=== PATIENT | female | born 2000 | race Caucasian/White ===

== ENCOUNTER 2022-07-30 08:26 | Emergency (ER) | payer SELFPAY ==
[2022-07-30 08:28] VITALS: BP 119/57; PULSE 63; RESP 16; TEMP 36.2; O2SAT 100
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
[2022-07-30 09:31] VITALS: BP 112/65; PULSE 72; RESP 20; O2SAT 100
== END 2022-07-30 09:33 | disposition home or self-care (01) ==
PROVIDERS: Emergency Provider Emergency Medicine
DX: T19.2XXA Foreign body in vulva and vagina, initial encounter (principal)
CPT/HCPCS: 99284

== ENCOUNTER 2024-04-09 11:42 | Emergency (ER) | payer MEDICAID, SELFPAY ==
[2024-04-09 11:44] VITALS: BP 107/81; PULSE 72; RESP 17; TEMP 36.5; O2SAT 100
--- NOTE | 2024-04-09 12:42 | ED.GENADULT ---
HPI - General Adult General Chief complaint: Nausea/Vomiting/Diarrhea Stated complaint: n/v, 9 weeks Time Seen by Provider: 04/09/24 12:01 History of Present Illness HPI narrative: This is a 23-year-old female at approximately weeks gestation presenting with nausea and vomiting in . Patient states that she frequently has nausea and vomiting has had go to the emergency room 4 times for fluid resuscitation. She intermittently takes all of her antiemetics with varying degrees of success. These include vitamin B6, doxylamine Zofran and Reglan. Patient denies fevers chills or diarrhea. Patient states she drinks 240 oz [place] per day. She denies any abdominal pain vaginal bleeding or discharge. She had an ultrasound earlier today confirming intrauterine and heart rate. Related Data Home Medications Medication Instructions Recorded Confirmed metoclopramide HCl 10 mg tablet mg 04/09/24 04/09/24 vitamin with calcium tablet 04/09/24 no.72-iron 27 mg-folic acid 1 mg tablet (WesTab Plus) pyridoxine (vitamin B6) 25 mg mg 04/09/24 tablet (Vitamin B-6) Allergies Allergy/AdvReac Type Severity Reaction Status Date / Time No Known Allergies Allergy Verified 04/09/24 12:26 [facility] Past Medical History Medical History (Updated 04/09/24 @ 14:06 by Ronaldo Adkins MD) No active medical problems Social History Social History (Updated 07/30/22 @ 09:23 by Tali Lauren PA-C) Smoking status: Never smoker Exam Narrative: APPEARANCE: No apparent distress. Very well-appearing, in good spirits Head: atraumatic. Moist mucous membranes EYES: EOMI, NOSE: Atraumatic NECK: Trachea midline RESPIRATORY: No increased rate of breathing clear to auscultation CARDIOVASCULAR: Not tachycardic ABDOMINAL: Non-distended soft nontender MUSCULOSKELETAl: No obvious deformities NEURO: Alert. Moving 4/4 extremities SKIN:: Warm, dry. Normal color PSYCHIATRIC: Normal affect Course Vital Signs Vital signs: Vital Signs Temperature 97.7 F 04/09/24 11:44 Pulse Rate 72 04/09/24 11:44 Respiratory Rate 17 04/09/24 11:44 Blood Pressure 107/81 04/09/24 11:44 Pulse Oximetry 100 04/09/24 11:44 Oxygen Delivery Room Air 04/09/24 11:44 Temperature 97.7 F 04/09/24 11:44 Pulse Rate 72 04/09/24 11:44 Respiratory Rate 17 04/09/24 11:44 Blood Pressure 107/81 04/09/24 11:44 Pulse Oximetry 100 04/09/24 11:44 Oxygen Delivery Room Air 04/09/24 11:44 Medical Decision Making MDM Narrative Medical decision making narrative: -Course: 23-year-old female presenting with nausea/vomiting . She is requesting IV fluids and Reglan and Benadryl. These were provided. Patient was given more prescriptions for antiemetics and encouraged to use them. Your indicative of infection. Treated with Keflex. Patient discharged with OBGYN follow-up. -DDX includes but is not limited to: Nausea and vomiting of , hyperemesis gravidarum, -Co-morbidities complicating care: -Independent interpretation of studies: Labs reviewed. Urine with +3 ketones, +3 glucose, 11-20 white blood cells and +1 leuk esterase. Patient be treated for UTI. -Interventions: 2 L D5 LR, Reglan, Benadryl -Shared decision making / Disposition: Discharged -RX: Rectal Phenergan, Keflex Vital Signs Vital Signs: Vital Signs Temperature 97.7 F 04/09/24 11:44 Pulse Rate 72 04/09/24 11:44 Respiratory Rate 04/09/24 11:44 Blood Pressure 107/81 04/09/24 11:44 Pulse Oximetry 100 04/09/24 11:44 Oxygen Delivery Room Air 04/09/24 11:44 Temperature 97.7 F 04/09/24 11:44 Pulse Rate 72 04/09/24 11:44 Respiratory Rate 04/09/24 11:44 Blood Pressure 107/81 04/09/24 11:44 Pulse Oximetry 100 04/09/24 11:44 Oxygen Delivery Room Air 04/09/24 11:44 Lab Data 04/09/24 12:51 04/09/24 12:51 Labs:
[2024-04-09 13:00] LABS: Basophils Percent Auto 0.3 % (0.2-1.2); Eosinophils Percent Auto 0.2 % (0-4.4); Hemoglobin 13.6 g/dL (12.0-15.0); Immature Granulocyte Absolute 0.05 K/mm3 (0.00-0.031); Immature Granulocyte Percent A 0.5 % (0-0.5); Lymphocytes Absolute Auto 1.62 K/mm3 (0.9-3.2); Lymphocytes Percent Auto 16.8 % (18.3-44.2); Mean Corpuscular Hemoglobin 29.6 pg (26-34); Mean Platelet Volume 10.2 fl (7.4-10.4); Monocytes Absolute Auto 0.6 K/mm3 (0.1-0.6); Monocytes Percent Auto 5.7 % (2.6-8.5); Neutrophils Absolute Auto 7.4 K/mm3 (1.3-6.7); Neutrophils Percent Auto 76.5 % (45.5-73.1); Platelet Count Result 246 k/mm3 (150-375); Red Cell Distribution Width 12.6 % (11.5-14.5); White Blood Count 9.6 K/mm3 (4.5-10.0)
[2024-04-09] MEDS: DEXTROSE 5%/LACTATED RINGERS 2,000 ML 999 ML IV CONT (13:00)
[2024-04-09] MEDS: diphenhydrAMINE HCl INJ 50 MG/ML VIAL 25 MG IV PUSH (13:01)
[2024-04-09] MEDS: PROCHLORPERAZINE EDISYLATE 10 MG/2 ML VIAL IV PUSH (13:01)
[2024-04-09 13:10] LABS: Alanine Aminotransferase 23 U/L (6-35); Albumin Level 4.6 g/dL (3.5-5.1); Alkaline Phosphatase 42 U/L (38-126); Anion Gap 12 mmol/L (4-12); Aspartate Amino Transferase 25 U/L (14-36); Bilirubin,Total 0.5 mg/dL (0.2-1.3); Blood Urea Nitrogen 8 mg/dL (7-17); Calcium 9.4 mg/dL (8.4-10.2); Carbon Dioxide 23 mmol/L (22-30); Chloride 98 mmol/L (98-107); Estimated CRCL calculation 140 ml/min; Estimated Glomerular Filt Rate > 60; Glucose 86 mg/dL (65-110); Potassium 4.2 mmol/L (3.4-5.0); Sodium 133 mmol/L (137-145)
[2024-04-09 13:52] LABS: Add Urine Microscopic? YES; Appearance Urine Cloudy (Clear); Bacteria Urine 1+ /hpf; Bilirubin Urine Negative (Negative); Blood Urine Negative (Negative); Color Urine Yellow (Yellow); Glucose Urine UA 3+ mg/dL (Negative); Ketones Urine 3+ mg/dL (Negative); Leukocyte Esterase Ur 1+ LEU/UL (Negative); Need Manual Microscopic Reviewed; Nitrate Urine Negative (Negative); Non Pathogenic Casts 0-2; Protein Urine Trace mg/dL (Negative); RBC Urine 0-2 /hpf (0-2); Specific Grav Ur 1.028 (1.001-1.035); Squamous Epithelial Cell Urine Many /hpf (Few); Urobilinogen Urine 0.2 mg/dL (<2.0)
[2024-04-09 14:20] VITALS: BP 114/63; PULSE 76; RESP 16; O2SAT 100
== END 2024-04-09 14:20 | disposition home or self-care (01) ==
PROVIDERS: Emergency Provider Emergency Medicine
DX: O21.9 Vomiting of pregnancy, unspecified (principal); O23.41 Unspecified infection of urinary tract in pregnancy, first trimester; N39.0 Urinary tract infection, site not specified; Z3A.09 9 weeks gestation of pregnancy
CPT/HCPCS: 36415; 80053; 81001; 85025; 87086; 87088; 96361; 96374; 96375; 99284; J0780; J1200; J7121

== ENCOUNTER 2024-08-24 17:11 | Observation (INO) | payer OTHER, SELFPAY ==
[2024-08-24 17:37] VITALS: BP 112/54; PULSE 72
[2024-08-24 17:49] LABS: Add Urine Microscopic? YES; Appearance Urine Turbid (Clear); Bacteria Urine 1+ /hpf; Bilirubin Urine Negative (Negative); Blood Urine 3+ (Negative); Color Urine Dark Yellow (Yellow); Glucose Urine UA Negative (Negative); Ketones Urine 1+ mg/dL (Negative); Leukocyte Esterase Ur 1+ LEU/UL (Negative); Nitrate Urine Negative (Negative); Protein Urine 1+ mg/dL (Negative); RBC Urine >100 /hpf (0-2); Specific Grav Ur 1.023 (1.001-1.035); Squamous Epithelial Cell Urine Many /hpf (Few); Urobilinogen Urine 0.2 mg/dL (<2.0); WBC Urine 21-50 /hpf (0-3); pH Urine 6.5 (5.0-9.0)
--- NOTE | 2024-08-24 17:53 | OBADM ---
This patient, Tawny Nicholas, admitted to the OB room OB Post 117 for observation. Patient/family oriented to hospital policies and general routines including ID bracelet, bed and alarms, visiting hours, pain management, procedures, bathroom and other care routines, personal items, smoking policy, room service/diet, and visiting hours. Patient/Family are encouraged to report perceived risks to care and to ask questions if they do not understand what they are told or what they should do.
[2024-08-24 18:01] VITALS: BP 110/66; PULSE 67
[2024-08-24 18:10] VITALS: TEMP 36.4
[2024-08-24] MEDS: SULFAMETHOXAZOLE/TRIMETHOPRIM 800/160 MG DS TABLET 1 TAB PO (18:59)
--- NOTE | 2024-08-25 12:49 | P.PNOB_ITS ---
OB - Triage/Final Diagnosis Visit Information Comments/Additional reasons for admission: I have assessed the risk for this patient, Tawny Nicholas, and determined that she would benefit from observation care. Evaluation Laboratory results: Laboratory Tests 08/24/24 17:37 Urine Color Dark yellow Urine Appearance Turbid H Urine pH 6.5 Ur Specific [place] 1.023 Urine Protein 1+ H Urine Glucose (UA) Negative Urine Ketones 1+ H Ur Blood (Man) 3+ H Urine Nitrate Negative Urine Bilirubin Negative Urine Urobilinogen 0.2 Leukocyte Esterase Rfl 1+ H Urine RBC >100 H Urine WBC 21-50 H Ur Squamous Epith Cells Many H Urine Bacteria 1+ H Urine Casts 3-5 Vital signs: Vital Signs - 24 hr 08/24/24 17:37 08/24/24 18:01 08/24/24 18:10 Temperature 97.5 F L Pulse Rate 72 67 Blood Pressure 112/54 L 110/66 Final Diagnosis (1) UTI (urinary tract infection): Code(s): N39.0 - Urinary tract infection, site not specified Status: Inactive
--- OUTSIDE RECORDS SUMMARY | 2024-08-29 16:50 | XMS_ITS | Clinical Summary ---
Author Organization [facility] Address [facility] [facility] [place] [address] Care Team Providers Care Stem Shaper Name Role Phone Unavailable Primary Care Provider Unavailabl e Source Comments [facility],non-owned Affiliates and Associated Physician Practices is amultiple site organization consisting of ambulatory clinics and hospital sitesin [place], [place], [place] and [place]. This disclosure is being madepursuant to the Care Everywhere program and may not contain all information available regarding this patient. Last updated 18.[facility] [employer] Allergies No known active allergies Social History Tobacco Use Types Packs/Day Years Used Date Smoking Tobacco: Never Assessed Sex and Gender Information Value Date Recorded Sex Assigned at Not on file Gender Identity Not on file Sexual Orientation Not on file Last Filed Vital Signs Vital Sign Reading Time Taken Comments Blood Pressure 135/71 10/06/2021 8:57 AM DRY CLEANER PRESSER Pulse 75 10/06/2021 8:57 AM DRY CLEANER PRESSER Temperature 36.7 ??C (98 ??F) 10/06/2021 8:57 AM DRY CLEANER PRESSER Respiratory Rate 14 10/06/2021 8:57 AM DRY CLEANER PRESSER Oxygen Saturation 98% 10/06/2021 8:57 AM DRY CLEANER PRESSER Inhaled Oxygen Concentration - - Weight 131.5 kg (290 lb) 10/06/2021 8:57 AM DRY CLEANER PRESSER Height 170.2 cm (5' 7 ) 10/06/2021 8:57 AM DRY CLEANER PRESSER Body Mass Index 45.42 10/06/2021 8:57 AM DRY CLEANER PRESSER Plan of Treatment Health Maintenance Due Date Last Done Comments PAP SMEAR 2000 HIV SCREENING 2015 HPV VACCINE (1 - 3-dose series) 2015 CHLAMYDIA/GONORRHEA SCREENING 2016 HEPATITIS C SCREENING 08/27/2018 DTAP/TDAP/TD VACCINES (1 - Tdap) 2019 HEPATITIS B VACCINE (1 of 3 - 19+ 3-dose series) 2019 DEPRESSION SCREENING 09/10/2023 COVID-19 VACCINE (1 - 2023-2 5 season) 2024 INFLUENZA VACCINE (#1) 2024 06/22/2014 ZOSTER VACCINE (1 of 2) 2050 HIB VACCINE Aged Out No longer eligi ble based on patient's age to complete this topic MENINGOCOCCAL VACCINE Aged Out No kait jeronimo eligible based on patient's age to complete this topic PNEUMOCOCCAL VACCINE Aged Out No long er eligible based on patient's age to complete this topic
--- OUTSIDE RECORDS SUMMARY | 2024-08-29 16:50 | XMS_ITS | Referral Summary ---
Author Organization [facility] Address [address] [place] [address] Care Team Providers Care Prosthetic Dentist Name Role Phone Unavailable Primary Care Provider Unavailabl e Source Comments [facility],non-owned Affiliates and Associated Physician Practices is amultiple site organization consisting of ambulatory clinics and hospital sitesin [place], [place], [place] and [place]. This disclosure is being madepursuant to the Care Everywhere program and may not contain all information available regarding this patient. Last updated 18.[facility] [employer] Allergies No known active allergies Social History Tobacco Use Types Packs/Day Years Used Date Smoking Tobacco: Never Assessed Sex and Gender Information Value Date Recorded Sex Assigned at Not on file Gender Identity Not on file Sexual Orientation Not on file Last Filed Vital Signs Vital Sign Reading Time Taken Comments Blood Pressure 135/71 10/06/2021 8:57 AM WORK MANAGER Pulse 75 10/06/2021 8:57 AM WORK MANAGER Temperature 36.7 ??C (98 ??F) 10/06/2021 8:57 AM WORK MANAGER Respiratory Rate 14 10/06/2021 8:57 AM WORK MANAGER Oxygen Saturation 98% 10/06/2021 8:57 AM WORK MANAGER Inhaled Oxygen Concentration - - Weight 131.5 kg (290 lb) 10/06/2021 8:57 AM WORK MANAGER Height 170.2 cm (5' 7 ) 10/06/2021 8:57 AM WORK MANAGER Body Mass Index 45.42 10/06/2021 8:57 AM WORK MANAGER Plan of Treatment Not on file
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
--- OUTSIDE RECORDS SUMMARY | 2024-08-29 16:50 | XMS_ITS | Patient Health Summary ---
Author Organization [facility] Address [address] [place] [address] Care Team Providers Care Business Account Leader Name Role Phone Unavailable Primary Care Provider Unavailabl e Note from [facility],non-owned Affiliates and Associated Physician Practices is amultiple site organization consisting of ambulatory clinics and hospital sitesin [place], [place], [place] and [place]. This disclosure is being madepursuant to the Care Everywhere program and may not contain all information available regarding this patient. Last updated 18.[facility] Allergies No known active allergies Social History Tobacco Use Types Packs/Day Years Used Date Smoking Tobacco: Never Assessed Sex and Gender Information Value Date Recorded Sex Assigned at Not on file Gender Identity Not on file Sexual Orientation Not on file Last Filed Vital Signs Vital Sign Reading Time Taken Comments Blood Pressure 135/71 10/06/2021 8:57 AM MANAGER TECHNICAL TRAINING Pulse 75 10/06/2021 8:57 AM MANAGER TECHNICAL TRAINING Temperature 36.7 ??C (98 ??F) 10/06/2021 8:57 AM MANAGER TECHNICAL TRAINING Respiratory Rate 14 10/06/2021 8:57 AM MANAGER TECHNICAL TRAINING Oxygen Saturation 98% 10/06/2021 8:57 AM MANAGER TECHNICAL TRAINING Inhaled Oxygen Concentration - - Weight 131.5 kg (290 lb) 10/06/2021 8:57 AM MANAGER TECHNICAL TRAINING Height 170.2 cm (5' 7 ) 10/06/2021 8:57 AM MANAGER TECHNICAL TRAINING Body Mass Index 45.42 10/06/2021 8:57 AM MANAGER TECHNICAL TRAINING Procedures * HCG URINE QUAL POCT NOTIFICATION(Performed 10/06/2021) * SARS-COV-2 (COVID-19) IN HOUSE(Performed 07/28/2020) * SARS-COV-2 (COVID-19) IN HOUSE(Performed 04/14/2020) * SARS-COV-2 (COVID-19) IN HOUSE(Performed 03/29/2020) Results * HCG URINE QUAL POCT NOTIFICATION (10/06/2021 10:32 AM MANAGER TECHNICAL TRAINING) Comment Notification Label Only - See Separate Report 10/06/2021 10:32 AM MANAGER TECHNICAL TRAINING [facility] Urine URINE / Unknown 2 9:17 AM MANAGER TECHNICAL TRAINING Alia Gill MD LAB - URINALYSIS ORD ERABLES [facility] [address] [place], [place] [id number] * SARS-COV-2 (COVID-19) IN HOUSE (07/28/2020 4:45 PM MANAGER TECHNICAL TRAINING) Only the most recent of3 resultswithin the time period is included. COVID-19 PCR Not detected Not detected 07/31/2020 6:11 AM MANAGER TECHNICAL TRAINING [facility] MICROBIOLOGY Microbiology SPECIMEN FROM NASOPHARYNGEAL STRUCTURE / Unknown Collection / Unknown 07/28/2020 4:45 PM MANAGER TECHNICAL TRAINING 07/29/2020 1:59 PM MANAGER TECHNICAL TRAINING Narrative [facility] - 07/31/2020 6:11 AM MANAGER TECHNICAL TRAINING This Real Time RT-PCR assay was developed and its performance characteristics determined by [facility]. This test has been authorized by the Food and Drug administration (FDA)under an Emergency Use Authorization (EUA). This test has been validated in accordance with the FDA's guidance document Policy for Diagnostic Testing in Laboratories Certified to perform High Complexity Testing under CLIA prior to Emergency Use Authorization for Coronavirus Disease-2019 during the Public Health Emergency issued on November 08, 2019. FDA independent review of this validation is pending. This test is only authorized for the duration of time the declaration that circumstances exist justifying the authorization of emergency use of in vitro diagnostic tests for detection of SARS-CoV-2 virus and/or diagnosis of COVID-19 infection under section 564(b)(1) of the Act, 21 U.S.C 360bbb-3 (b)(1), unless the authorization is terminated or revoked sooner. Fact Sheets for this EUA assay are available upon request. LAB - MICROBIOLOGY O RDERABLES [facility] [address] [place] [address], [facility] [phone]
--- OUTSIDE RECORDS SUMMARY | 2024-08-29 16:50 | XMS_ITS | Encounter Summary ---
Author Organization [facility] Address [address] [place], [place] [address] [address] Care Team Providers Care Manager Shift Name Role Phone Unavailable Primary Care Provider Unavailabl e Encounter Details Date Type Department Care Team (Late st Contact Info) Description 04/14/2020 Lab Requisition [facility] [address] [place] [address] Social History Tobacco Use Types Packs/Day Years Used Date Smoking Tobacco: Never Assessed Sex and Gender Information Value Date Recorded Sex Assigned at Not on file Gender Identity Not on file Sexual Orientation Not on file documented as of this encounter Plan of Treatment Not on file documented as of this encounter Procedures Procedure Name Priority Date/Time Associated Diagnosis Comments SARS-COV-2 (COVID-19) IN HOUSE Routine 04/14/2020 8:55 AM CDT documented in this encounter Results * SARS-COV-2 (COVID-19) IN HOUSE (04/14/2020 8:55 AM CDT) COVID-19 PCR Not detected Not detected, Invalid 04/17/2020 3:[address] [facility] MICROBIOLOGY Microbiology SPECIMEN FROM NASOPHARYNGEAL STRUCTURE / Unknown Collection / Unknown 04/14/2020 8:55 AM CDT 04/14/2020 6:[address] [facility]CRO[facility] - 04/17/2020 3:59 AM CDT This Real Time RT-PCR assay was developed and its performance characteristics determined by [facility]. This test has [...] the authorization is terminated or revoked sooner. LAB - MICROBIOLOGY O RDERABLES [facility]CRO[facility] [address] [place] [address], [facility] [phone] documented in this encounter Visit Diagnoses Not on filedocumented in this encounter Additional Health Concerns Infection Onset Date Last Indicated Resolved Time COVID-19 Under Investigation 04/14/2020 04/14/2020 04/17/2020 3:59 AM CDT COVID-19 Under Investigation 07/28/2020 07/28/2020 07/31/2020 6:11 AM ORTHODONTIC LAB TECHNICIAN documented as of this encounter
--- OUTSIDE RECORDS SUMMARY | 2024-08-29 16:50 | XMS_ITS | Encounter Summary ---
Author Organization [facility] Address [address] [place], [place] [address] [address] Care Team Providers Care Assistant Health Educator Name Role Phone Unavailable Primary Care Provider Unavailabl e Encounter Details Date Type Department Care Team (Late st Contact Info) Description 07/29/2020 Lab Requisition [facility] [address] [place] [address] Social History Tobacco Use Types Packs/Day Years [...] Diagnosis Comments SARS-COV-2 (COVID-19) IN HOUSE Routine 07/28/2020 4:45 PM PIE FILLING MIXER documented in this encounter Results * SARS-COV-2 (COVID-19) IN HOUSE (07/28/2020 4:45 PM PIE FILLING MIXER) COVID-19 PCR Not detected Not detected 07/31/2020 6:11 AM PIE FILLING MIXER [facility] MICROBIOLOGY Microbiology SPECIMEN FROM NASOPHARYNGEAL STRUCTURE / Unknown Collection / Unknown 07/28/2020 4:45 PM PIE FILLING MIXER 07/29/2020 1:59 PM PIE FILLING MIXER Narrative [facility]CROBI[facility] - 07/31/2020 6:11 AM PIE FILLING MIXER This Real Time RT-PCR assay was developed and its performance characteristics determined by [facility]. This test has been [...] upon request. LAB - MICROBIOLOGY O RDERABLES [facility]CRO[facility] [address] [place] [address], [facility] [phone] documented in this encounter Visit Diagnoses Not on filedocumented in this encounter Additional Health Concerns Infection Onset Date Last Indicated Resolved Time COVID-19 Under Investigation 07/28/2020 07/28/2020 07/31/2020 6:11 AM PIE FILLING MIXER documented as of this encounter
--- OUTSIDE RECORDS SUMMARY | 2024-08-29 16:50 | XMS_ITS | Encounter Summary ---
Author Organization [facility] Address [address] [place], [place] [address] [address] Care Team Providers Care Psychological Anthropologist Name Role Phone Unavailable Primary Care Provider Unavailabl e Encounter Details Date Type Department Care Team (Late st Contact Info) Description 03/29/2020 Lab Requisition [facility] [address] [place] [address] Social History Tobacco Use Types Packs/Day Years [...] Diagnosis Comments SARS-COV-2 (COVID-19) IN HOUSE Routine 03/29/2020 8:10 AM CDT documented in this encounter Results * SARS-COV-2 (COVID-19) IN HOUSE (03/29/2020 8:10 AM CDT) COVID-19 PCR Not detected Not detected, Invalid 03/30/2020 6:18 AM CDT [facility] Microbiology SPECIMEN FROM NASOPHARYNGEAL STRUCTURE / Unknown Collection / Unknown 03/29/2020 8:10 AM CDT 03/30/2020 2:17 AM CDT Narrative [facility] - 03/30/2020 6:18 AM CDT This Real Time RT-PCR assay was developed and its performance characteristics determined by [facility]. This test has been authorized [...] revoked sooner. LAB - MICROBIOLOGY O RDERABLES [facility] MICRO[facility] [address] [address], [facility] [phone] documented in this encounter Visit Diagnoses Not on filedocumented in this encounter Additional Health Concerns Infection Onset Date Last Indicated Resolved Time COVID-19 Under Investigation 03/29/2020 03/29/2020 03/30/2020 6:18 AM CDT COVID-19 Under Investigation 04/14/2020 04/14/2020 04/17/2020 3:59 AM CDT COVID-19 Under Investigation 07/28/2020 07/28/2020 07/31/2020 6:11 AM FORMING MACHINE UPKEEP MECHANIC HELPER documented as of this encounter
--- OUTSIDE RECORDS SUMMARY | 2024-08-29 16:51 | XMS_ITS | Encounter Summary ---
Author Organization [facility] Address [address] [place] [address] Care Team Providers Care Territory Sales Executive Name Role Phone No, Physician Primary Care Provider [phone] Reason for Visit * Reason Comments Cough Encounter Details Date Type Department Care Team ([facility] Contact Info) Description 02/06/2022 11:43 PM CDT - 02/07/2022 12:15 AM CDT Emergency [facility] Emergency Department [address] [place] [id number] Cough (Primary Dx); Bronchitis Discharge Disposition: Discharge to home or self care Social History Tobacco Use Types Packs/Day Years Used Date Smoking Tobacco: Never Smokeless Tobacco: Never Comments Unknown Sex and Gender Information Value Date Recorded Sex Assigned at Not on file Legal Sex Female 11:54 AM SYSTEMS INTEGRATOR Gender Identity Not on file Sexual Orientation Not on file documented as of this encounter Last Filed Vital Signs Vital Sign Reading Time Taken Comments Blood Pressure 104/71 02/06/2022 10:16 PM CDT Pulse 89 02/06/2022 10:16 PM CDT Temperature 36.8 ??C (98.3 ??F) 02/06/2022 10:16 PM C DT Respiratory Rate 18 02/06/2022 10:16 PM CDT Oxygen Saturation 97% 02/06/2022 10:16 PM CDT Inhaled Oxygen Concentration - - Weight 89.9 kg (198 lb 3.1 oz) 02/06/2022 10:12 PM CDT Height 170.2 cm (5' 7 ) 02/06/2022 10:16 PM CDT Body Mass Index 31.04 02/06/2022 10:12 PM CDT documented in this encounter Discharge Instructions * Discharge Instructions* Amber Richter PA - 02/07/2022 12:17 AM CDT Please continue steroid and zpack prescribed during previous ED visit. You can continue tessalon perles as needed for cough as well as over the counter cough medications/lozenges. Please follow-up with your primary care provider for persistent issues. If you do not have a primary care provider, information for a PCP is provided in your discharge paperwork. * Attachments The following attachments cannot be sent through Care Everywhere. * Acute Cough (AfterCare(R) Instructions(ER/ED)) (Tongan) documented in this encounter Medications at Time of Discharge albuterol HFA (PROVENTIL HFA,VENTOLIN HFA,PROAIR HFA) 90 mcg/actuation inhaler Inhale 2 puffs every 4 (four) hours as needed for wheezing 18 g 02/03/2022 06/07/2022 azithromycin (Zithromax Z-Magdaleno) 250 mg tablet Take 1 tablet (250 mg total) by mouth daily Take first 2 tablets together, then 1 every day until finished. 6 tablet 02/03/2022 08/06/2022 benzonatate (TESSALON) 100 mg capsuleIndicatio ns:Cough Take 1 capsule (100 mg total) by mouth every 8 (eight) hours 21 capsule 02/03/2022 06/07/2022 predniSONE (DELTASONE) 10 mg tablet Take 0.5 tablets (5 mg) by mouth daily 5 tablet 02/03/2022 06/07/2022 documented as of this encounter Discharge Disposition Disposition Code Departure Means Destination Discharge to home or self care documented in this encounter ED Notes * Amber Richter PA - 02/07/2022 12:15 AM CDT HPI Chief Complaint Patient presents with ??? Cough HPI 12:59 AM Tawny Nicholas is a 21 y.o. female presenting to the ED c/o cough. Patient states that she began experiencing cough 4-5 days ago and has history of frequent episodes of bronchitis. Patient was seen in the ED for this 4 days ago on 02/03. Discharge home with steroid, Medrol Dosepak, TessalonPerles which she has been taking. States that she is now having increased coughing fits and wanted to make sure that she does not have pneumonia. She has been taking oirf-etq-nebtgse cough lozenges as well for cough. Denies fever. No known sick contacts. Smokes cannabis daily but not cigarettes. Denies history of asthma or underlying lung disease. Patient History: Past Medical History: Diagnosis Date ??? Asthma ??? GERD (gastroesophageal reflux disease) No past surgical history on file. Family History Problem Relation Age of Onset ??? Lupus Paternal Grandmother ??? Melanoma Paternal Grandmother ??? Diabetes Paternal Grandfather Social History Tobacco Use ??? Smoking status: Never Smoker ??? Smokeless tobacco: Never Used Substance Use Topics ??? Drug use: Yes Frequency: 21.0 times per week Types: Marijuana No current facility-administered medications for this encounter. Current Outpatient Medications: ??? albuterol HFA (PROVENTIL HFA,VENTOLIN HFA,PROAIR HFA) 90 mcg/actuation inhaler ??? azithromycin (Zithromax Z-Magdaleno) 250 mg tablet ??? benzonatate (TESSALON) 100 mg capsule ??? predniSONE (DELTASONE) 10 mg tablet Review of Systems Review of Systems Constitutional: Negative for fever. Respiratory: Positive for cough. Negative for shortness of breath. Cardiovascular: Negative for chest pain. Gastrointestinal: Negative for abdominal pain, nausea and vomiting. Neurological: Negative for headaches. All systems reviewed and are neg or non contributory for this patients presentation today other than as stated in the HPI . Physical Exam ED Triage Vitals Temp Pulse Resp BP SpO2 02/06/22221502/06/22221502/06/22221502/06/22221502/06/222215 36.8 ??C (98.3 ??F) 89 18 104/71 97 % Temp src Heart Rate Source Patient Position BP Location FiO2 (%) 02/06/222215 -- -- -- -- Oral Height Height Method Weight Weight Method 02/06/22221502/06/22221502/06/22221102/06/222211 1.702 m (5' 7 ) Stated 89.9 kg (198 lb 3.1 oz) Standing scale Physical Exam Vitals and nursing note reviewed. Constitutional: General: She is not in acute distress. Appearance: Normal appearance. She is well-developed. She is not toxic-appearing. HENT: Head: Normocephalic and atraumatic. Eyes: General: No scleral icterus. Conjunctiva/sclera: Conjunctivae normal. Cardiovascular: Rate and Rhythm: Normal rate and regular rhythm. Pulmonary: Effort: Pulmonary effort is normal. No respiratory distress. Breath sounds: Normal breath sounds. No stridor. No wheezing. Abdominal: Palpations: Abdomen is soft. Tenderness: There is no abdominal tenderness. Musculoskeletal: Cervical back: Neck supple. Right lower leg: No edema. Left lower leg: No edema. Skin: General: Skin is warm and dry. Neurological: Mental Status: She is alert and oriented to person, place, and time. Psychiatric: Mood and Affect: Mood normal. Behavior: Behavior normal. Procedures MDM Labs Reviewed INFLUENZA A/B, RSV, AND COVID-19 PCR Result Value COVID-19 RNA Negative Influenza A RNA Negative Influenza B RNA Negative RSV RNA Negative Narrative: Is the Patient experiencing symptoms consistent with COVID?->Yes Date of Symptom Onset->02/04/22 Reason for testing?->Symptomatic XR Chest Pa Lateral 2 Views Final Result BP 104/71 Pulse 89 Temp 36.8 ??C (98.3 ??F) (Oral) Resp 18 Ht 170.2 cm (5' 7 ) Wt 89.9 kg(198 lb 3.1 oz) LMP 01/12/2022 (Approximate) SpO2 97% BMI 31.04 kg/m?? MDM ?? COVID/flu/RSV all negative ?? Chest x-ray negative for acute cardiopulmonary process ?? Patient states that during previous episodes of bronchitis she has used family member's home nebulizer machine. Has not used nebulizer during most recent episode. Offered breathing treatment in the ED which patient politely declined. States that she just wanted to make sure that she did not have pneumonia. Will continue Z-Magdaleno and prednisone that was prescribed a few days ago as well as kvxe-vkg-jpjxfgk cough medications. This examination was transcribed using the [employer] voice recognition system without human sales and service consultant. In an effort to expedite patient care, this report has not been adjusted for typographical, grammatical, and syntax by a trained senior medical technologist. Close outpatient follow-up with a low threshold to return has been mandated , concerning symptoms have been emphasized in detail, and this patient expresses understanding Clinical Impression: Cough Bronchitis Amber Richter PA 02/07/22 0059 Cosigned by Cholo Lees DO at 02/07/2022 4:09 AM CDT * Goldie Singh RN - 02/06/2022 10:14 PM CDT States was seen couple days ago for the same, and diagnosed with Bronchitis. States told to return if got worse. States coughing so much that she is having shortness of breath. documented in this encounter Plan of Treatment Not on file documented as of this encounter Procedures Procedure Name Priority Date/Time Associated Diagnosis Comments XR CHEST PA LATERAL 2 VIEWS ED 02/06/2022 10:48 PM CDT INFLUENZA A/B, RSV, AND COVID-19 PCR Routine 02/06/2022 10:21 PM CDT documented in this encounter Results * XR Chest Pa Lateral 2 Views (02/06/2022 10:48 PM CDT) Anatomical Region Laterality Modality Body, Chest N/A Computed Radiogr aphy 02/06/2022 10:5 0 PM CDT Narrative 02/06/2022 10:51 PM CDT EXAM DESCRIPTION: ?? XR CHEST PA LATERAL 2 VIEWS REASON FOR STUDY: ?? cough ?? States was seen couple days ago for the same, and diagnosed with Bronchitis. States told to return if got worse. States coughing so much that she is having shortness of breath. ?? TECHNIQUE: ?? Frontal ??and lateral radiographic views of the chest acquired. COMPARISON: ?? 01/07/2021 FINDINGS: LUNGS/PLEURA: ?? No focal consolidation or pneumothorax. No pleural effusion. HEART/MEDIASTINUM: ?? Heart size is normal. Normal mediastinal and hilar contours. HARDWARE/LINES/TUBES: ?? None. BONES: ?? No acute findings. OTHER: ?? No other significant finding. IMPRESSION: ?? No acute cardiopulmonary abnormality. THIS IS AN ELECTRONICALLY VERIFIED FINAL REPORT 02/06/2022 10:51 PM - Electronically signed by ??Leandro Dacosta M.D. KT: MELANIE D: ??02/06/2022 10:51 PM T: ??02/06/2022 10:51 PM Report ID: [id number] Reading Location: ??[id number] Procedure Note Leandro Dacosta MD - 02/06/2022 EXAM DESCRIPTION: XR CHEST PA LATERAL 2 VIEWS REASON FOR STUDY: cough States was seen couple days ago for the same, and diagnosed withBronchitis. States told to return if got worse. States coughing so much that she ishaving shortness of breath. TECHNIQUE: Frontal and lateral radiographic views of the chestacquired. COMPARISON: 01/07/2021 FINDINGS: LUNGS/PLEURA: No focal consolidation or pneumothorax. Nopleural effusion. HEART/MEDIASTINUM: Heart size is normal. Normal mediastinal and hilar contours. HARDWARE/LINES/TUBES: None. BONES: No acute findings. OTHER: No other significant finding. IMPRESSION: No acute cardiopulmonary abnormality. THIS IS AN ELECTRONICALLY VERIFIED FINAL REPORT 02/06/2022 10:51 PM - Electronically signed by Leandro Dacosta M.D. KT: MELANIE Report ID: [id number] Reading Location: [id number] Amber [facility] IMG XR PROCEDURES Final Result * Influenza A/B, RSV, and COVID-19 PCR Nasopharyngeal (02/06/2022 10:21 PM CDT) COVID-19 RNA Negative Negative [facility] Comment:Testing performed by : [address] [address] Influenza A RNA Negative Negative [facility] Comment:Testing performed by : [address] [address] Influenza B RNA Negative Negative [facility] Comment:Testing performed by : [address] [address] RSV RNA Negative Negative [facility] Comment: Interpretive data: This test is performed using the [employer] Xpert Xpress CoV-2/Flu/RSV plus assay. This is a multiplex, real-time reverse transcriptase PCR assay intended for the qualitative detection of nucleic acid from SARS-CoV-2, influenza A, influenza B, and respiratory syncytial virus. This assay has been reviewed by the FDA for Emergency Use Authorization (EUA). The performance characteristics have been verified by the performing laboratory. Results must be considered in the clinical context, and a negative result does not rule out infection. Interpretive Data last revised 2021. Testing performed by: [address] [address] Nasopharyngeal 02/06/2022 10 :21 PM CDT 02/06/2022 10:23 PM CDT Narrative [facility] - 02/06/2022 11:03 PM CDT Is the Patient experiencing symptoms consistent with COVID?->Yes Date of Symptom Onset->02/04/22 Reason for testing?->Symptomatic us Amber [facility] MICROBIOLOGY - GENERAL ROSEMARIE BROCK Final Result [facility] [address] [facility] Department [place] [address] documented in this encounter Visit Diagnoses Diagnosis Cough- Primary Bronchitis Bronchitis, not specified as acute or chronic documented in this encounter Care Teams Territory Sales Executive Relationship Specialty Start Date End Date No, Physician PCP - General 12/30/20 documented as of this encounter
--- OUTSIDE RECORDS SUMMARY | 2024-08-29 16:51 | XMS_ITS | Encounter Summary ---
Author Organization [facility] Healthcare Address [address] [place] [address] Care Team Providers Care Wood Machinist Name Role Phone No, Physician Primary Care Provider [phone] Reason for Visit * Reason Comments Abdominal Cramping Vaginal Bleeding Encounter Details Date Type Department Care Team (Late st Contact Info) Description 06/03/2021 5:17 PM CDT - 06/03/2021 9:08 PM CDT Emergency [facility] Emergency Department [id number] [place] [id number] Dysmenorrhea (Primary Dx); Menorrhagia with irregular cycle Discharge Disposition: Discharge to home or self care Social History Tobacco Use Types Packs/Day Years Used Date Smoking Tobacco: Never Smokeless Tobacco: Never Comments Unknown Sex and Gender Information Value Date Recorded Sex Assigned at Not on file 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 Gender Identity Not on file Sexual Orientation Not on file documented as of this encounter Last Filed Vital Signs Vital Sign Reading Time Taken Comments Blood Pressure 112/76 06/03/2021 9:01 PM CDT Pulse 71 06/03/2021 9:02 PM CDT Temperature 36.5 ??C (97.7 ??F) 06/03/2021 4:54 PM CD T Respiratory Rate 14 06/03/2021 9:01 PM CDT Oxygen Saturation 95% 06/03/2021 9:02 PM CDT Inhaled Oxygen Concentration - - Weight 131.5 kg (290 lb) 06/03/2021 4:54 PM CDT Height - - Body Mass Index 45.42 01/07/2021 4:10 AM CDT documented in this encounter Discharge Diagnoses Diagnosis Dysmenorrhea, unspecified - DYSMENORRHEA, UNSPECIFIED Excessive and frequent menstruation with regular cycle - EXCESSIVE AND FREQUENT MENSTRUATION WITH REGULAR CYCLE Unspecified asthma, uncomplicated - UNSPECIFIED ASTHMA, UNCOMPLICATED Gastro-esophageal reflux disease without esophagitis - GASTRO-ESOPHAGEAL REFLUX DISEASE WITHOUT ESOPHAGITIS documented in this encounter Discharge Instructions * Discharge Instructions* Tayler Harvey PA - 06/03/2021 9:03 PM CDT THERE WERE NO CONCERNING ABNORMALITIES ON YOUR LABS OR IMAGING TODAY. THIS DOES NOT MEAN THAT THEREIS NOTHING WRONG. EARLY IN A DISEASE PROCESS RESULTS MAY BE NORMAL OR ADDITIONAL TESTING MAY NEED TO BE PERFORMED AN OUTPATIENT FOR ADDITIONAL EVALUATION. BE SURE TO DRINK PLENTY OF FLUIDS TO STAY HYDRATED. PLEASE FOLLOW UP WITH YOUR PRIMARY CARE PROVIDER IF YOUR SYMPTOMS CONTINUE. RETURN TO THE EMERGENCY DEPARTMENT IF YOU HAVE CONTINUED HEAVY BLEEDING REQUIRING YOU TO CHANGE A PAD EVERY HOUR FOR MORE THAN 3 HOURS IN A ROW, IF YOU HAVE DIFFICULTY BREATHING, FEEL LIGHTHEADED OR FAINT, IF YOU HAVE CONTINUED VOMITING, SEVERE PAIN, OR OTHER NEW OR CONCERNING SYMPTOMS. * Attachments The following attachments cannot be sent through Care Everywhere. * Dysmenorrhea (AfterCare(R) Instructions(ER/ED)) (Swedish) * Menorrhagia (AfterCare(R) Instructions(ER/ED)) (Swedish) documented in this encounter Medications at Time of Discharge amoxicillin-clavulan ate (AUGMENTIN) 875-125 mg per tabletIndications:Pe riapical abscess Take 1 tablet by mouth every 12 (twelve) hours 14 tablet 12/30/2020 1 ondansetron ODT (ZOFRAN-ODT) 4 mg disintegrating tablet Dissolve 1-2 tablets oral every 8 hours as needed for nausea or vomiting. 15 tablet 06/03/2021 1 documented as of this encounter Ordered Prescriptions Prescription Sig Dispense Quantity Refills Last Filled Start Date End Date ondansetron ODT (ZOFRAN-ODT) 4 mg disintegrating tablet Dissolve 1-2 tablets oral every 8 hours as needed for nausea or vomiting. 15 tablet 06/03/2021 documented in this encounter Discharge Disposition Disposition Code Departure Means Destination Discharge to home or self care documented in this encounter ED Notes * Keiko Carroll RN - 06/03/2021 6:27 PM CDT 1824 pt arrived the ED with c/o abdominal cramping started today 05/20. Started pt on IV fluids, IV medications given,pt's HCG negative. Pt waiting to see . 1926 stopped pt's iv fluids. Pt was given a turkey sandwich ok per 1943 pt states her pain is 5/10. Pt states she is feeling better. 2049 Pts IV removed and discharge instructions read to pt, pt had the opportunity to ask questions and all questions answered appropriately. Pt discharged with script for medication, pt left in stable condition. Keiko Carroll RN 06/03/212128 * Tayler Harvey PA - 06/03/2021 5:39 PM CDT HPI Chief Complaint Patient presents with ??? Abdominal Cramping ??? Vaginal Bleeding The patient is a 20-year-old female with history of asthma and GERD who presents with heavy vaginalbleeding beginning today. Rated 10/10. She has had nausea with 2 episodes of vomiting and feels lightheaded. Vaginal bleeding is heavy requiring her to change a pad every 30-60 minutes. She states that she often has heavy periods and bad cramping with her menstrual cycles, but today seems worse. She denies any syncope, shortness of breath, fever, or changes in bowel movements. Menstrual cycles are irregular, last was the beginning of April. She is not vaccinated against COVID. Patient History: There are no problems to display for this patient. Past Medical History: Diagnosis Date ??? Asthma ??? GERD (gastroesophageal reflux disease) History reviewed. No pertinent surgical history. Family History Problem Relation Age of Onset ??? Lupus Paternal Grandmother ??? Melanoma Paternal Grandmother ??? Diabetes Paternal Grandfather Social History Tobacco Use ??? Smoking status: Never Smoker ??? Smokeless tobacco: Never Used Substance Use Topics ??? Alcohol use: Not on file ??? Drug use: Yes Frequency: 21.0 times per week Types: Marijuana Social History Social History Narrative ??? Not on file Review of Systems Review of Systems Constitutional: Negative for chills and fever. HENT: Negative for congestion and sore throat. Eyes: Negative for pain and visual disturbance. Respiratory: Negative for cough and shortness of breath. Cardiovascular: Negative for chest pain and leg swelling. Gastrointestinal: Positive for nausea and vomiting. Negative for abdominal pain, constipation and diarrhea. Genitourinary: Positive for pelvic pain and vaginal bleeding. Negative for dysuria and frequency. Musculoskeletal: Negative for arthralgias and back pain. Skin: Negative for color change and rash. Neurological: Positive for light-headedness. Negative for seizures and syncope. All other systems reviewed and are negative. Physical Exam ED Triage Vitals Temp Pulse Resp BP SpO2 06/03/21 1654 06/03/21 1654 06/03/21 1654 06/03/21 1654 06/03/21 1654 36.5 ??C (97.7 ??F) 85 14 146/70 99 % Temp src Heart Rate Source Patient Position BP Location FiO2 (%) 06/03/21 1654 06/03/21 1829 06/03/21 1829 06/03/21 1829 -- Oral Monitor Sitting Left arm Physical Exam Vitals and nursing note reviewed. Constitutional: General: She is not in acute distress. Appearance: She is well-developed. HENT: Head: Normocephalic and atraumatic. Eyes: Extraocular Movements: Extraocular movements intact. Conjunctiva/sclera: Conjunctivae normal. Cardiovascular: Rate and Rhythm: Normal rate and regular rhythm. Heart sounds: Normal heart sounds. No murmur heard. No friction rub. No gallop. Pulmonary: Effort: Pulmonary effort is normal. No respiratory distress. Breath sounds: Normal breath sounds. No wheezing or rales. Abdominal: General: Bowel sounds are normal. Palpations: Abdomen is soft. Tenderness: There is abdominal tenderness in the right lower quadrant, suprapubic area and left lower quadrant. There is no guarding. Musculoskeletal: General: Normal range of motion. Cervical back: Normal range of motion and neck supple. Right lower leg: No edema. Left lower leg: No edema. Skin: General: Skin is warm and dry. Findings: No rash. Neurological: Mental Status: She is alert and oriented to person, place, and time. Psychiatric: Mood and Affect: Mood normal. Behavior: Behavior normal. MDM Medical Decision Making Differential Diagnosis or Management Options: Patient with history of menorrhagia and dysmenorrhea presents with heavier than normal vaginal bleeding and pelvic cramping more intense than typical with nausea and vomiting. He she is afebrile. Vital signs are stable. Abdomen is soft with diffuse lower abdominal tenderness. This is likely menorrhagia and dysmenorrhea macro typical cycles, but will assess for to rule out ectopic, check blood counts for anemia, and medicate for symptom control. Reviewed social history and family history w/patient. Reviewed previous records: Care everywhere Summarize previous history: EPIC chart review of previous visits. No previous ED encounters relatedto menstruation. ED Course as of Jun 06 1309 Time: 06/03 1833 Value: HCG, ur, POC: Negative Comment: (Reviewed) By: Tayler Harvey PA Time: 06/03 1833 Value: Hgb: 14.8 Comment: (Reviewed) By: Tayler Harvey PA Time: 06/03 2059 Comment: Patient feeling better, ate a sandwich without difficulty. Discussed return precautions. She verbalizes understanding and agrees with plan for discharge home. By: Tayler Harvey PA Final diagnoses: Dysmenorrhea Menorrhagia with irregular cycle Tayler Harvey PA 06/06/21 1309 * Tima Ornelas RN - 06/03/2021 4:51 PM CDT Patient presents to ED with complaints of heavy vaginal bleeding and abdominal cramping that started today. Patient states that this feels like her normal period, just worse . Patient has historically irregular periods. Endorses n/v/d that also started today. Intermittent lightheadedness. Denies syncope/near syncope. Ambulatory with steady gait. States she is changing my pad every 30-60 minutes . documented in this encounter Plan of Treatment Not on file documented as of this encounter Procedures Procedure Name Priority Date/Time Associated Diagnosis Comments POCT HCG, URINE STAT 06/03/2021 6:27 PM CDT EGFR STAT 06/03/2021 5:08 PM CDT DIFFERENTIAL AUTO STAT 06/03/2021 5:0 8 PM CDT CBC WITH AUTO DIFFERENTIAL STAT 06/03/2021 5:08 PM CDT MANUAL DIFFERENTIAL STAT 06/03/2021 5 :08 PM CDT BASIC METABOLIC PANEL STAT 06/03/2021 5:08 PM CDT documented in this encounter Results * POCT hCG, urine (06/03/2021 6:27 PM CDT) HCG, ur, POC Negative Lot Number [id number] QC Backgroud Clear Acceptable QC Control Line Acceptable Urine, catheterized 06/03/20 6:27 PM CDT Israel Maravilla MD POINT OF CARE TEST ORDERABLES Final Result * (ABNORMAL) Manual Differential (06/03/2021 5:08 PM CDT) Differential Auto [facility] Neutrophil abs 11.6(H) 1.7 - 6.5 K/cumm [facility] Imm gran abs 0.1 0.0 - 0.1 K/cumm [facility] Lymphocyte abs 1.9 0.8 - 3.3 K/cumm [facility] Monocyte abs 0.6 0.2 - 0.8 K/cumm [facility] Eosinophil abs 0.0 0.0 - 0.5 K/cumm [facility] Basophil abs 0.1 0.0 - 0.1 K/cumm [facility] Neutrophil pct 81.4 % [facility] Comment: Interpretive Data Percent cell count reference ranges are not reported, since discordance with absolute values may lead to misinterpretation of CBC data. Current Interpretive Data was last revised on 2017. Imm gran pct 0.4 % [facility] Comment: Interpretive Data Percent cell count reference ranges are not reported, since discordance with absolute values may lead to misinterpretation of CBC data. Current Interpretive Data was last revised on 2017. Lymphocyte pct 13.4 % [facility] Comment: Interpretive Data Percent cell count reference ranges are not reported, since discordance with absolute values may lead to misinterpretation of CBC data. Current Interpretive Data was last revised on 2017. Monocyte pct 4.3 % [facility] Comment: Interpretive Data Percent cell count reference ranges are not reported, since discordance with absolute values may lead to misinterpretation of CBC data. Current Interpretive Data was last revised on 2017. Eosinophil pct 0.1 % [facility] Comment: Interpretive Data Percent cell count reference ranges are not reported, since discordance with absolute values may lead to misinterpretation of CBC data. Current Interpretive Data was last revised on 2017. Basophil pct 0.4 % [facility] Comment: Interpretive Data Percent cell count reference ranges are not reported, since discordance with absolute values may lead to misinterpretation of CBC data. Current Interpretive Data was last revised on 2017. RBC morphology Consistent with RBC Indicies [facility] Platelet estimate Automated Count Confirmed [facility] Blood 06/03/2021 5:08 PM CDT 06/03/2021 5:11 PM CDT us Israel Maravilla MD LAB BLOOD ORDERABLES Final Res ult JOSE [facility] [id number] [facility]. [place] [address] * eGFR (06/03/2021 5:08 PM CDT) eGFR 113 mL/min/1.7 3 m2 [facility] Comment: Interpretive Data Reference Interval Normal ?>/= 90 mL/min/1.73m2 Mildly decreased* ? 60 - 89 mL/min/1.73m2 Mildly to moderately decreased ?45 - 59 mL/min/1.73m2 Moderately to severely decreased ??30 - 44 mL/min/1.73m2 Severely decreased ?15 - 29 mL/min/1.73m2 Kidney Failure ?< 15 ??mL/min/1.73m2 *Relative to young adult level Estimated glomerular filtration rate is determined by the CKD-EPI equation recommended by the National Kidney Foundation (KDIGO 2012 Clinical Practice Guideline for the Evaluation and Management of Chronic Kidney Disease. Kidney Intnl Suppl Sep 2012;3:1). The CKD-EPI equation should not be used for patients with unstable renal function and has not been validated in children and those over 70. Current interpretive data was last reviewed 2020 Blood 06/03/2021 5:08 PM CDT 06/03/2021 5:11 PM CDT us Israel Maravilla MD LAB BLOOD ORDERABLES Final Res ult [facility] [address] [place] [facility]. [place] [address] * (ABNORMAL) Differential, auto (06/03/2021 5:08 PM CDT) Neutrophil abs 11.6(H) 1.7 - 6.5 K/cumm [facility] Imm gran abs 0.1 0.0 - 0.1 K/cumm [facility] Lymphocyte abs 1.9 0.8 - 3.3 K/cumm [facility] Monocyte abs 0.6 0.2 - 0.8 K/cumm [facility] Eosinophil abs 0.0 0.0 - 0.5 K/cumm [facility] Basophil abs 0.1 0.0 - 0.1 K/cumm [facility] Neutrophil pct 81.4 % [facility] Comment: Interpretive Data Percent cell count reference ranges are not reported, since discordance with absolute values may lead to misinterpretation of CBC data. Current Interpretive Data was last revised on 2017. Imm gran pct 0.4 % [facility] Comment: Interpretive Data Percent cell count reference ranges are not reported, since discordance with absolute values may lead to misinterpretation of CBC data. Current Interpretive Data was last revised on 2017. Lymphocyte pct 13.4 % [facility] Comment: Interpretive Data Percent cell count reference ranges are not reported, since discordance with absolute values may lead to misinterpretation of CBC data. Current Interpretive Data was last revised on 2017. Monocyte pct 4.3 % [facility] Comment: Interpretive Data Percent cell count reference ranges are not reported, since discordance with absolute values may lead to misinterpretation of CBC data. Current Interpretive Data was last revised on 2017. Eosinophil pct 0.1 % [facility] Comment: Interpretive Data Percent cell count reference ranges are not reported, since discordance with absolute values may lead to misinterpretation of CBC data. Current Interpretive Data was last revised on 2017. Basophil pct 0.4 % [facility] Comment: Interpretive Data Percent cell count reference ranges are not reported, since discordance with absolute values may lead to misinterpretation of CBC data. Current Interpretive Data was last revised on 2017. Blood 06/03/2021 5:08 PM CDT 06/03/2021 5:11 PM CDT Israel Maravilla MD LAB BLOOD ORDERABLES Final Res ult [facility] [address] [facility] Department [place] [address] * (ABNORMAL) Basic metabolic panel (06/03/2021 5:08 PM CDT) Sodium 139 135 - 145 mmol/L [facility] Potassium, pl 4.3 3.3 - 4.9 mmol/L [facility] Chloride 103 97 - 110 mmol/L [facility] CO2 20(L) 22 - 32 mmol/L [facility] Anion gap 16(H) 2 - 15 mmol/L [facility] BUN 9 8 - 25 mg/dL [facility] Creatinine 0.76 0.60 - 1.10 mg/dL [facility] Glucose 88 70 - 199 mg/dL [facility] Comment: Interpretive Data Fasting glucose >/= 126 mg/dl is diagnostic for diabetes. ?? Fasting is defined as no caloric intake for at least 8 hours. Fasting glucose between 100 mg/dl to 125 mg/dl is diagnostic of prediabetes. In a patient with classic symptoms of hyperglycemia or hyperglycemic crisis, a random glucose >/= 200 mg/dl is diagnostic for diabetes. In the absence of unequivocal hyperglycemia, results should be confirmed by repeat testing. The classification and Diagnosis of Diabetes Diabetes Care 2017;40 (Suppl. 1):S11. Current interpretive data was last revised 2017. Calcium 9.9 8.5 - 10.3 mg/dL [facility] Blood 06/03/2021 5:08 PM CDT 06/03/2021 5:11 PM CDT Israel Maravilla MD LAB BLOOD ORDERABLES Final Res ult [facility] [address] [facility] [place] [address] * (ABNORMAL) CBC with auto differential (06/03/2021 5:08 PM CDT) WBC 14.3(H) 3.8 - 9.9 K/cumm [facility] Hgb 14.8 11.9 - 15.5 g/dL [facility] Hct 44.8 35.6 - 45.5 % [facility] Plt 308 150 - 400 K/cumm [facility] Comment:No clot detected in sample. MPV 11.2 9.1 - 12.[address] [address] RBC 5.41(H) 3.90 - 5.20 M/cumm [facility] MCV 82.8 81.3 - 96.[address] [address] MCH 27.4 27.1 - 33.[address] [address] MCHC 33.0 32.3 - 35.7 g/dL [facility] RDW CV 13.6 11.1 - 14.9 % [facility] RDW SD 40.4 35.7 - 48.[address] [facility] NRBC abs 0.00 0.00 - 0.01 K/cumm [facility] Blood (Blood, Venous) 06/03/2021 5:08 PM CDT 06/03/2021 5:11 PM CDT Israel Maravilla MD LAB BLOOD ORDERABLES Final Res ult [facility] [address] [facility] [employer] [place], [place] [id number] documented in this encounter Visit Diagnoses Diagnosis Dysmenorrhea- Primary Menorrhagia with irregular cycle documented in this encounter Administered Medications Inactive Administered Medications - up to 3 most recent administrations Medication Order MAR Action Action Date Dose Rate Site ketorolac (TORADOL) 15 mg/mL injection 15 mg 15 mg, intravenous, Once, On Sun06/03/21 at 1814, For 1 dose Given 06/03/2021 6:24 PM CDT 15 mg ondansetron (ZOFRAN) injection 4 mg 4 mg, intravenous, Administer over 2 Minutes, Once, On Sun06/03/21 at 1814, For 1 dose, Indications: Nausea and VomitingIndications:Nausea and Vomiting Given 06/03/2021 6:24 PM CDT 4 mg sodium chloride 0.9% bolus 1,000 mL 1,000 mL, intravenous, Once, On Sun06/03/21 at 1814, For 1 dose New Bag 06/03/2021 6:24 PM CDT 1,000 mL documented in this encounter Active and Recently Administered Medications Times are shown in CDT. Scheduled Medication Order 06/01/2021 06/02/2021 06/03/2021 ketorolac (TORADOL) 15 mg/mL injection 15 mg (COMPLETED) 15 mg, intravenous, Once, On Sun06/03/21 at 1814, For 1 dose 182 (Given - Provid er: Keiko Carroll RN) ondansetron (ZOFRAN) injection 4 mg (COMPLETED) 4 mg, intravenous, Administer over 2 Minutes, Once, On Sun06/03/21 at 1814, For 1 dose, Indications: Nausea and Vomiting 182 (Given - Provid er: Keiko Carroll RN) sodium chloride 0.9% bolus 1,000 mL (COMPLETED) 1,000 mL, intravenous, Once, On Sun06/03/21 at 1814, For 1 dose 1824 (New Bag - Prov ider: Keiko Carroll RN)1926 (Stopped - Provider: Keiko Carroll RN) documented in this encounter Orders Nursing Count Last Ordered Date First Orde red Date NURSING COMMUNICATION 1 06/03/2021 IV Count Last Ordered Date First Orde red Date SALINE LOCK IV 1 06/03/2021 documented in this encounter Care Teams Wood Machinist Relationship Specialty Start Date End Date No, Physician PCP - General 12/30/20 documented as of this encounter
--- OUTSIDE RECORDS SUMMARY | 2024-08-29 16:51 | XMS_ITS | Encounter Summary ---
Author Organization [facility] Healthcare Address [address] [place] [address] Care Team Providers Care Acute Care Physical Therapist Name Role Phone No, Physician Primary Care Provider [phone] Reason for Visit * Reason Comments Cough Encounter Details Date Type Department Care Team ([facility] st Contact Info) Description 02/03/2022 1:28 AM CDT - 02/03/2022 1:[address] 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 Gender Identity Not on file Sexual Orientation Not on file documented as of this encounter Last Filed Vital Signs Vital Sign Reading Time Taken Comments Blood Pressure 122/95 02/03/2022 1:35 AM CDT Pulse 85 02/03/2022 1:35 AM CDT Temperature 36.7 ??C (98 ??F) 02/03/2022 1:35 AM CDT Respiratory Rate 18 02/03/2022 1:35 AM CDT Oxygen Saturation 99% 02/03/2022 1:35 AM CDT Inhaled Oxygen Concentration - - Weight 92.7 kg (204 lb 5.9 oz) 02/03/2022 1:35 A M CDT Height 170.2 cm (5' 7 ) 02/03/2022 1:35 AM CDT Body Mass Index 32.01 02/03/2022 1:35 AM CDT documented in this encounter Discharge Instructions * Attachments The following attachments cannot be sent through Care Everywhere. * Acute Cough (AfterCare(R) Instructions(ER/ED)) (Thai) documented in this encounter Medications at Time [...] 02/03/2022 06/07/2022 documented as of this encounter Ordered Prescriptions Prescription Sig Dispense Quantity Refills Last Filled Start Date End Date benzonatate (TESSALON) 100 mg capsuleIndications :Cough Take 1 capsule (100 mg total) by mouth every 8 (eight) hours 21 capsule 02/03/2022 2 predniSONE (DELTASONE) 10 mg tablet Take 0.5 tablets (5 mg) by mouth daily 5 tablet 02/03/2022 2 albuterol HFA (PROVENTIL HFA,VENTOLIN HFA,PROAIR HFA) 90 mcg/actuation inhaler Inhale 2 puffs every 4 (four) hours as needed for wheezing 18 g 02/03/2022 2 azithromycin (Zithromax Z-Magdaleno) 250 mg tablet Take 1 tablet (250 mg total) by mouth daily Take first 2 tablets together, then 1 every day until finished. 6 tablet 02/03/2022 2 documented in this encounter Discharge Disposition Disposition Code Departure Means Destination Comment s Discharge to home or self care Patient seen treated and released by provider in triage documented in this encounter ED Notes * Te Ferro, - 02/03/2022 1:46 AM CDT HPI Chief Complaint Patient presents with ??? Cough 21-year-old female who comes in with a cough starting yesterday. She does get bronchitis once a year and she says that she takes prednisone Tessalon Perles Zithromax and an albuterol inhaler and usually she waits too long and this time she caught it early so she came in for evaluation so that she get the medications. She denies any fevers or chills no shortness of breath no chest pain Patient History: There are no problems to [...] file Review of Systems Review of Systems All other systems reviewed and are negative. Physical Exam ED Triage Vitals [02/03/22 0135] Temp Pulse Resp BP SpO2 36.7 ??C (98 ??F) 85 18 122/95 99 % Temp src Heart Rate Source Patient Position BP Location FiO2 (%) Oral -- -- -- -- Height Height Method Weight Weight Method 1.702 m (5' 7 ) Stated 92.7 kg (204 lb 5.9 oz) -- Physical Exam Vitals and nursing note reviewed. Constitutional: General: She is not in acute distress. Appearance: She is well-developed. HENT: Head: Normocephalic and atraumatic. Eyes: Conjunctiva/sclera: Conjunctivae normal. Cardiovascular: Rate and Rhythm: Normal rate and regular rhythm. Heart sounds: Normal heart sounds. No murmur heard. Pulmonary: Effort: Pulmonary effort is normal. No respiratory distress. Breath sounds: Normal breath sounds. Comments: Cough Abdominal: General: Bowel sounds are normal. There is no distension. Palpations: Abdomen is soft. Tenderness: There is no abdominal tenderness. There is no guarding. Musculoskeletal: Cervical back: Neck supple. Skin: General: Skin is warm and dry. Neurological: Mental Status: She is alert and oriented to person, place, and time. [facility] MDM Final diagnoses: Cough Te Ferro DO 02/03/22 0151 * Sena Ibarra RN - 02/03/2022 1:34 AM CDT Pt states cough since yesterday. Pt states hx of bronchitis and states that she knows what if feelslike when she has it like this time. Denies any concern for covid. documented in this encounter Plan of Treatment Not on file documented as of this encounter Visit Diagnoses Diagnosis Cough- Primary documented in this encounter Care Teams Acute Care Physical Therapist Relationship Specialty Start Date End Date No, Physician PCP - General 12/30/20 documented as of this encounter
--- OUTSIDE RECORDS SUMMARY | 2024-08-29 16:51 | XMS_ITS | Encounter Summary ---
Author Organization [facility] Healthcare Address [address] [place] [address] Care Team Providers Care Truck Crane Operator Name Role Phone No, Physician Primary Care Provider [phone] Encounter Details Date Type Department Care Team (Latest Contact Info) Description 01/07/2021 4:14 AM CDT - 01/07/2021 11:59 PM CDT Hospital Encounter [facility] Imaging [address] [place] [address] Jhon Berg MD [address] [place], [place] [id number] Discharge Disposition: Discharge to home or self care Social History Tobacco Use Types Packs/Day Years Used Date Smoking Tobacco: Never Smokeless Tobacco: Never Comments Unknown Sex and Gender Information Value Date Recorded Sex Assigned at Not on file 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 Gender Identity Not on file Sexual Orientation Not on file documented as of this encounter Medications at Time of Discharge amoxicillin-clavu lanate (AUGMENTIN) 875-125 mg per tabletIndications :Periapical abscess Take 1 tablet by mouth every 12 (twelve) hours 14 tablet 12/30/2020 07/25/2021 documented as of this encounter Discharge Disposition Disposition Code Departure Means Destination Discharge to home or self care documented in this encounter Plan of Treatment Not on file documented as of this encounter Procedures Procedure Name Priority Date/Time Associated Diagnosis Comments XR CHEST PA LATERAL 2 VIEWS ED 01/07/2021 4:20 AM CDT documented in this encounter Results * XR Chest Pa Lateral 2 Views (01/07/2021 4:20 AM CDT) Anatomical Region Laterality Modality Body, Chest N/A Computed Radiogr aphy 01/07/2021 9:29 AM CDT Impressions 01/07/2021 9:42 AM CDT No prior chest radiograph available for comparison. Lungs are clear without focal consolidation. No pulmonary edema. No pleural effusion or pneumothorax. Cardiomediastinal silhouette is normal. Dictated by: Tima Sotelo M.D. The radiology attending physician has personally reviewed this study, and had reviewed and/or edited this written report and agrees with it. Electronically signed by: Kei Aaron M.D. Narrative 01/07/2021 9:42 AM CDT EXAMINATION: 2 view chest radiograph Procedure Note Kei Aaron MD - 01/07/2021 EXAMINATION: 2 view chest radiograph IMPRESSION: No prior chest radiograph available for comparison. Lungs are clear without focal consolidation. No pulmonary edema. No pleural effusion or pneumothorax. Cardiomediastinal silhouette is normal. Dictated by: Tima Sotelo M.D. The radiology attending physician has personally reviewed this study, and had reviewed and/or edited this written report and agrees with it. Electronically signed by: Kei Aaron M.D. Jhon Berg MD IMG XR PROCEDURES Final Resul t documented in this encounter Visit Diagnoses Not on filedocumented in this encounter Care Teams Truck Crane Operator Relationship Specialty Start Date End Date No, Physician PCP - General 12/30/20 documented as of this encounter
--- OUTSIDE RECORDS SUMMARY | 2024-08-29 16:51 | XMS_ITS | Encounter Summary ---
Author Organization [facility] Healthcare Address [address] [place] [address] Care Team Providers Care Drill Doctor Name Role Phone No, Physician Primary Care Provider [phone] Reason for Visit * Reason Comments Cough Encounter Details Date Type Department Care Team ([facility] st Contact Info) Description 01/07/2021 3:59 AM CDT - 01/07/2021 4:55 AM CDT Emergency [facility] Emergency Department [address] [place] [address] Jhon Berg MD [address] [facility] [address] [place], [place] [id number] Post-viral cough syndrome (Primary Dx) Discharge Disposition: Discharge to home or self care Social History Tobacco Use Types Packs/Day Years Used Date Smoking Tobacco: Never Smokeless Tobacco: Never Comments Unknown Sex and Gender Information Value Date Recorded Sex Assigned at Not on file 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 Gender Identity Not on file Sexual Orientation Not on file documented as of this encounter Last Filed Vital Signs Vital Sign Reading Time Taken Comments Blood Pressure 121/77 01/07/2021 4:10 AM CDT Pulse 87 01/07/2021 4:15 AM CDT Temperature 36.5 ??C (97.7 ??F) 01/07/2021 4:10 AM CD T Respiratory Rate 18 01/07/2021 4:10 AM CDT Oxygen Saturation 96% 01/07/2021 4:15 AM CDT Inhaled Oxygen Concentration - - Weight 131.5 kg (290 lb) 01/07/2021 4:10 AM CDT Height 170.2 cm (5' 7 ) 01/07/2021 4:10 AM CDT Body Mass Index 45.42 01/07/2021 4:10 AM CDT documented in this encounter Discharge Diagnoses Diagnosis Cough - COUGH Personal history of other diseases of the respiratory system - PERSONAL HISTORY OF OTHER DISEASES OF THE RESPIRATORY SYSTEM documented in this encounter Discharge Instructions * Discharge Instructions* Jhon Berg MD - 01/07/2021 4:44 AM CDT He was seen in the emergency department for cough has been persistent for about a month. This is still within the realm of what is considered normal for coughing after a viral infection. Your x-ray today did not show any signs of focal pneumonia thus antibiotics would not be helpful in this case. Please continue to take cough medicine as necessary and please consider strongly smoking cessation assmoking is highly correlated with worsening of these types of cough symptoms. Additionally guaifenesin(ROBITUSSIN) may be helpful in addition to your Tessalon Perles. * Attachments The following attachments cannot be sent through Care Everywhere. * Cold Symptoms (Case Supervisor) (Burundian) * Acute Cough (Case Supervisor) (Burundian) documented in this encounter Medications at Time of Discharge amoxicillin-clavu lanate (AUGMENTIN) 875-125 mg per tabletIndications :Periapical abscess Take 1 tablet by mouth every 12 (twelve) hours 14 tablet 12/30/2020 07/25/2021 documented as of this encounter Discharge Disposition Disposition Code Departure Means Destination Discharge to home or self care documented in this encounter ED Notes * Jhon Berg MD - 01/07/2021 4:13 AM CDT HPI Chief Complaint Patient presents with ??? Cough 20-year-old female history of asthma presents today complaining of cough at the going on for months. She started with upper respiratory infection most symptoms have gone away over the cough has been persistent. Of note she smokes marijuana up to 3 times a day. She has been using Tessalon Perles without significant relief. She denies fevers and chills she does have some productive sputum she denies runny nose malaise or other viral symptoms at this time. She states that she used her inhaler as well as a friend's nebulizer. HPI Patient History: There are no problems to display for this patient. Past Medical History: Diagnosis Date ??? Asthma History reviewed. No pertinent surgical history. History reviewed. No pertinent family history. Social History Tobacco Use ??? Smoking status: Never Smoker ??? Smokeless tobacco: Never Used Substance Use Topics ??? Alcohol use: Not on file ??? Drug use: Yes Frequency: 21.0 times per week Types: Marijuana Social History Social History Narrative ??? Not on file Review of Systems Review of Systems Constitutional: Negative for chills and fever. HENT: Negative for ear pain and sore throat. Eyes: Negative for pain and visual disturbance. Respiratory: Positive for cough. Negative for shortness of breath. Cardiovascular: Negative for chest pain and palpitations. Gastrointestinal: Negative for abdominal pain and vomiting. Genitourinary: Negative for dysuria and hematuria. Musculoskeletal: Negative for arthralgias and back pain. Skin: Negative for color change and rash. Neurological: Negative for seizures and syncope. All other systems reviewed and are negative. Physical Exam ED Triage Vitals [01/07/21 0410] Temp Pulse Resp BP SpO2 36.5 ??C (97.7 ??F) 91 18 121/77 97 % Temp src Heart Rate Source Patient Position BP Location FiO2 (%) Oral -- -- -- -- Physical Exam Vitals and nursing note reviewed. Constitutional: General: She is not in acute distress. Appearance: She is well-developed. HENT: Head: Normocephalic and atraumatic. Eyes: Conjunctiva/sclera: Conjunctivae normal. Cardiovascular: Rate and Rhythm: Normal rate and regular rhythm. Heart sounds: Normal heart sounds. No murmur. Pulmonary: Effort: Pulmonary effort is normal. No respiratory distress. Breath sounds: Normal breath sounds. Abdominal: General: Bowel sounds are normal. There is no distension. Palpations: Abdomen is soft. Tenderness: There is no abdominal tenderness. There is no guarding. Musculoskeletal: Cervical back: Neck supple. Skin: General: Skin is warm and dry. Neurological: Mental Status: She is alert and oriented to person, place, and time. MDM Medical Decision Making Differential Diagnosis or Management Options: 20-year-old female with persistent cough after viral infection history of asthma. Given patient's persistent symptoms and smoking history will get chest x-ray to rule out pneumonia. ED Course as of Jan 07 513 Time: 01/07 441 Comment: ED read of x-ray reveals no focal consolidation no pleural effusion no pneumothorax. By: Jhon Berg MD Final diagnoses: Post-viral cough syndrome Jhon Berg MD 01/07/21512 * Cydney Martin RN - 01/07/2021 4:07 AM CDT Patient reports recent diagnosis of bronchitis. Treated with antibiotics, steroids and an inhaler and has been borrowing a family member's nebulizer. Patient reports she smokes weed multiple times a day and has a history of asthma. Patient reports multiple negative COVID tests. documented in this encounter Plan of Treatment [...] t documented in this encounter Visit Diagnoses Diagnosis Post-viral cough syndrome- Primary documented in this encounter Care Teams Drill Doctor Relationship Specialty Start Date End Date No, Physician PCP - General 12/30/20 documented as of this encounter
--- OUTSIDE RECORDS SUMMARY | 2024-08-29 16:51 | XMS_ITS | Clinical Summary ---
Author Organization [facility] Address [address] [id number] Care Team Providers Care Pricing Lead Name Role Phone No, Physician Primary Care Provider [phone] Allergies No known active allergies Medications guaiFENesin ER (MUCINEX) 600 mg 12 hr tablet Take 2 tablets (1,200 mg total) by mouth 2 (two) times a day 120 tablet 3 Active benzonatate (TESSALON) 100 mg capsuleIndications: Cough Take 1 capsule (100 mg total) by mouth every 8 (eight) hours 21 capsule 3 Active albuterol HFA (PROVENTIL HFA,VENTOLIN HFA,PROAIR HFA) 90 mcg/actuation inhaler Inhale 2 puffs every 4 (four) hours as needed for wheezing 1 each 3 Active ondansetron ODT (ZOFRAN-ODT) 4 mg disintegrating tablet Take 1 tablet (4 mg total) by mouth every 8 (eight) hours as needed for nausea or vomiting 30 tablet 4 Active PNV with yrlppwq-auyg-YP 27 mg iron- 1 mg tablet Take 1 tablet by mouth daily 30 tablet 4 Active pyridoxine (VITAMIN B6) 25 mg tablet Take 1 tablet (25 mg total) by mouth daily 30 tablet 4 Active doxylamine (UNISOM) 25 mg tablet Take 0.5 tablets (12.5 mg total) by mouth nightly as needed for sleep 15 tablet 4 Active calcium carbonate (TUMS) 500 mg (200 mg elemental calcium) chewable tablet Take 1 tablet/chew tab (500 mg total) by mouth daily Active famotidine (PEPCID) 10 mg tablet Take 1 tablet (10 mg total) by mouth 2 (two) times a day Active ondansetron (ZOFRAN) 4 mg tablet Take 1 tablet (4 mg total) by mouth every 6 (six) hours 30 tablet 3 4 Active metoclopramide (REGLAN) 10 mg tablet Take 1 tablet (10 mg total) by mouth every 6 (six) hours 30 tablet 3 4 Active Active Problems Estimated Date of Delivery Comme nts Yes 11/10/2024 No known active problems Encounters Date Type Department Care Team Description 07/22/2024 7:36 AM [facility] - 07/22/2024 10:18 AM [facility] Emergency [facility] Emergency Department [address] [place] [id number] Sesar Goldberg MD 24 weeks gestation of (Primary Dx); Hyperemesis gravidarum with dehydration Discharge Disposition: Discharge to home or self care 07/09/2024 9:34 PM CDT - 07/10/2024 1:37 AM [facility] Emergency [facility] Emergency Department [address] [place] [id number] Te Ferro DO Acute cystitis without hematuria (Primary Dx); Nausea and vomiting, unspecified vomiting type; 23 weeks gestation of ; Hyperemesis gravidarum Discharge Disposition: Discharge to home or self care from Last 3 Months Surgical History Surgery Date Site/Laterality Comments NO PAST SURGERIES Medical History Medical History Date Comments Asthma GERD (gastroesophageal reflux disease) Chlamydia this a nd treated Family History Medical History Relation Name Comments Diabetes Paternal Grandfather Lupus Paternal Grandmother Melanoma Paternal Grandmother Relation Name Status Comments Paternal Grandfather Paternal Grandmother Social History Tobacco Use Types Packs/Day Years Used Date Smoking Tobacco: Never Smokeless Tobacco: Never Tobacco Cessation:Counseling Given: Not Answered Alcohol Use Standard Drinks/Week Comments Yes 0 (1 standard drink = 0.6 oz pur e alcohol) Personal Safety Answer Date Recorded Have you ever been in or are you currently in a harmful physical or emotional relationship or is someone making you feel afraid or unsafe? Denies 07/22/2024 Estimated Date of Delivery Comme nts Yes 11/10/2024 Sex and Gender Information Value Date Recorded Sex Assigned at Not on file Legal Sex Female 11:54 AM MEDICAL SCIENTIFIC OFFICER Gender Identity Not on file Sexual Orientation Not on file Obstetrics History Para Term AB IAB SAB Ectopic Multiple Livin g Live Births 1 Date Outcome GA Total Labor Labor/2nd/3rd Weight Sex Type Anes PTL Nellie A1 A5 Name Clin Current Last Filed Vital Signs Vital Sign Reading Time Taken Comments Blood Pressure 122/56 07/22/2024 9:24 AM MEDICAL SCIENTIFIC OFFICER Pulse 67 07/22/2024 9:24 AM MEDICAL SCIENTIFIC OFFICER Temperature 36.8 ??C (98.2 ??F) 07/22/2024 9:24 AM CS T Respiratory Rate 18 07/22/2024 9:24 AM MEDICAL SCIENTIFIC OFFICER Oxygen Saturation 99% 07/22/2024 9:24 AM MEDICAL SCIENTIFIC OFFICER Inhaled Oxygen Concentration - - Weight 79.8 kg (175 lb 14.8 oz) 07/22/2024 7:24 AM MEDICAL SCIENTIFIC OFFICER Height 170.2 cm (5' 7 ) 03/24/2024 11:0 4 AM CDT Body Mass Index 27.55 03/24/2024 11:04 AM CDT Plan of Treatment Health Maintenance Due Date Last Done Comments Cervical Cancer Screening 2000 Depression Screening 2000 Hepatitis C Screening 2000 Meningococcal B Vaccine (1 o f 2 - Patient Seeks Protection) 2016 Regular Well Visit/Exam 18-64 2018 Chlamydia and Gonorrhea (GC/ CT) Screening 06/07/2023 06/07/2022 Influenza Vaccine (#1) 2024 06/22/2014 DTaP/Tdap/Td Vaccine (8 - Td or Tdap) 02/05/2027 02/05/2017, 05/27/2013, 02/14/2005, Additional history exists Pneumococcal vaccine <65 Completed 013, 04/04/2002, 03/14/2001, Additional history exists Varicella Vaccines Completed 04/20/2014, 11/04/2001 HPV Vaccines Completed 05/10/2015, 06/10, 04/20/2014 Procedures Procedure Name Priority Date/Time Associated Diagnosis Comments URINALYSIS, MICROSCOPIC ONLY STAT 07/22/2024 9:23 AM MEDICAL SCIENTIFIC OFFICER URINALYSIS AND REFLEX TO MICROSCOPIC AND CULTURE STAT 07/22/2024 9:23 AM MEDICAL SCIENTIFIC OFFICER EGFR STAT 07/22/2024 8:04 AM MEDICAL SCIENTIFIC OFFICER DIFFERENTIAL AUTO STAT 07/22/2024 8:0 4 AM MEDICAL SCIENTIFIC OFFICER LIPASE STAT 07/22/2024 8:04 AM MEDICAL SCIENTIFIC OFFICER COMPREHENSIVE METABOLIC PANEL STAT 07/22/2024 8:04 AM MEDICAL SCIENTIFIC OFFICER CBC WITH AUTO DIFFERENTIAL STAT 07/22/2024 8:04 AM MEDICAL SCIENTIFIC OFFICER US OB 14 WEEKS OR OVER ED 8:37 PM CDT URINALYSIS, MICROSCOPIC ONLY STAT 07/09/2024 7:36 PM CDT URINALYSIS AND REFLEX TO MICROSCOPIC AND CULTURE STAT 07/09/2024 7:36 PM CDT EGFR STAT 07/09/2024 7:19 PM CDT DIFFERENTIAL AUTO STAT 07/09/2024 7:1 9 PM CDT COMPREHENSIVE METABOLIC PANEL STAT 07/09/2024 7:19 PM CDT CBC WITH AUTO DIFFERENTIAL STAT 07/09/2024 7:19 PM CDT N. GONORRHOEAE/C. TRACHOMATIS AMPLIFICATION STAT 06/07/2022 12:51 AM CDT from Last 3 Months or Most Recently Relevant to Health Maintenance Results * (ABNORMAL) Urinalysis reflex to microscopic and culture Urine, clean voided (07/22/2024 9:23 AM MEDICAL SCIENTIFIC OFFICER) Color, ur Yellow Yellow Comment:Testing performed by : [facility], [address] [place] [address]., [address] Clarity, ur Clear Clear JOSE Comment:Testing performed by : [address] [address] Specific gravity, ur 1.030 1.003 - 1.030 JOSE Comment:Testing performed by : [address] [address] pH, urine 6.0 JOSE Comment: Interpretive Data ? Urine pH is affected by diet, medications, systemic acid-base disturbances, and renal tubular function. ??pH may affect urinary stone formation. ??For example, urine pH below 6.0 may help reduce the tendency for calcium phosphate stones and pH greater than 6.0 may reduce the tendency for uric acid stone formation. Source: [facility] [address] Current Interpretive Data was last revised on 2017 Testing performed by: [address] [address] Protein, ur ql 1+(A) Negative JOSE Comment:Testing performed by : [address] [address] Glucose, ur ql Negative Negative JOSE Comment:Testing performed by : [address] [address] Ketones, ur 4+(A) Negative JOSE Comment:Testing performed by : [address] [address] Bilirubin, ur Negative Negative JOSE Comment:Testing performed by : [address] [address] Blood, ur Negative Negative JOSE Comment:Testing performed by : [address] [address] Urobilinogen, ur <2.0 <2.0 mg/dL JOSE Comment:Testing performed by : [address] [address] Nitrite, ur Negative Negative JOSE Comment:Testing performed by : [address] [address] Leukocyte esterase, ur 3+(A) Negative JOSE Comment:Testing performed by : [address] [address] UA reflex comment Reflex to microscopic UA will be performed. JOSE Comment:Testing performed by : [address] [address] Urine, clean voided 07/22/2024 9:23 AM MEDICAL SCIENTIFIC OFFICER 07/22/2024 9:28 AM MEDICAL SCIENTIFIC OFFICER Zac Regan MD LAB MICROBIOLOGY - GENERAL ORDERABLES Final Result Performing Organization Address [facility] Co de Phone Number JOSE [address] [place] [address] * (ABNORMAL) Urinalysis, microscopic only (07/22/2024 9:23 AM MEDICAL SCIENTIFIC OFFICER) WBC, ur 6-10(A) 0 - 5 /HPF Comment:Testing performed by : [address] [address] RBC, ur 6-10(A) 0 - 2 /HPF JOSE Comment:Testing performed by : [address] [address] Epithelial cells, squamous, ur >50(A) 0 - 5 /HPF JOSE Comment:Testing performed by : [address] [address] Mucous, ur Present(A) JOSE Comment:Testing performed by : [address] [address] Culture Reflex Comment Reflex conditions for urine culture (WBC >10) not met. JOSE Comment:Testing performed by : [address] [address] Urine, clean voided 07/22/2024 9:23 AM MEDICAL SCIENTIFIC OFFICER 07/22/2024 9:28 AM MEDICAL SCIENTIFIC OFFICER us Zac Regan MD LAB URINE ORDERABLES Final Result Performing Organization Address [facility] Co de Phone Number JOSE [address] [place] [address] * eGFR (07/22/2024 8:04 AM MEDICAL SCIENTIFIC OFFICER) eGFR >90 >=60 mL/min/1. 73 m2 Comment: Interpretive Data Reference Interval Normal ?>/= 90 mL/min/1.73m2 Mildly decreased* ? 60 - 89 mL/min/1.73m2 Mildly to moderately decreased ?45 - 59 mL/min/1.73m2 Moderately to severely decreased ??30 - 44 mL/min/1.73m2 Severely decreased ?15 - 29 mL/min/1.73m2 Kidney Failure ?< 15 ??mL/min/1.73m2 *Relative to young adult level Estimated glomerular filtration rate is determined by the 2020 CKD-EPI equation recommended by the National Kidney Foundation (A Unifying Approach to GFR Estimation: Recommendations of the NKF-ASK Task Force on Reassessing the Inclusion of Race in Diagnosing Kidney Disease, JASN 2020). The CKD-EPI equation should not be used for patients with unstable renal function and has not been validated in children and those over 70. Current interpretive data was last reviewed 2021. Testing performed by: [facility], [address] [place] [address]., [address] Blood 07/22/2024 8:04 AM MEDICAL SCIENTIFIC OFFICER 07/22/2024 8:08 AM MEDICAL SCIENTIFIC OFFICER us Zac Regan MD LAB BLOOD ORDERABLES Final Result [facility] [address] [facility] Department [place] [address] * (ABNORMAL) Differential, auto (07/22/2024 8:04 AM MEDICAL SCIENTIFIC OFFICER) Pathologist [facility] [place] Neutrophil abs 7.2(H) 1.5 - 6.5 K/cumm Comment:Testing performed by : [address] [address] Imm gran abs 0.1 0.0 - 0.1 K/cumm [facility] Comment:Testing performed by : [address] [address] Lymphocyte abs 1.7 0.8 - 3.3 K/cumm [facility] Comment:Testing performed by : [address] [address] Monocyte abs 0.6 0.2 - 0.8 K/cumm [facility] Comment:Testing performed by : [address] [address] Eosinophil abs 0.0 0.0 - 0.5 K/cumm [facility] Comment:Testing performed by : [address] [address] Basophil abs 0.0 0.0 - 0.1 K/cumm [facility] Comment:Testing performed by : [address] [address] Neutrophil pct 75.3 % [facility] Comment: Interpretive Data Percent cell count reference ranges are not reported, since discordance with absolute values may lead to misinterpretation of CBC data. Current Interpretive Data was last revised on 2017. Testing performed by: [address] [address] Imm gran pct 0.6 % [facility] Comment: Interpretive Data Percent cell count reference ranges are not reported, since discordance with absolute values may lead to misinterpretation of CBC data. Current Interpretive Data was last revised on 2017. Testing performed by: [address] [address] Lymphocyte pct 17.6 % [facility] Comment: Interpretive Data Percent cell count reference ranges are not reported, since discordance with absolute values may lead to misinterpretation of CBC data. Current Interpretive Data was last revised on 2017. Testing performed by: [address] [address] Monocyte pct 5.9 % [facility] Comment: Interpretive Data Percent cell count reference ranges are not reported, since discordance with absolute values may lead to misinterpretation of CBC data. Current Interpretive Data was last revised on 2017. Testing performed by: [address] [address] Eosinophil pct 0.2 % [facility] [place] Comment: Interpretive Data Percent cell count reference ranges are not reported, since discordance with absolute values may lead to misinterpretation of CBC data. Current Interpretive Data was last revised on 2017. Testing performed by: [address] [address] Basophil pct 0.4 % JOSE [place] Comment: Interpretive Data Percent cell count reference ranges are not reported, since discordance with absolute values may lead to misinterpretation of CBC data. Current Interpretive Data was last revised on 2017. Testing performed by: [address] [address] Blood 07/22/2024 8:04 AM MEDICAL SCIENTIFIC OFFICER 07/22/2024 8:08 AM MEDICAL SCIENTIFIC OFFICER us Zac Regan MD LAB BLOOD ORDERABLES Final Result JOSE [facility] Department [place] [address] * (ABNORMAL) CBC with auto differential (07/22/2024 8:04 AM MEDICAL SCIENTIFIC OFFICER) Pathologist [facility] [place] WBC 9.6 3.8 - 9.9 K/cumm Comment:Testing performed by : [address] [address] Hgb 11.8(L) 11.9 - 15.5 g/dL [facility] [place] Comment:Testing performed by : [address] [address] Hct 34.5(L) 35.6 - 45.5 % [facility] [place] Comment:Testing performed by : [address] [address] Plt 230 150 - 400 K/cumm [facility] [place] Comment:Testing performed by : [address] [address] MPV 10.8 9.1 - 12.3 fL [facility] [place] Comment:Testing performed by : [address] [address] RBC 3.91 3.90 - 5.20 M/cumm [facility] [place] Comment:Testing performed by : [address] [address] MCV 88.2 81.3 - 96.4 fL [facility] [place] Comment:Testing performed by : [address] [address] MCH 30.2 27.1 - 33.3 pg JOSE Comment:Testing performed by : [address] [address] MCHC 34.2 32.3 - 35.7 g/dL JOSE Comment:Testing performed by : [address], [address] RDW CV 12.2 11.1 - 14.9 % JOSE Comment:Testing performed by : [address], [address] RDW SD 39.1 35.7 - 48.1 fL JOSE Comment:Testing performed by : [address], [address] NRBC abs 0.00 0.00 - 0.01 K/cumm JOSE Comment:Testing performed by : [address] [address] Blood 07/22/2024 8:04 AM MEDICAL SCIENTIFIC OFFICER 07/22/2024 8:08 AM MEDICAL SCIENTIFIC OFFICER Zac Regan MD LAB BLOOD ORDERABLES Final Result [facility] [address] [facility] Department [place] [address] * Lipase (07/22/2024 8:04 AM MEDICAL SCIENTIFIC OFFICER) Lipase 22 10 - 99 Units/L Comment:Testing performed by : [address] [address] Blood 07/22/2024 8:04 AM MEDICAL SCIENTIFIC OFFICER 07/22/2024 8:08 AM MEDICAL SCIENTIFIC OFFICER us Zac Regan MD LAB BLOOD ORDERABLES Final Result JOSE [address] [facility] Department [place] [address] * (ABNORMAL) Comprehensive metabolic panel (07/22/2024 8:04 AM MEDICAL SCIENTIFIC OFFICER) Sodium 138 135 - 145 mmol/L Comment:Testing performed by : [address] [address] Potassium, pl 4.0 3.3 - 4.9 mmol/L JOSE Comment:Testing performed by : [address] [address] Chloride 101 97 - 110 mmol/L JOSE Comment:Testing performed by : [address] [address] CO2 21(L) 22 - 32 mmol/L JOSE Comment:Testing performed by : [address] [address] Anion gap 16(H) 2 - 15 mmol/L JOSE Comment:Testing performed by : [address] [address] BUN 8 6 - 25 mg/dL JOSE Comment:Testing performed by : [address] [address] Creatinine 0.60 0.60 - 1.10 mg/dL JOSE Comment:Testing performed by : [address] [address] Glucose 79 70 - 199 mg/dL JOSE Comment: Interpretive Data Fasting glucose >/= 126 [...] classification and Diagnosis of Diabetes Diabetes Care 202; 46: S19-S40. Current interpretive data was last revised 2022. Testing performed by: [address] [address] Calcium 9.5 8.5 - 10.3 mg/dL JOSE Comment:Testing performed by : [address] [address] Bilirubin, total 0.4 0.1 - 1.2 mg/dL JOSE Comment:Testing performed by : [address] [address] Protein, pl 7.2 6.5 - 8.5 g/dL JOSE Comment:Testing performed by : [address] [address] Albumin 4.0 3.5 - 5.0 g/dL JOSE Comment:Testing performed by : [address] [address] Alk phos 37(L) 40 - 130 Units/L JOSE Comment:Testing performed by : [address] [address] ALT 15 7 - 45 Units/L JOSE Comment:Testing performed by : [address] [address] AST 15 10 - 45 Units/L JOSE Comment:Testing performed by : [address] [address] Blood 07/22/2024 8:04 AM MEDICAL SCIENTIFIC OFFICER 07/22/2024 8:08 AM MEDICAL SCIENTIFIC OFFICER us Zac Regan MD LAB BLOOD ORDERABLES Final Result JOSE [address] [facility] Department [place] [address] * US Ob 14 Weeks Or Over (07/09/2024 8:37 PM CDT) Anatomical Region Laterality Modality Abdomen N/A Ultrasound 07/09/2024 9:17 PM CDT Narrative 07/09/2024 9:21 PM CDT EXAM DESCRIPTION: ?? US OB 14 WEEKS OR OVER REASON FOR STUDY: ?? vomiting in preg ?? TECHNIQUE: Limited ??transabdominal ??grayscale ultrasound for obstetrical evaluation. COMPARISON: ?? None FINDINGS: Clinical gestational age: ?? 22 weeks and 2 days Clinical estimated Due Date: ?? 11/10/2024 ?? number: ?1 Presentation: ?Cephalic Placenta location: ?Anterior Amniotic fluid: ?MVP: 5.6 cm heart rate: ?? 152 ??bpm IMPRESSION: ?? 1. ?? Limited examination. ??Single live intrauterine in vertex position with heart rate of 152 beats per minute. THIS IS AN ELECTRONICALLY VERIFIED FINAL REPORT 07/09/2024 9:21 PM - Electronically signed by ??Lamont Fernandez M.D. AG: AG D: ??07/09/2024 9:21 PM T: ??07/09/2024 9:21 PM Report ID: [id number] Reading Location: ??[id number] Procedure Note Lamont Fernandez MD - 07/09/2024 EXAM DESCRIPTION: US OB 14 WEEKS OR OVER REASON FOR STUDY: vomiting in preg TECHNIQUE: Limited transabdominal grayscale ultrasound for obstetrical evaluation. COMPARISON: None FINDINGS: Clinical gestational age: 22 weeks and 2 days Clinical estimated Due Date: 11/10/2024 number: 1 Presentation: Cephalic Placenta location: Anterior Amniotic fluid: MVP: 5.6 cm heart rate: 152 bpm IMPRESSION: 1. Limited examination. Single live intrauterine in vertex position with heart rate of 152 beats per minute. THIS IS AN ELECTRONICALLY VERIFIED FINAL REPORT 07/09/2024 9:21 PM - Electronically signed by Lamont Fernandez M.D. AG: AG Report ID: [id number] Reading Location: [id number] us Leela LUNA IMG OB US PROCEDURES Final Resul t * (ABNORMAL) Urinalysis reflex to microscopic and culture Urine (07/09/2024 7:36 PM CDT) Color, ur Yellow Yellow Comment:Testing performed by : [facility], [address] [place] [address]., [address] Clarity, ur Cloudy(A) Clear JOSE Comment:Testing performed by : [facility], [address] [place] [address], [place]., [address] Specific gravity, ur 1.027 1.003 - 1.030 JOSE Comment:Testing performed by : [address], [place]., [address] pH, urine 6.5 JOSE Comment: Interpretive Data ? Urine pH is affected by diet, medications, systemic acid-base disturbances, and renal tubular function. ??pH may affect urinary stone formation. ??For example, urine pH below 6.0 may help reduce the tendency for calcium phosphate stones and pH greater than 6.0 may reduce the tendency for uric acid stone formation. Source: [facility] [address] Current Interpretive Data was last revised on 2017 Testing performed by: [address] [address] Protein, ur ql 1+(A) Negative JOSE Comment:Testing performed by : [address] [address] Glucose, ur ql Negative Negative JOSE Comment:Testing performed by : [address] [address] Ketones, ur 4+(A) Negative JOSE Comment:Testing performed by : [address] [address] Bilirubin, ur Negative Negative JOSE Comment:Testing performed by : [address] [address] Blood, ur Negative Negative JOSE Comment:Testing performed by : [address] [address] Urobilinogen, ur <2.0 <2.0 mg/dL JOSE Comment:Testing performed by : [address] [address] Nitrite, ur Negative Negative JOSE Comment:Testing performed by : [address] [address] Leukocyte esterase, ur 2+(A) Negative JOSE Comment:Testing performed by : [address] [address] UA reflex comment Reflex to microscopic UA will be performed. JOSE Comment:Testing performed by : [address] [address] Urine 07/09/2024 7:36 PM CDT 07/09/2024 7:38 PM CDT Te Ferro DO LAB MICROBIOLOGY - GEN ERAL ORDERABLES Final Result JOSE [address] [facility] Department [place] [address] * (ABNORMAL) Urinalysis, microscopic only (07/09/2024 7:36 PM CDT) WBC, ur 0-5 0 - 5 /HPF Comment:Testing performed by : [address] [address] RBC, ur 3-5(A) 0 - 2 /HPF JOSE Comment:Testing performed by : [address] [address] Epithelial cells, squamous, ur >50(A) 0 - 5 /HPF JOSE Comment:Testing performed by : [address] [address] Bacteria, ur Trace(A) JOSE Comment:Testing performed by : [address] [address] Mucous, ur Present(A) JOSE Comment:Testing performed by : [address] [address] Hyaline casts, ur 1-5 0 - 10 /LPF JOSE Comment:Testing performed by : [address] [address] Culture Reflex Comment Reflex conditions for urine culture (WBC >10) not met. JOSE Comment:Testing performed by : [address] [address] Urine 07/09/2024 7:36 PM CDT 07/09/2024 7:38 PM CDT us Te Ferro DO LAB URINE ORDERABLES F inal Result JOSE [facility] [address] [facility] Department [place] [address] * eGFR (07/09/2024 7:19 PM CDT) eGFR >90 >=60 mL/min/1. 73 m2 Comment: Interpretive Data Reference Interval Normal ?>/= 90 mL/min/1.73m2 Mildly decreased* ? 60 - 89 mL/min/1.73m2 Mildly to moderately decreased ?45 - 59 mL/min/1.73m2 Moderately to severely decreased ??30 - 44 mL/min/1.73m2 Severely decreased ?15 - 29 mL/min/1.73m2 Kidney Failure ?< 15 ??mL/min/1.73m2 *Relative to young adult level Estimated glomerular filtration rate is determined by the 2020 CKD-EPI equation recommended by the National Kidney Foundation (A Unifying Approach to GFR Estimation: Recommendations of the NKF-ASK Task Force on Reassessing the Inclusion of Race in Diagnosing Kidney Disease, JASN 2020). The CKD-EPI equation should not be used for patients with unstable renal function and has not been validated in children and those over 70. Current interpretive data was last reviewed 2021. Testing performed by: [facility], [address] [place] [address], [place]., [address] Blood 07/09/2024 7:19 PM CDT 07/09/2024 7:31 PM CDT us Te Ferro DO LAB BLOOD ORDERABLES F inal Result JOSE [address] [facility] Department [place] [address] * (ABNORMAL) Differential, auto (07/09/2024 7:19 PM CDT) Neutrophil abs 8.3(H) 1.5 - 6.5 K/cumm Comment:Testing performed by : [address] [address] Imm gran abs 0.0 0.0 - 0.1 K/cumm JOSE Comment:Testing performed by : [address] [address] Lymphocyte abs 1.8 0.8 - 3.3 K/cumm JOSE Comment:Testing performed by : [address] [address] Monocyte abs 0.6 0.2 - 0.8 K/cumm [facility] Comment:Testing performed by : [address] [address] Eosinophil abs 0.0 0.0 - 0.5 K/cumm [facility] Comment:Testing performed by : [address] [address] Basophil abs 0.0 0.0 - 0.1 K/cumm [facility] Comment:Testing performed by : [address] [address] Neutrophil pct 76.8 % [facility] Comment: Interpretive Data Percent cell count reference ranges are not reported, since discordance with absolute values may lead to misinterpretation of CBC data. Current Interpretive Data was last revised on 2017. Testing performed by: [address] [address] Imm gran pct 0.4 % JOSE Comment: Interpretive Data Percent cell count reference ranges are not reported, since discordance with absolute values may lead to misinterpretation of CBC data. Current Interpretive Data was last revised on 2017. Testing performed by: [address] [address] Lymphocyte pct 16.8 % JOSE Comment: Interpretive Data Percent cell count reference ranges are not reported, since discordance with absolute values may lead to misinterpretation of CBC data. Current Interpretive Data was last revised on 2017. Testing performed by: [address] [address] Monocyte pct 5.3 % JOSE Comment: Interpretive Data Percent cell count reference ranges are not reported, since discordance with absolute values may lead to misinterpretation of CBC data. Current Interpretive Data was last revised on 2017. Testing performed by: [address] [address] Eosinophil pct 0.4 % JOSE Comment: Interpretive Data Percent cell count reference ranges are not reported, since discordance with absolute values may lead to misinterpretation of CBC data. Current Interpretive Data was last revised on 2017. Testing performed by: [address] [address] Basophil pct 0.3 % JOSE Comment: Interpretive Data Percent cell count reference ranges are not reported, since discordance with absolute values may lead to misinterpretation of CBC data. Current Interpretive Data was last revised on 2017. Testing performed by: [address] [address] Blood 07/09/2024 7:19 PM CDT 07/09/2024 7:31 PM CDT Te Ferro DO LAB BLOOD ORDERABLES F inal Result [facility] [address] [facility] Department [place] [address] * (ABNORMAL) CBC with auto differential (07/09/2024 7:19 PM CDT) WBC 10.8(H) 3.8 - 9.9 K/cumm Comment:Testing performed by : [address] [address] Hgb 11.8(L) 11.9 - 15.5 g/dL JOSE Comment:Testing performed by : [address], [address] Hct 35.0(L) 35.6 - 45.5 % JOSE Comment:Testing performed by : [address], [address] Plt 215 150 - 400 K/cumm JOSE Comment:Testing performed by : [address], [address] MPV 11.1 9.1 - 12.3 fL JOSE Comment:Testing performed by : [address], [address] RBC 3.94 3.90 - 5.20 M/cumm JOSE Comment:Testing performed by : [address], [address] MCV 88.8 81.3 - 96.4 fL JOSE Comment:Testing performed by : [address], [address] MCH 29.9 27.1 - 33.3 pg JOSE Comment:Testing performed by : [address], [address] MCHC 33.7 32.3 - 35.7 g/dL JOSE Comment:Testing performed by : [address], [address] RDW CV 12.2 11.1 - 14.9 % JOSE Comment:Testing performed by : [address], [address] RDW SD 39.7 35.7 - 48.1 fL JOSE Comment:Testing performed by : [address], [address] NRBC abs 0.00 0.00 - 0.01 K/cumm JOSE Comment:Testing performed by : [address], [address] Blood (Blood, Venous) 07/09/2024 7:19 PM CDT 07/09/2024 7:31 PM CDT Te Ferro DO LAB BLOOD ORDERABLES F inal Result JOSE [address] [facility] Department [place] [address] * (ABNORMAL) Comprehensive metabolic panel (07/09/2024 7:19 PM CDT) Sodium 136 135 - 145 mmol/L Comment:Testing performed by : [address] [address] Potassium, pl 4.0 3.3 - 4.9 mmol/L JOSE Comment:Testing performed by : [address] [address] Chloride 102 97 - 110 mmol/L JOSE Comment:Testing performed by : [address] [address] CO2 21(L) 22 - 32 mmol/L JOSE Comment:Testing performed by : [address] [address] Anion gap 13 2 - 15 mmol/L JOSE Comment:Testing performed by : [address] [address] BUN 8 6 - 25 mg/dL JOSE Comment:Testing performed by : [address] [address] Creatinine 0.50(L) 0.60 - 1.10 mg/dL JOSE Comment:Testing performed by : [address] [address] Glucose 86 70 - 199 mg/dL JOSE Comment: Interpretive Data Fasting glucose >/= 126 [...] classification and Diagnosis of Diabetes Diabetes Care 202; 46: S19-S40. Current interpretive data was last revised 2022. Testing performed by: [address] [address] Calcium 9.5 8.5 - 10.3 mg/dL JOSE Comment:Testing performed by : [facility], [address] [place] [address]., [address] Bilirubin, total 0.3 0.1 - 1.2 mg/dL JOSE Comment:Testing performed by : [address], [place]., [address] Protein, pl 7.1 6.5 - 8.5 g/dL JOSE Comment:Testing performed by : [facility], [address] [place] [address], [place]., [address] Albumin 3.9 3.5 - 5.0 g/dL JOSE Comment:Testing performed by : [address], [place]., [address] Alk phos 35(L) 40 - 130 Units/L JOSE Comment:Testing performed by : [address], [place]., [address] ALT 15 7 - 45 Units/L JOSE Comment:Testing performed by : [address], [place]., [address] AST 15 10 - 45 Units/L JOSE Comment:Testing performed by : [address] [address] Blood (Blood, Venous) 07/09/2024 7:19 PM CDT 07/09/2024 7:31 PM CDT Te Ferro DO LAB BLOOD ORDERABLES F inal Result JOSE [address] [facility] Department [place] [address] * N. gonorrhoeae/C. trachomatis Amplification Urine (06/07/2022 12:51 AM CDT) C. trachomatis Not Detected Not Detected JOSE Comment:Testing performed by : [address] [address] N. gonorrhoeae Not Detected Not Detected JOSE Comment: Interpretive Data Testing performed by the [facility]. This assay detects Chlamydia trachomatis and Neisseria gonorrhoeae by nucleic acid amplification testing (NAAT). This test is approved by the [place] Food and Drug Administration and the performance characteristics have been verified by the laboratory. The performance characteristics of this test have not been evaluated in individuals less than 14 years of age. Current Interpretive Data was last revised on 2019. Testing performed by: [facility], [address] [place] [address]., [address] Urine (None) 06/07/2022 12:5 1 AM CDT 06/07/2022 12:56 AM CDT us Laura Santa DO LAB MICROBIOLOGY - GENERAL ORDE VINOD Final Result JOSE [address] [facility] Department [place] [address] from Last 3 Months or Most Recently Relevant to Health Maintenance Insurance [employer] Member Subscriber Plan / Payer (Ef fective 2021-Present) Name:Tawny Nicholas Relation to Subscriber:Spouse Name:TE MEYERS Date of :1899 (Home) Address: [address] [place] [address] [address] [place] [address] Payer ID:[id number] (NAIC) Type:ehealthtracker Address: [facility] [id number] [facility] [address] [address] [place] [address] Care Teams Pricing Lead Relationship Specialty Start Date End Date No, Physician PCP - General 12/30/20
--- OUTSIDE RECORDS SUMMARY | 2024-08-29 16:51 | XMS_ITS | Encounter Summary ---
Author Organization [facility] Healthcare Address [address] [place] [address] Care Team Providers Care Fan Blade Aligner Name Role Phone No, Physician Primary Care Provider [phone] Reason for Visit * Reason Comments Nasal Congestion Sore Throat Encounter Details Date Type Department Care Team ([facility] st Contact Info) Description 10/30/2022 12:37 AM HEALTH RECORDS TECHNOLOGY TEACHER - 10/30/2022 1:58 AM [facility] Emergency [facility] Department [address] [place] [id number] Malik Vasquez MD [address] [place] [id number] Acute bronchitis, unspecified organism (Primary Dx) Discharge Disposition: Discharge to home or self care Social History Tobacco Use Types Packs/Day Years Used Date Smoking Tobacco: Never Smokeless Tobacco: Never Alcohol Use Standard Drinks/Week Comments Yes 0 (1 standard drink = 0.6 oz pur e alcohol) Comments No Sex and Gender Information Value Date Recorded Sex Assigned at Not on file Legal Sex Female 11:54 AM HEALTH RECORDS TECHNOLOGY TEACHER Gender Identity Not on file Sexual Orientation Not on file documented as of this encounter Last Filed Vital Signs Vital Sign Reading Time Taken Comments Blood Pressure 131/72 10/30/2022 1:50 AM HEALTH RECORDS TECHNOLOGY TEACHER Pulse 115 10/30/2022 1:50 AM HEALTH RECORDS TECHNOLOGY TEACHER Temperature 36.6 ??C (97.8 ??F) 10/30/2022 12:[address] Respiratory Rate 18 10/30/2022 1:55 AM HEALTH RECORDS TECHNOLOGY TEACHER Oxygen Saturation 99% 10/30/2022 1:50 AM HEALTH RECORDS TECHNOLOGY TEACHER Inhaled Oxygen Concentration - - Weight 81.3 kg (179 lb 3.7 oz) 10/30/2022 12:30 AM HEALTH RECORDS TECHNOLOGY TEACHER Height - - Body Mass Index 28.07 06/07/2022 12:30 AM CDT documented in this encounter Discharge Instructions * Discharge Instructions* Malik Vasquez MD - 10/30/2022 1:41 AM HEALTH RECORDS TECHNOLOGY TEACHER There are no signs of pneumonia or infection found on the chest x-ray. Please follow with your primary care physician within the next week regarding today's visit. Please take Mucinex and Tessalon Perles as prescribed for your coughing congestion. Please return to the ER if he have any persistent fever, chills, persistent shortness of breath or any other concerns. Follow-up as recommended is mandatory. You have received emergency care only at your visit today. This is not a substitute for ongoing care, further evaluation and treatment and therefore follow-up as directed is not optional but mandatory You MUST follow up for further evaluation of all incidental abnormal radiographic and laboratory findings, Have your physician obtain records from this visit and address all the incidental abnormal findings. This may include final results of lab testing, cultures, final x-ray reports which may not have been available during the time of the visit. Return immediately for any new symptoms, worsening of symptoms, or persistent symptoms TH RECORDS TECHNOLOGY TEACHER * Attachments The following attachments cannot be sent through Care Everywhere. * Acute Bronchitis (AfterCare(R) Instructions(ER/ED)) (Lithuanian) documented in this encounter Medications at Time of Discharge albuterol HFA (PROVENTIL HFA,VENTOLIN HFA,PROAIR HFA) 90 mcg/actuation inhaler Inhale 2 puffs every 4 (four) hours as needed for wheezing 1 each 10/30/2022 benzonatate (TESSALON) 100 mg capsuleIndication s:Cough Take 1 capsule (100 mg total) by mouth every 8 (eight) hours 21 capsule 10/30/2022 guaiFENesin ER (MUCINEX) 600 mg 12 hr tablet Take 2 tablets (1,200 mg total) by mouth 2 (two) times a day 120 tablet 10/30/2022 documented as of this encounter Ordered Prescriptions Prescription Sig Dispense Quantity Refills Last Filled Start Date End Date albuterol HFA (PROVENTIL HFA,VENTOLIN HFA,PROAIR HFA) 90 mcg/actuation inhaler Inhale 2 puffs every 4 (four) hours as needed for wheezing 1 each 10/30/2022 benzonatate (TESSALON) 100 mg capsuleIndications :Cough Take 1 capsule (100 mg total) by mouth every 8 (eight) hours 21 capsule 10/30/2022 guaiFENesin ER (MUCINEX) 600 mg 12 hr tablet Take 2 tablets (1,200 mg total) by mouth 2 (two) times a day 120 tablet 10/30/2022 documented in this encounter Discharge Disposition Disposition Code Departure Means Destination Comment s Discharge to home or self care documented in this encounter ED Notes * Malik Vasquez MD - 10/30/2022 1:06 AM CST History of Present Illness Patient information was obtained primarily from the patient, medical records, Tawny Nicholas is a 22 y.o. female with hx as below, who presents with c/o cough and congestion. Patient states that she is been having symptoms for the past week. Patient denies any prior history of COPD or asthma. Patient states that she smokes marijuana daily and does so by vaping. Patient deniesany fevers or chills per patient states that she has a nonproductive cough. Patient denies any sickcontacts around her. Relevant Medical History Past Medical History: Diagnosis Date Asthma GERD (gastroesophageal reflux disease) Past Surgical History: Procedure Laterality Date NO PAST SURGERIES Family History Problem Relation Age of Onset Lupus Paternal Grandmother Melanoma Paternal Grandmother Diabetes Paternal Grandfather Social History Tobacco Use Smoking status: Never Smokeless tobacco: Never Substance and Sexual Activity Drug use: Yes Frequency: 21.0 times per week Types: Marijuana Sexual activity: None Alcohol Use: Not on file No Known Allergies Review of Systems All systems reviewed and are neg or non contributory for this patients presentation today other than as stated in the HPI . Physical Exam ED Triage Vitals [10/30/22 0030] Temp Pulse Resp BP SpO2 36.6 ??C (97.8 ??F) 82 16 120/82 97 % Temp src Heart Rate Source Patient Position BP Location FiO2 (%) Oral -- -- -- -- Height Height Method Weight Weight Method -- -- 81.3 kg (179 lb 3.7 oz) -- Physical Exam Vitals and nursing note reviewed. Constitutional: General: She is not in acute distress. Appearance: She is well-developed. HENT: Head: Normocephalic and atraumatic. Eyes: Conjunctiva/sclera: Conjunctivae normal. Cardiovascular: Rate and Rhythm: Normal rate and regular rhythm. Heart sounds: No murmur heard. Pulmonary: Effort: Pulmonary effort is normal. No respiratory distress. Breath sounds: Normal breath sounds. Abdominal: Palpations: Abdomen is soft. Tenderness: There is no abdominal tenderness. Musculoskeletal: General: No swelling. Cervical back: Neck supple. Skin: General: Skin is warm and dry. Capillary Refill: Capillary refill takes less than 2 seconds. Neurological: Mental Status: She is alert. Psychiatric: Mood and Affect: Mood normal. Studies and Interpretation Labs Reviewed POCT HCG, URINE - Normal Result Value HCG, ur, POC Negative Lot Number [id number] QC Backgroud Clear Acceptable QC Control Line Acceptable INFLUENZA A/B, RSV, AND COVID-19 PCR STREPTOCOCCUS GROUP A PCR Medications - No data to display XR Chest 1 Vw Portable Final Result Medical Decision Making ED Course Medical Decision Making Clinical problems/dx: Tawny Nicholas is a 22 y.o. female who presents with cough and congestion. Data analysis -Independent historian -Patient seen and evaluated, available studies reviewed -Prior available records reviewed, triage notes reviewed DDx: Pneumonia versus acute bronchitis versus pneumothorax versus other -Plan/Test: Labs, imaging, breathing treatment, reassessment -Interpretation of test: Please see ED course Patient's presentation most likely secondary for residual viral syndrome. There is no signs of pneumonia or focal consolidation on the patient's chest x-ray. Patient was administered a breathing treatment in the ED, states that it made her feel ???better?? . Patient states that she is going to follow with the primary care physician within 1 week. Strict return precautions plan the patient, patient understands agrees with plan. Procedures ED Final Diagnosis and Discharge information 1. Acute bronchitis, unspecified organism Disposition Discharge Note: This H+P was created with the aid of dictation software, thus there may be some word substitutions or errors Malik Vasquez MD 10/30/22 [address] TH RECORDS TECHNOLOGY TEACHER * Tayler Vega RN - 10/30/2022 12:29 AM CST Cold symptoms with sore throat x1 week. TH RECORDS TECHNOLOGY TEACHER documented in this encounter Plan of Treatment Not on file documented as of this encounter Procedures Procedure Name Priority Date/Time Associated Diagnosis Comments XR CHEST 1 VIEW ED 10/30/2022 12:45 AM HEALTH RECORDS TECHNOLOGY TEACHER POCT HCG, URINE Routine 10/30/2022 12:36 AM HEALTH RECORDS TECHNOLOGY TEACHER INFLUENZA A/B, RSV, AND COVID-19 PCR Routine 10/30/2022 12:33 AM HEALTH RECORDS TECHNOLOGY TEACHER STREPTOCOCCUS GROUP A PCR STAT 10/30/2022 12:33 AM HEALTH RECORDS TECHNOLOGY TEACHER documented in this encounter Results * XR Chest 1 Vw Portable (10/30/2022 12:45 AM HEALTH RECORDS TECHNOLOGY TEACHER) Anatomical Region Laterality Modality Body, Chest N/A Computed Radiogr aphy 10/30/2022 12:4 8 AM HEALTH RECORDS TECHNOLOGY TEACHER Narrative 10/30/2022 12:49 AM HEALTH RECORDS TECHNOLOGY TEACHER EXAM DESCRIPTION: ?? XR CHEST 1 VIEW REASON FOR STUDY: ?? cough ?? Cold symptoms with sore throat x1 week. ?? TECHNIQUE: ?? Single portable ??radiographic view of the chest acquired. COMPARISON: ?? 08/05/2022 FINDINGS: LUNGS/PLEURA: ?? No focal consolidation or pneumothorax. No pleural effusion. HEART/MEDIASTINUM: ?? Heart size is normal. Normal mediastinal and hilar contours. HARDWARE/LINES/TUBES: ?? None. BONES: ?? No acute findings. OTHER: ?? No other significant finding. IMPRESSION: ?? No acute cardiopulmonary abnormality. THIS IS AN ELECTRONICALLY VERIFIED FINAL REPORT 10/30/2022 12:49 AM - Electronically signed by ??Ha Arrington M.D. BB: [email or web address] D: ??10/30/2022 12:49 AM T: ??10/30/2022 12:49 AM Report ID: [id number] Reading Location: [id number] Procedure Note Ha Arrington MD PhD - 10/30/2022 EXAM DESCRIPTION: XR CHEST 1 VIEW REASON FOR STUDY: cough Cold symptoms with sore throat x1 week. TECHNIQUE: Single portable radiographic view of the chest acquired. COMPARISON: 08/05/2022 FINDINGS: LUNGS/PLEURA: No focal consolidation or pneumothorax. Nopleural effusion. HEART/MEDIASTINUM: Heart size is normal. Normal mediastinal and hilar contours. HARDWARE/LINES/TUBES: None. BONES: No acute findings. OTHER: No other significant finding. IMPRESSION: No acute cardiopulmonary abnormality. THIS IS AN ELECTRONICALLY VERIFIED FINAL REPORT 10/30/2022 12:49 AM - Electronically signed by Ha Arrington M.D. BB: [email or web address] Report ID: [id number] Reading Location: [id number] Malik Vasquez MD IMG XR PROCEDURES F inal Result * POCT hCG, urine (10/30/2022 12:36 AM HEALTH RECORDS TECHNOLOGY TEACHER) HCG, ur, POC Negative Lot Number [id number] QC Backgroud Clear Acceptable QC Control Line Acceptable Urine 10/30/2022 12:3 6 AM HEALTH RECORDS TECHNOLOGY TEACHER us Malik Rodriguez Vasquez MD POINT OF CARE TEST ORDERABLES Final Result * Streptococcus Group A PCR (10/30/2022 12:33 AM HEALTH RECORDS TECHNOLOGY TEACHER) Pathologist [facility] Strep A DNA Not Detected Not Detected [facility] Comment: This test is performed using the [employer] Xpert Group A Streptococcal Assay. This is a qualitative, real-time PCR assay that detects Group A Strep using throat specimens from patients suspected of having streptococcal pharyngitis. This assay does not detect other beta-hemolytic streptococci including Group C or Group G. ??Group C and G have been associated with pharyngitis and, occasionally, acute nephritis but do not cause rheumatic fever. If suspected, order Throat Culture, Routine. This assay has been cleared by the [place] Food and Drug Administration, and its performance characteristics have been verified by the performing laboratory. Testing performed by: [address] [address] Throat 10/30/2022 12:3 3 AM HEALTH RECORDS TECHNOLOGY TEACHER 10/30/2022 12:39 AM HEALTH RECORDS TECHNOLOGY TEACHER Malik Vasquez MD LAB MICROBIOLOGY - GENERAL ORDERABLES Final Result JOSE [address] [facility] Department [place] [address] * Influenza A/B, RSV, and COVID-19 PCR Nasopharyngeal (10/30/2022 12:33 AM HEALTH RECORDS TECHNOLOGY TEACHER) Pathologist [facility] COVID-19 RNA Negative Negative JOSE [facility] Comment:Testing performed by : [address] [address] Influenza A RNA Negative Negative JOSE Comment:Testing performed by : [address] [address] Influenza B RNA Negative Negative JOSE [place] Comment:Testing performed by : [address] [address] RSV RNA Negative Negative JOSE Comment: Interpretive data: This test is performed using the [employer] Xpert Xpress CoV-2/Flu/RSV plus assay. This is [...] Data last revised 2021. Testing performed by: [facility], [address] [place] [address]., [id number] Nasopharyngeal 10/30/2022 12 :33 AM HEALTH RECORDS TECHNOLOGY TEACHER 10/30/2022 12:39 AM HEALTH RECORDS TECHNOLOGY TEACHER Narrative JOSE - 10/30/2022 1:19 AM HEALTH RECORDS TECHNOLOGY TEACHER Is the Patient experiencing symptoms consistent with COVID?->Yes Date of Symptom Onset->10/24/22 Reason for testing?->Symptomatic us Malik Vasqeuz MD LAB MICROBIOLOGY - GENERAL ORDERABLES Final Result JOSE [address] [facility] Department [place] [address] documented in this encounter Visit Diagnoses Diagnosis Acute bronchitis, unspecified organism- Primary documented in this encounter Administered Medications Inactive Administered Medications - up to 3 most recent administrations Medication Order MAR Action Action Date Dose Rate Site ipratropium-albuteroL (DUO-NEB) 0.5-2.5 mg/3 mL nebulizer solution 3 mL 3 mL, nebulization, Once, On Sun10/30/22 at 0121, For 1 dose, Indications: Chronic Obstructive Pulmonary Disease with BronchospasmsIndications:Chronic Obstructive Pulmonary Disease with Bronchospasms Given 10/30/2022 1:37 AM HEALTH RECORDS TECHNOLOGY TEACHER 3 mL documented in this encounter Discontinued Medications Medication Sig Discontinue Reason Start Date End Da te albuterol HFA (PROVENTIL HFA,VENTOLIN HFA,PROAIR HFA) 90 mcg/actuation inhaler Inhale 2 puffs every 4 (four) hours as needed for wheezing 08/06/2022 10/30/2022 documented as of this encounter Active and Recently Administered Medications Times are shown in HEALTH RECORDS TECHNOLOGY TEACHER. Scheduled Medication Order 10/28/2022 10/29/2022 10/30/2022 ipratropium-albuteroL (DUO-NEB) 0.5-2.5 mg/3 mL nebulizer solution 3 mL (COMPLETED) 3 mL, nebulization, Once, On Sun10/30/22 at 0121, For 1 dose, Indications: Chronic Obstructive Pulmonary Disease with Bronchospasms 0137 (Given - Provid er: Connie Brewer, BI TECHNICAL LEAD) documented in this encounter Orders Medications Ordered That Hardik ht Not Have Been Administered Count Last Ordered Date First Ordered Date ipratropium-albuteroL (DUO-N EB) 0.5-2.5 mg/3 mL nebulizer solution 3 mL 1 10/30/2022 documented in this encounter Additional Health Concerns Infection Onset Date Last Indicated Resolved Time COVID: Suspected 10/30/2022 10/30/2022 10/30/2022 1:20 AM HEALTH RECORDS TECHNOLOGY TEACHER documented as of this encounter Care Teams Fan Blade Aligner Relationship Specialty Start Date End Date No, Physician PCP - General 12/30/20 documented as of this encounter
--- OUTSIDE RECORDS SUMMARY | 2024-08-29 16:51 | XMS_ITS | Encounter Summary ---
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 Gender Identity Not on file Sexual Orientation Not on file documented as of this encounter Last Filed Vital Signs Vital Sign Reading Time Taken Comments Blood Pressure 120/61 03/24/2024 1:58 PM CDT Pulse 75 03/24/2024 1:58 PM CDT Temperature 36.7 ??C (98.1 ??F) 03/24/2024 11:04 AM C DT Respiratory Rate 16 03/24/2024 1:58 PM CDT Oxygen Saturation 99% 03/24/2024 1:58 PM CDT Inhaled Oxygen Concentration - - Weight 78.6 kg (173 lb 4.5 oz) 03/24/2024 11:04 AM CDT Height 170.2 cm (5' 7 ) 03/24/2024 11:04 AM CDT Body Mass Index 27.14 03/24/2024 11:04 AM CDT documented in this encounter Discharge Instructions * Discharge Instructions* Julieth Escobar PA - 03/24/2024 1:52 PM CDT 1) take Reglan as directed. Take vitamin B6 as directed. 2) small sips of water or ice chips throughout the day. Safe Medications During Morning sickness/Nausea Eat small, frequent meals, even as often as every 2 hours. Nausea is more common on an empty stomach or overly full stomach. Eat what sounds good to you and try cold foods if smells bother you. Eat a protein snack at bedtime and keep protein snacky by the bed Eat dry crackers, lemon drops, nakul cookies or toast before getting up in the morning (Cheez-it and Goldfish crackers work great as they have a little protein in them) Make sure each meal or snack containers a source of protein to keep blood sugar levels stable Try to avoid burshing teeth immediately afer waking in the morning or at night time right after eating to avoid stimulating gag reflex Drink carbonated beverages, especially nakul urvashi that contains real nakul (like Zina Dry) Suck on lemon drops or sip lemonade throughout day or when nauseated Limit fatty food in diet as they are harder to digest Try accupuncture wrist bands, like Sea-Bands, at P6 accupressure point per package instructions, available at [employer] and [employer] Nakul capsules 250mg by mouth 4 times/day or 8 ounces of nakul tea 4 times/day For Mild nausea without vomiting take Vitamin B6 (pyridoxine) 25mg by mouth 3 times a day For moderate nausea and mild vomiting (less than 2 times/day) or if no relief from Vitamin B6, ADD Unison (doxylamine) 12.5mg (1/2 tab) by mouth at bedtime and continue Vitamin B6 25mg 3 times/day If no relief after 4-5 days try Unisom 25mg (whole tablet) by mouth at bedtime and 12.5mg (1/2 tab)in the morning and midafternood PLUS Vitamin B6 25mg 3 times/day. May also increase Vitamin B6 to 50mg at beditime with 25mg in morning and midafternoon if needed. Unisom can cause drowsiness. Start with bedtime dose for 4-5 days first to decrease drowsiness, then add as needed and as tolerated in morning and afternoon. NOTE: Bedtime dose helps with morning nausea, morning dose helps with afternoon nausea, and afternoon dose helps with evening nausea so adjust times for your particular needs. Headaches: Tylenol, caffeinated beverage at start of headache. Cold compresses on head, lie down in dark room.Magnesium 200mg every 12 hours Nasal congestion/Colds/Allergies/Sinus [place] mist nasal spray, Sudafed (PE is fine if no history of hypertension), Tylenol cold/sinus preparation, Guaifenesin, Hytuss, Mucinex, Benadryl, Dayquil, Claritin, Vicks Sore Throat: Throat lozengers (ie: chloroseptic, cepacol, sucrets), Warm salt water gargles Cough: Mucinex, Robitussin (plain or DM), Vicks 44, Cough drops, Humidifier, Elevate head of bed at night to help sleeping, Increase water intake Constipation: Metamucil, Citrucel, Miralax, Milk of Magnesia (to get things moving), Colace (must be taken daily to soften stools, results seen after one week), Dulcolax (oral or suppositories), Fleets enema (lastresort) Heartburn/Gas Maalox, Mylanta, Tums, Pepcid, if unresolved Prilosec OTC, Gas-X, Mylicon Hemorrhoids Chilled witch óscar packs (Tucks), Sitz baths, Anusol HC, Preparation H Trouble Sleeping/Insomnia: Benadryl, Tylenol PM, Unisom, Melatonin Leg Cramps/Restless Legs: Calcium supplement 1000mg/day, Maginex (magnesium supplement otc), ED if one leg is hot, swollen orsignificant calf pain unrelated to a leg cramp * Attachments The following attachments cannot be sent through Care Everywhere. * Morning Sickness (Discharge Care) (Salvadorean) documented in this encounter Medications at Time of Discharge doxylamine (UNISOM) 25 mg tablet Take 0.5 tablets (12.5 mg total) by mouth nightly as needed for sleep 15 tablet 03/24/2024 ondansetron ODT (ZOFRAN-ODT) 4 mg disintegrating tablet Take 1 tablet (4 mg total) by mouth every 8 (eight) hours as needed for nausea or vomiting 30 tablet 03/20/2024 pyridoxine (VITAMIN B6) 25 mg tablet Take 1 tablet (25 mg total) by mouth daily 30 tablet 03/24/2024 benzonatate (TESSALON) 100 mg capsuleIndications:C ough Take 1 capsule (100 mg total) by mouth every 8 (eight) hours 21 capsule 10/30/2022 PNV with [id number] 27 mg iron- 1 mg tablet Take 1 tablet by mouth daily 30 tablet 03/20/2024 metoclopramide (REGLAN) 10 mg tablet Take 1 tablet (10 mg total) by mouth every 6 (six) hours 30 tablet 03/24/2024 4 cephalexin (KEFLEX) 500 mg capsule Take 1 capsule (500 mg total) by mouth 3 (three) times a day for 5 days 15 capsule 03/20/2024 4 documented as of this encounter Ordered Prescriptions Prescription Sig Dispense Quantity Refills Last Filled Start Date End Date doxylamine (UNISOM) 25 mg tablet Take 0.5 tablets (12.5 mg total) by mouth nightly as needed for sleep 15 tablet 03/24/2024 pyridoxine (VITAMIN B6) 25 mg tablet Take 1 tablet (25 mg total) by mouth daily 30 tablet 03/24/2024 metoclopramide (REGLAN) 10 mg tablet Take 1 tablet (10 mg total) by mouth every 6 (six) hours 30 tablet 03/24/2024 4 documented in this encounter Discharge Disposition Disposition Code Departure Means Destination Comment s Discharge to home or self care documented in this encounter ED Notes * Julieth Escobar PA - 03/24/2024 11:27 AM CDT ED NOTE Chief Complaint Chief Complaint Patient presents with Vomiting During History of Present Illness The patient is a 23 y.o. female at approximately 5 weeks gestation who presents for evaluationof nausea and vomiting for ???days?? . States she has not been able to keep much down. States she feels very dehydrated. She was seen in the ED on 03/20/2024, was sent home with Anil. States she thought it was working initially. She has not seen OB yet. First appointment is on 03/26/2024. She hashad an ultrasound confirming intrauterine . Denies fever, lower abdominal pain, vaginal bleeding, urinary symptoms. Medical History ALLERGIES: No Known Allergies MEDICATIONS: Prior to Admission medications Medication Sig Start Date End Date Taking? Authorizing Provider albuterol HFA (PROVENTIL HFA,VENTOLIN HFA,PROAIR HFA) 90 mcg/actuation inhaler Inhale 2 puffs every4 (four) hours as needed for wheezing 10/30/22 10/30/23 Malik Vasquez MD benzonatate (TESSALON) 100 mg capsule Take 1 capsule (100 mg total) by mouth every 8 (eight) hours 10/30/22 Malik Vasquez MD cephalexin (KEFLEX) 500 mg capsule Take 1 capsule (500 mg total) by mouth 3 (three) times a day for5 days 03/20/24 03/25/24 Vikki Gonzalez PA guaiFENesin ER (MUCINEX) 600 mg 12 hr tablet Take 2 tablets (1,200 mg total) by mouth 2 (two) timesa day 10/30/22 11/29/22 Malik Vasquez MD ondansetron ODT (ZOFRAN-ODT) 4 mg disintegrating tablet Take 1 tablet (4 mg total) by mouth every 8(eight) hours as needed for nausea or vomiting 03/20/24 Vikki Gonzalez PA PNV with [id number] 27 mg iron- 1 mg tablet Take 1 tablet by mouth daily 03/20/24 04/19/24 Vikki Gonzalez PA PAST MEDICAL HISTORY: Past Medical History: Diagnosis Date Asthma GERD (gastroesophageal reflux disease) PAST SURGICAL HISTORY: Past Surgical History: Procedure Laterality Date NO PAST SURGERIES FAMILY HISTORY: Family History Problem Relation Age of Onset Lupus Paternal Grandmother Melanoma Paternal Grandmother Diabetes Paternal Grandfather SOCIAL HISTORY: Social History Tobacco Use Smoking status: Never Smokeless tobacco: Never Substance and Sexual Activity Drug use: Yes Frequency: 21.0 times per week Types: Marijuana Sexual activity: Not on file Alcohol Use: Not on file Review of Systems All systems reviewed and are neg or non contributory for this patients presentation today other than as stated in the HPI . Physical Exam BP 120/61 (Patient Position: Lying) Pulse 75 Temp 36.7 ??C (98.1 ??F) Resp 16 Ht 170.2 cm (5' 7 ) Wt 78.6 kg (173 lb 4.5 oz) LMP (LMP Unknown) SpO2 99% BMI 27.14 kg/m?? Physical Exam Vitals and nursing note reviewed. Eyes: Conjunctiva/sclera: Conjunctivae normal. Cardiovascular: Rate and Rhythm: Normal rate and regular rhythm. Pulses: Normal pulses. Heart sounds: Normal heart sounds. Pulmonary: Effort: Pulmonary effort is normal. Breath sounds: Normal breath sounds. Abdominal: Palpations: Abdomen is soft. Tenderness: There is no abdominal tenderness. Musculoskeletal: General: Normal range of motion. Cervical back: Normal range of motion and neck supple. Skin: General: Skin is warm. Capillary Refill: Capillary refill takes less than 2 seconds. Neurological: General: No focal deficit present. Mental Status: She is alert. Psychiatric: Mood and Affect: Mood normal. Diagnostic Studies / Procedures LABORATORY STUDIES: Labs Reviewed URINALYSIS AND REFLEX TO MICROSCOPIC AND CULTURE - Abnormal Result Value Color, ur Yellow Clarity, ur Cloudy (*) Specific gravity, ur 1.031 (*) pH, urine 6.5 Protein, ur ql 1+ (*) Glucose, ur ql Negative Ketones, ur 4+ (*) Bilirubin, ur Negative Blood, ur Negative Urobilinogen, ur 2.0 (*) Nitrite, ur Negative Leukocyte esterase, ur 4+ (*) UA reflex comment Reflex to microscopic UA will be performed. COMPREHENSIVE METABOLIC PANEL - Abnormal Sodium 138 Potassium, pl 3.7 Chloride 102 CO2 21 (*) Anion gap 15 BUN 8 Creatinine 0.70 Glucose 99 Calcium 9.4 Bilirubin, total 0.4 Protein, pl 7.9 Albumin 4.5 Alk phos 48 ALT 16 AST 16 CBC WITH AUTO DIFFERENTIAL - Abnormal WBC 11.2 (*) Hgb 13.6 Hct 38.5 Plt 282 MPV 10.3 RBC 4.60 MCV 83.7 MCH 29.6 MCHC 35.3 RDW CV 12.2 RDW SD 36.6 NRBC abs 0.00 DIFFERENTIAL AUTO - Abnormal Neutrophil abs 8.5 (*) Imm gran abs 0.1 Lymphocyte abs 1.9 Monocyte abs 0.8 Eosinophil abs 0.0 Basophil abs 0.0 Neutrophil pct 75.6 Imm gran pct 0.4 Lymphocyte pct 16.7 Monocyte pct 6.8 Eosinophil pct 0.1 Basophil pct 0.4 HCG, BLOOD, QUANTITATIVE - Abnormal hCG, quant 78,390.0 (*) EGFR eGFR >90 HCG, BLOOD, QUANTITATIVE URINALYSIS, MICROSCOPIC ONLY IMAGING STUDIES: No orders to display No results found. Procedures ED Course / Medical Decision Making MDM Number of Diagnoses or Management Options Nausea and vomiting in Diagnosis management comments: DDX includes: Nausea and vomiting in , hyperemesis, gastroenteritis patient at approximately 5 weeks gestation presents for nausea and vomiting despite Zofran at home. No acute distress. Vital signs are stable. No abdominal tenderness on exam. Patient was given IV fluids, Reglan, Benadryl with relief. States she also has heartburn at baseline. She was then given Pepcid. She is tolerating p.o. Plan for discharge with vitamin B6 and Unisom. Follow up with OB in 2 days as scheduled. Strict verbal return precautions reviewed. Patient expresses verbal understanding and agreement with plan. All questions answered to the best of my ability. Nontoxic exit exam. Patient discharged home in stable condition. Amount and/or Complexity of Data Reviewed Clinical lab tests: reviewed and ordered Medications sodium chloride 0.9% bolus 1,000 mL (0 mL intravenous Stopped 03/24/24 1222) metoclopramide (REGLAN) 5 mg/mL injection 10 mg (10 mg intravenous Given 03/24/24 1122) diphenhydrAMINE (BENADRYL) 50 mg/mL injection 25 mg (25 mg intravenous Given 03/24/24 1142) sodium chloride 0.9% bolus 1,000 mL (0 mL intravenous Stopped 03/24/24 1404) famotidine (PEPCID) injection 20 mg (20 mg intravenous Given 03/24/24 1356) Diagnoses that have been ruled out: None Diagnoses that are still under consideration: None Final diagnoses: Nausea and vomiting in Disposition: DISPOSITION: Home Follow-Up: No follow-up provider specified. CHERYL Solano 03/24/2024 Julieth Escobar PA 03/24/24 1415 Cosigned by Jan Llamas MD at 03/24/2024 8:57 PM CDT * Yvonne Cast RN - 03/24/2024 11:02 AM CDT Pt is 5 wks . States she has been vomiting for days . Can't keep anything down. States this is her 2nd time here for same. Pt states not urinating much and feeling constipated. Having some abd pain. documented in this encounter Plan of Treatment Pending Results Name Type Priority Associated Diagnoses Date /Time hCG, blood, quantitative Lab STAT 03/24/2024 11:16 AM CDT Scheduled Orders Name Type Priority Associated Diagnoses Orde r Schedule hCG, blood, quantitative Lab STAT Once for 1 Occurrences starting 03/24/2024 until 03/24/2024 documented as of this encounter Procedures Procedure Name Priority Date/Time Associated Diagnosis Comments URINALYSIS AND REFLEX TO MICROSCOPIC AND CULTURE STAT 03/24/2024 1:00 PM CDT URINALYSIS, MICROSCOPIC ONLY STAT 03/24/2024 1:00 PM CDT EGFR STAT 03/24/2024 11:16 AM CDT DIFFERENTIAL AUTO STAT 03/24/2024 11: 16 AM CDT CBC WITH AUTO DIFFERENTIAL STAT 03/24/2024 11:16 AM CDT HCG, BLOOD, QUANTITATIVE STAT 03/24/2024 11:16 AM CDT COMPREHENSIVE METABOLIC PANEL STAT 03/24/2024 11:16 AM CDT documented in this encounter Results * (ABNORMAL) Urinalysis, microscopic only (03/24/2024 1:00 PM CDT) WBC, ur 6-10(A) 0 - 5 /HPF Comment:Testing performed by : [address] [address] RBC, ur 6-10(A) 0 - 2 /HPF JOSE Comment:Testing performed by : [address] [address] Epithelial cells, squamous, ur >50(A) 0 - 5 /HPF JOSE Comment:Testing performed by : [address] [address] Mucous, ur Present(A) JOSE Comment:Testing performed by : [address] [address] Culture Reflex Comment Reflex conditions for urine culture (WBC >10) not met. JOSE Comment:Testing performed by : [address] [address] Urine 03/24/2024 1:00 PM CDT 03/24/2024 2:01 PM CDT us Julieth LUNA LAB URINE ORDERABLES Final Re sult JOSE [place] [address] [facility] Department [place] [address] * (ABNORMAL) Urinalysis reflex to microscopic and culture Urine (03/24/2024 1:00 PM CDT) Color, ur Yellow Yellow Comment:Testing performed by : [address] [address] Clarity, ur Cloudy(A) Clear JOSE Comment:Testing performed by : [address] [address] Specific gravity, ur 1.031(H) 1.003 - 1.030 JOSE Comment:Testing performed by : [address] [address] pH, urine 6.5 JOSE Comment: Interpretive Data ? Urine pH is affected by diet, medications, systemic acid-base disturbances, and renal tubular function. ??pH may affect urinary stone formation. ??For example, urine pH below 6.0 may help reduce the tendency for calcium phosphate stones and pH greater than 6.0 may reduce the tendency for uric acid stone formation. Source: [facility] [employer] Current Interpretive Data was last revised on 2017 Testing performed by: [address] [address] Protein, ur ql 1+(A) Negative JOSE Comment:Testing performed by : [address] [address] Glucose, ur ql Negative Negative JOSE Comment:Testing performed by : [address] [address] Ketones, ur 4+(A) Negative JOSE Comment:Testing performed by : [address] [address] Bilirubin, ur Negative Negative JOSE Comment:Testing performed by : [address] [address] Blood, ur Negative Negative JOSE Comment:Testing performed by : [address] [address] Urobilinogen, ur 2.0(A) <2.0 mg/dL JOSE Comment:Testing performed by : [address] [address] Nitrite, ur Negative Negative JOSE Comment:Testing performed by : [address] [address] Leukocyte esterase, ur 4+(A) Negative JOSE Comment:Testing performed by : [address] [address] UA reflex comment Reflex to microscopic UA will be performed. JOSE Comment:Testing performed by : [address] [address] Urine 03/24/2024 1:00 PM CDT 03/24/2024 2:01 PM CDT Julieth LUNA LAB MICROBIOLOGY - GENERAL OR DERABLES Final Result Performing Organization Address [facility] Co de Phone Number JOSE [address] [place] [address] * (ABNORMAL) hCG, blood, quantitative (03/24/2024 11:16 AM CDT) [facility] hCG, quant 78,390.0( H) 0.0 - 5.0 IUnits/L Comment: Interpretive Data Male: < 5 IU/L Non- premenopausal Female: <5 IU/L The Marcus hCG Beta Quant assay procedure was used. Results from different manufacturers or methods may not be comparable. ??Serial testing should be performed using the same method. Interpretive Data was last revised on 2023 Testing performed by: [address] [address] Blood 03/24/2024 11:1 6 AM CDT 03/24/2024 11:21 AM CDT Julieth LUNA LAB BLOOD ORDERABLES Final Re sult Performing Organization Address City/[facility] Co de Phone Number JOSE [address] [place] [address] * eGFR (03/24/2024 11:16 AM CDT) [facility] eGFR >90 >=60 mL/min/1. 73 m2 Comment: [...] was last reviewed 2021. Testing performed by: [facility], [address] [place] [address]., [address] Blood 03/24/2024 11:1 6 AM CDT 03/24/2024 11:21 AM CDT us Julieth LUNA LAB BLOOD ORDERABLES Final Re sult JOSE [place] [address] [facility] Department [place] [address] * (ABNORMAL) Differential, auto (03/24/2024 11:16 AM CDT) Neutrophil abs 8.5(H) 1.5 - 6.5 K/cumm Comment:Testing performed by : [facility], [address] [place] [address]., [address] Imm gran abs 0.1 0.0 - 0.1 K/cumm JOSE [place] Comment:Testing performed by : [address], [place]., [address] Lymphocyte abs 1.9 0.8 - 3.3 K/cumm JOSE Comment:Testing performed by : [address], [place]., [address] Monocyte abs 0.8 0.2 - 0.8 K/cumm JOSE Comment:Testing performed by : [address], [place]., [address] Eosinophil abs 0.0 0.0 - 0.5 K/cumm JOSE Comment:Testing performed by : [address], [place]., [address] Basophil abs 0.0 0.0 - 0.1 K/cumm JOSE Comment:Testing performed by : [address] [address] Neutrophil pct 75.6 % JOSE Comment: Interpretive Data Percent cell count reference ranges are not reported, since discordance with absolute values may lead to misinterpretation of CBC data. Current Interpretive Data was last revised on 2017. Testing performed by: [address] [address] Imm gran pct 0.4 % JOSE Comment: Interpretive Data Percent cell count reference ranges are not reported, since discordance with absolute values may lead to misinterpretation of CBC data. Current Interpretive Data was last revised on 2017. Testing performed by: [address] [address] Lymphocyte pct 16.7 % JOSE Comment: Interpretive Data Percent cell count reference ranges are not reported, since discordance with absolute values may lead to misinterpretation of CBC data. Current Interpretive Data was last revised on 2017. Testing performed by: [address] [address] Monocyte pct 6.8 % CERCARLOS Comment: Interpretive Data Percent cell count reference ranges are not reported, since discordance with absolute values may lead to misinterpretation of CBC data. Current Interpretive Data was last revised on 2017. Testing performed by: [address] [address] Eosinophil pct 0.1 % JOSE [place] Comment: Interpretive Data Percent cell count reference ranges are not reported, since discordance with absolute values may lead to misinterpretation of CBC data. Current Interpretive Data was last revised on 2017. Testing performed by: [address] [address] Basophil pct 0.4 % JOSE L[place] Comment: Interpretive Data Percent cell count reference ranges are not reported, since discordance with absolute values may lead to misinterpretation of CBC data. Current Interpretive Data was last revised on 2017. Testing performed by: [address] [address] Blood 03/24/2024 11:1 6 AM CDT 03/24/2024 11:21 AM CDT us Julieth LUNA LAB BLOOD ORDERABLES Final Re sult JOSE [address] [facility] Department [place] [address] * (ABNORMAL) CBC with auto differential (03/24/2024 11:16 AM CDT) WBC 11.2(H) 3.8 - 9.9 K/cumm Comment:Testing performed by : [address] [address] Hgb 13.6 11.9 - 15.5 g/dL JOSE LIVING[place] Comment:Testing performed by : [address] [address] Hct 38.5 35.6 - 45.5 % JOSE [place] Comment:Testing performed by : [address] [address] Plt 282 150 - 400 K/cumm JOSE L[place] Comment:Testing performed by : [address] [address] MPV 10.3 9.1 - 12.3 fL JOSE L[place] Comment:Testing performed by : [address] [address] RBC 4.60 3.90 - 5.20 M/cumm JOSE LIV[place] Comment:Testing performed by : [facility], [address] [place] [address]., [address] MCV 83.7 81.3 - 96.4 fL JOSE L[place] Comment:Testing performed by : [address] [address] MCH 29.6 27.1 - 33.3 pg JOSE [place] Comment:Testing performed by : [address] [address] MCHC 35.3 32.3 - 35.7 g/dL JOSE LIV[place] Comment:Testing performed by : [address] [address] RDW CV 12.2 11.1 - 14.9 % JOSE LIV[place] Comment:Testing performed by : [address] [address] RDW SD 36.6 35.7 - 48.1 fL JOSE LIV[place] Comment:Testing performed by : [address] [address] NRBC abs 0.00 0.00 - 0.01 K/cumm JOSE [place] Comment:Testing performed by : [address] [address] Blood 03/24/2024 11:1 6 AM CDT 03/24/2024 11:21 AM CDT us Julieth LUNA LAB BLOOD ORDERABLES Final Re sult JOSE [address] [facility] Department of Laboratories [place], [place] [id number] * (ABNORMAL) Comprehensive metabolic panel (03/24/2024 11:16 AM CDT) Sodium 138 135 - 145 mmol/L Comment:Testing performed by : [address] [address] Potassium, pl 3.7 3.3 - 4.9 mmol/L JOSE Comment:Testing performed by : [address] [address] Chloride 102 97 - 110 mmol/L JOSE Comment:Testing performed by : [address] [address] CO2 21(L) 22 - 32 mmol/L JOSE Comment:Testing performed by : [address] [address] Anion gap 15 2 - 15 mmol/L JOSE Comment:Testing performed by : [address], [place]., [address] BUN 8 6 - 25 mg/dL JOSE Comment:Testing performed by : [address], [place]., [address] Creatinine 0.70 0.60 - 1.10 mg/dL JOSE Comment:Testing performed by : [address] [address] Glucose 99 70 - 199 mg/dL JOSE Comment: Interpretive [...] was last revised 2022. Testing performed by: [address] [address] Calcium 9.4 8.5 - 10.3 mg/dL JOSE Comment:Testing performed by : [address] [address] Bilirubin, total 0.4 0.1 - 1.2 mg/dL JOSE Comment:Testing performed by : [address] [address] Protein, pl 7.9 6.5 - 8.5 g/dL JOSE Comment:Testing performed by : [address] [address] Albumin 4.5 3.5 - 5.0 g/dL JOSE Comment:Testing performed by : [facility], [address] [place] [address]., [address] Alk phos 48 40 - 130 Units/L JOSE LIV[place] Comment:Testing performed by : [address] [address] ALT 16 7 - 45 Units/L JOSE L[place] Comment:Testing performed by : [address] [address] AST 16 10 - 45 Units/L JOSE Comment:Testing performed by : [address] [address] Blood 03/24/2024 11:1 6 AM CDT 03/24/2024 11:21 AM CDT us Julieth LUNA LAB BLOOD ORDERABLES Final Re sult Performing Organization Address City/State/[facility] Co de Phone Number JOSE [address] [facility] Department [place] [address] documented in this encounter Visit Diagnoses Diagnosis Nausea and vomiting in - Primary Unspecified vomiting of , unspecified as to episode of care documented in this encounter Administered Medications Inactive Administered Medications - up to 3 most recent administrations Medication Order MAR Action Action Date Dose Rate Site diphenhydrAMINE (BENADRYL) 50 mg/mL injection 25 mg 25 mg, intravenous, Administer over 2 Minutes, Once, On Sun03/24/24 at 1131, For 1 dose Given 03/24/2024 11:42 AM CDT 25 mg famotidine (PEPCID) injection 20 mg 20 mg, intravenous, Administer over 2 Minutes, Once, On Sun03/24/24 at 1354, For 1 dose Given 03/24/2024 1:56 PM CDT 20 mg metoclopramide (REGLAN) 5 mg/mL injection 10 mg 10 mg, intravenous, Once, On Sun03/24/24 at 1114, For 1 dose Given 03/24/2024 11:22 AM CDT 10 mg sodium chloride 0.9% bolus 1,000 mL 1,000 mL, intravenous, at 1,000 mL/hr, Administer over 1 Hours, Once, On Sun03/24/24 at 1114, For 1 dose New Bag 03/24/2024 11:22 AM CDT 1,000 mL 1000 mL/hr sodium chloride 0.9% bolus 1,000 mL 1,000 mL, intravenous, at 1,000 mL/hr, Administer over 1 Hours, Once, On Sun03/24/24 at 1248, For 1 dose New Bag 03/24/2024 12:59 PM CDT 1,000 mL 1000 mL/hr documented in this encounter Active and Recently Administered Medications Times are shown in CDT. Scheduled Medication Order 03/22/2024 03/23/2024 03/24/2024 diphenhydrAMINE (BENADRYL) 50 mg/mL injection 25 mg (COMPLETED) 25 mg, intravenous, Administer over 2 Minutes, Once, On Sun03/24/24 at 1131, For 1 dose 1142 (Given - Provid er: Anum Barbour, CHARISSE) famotidine (PEPCID) injection 20 mg (COMPLETED) 20 mg, intravenous, Administer over 2 Minutes, Once, On Sun03/24/24 at 1354, For 1 dose 1356 (Given - Provid er: Samantha Palacios RN) metoclopramide (REGLAN) 5 mg/mL injection 10 mg (COMPLETED) 10 mg, intravenous, Once, On Sun03/24/24 at 1114, For 1 dose 1122 (Given - Provid er: Ailyn Camacho RN) sodium chloride 0.9% bolus 1,000 mL (COMPLETED) 1,000 mL, intravenous, at 1,000 mL/hr, Administer over 1 Hours, Once, On Sun03/24/24 at 1114, For 1 dose 1122 (New Bag - Prov ider: Ailyn Camacho RN)1222 (Stopped - Provider: Anum Barbour, CHARISSE) sodium chloride 0.9% bolus 1,000 mL (COMPLETED) 1,000 mL, intravenous, at 1,000 mL/hr, Administer over 1 Hours, Once, On Sun03/24/24 at 1248, For 1 dose 1259 (New Bag - Prov ider: Anum Barbour, CHARISSE)1404 (Stopped - Provider: Samantha Palacios RN) documented in this encounter Care Teams Employment Training Specialist Relationship Specialty Start Date End Date No, Physician PCP - General 12/30/20 documented as of this encounter
--- OUTSIDE RECORDS SUMMARY | 2024-08-29 16:51 | XMS_ITS | Encounter Summary ---
Author Organization [facility] Healthcare Address [address] [place] [id number] Care Team Providers Care Bi Application Developer Name Role Phone No, Physician Primary Care Provider [phone] Reason for Visit * Reason Comments Fever Flu Symptoms Encounter Details Date Type Department Care Team ([facility] st Contact Info) Description 08/05/2022 10:21 PM TILE FINISHER - 08/05/2022 11:19 PM [facility] Emergency [facility] Emergency Department [address] [place] [id number] Gregorio Merlos MD [address] [place] [id number] Influenza (Primary Dx) Discharge Disposition: Discharge to home [...] on file Legal Sex Female 11:54 AM TILE FINISHER Gender Identity Not on file Sexual Orientation Not on file documented as of this encounter Last Filed Vital Signs Vital Sign Reading Time Taken Comments Blood Pressure 126/78 08/05/2022 11:18 PM TILE FINISHER Pulse 97 08/05/2022 11:18 PM TILE FINISHER Temperature 36.7 ??C (98.1 ??F) 08/05/2022 11:[address] Respiratory Rate 18 08/05/2022 11:18 PM TILE FINISHER Oxygen Saturation 97% 08/05/2022 11:18 PM TILE FINISHER Inhaled Oxygen Concentration - - Weight 81.3 kg (179 lb 3.7 oz) 08/05/2022 9:46 P M TILE FINISHER Height - - Body Mass Index 28.07 06/07/2022 12:30 AM CDT documented in this encounter Discharge Instructions * Discharge Instructions* Sesar Martell RN - 08/05/2022 11:07 PM TILE FINISHER Please follow up with your primary care physician, as soon as possible, and ideally within 7 days. Please take any new medications as prescribed. Please return to the emergency department for worsening of your symptoms or any new problems which may arise. It is mandatory that you follow up, as recommended, with a primary care physician or specialist, per your discharge paperwork.You have received emergency care only at your visit today, an this is nota substitute for ongoing care, further evaluation, or treatment. Therefore, follow-up as directed is not optional, but mandatory. This ensures that any incidental abnormal radiographic and laboratoryfindings are evaluated appropriately. Return immediately for any new symptoms, worsening of symptoms, or persistent symptoms. We are open02/04 and will take care of you. FINISHER FINISHER * Attachments The following attachments cannot be sent through Care Everywhere. * Influenza (Spiral Weaver) ([place]) documented in this encounter Medications at Time of Discharge azithromycin (Zithromax Z-Magdaleno) 250 mg tablet Take 1 tablet (250 mg total) by mouth daily for 5 days Take first 2 tablets together, then 1 every day until finished. 6 tablet 08/06/2022 08/11/2022 benzonatate (TESSALON) 100 mg capsuleIndicatio ns:Cough Take 1 capsule (100 mg total) by mouth every 8 (eight) hours for 7 days 21 capsule 08/06/2022 08/13/2022 albuterol HFA (PROVENTIL HFA,VENTOLIN HFA,PROAIR HFA) 90 mcg/actuation inhaler Inhale 2 puffs every 4 (four) hours as needed for wheezing 1 each 06/07/2022 08/06/2022 albuterol HFA (PROVENTIL HFA,VENTOLIN HFA,PROAIR HFA) 90 mcg/actuation inhaler Inhale 2 puffs every 4 (four) hours as needed for wheezing 1 each 08/06/2022 10/30/2022 azithromycin (Zithromax Z-Magdaleno) 250 mg tablet Take 1 tablet (250 mg total) by mouth daily Take first 2 tablets together, then 1 every day until finished. 6 tablet 02/03/2022 08/06/2022 benzonatate (TESSALON) 100 mg capsuleIndicatio ns:Cough Take 1 capsule (100 mg total) by mouth every 8 (eight) hours 30 capsule 06/07/2022 08/06/2022 documented as of this encounter Ordered Prescriptions Prescription Sig Dispense Quantity Refills Last Filled Start Date End Date benzonatate (TESSALON) 100 mg capsuleIndications :Cough Take 1 capsule (100 mg total) by mouth every 8 (eight) hours for 7 days 21 capsule 08/06/2022 2 azithromycin (Zithromax Z-Magdaleno) 250 mg tablet Take 1 tablet (250 mg total) by mouth daily for 5 days Take first 2 tablets together, then 1 every day until finished. 6 tablet 08/06/2022 2 albuterol HFA (PROVENTIL HFA,VENTOLIN HFA,PROAIR HFA) 90 mcg/actuation inhaler Inhale 2 puffs every 4 (four) hours as needed for wheezing 1 each 08/06/2022 3 documented in this encounter Discharge Disposition Disposition Code Departure Means Destination Discharge to home or self care documented in this encounter ED Notes * Do Sumner NP - 08/05/2022 10:01 PM CST HPI Chief Complaint Patient presents with Fever Flu Symptoms HPI 10:03 PM Tawny Nicholas is a 21 y.o. female presenting to the ED c/o trouble breathing, coughing, feels like has fever. Symptoms started yesterday, reports chills/fever. Reports migraine with these symptoms. Reports no exposure to COVID, RSV, Influenza. Pt reports hx bronchitis. Reports that she gets bronchitis 3-5 times a year. States tried Excedrin and Tylenol with no relief. Patient History: Past Medical History: Diagnosis Date Asthma GERD [...] None Alcohol Use: Not on file No current facility-administered medications for this encounter. Current Outpatient Medications: albuterol HFA (PROVENTIL HFA,VENTOLIN HFA,PROAIR HFA) 90 mcg/actuation inhaler azithromycin (Zithromax Z-Magdaleno) 250 mg tablet benzonatate (TESSALON) 100 mg capsule Review of Systems Review of Systems Constitutional: Positive for fever. Negative for fatigue. HENT: Negative. Negative for congestion, rhinorrhea, sinus pressure, sinus pain and sore throat. Eyes: Negative. Respiratory: Positive for cough and shortness of breath. Cardiovascular: Negative. Negative for chest pain. Gastrointestinal: Negative. Negative for abdominal pain. Genitourinary: Negative. Musculoskeletal: Negative. Skin: Negative. Neurological: Positive for headaches. Psychiatric/Behavioral: Negative. Physical Exam ED Triage Vitals [08/05/226] Temp Pulse Resp BP SpO2 36.9 ??C (98.5 ??F) 97 20 122/66 98 % Temp src Heart Rate Source Patient Position BP Location FiO2 (%) Oral -- -- -- -- Height Height Method Weight Weight Method -- -- 81.3 kg (179 lb 3.7 oz) -- Physical Exam Vitals and nursing note reviewed. Constitutional: General: She is not in acute distress. Appearance: Normal appearance. She is normal weight. She is not ill-appearing or toxic-appearing. HENT: Head: Normocephalic. Nose: Nose normal. Mouth/Throat: Mouth: Mucous membranes are moist. Pharynx: Oropharynx is clear. Eyes: Conjunctiva/sclera: Conjunctivae normal. Pupils: Pupils are equal, round, and reactive to light. Cardiovascular: Rate and Rhythm: Normal rate. Pulmonary: Effort: Pulmonary effort is normal. No respiratory distress. Breath sounds: Normal breath sounds. No stridor. No wheezing, rhonchi or rales. Abdominal: General: There is no distension. Palpations: Abdomen is soft. Musculoskeletal: General: Normal range of motion. Cervical back: Normal range of motion and neck supple. Skin: General: Skin is warm and dry. Neurological: General: No focal deficit present. Mental Status: She is alert and oriented to person, place, and time. Psychiatric: Mood and Affect: Mood normal. Behavior: Behavior normal. Thought Content: Thought content normal. Judgment: Judgment normal. Procedures MDM Influenza A/B, RSV, and COVID-19 PCR Nasopharyngeal Final result 08/05 2151 COVID-19 RNA Negative Influenza A RNA Positive Influenza B RNA Negative RSV RNA Negative XR Chest: IMPRESSION: 1. No acute cardiopulmonary abnormality. BP 122/66 Pulse 97 Temp 36.9 ??C (98.5 ??F) (Oral) Resp 20 Wt 81.3 kg (179 lb 3.7 oz) LMP109/27/2021 SpO2 98% BMI 28.07 kg/m?? ED Course: Assess pt, reviewed nurse notes Labs, Chest XR orderd Reassess pt Disposition: Patient presents with cough. Patient is nontoxic-appearing and in no acute distress. Vitals signs are stable. Discussed all test results with the patient including pt's imaging results/lab results indetail including all abnormal findings and need for follow up for all abnormal findings. Given the history and physical exam findings, presentation is most consistent with Influenza. The Ddx also includes COVID, RSV, Pneumonia, however, these are less likely given the data, history and physical exam. Supportive care was discussed including rest, hydration, OTC medications, and Albuterol, Zithromax, and Tessalon Perles was prescribed. Advised close follow up and return criteria/red flags were dis cussed. Understanding of discharge instructions verbalized, and agrees with plan of care. The likelihood of other entities in the differential is insufficient to justify any further testingfor them. This was explained to the patient. The patient was advised that persistent or worsening symptoms would require further work up. . This examination was transcribed using the [employer] voice recognition system without human segment assembler. In an effort to expedite patient care, this report has not been adjusted for typographical, grammatical, and syntax by a trained lead medical technologist. Clinical Impression: Influenza Do Sumner NP 08/10/22 1559 Cosigned by Gregorio Merlos MD at 08/11/2022 12:30 AM TILE FINISHER FINISHER FINISHER Associated attestation - Gregorio Merlos MD - 08/11/2022 12:30 AM TILE FINISHER ED Attestation I did not see this patient. However, I was personally available for consultation in the ED for thispatient if the Advanced Practice Provider (ANNA) needed any assistance. The ANNA evaluated the patient independently and completed their own examination, documentation, and disposition. * Tayler Vega RN - 08/05/2022 9:45 PM CST Patient arrives with reports of fever, cough, headache and SOB since last night. Patient states shefrequently gets dx with bronchitis. FINISHER documented in this encounter Plan of Treatment Not on file documented as of this encounter Procedures Procedure Name Priority Date/Time Associated Diagnosis Comments XR CHEST 1 VIEW ED 08/05/2022 10:24 PM TILE FINISHER INFLUENZA A/B, RSV, AND COVID-19 PCR Routine 08/05/2022 9:51 PM TILE FINISHER documented in this encounter Results * XR Chest 1 Vw Portable (08/05/2022 10:24 PM TILE FINISHER) Anatomical Region Laterality Modality Body, Chest N/A Computed Radiogr aphy 08/05/2022 10:2 9 PM TILE FINISHER Narrative 08/05/2022 10:30 PM TILE FINISHER EXAM DESCRIPTION: ?? XR CHEST 1 VIEW REASON FOR STUDY: ?? cough ?? Patient arrives with reports of fever, cough, headache and SOB since last night. Patient states she frequently gets dx with bronchitis. ?? TECHNIQUE: ?? One ??radiographic view of the chest acquired. COMPARISON: ?? 06/07/2022 FINDINGS: LUNGS/PLEURA: The lungs are clear. ??Apparently increased density at both lower hemithoraces is due to superimposition of breast tissues. ?? No focal consolidation or pneumothorax. No pleural effusion. HEART/MEDIASTINUM: ?? Heart size is normal. Normal mediastinal and hilar contours. HARDWARE/LINES/TUBES: ?? None. BONES: ?? No acute findings. OTHER: ?? No other significant finding. IMPRESSION: 1. ?? No acute cardiopulmonary abnormality. THIS IS AN ELECTRONICALLY VERIFIED FINAL REPORT 08/05/2022 10:30 PM - Electronically signed by ??Francois Celaya M.D. AT: AT D: ??08/05/2022 10:30 PM T: ??08/05/2022 10:30 PM Report ID: [id number] Reading Location: ??[id number] Procedure Note Francois Celaya MD - 08/05/2022 EXAM DESCRIPTION: XR CHEST 1 VIEW REASON FOR STUDY: cough Patient arrives with reports of fever, cough, headache and SOB since last night. Patient states she frequently gets dx with bronchitis. TECHNIQUE: One radiographic view of the chest acquired. COMPARISON: 06/07/2022 FINDINGS: LUNGS/PLEURA: The lungs are clear. Apparently increased densityat both lower hemithoraces is due to superimposition of breast tissues. No focal consolidation or pneumothorax. No pleural effusion. HEART/MEDIASTINUM: Heart size is normal. Normal mediastinal and hilar contours. HARDWARE/LINES/TUBES: None. BONES: No acute findings. OTHER: No other significant finding. IMPRESSION: 1. No acute cardiopulmonary abnormality. THIS IS AN ELECTRONICALLY VERIFIED FINAL REPORT 08/05/2022 10:30 PM - Electronically signed by Francois Celaya M.D. AT: AT Report ID: [id number] Reading Location: [id number] us Gregorio Merlos MD IMG XR PROCEDURES Final R esult * (ABNORMAL) Influenza A/B, RSV, and COVID-19 PCR Nasopharyngeal (08/05/2022 9:51 PM TILE FINISHER) COVID-19 RNA Negative Negative JOSE Comment:Testing performed by : [address] [id number] Influenza A RNA Positive(A) Negative JOSE Comment:Testing performed by : [address] [id number] Influenza B RNA Negative Negative JOSE Comment:Testing performed by : [address] [id number] RSV RNA Negative Negative JOSE Comment: Interpretive data: This test is performed using the [employer] Xpert Xpress CoV-2/Flu/RSV plus assay. This is [...] Data last revised 2021. Testing performed by: [address] [id number] Nasopharyngeal 08/05/2022 9: 51 PM TILE FINISHER 08/05/2022 9:56 PM TILE FINISHER Narrative [facility] - 08/05/2022 10:36 PM TILE FINISHER Is the Patient experiencing symptoms consistent with COVID?->Yes Date of Symptom Onset->08/04/22 Reason for testing?->Symptomatic us Gregorio Merlos MD LAB MICROBIOLOGY - GENERA L ORDERABLES Final Result [facility] [address] [facility] Department [place] [address] documented in this encounter Visit Diagnoses Diagnosis Influenza- Primary Influenza with other respiratory manifestations documented in this encounter Discontinued Medications Medication Sig Discontinue Reason Start Date End Da te azithromycin (Zithromax Z-Magdaleno) 250 mg tablet Take 1 tablet (250 mg total) by mouth daily Take first 2 tablets together, then 1 every day until finished. Reorder 02/03/2022 08/06/2022 albuterol HFA (PROVENTIL HFA,VENTOLIN HFA,PROAIR HFA) 90 mcg/actuation inhaler Inhale 2 puffs every 4 (four) hours as needed for wheezing Reorder 06/07/2022 08/06/2022 benzonatate (TESSALON) 100 mg capsuleIndications:Coug h Take 1 capsule (100 mg total) by mouth every 8 (eight) hours Reorder 06/07/2022 08/06/2022 documented as of this encounter Additional Health Concerns Infection Onset Date Last Indicated Resolved Time COVID: Suspected 08/05/2022 08/05/2022 08/05/2022 10:37 PM TILE FINISHER Influenza, adult 08/05/2022 08/05/2022 08/12/2022 3:06 AM TILE FINISHER documented as of this encounter Care Teams Bi Application Developer Relationship Specialty Start Date End Date No, Physician PCP - General 12/30/20 documented as of this encounter
--- OUTSIDE RECORDS SUMMARY | 2024-08-29 16:51 | XMS_ITS | Encounter Summary ---
Author Organization [facility] Healthcare Address [facility] [place] [address] Care Team Providers Care Executive Producer Promos Name Role Phone No, Physician Primary Care Provider [phone] Reason for Visit * Reason Comments Wrist Pain Encounter Details Date Type Department Care Team (Late st Contact Info) Description 02/12/2023 10:56 PM CDT - 02/12/2023 11:14 PM CDT Emergency [facility] Emergency Department [address] [place] [id number] Discharge Disposition: Left without being seen Social History Tobacco Use Types Packs/Day Years Used Date Smoking Tobacco: Never Smokeless Tobacco: Never Alcohol Use Standard Drinks/Week Comments Yes 0 (1 standard drink = 0.6 oz pur e alcohol) Comments No Sex and Gender Information Value Date Recorded Sex Assigned at Not on file Legal Sex Female 11:54 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 Gender Identity Not on file Sexual Orientation Not on file documented as of this encounter Last Filed Vital Signs Vital Sign Reading Time Taken Comments Blood Pressure 107/63 02/12/2023 10:58 PM CDT Pulse 72 02/12/2023 10:58 PM CDT Temperature 36.4 ??C (97.6 ??F) 02/12/2023 1 0:58 PM CDT Respiratory Rate 16 02/12/2023 10:5 8 PM CDT Oxygen Saturation 99% 02/12/2023 10: 58 PM CDT Inhaled Oxygen Concentration - - Weight 84.3 kg (185 lb 13.6 oz) 023 10:58 PM CDT Height - - Body Mass Index 29.11 06/07/2022 12:30 AM CDT documented in this encounter Medications at Time of Discharge albuterol HFA (PROVENTIL HFA,VENTOLIN HFA,PROAIR HFA) 90 mcg/actuation inhaler Inhale 2 puffs every 4 (four) hours as needed for wheezing 1 each 10/30/2022 benzonatate (TESSALON) 100 mg capsuleIndication s:Cough Take 1 capsule (100 mg total) by mouth every 8 (eight) hours 21 capsule 10/30/2022 documented as of this encounter Discharge Disposition Disposition Code Departure Means Destination Left without being seen documented in this encounter ED Notes * Marta Morrison RN - 02/12/2023 10:58 PM CDT Pt arrives with left wrist pain and swelling. No known injury documented in this encounter Plan of Treatment Not on file documented as of this encounter Visit Diagnoses Not on filedocumented in this encounter Active and Recently Administered Medications Orders Medications Ordered That Hardik ht Not Have Been Administered Count Last Ordered Date First Ordered Date ibuprofen (ADVIL,MOTRIN) tab let/capsule 600 mg 1 02/12/2023 documented in this encounter Care Teams Executive Producer Promos Relationship Specialty Start Date End Date No, Physician PCP - General 12/30/20 documented as of this encounter
--- OUTSIDE RECORDS SUMMARY | 2024-08-29 16:51 | XMS_ITS | Encounter Summary ---
Author Organization [facility] Healthcare Address [facility] [place] [address] Care Team Providers Care Dairy Lab Technician Name Role Phone No, Physician Primary Care Provider [phone] Reason for Visit * Reason Comments Vomiting During Fatigue Encounter Details Date Type Department Care Team (Late st Contact Info) Description 03/20/2024 2:24 PM CDT - 03/20/2024 4:57 PM CDT Emergency [facility] Emergency Department [address] [place] [id number] Vomiting during (Primary Dx); Asymptomatic bacteriuria during Discharge Disposition: Discharge to home or self care Social History Tobacco Use Types Packs/Day Years Used Date Smoking Tobacco: Never Smokeless Tobacco: Never Alcohol Use Standard Drinks/Week Comments Yes 0 (1 standard drink = 0.6 oz pur e alcohol) Personal Safety Answer Date Recorded Getting School Help Needed Not on file 11/03 Comments No Sex and Gender Information Value Date Recorded Sex Assigned at Not on file Legal Sex Female 11:54 AM [employer] Gender Identity Not on file Sexual Orientation Not on file documented as of this encounter Last Filed Vital Signs Vital Sign Reading Time Taken Comments Blood Pressure 115/66 03/20/2024 3:30 PM CDT Pulse 78 03/20/2024 3:30 PM CDT Temperature 36.4 ??C (97.5 ??F) 03/20/2024 1:53 PM CD T Respiratory Rate 16 03/20/2024 3:30 PM CDT Oxygen Saturation 100% 03/20/2024 3:30 PM CDT Inhaled Oxygen Concentration - - Weight 79.4 kg (175 lb 0.7 oz) 03/20/2024 1:53 P M CDT Height 170.2 cm (5' 7 ) 03/20/2024 1:53 PM CDT Body Mass Index 27.42 03/20/2024 1:53 PM CDT documented in this encounter Discharge Instructions * Attachments The following attachments cannot be sent through Care Everywhere. * Nausea and Vomiting in (AfterCare(R) Instructions(ER/ED)) (Citizen Of [place]) documented in this encounter Medications at Time of Discharge ondansetron ODT (ZOFRAN-ODT) 4 mg disintegrating tablet Take 1 tablet (4 mg total) by mouth every 8 (eight) hours as needed for nausea or vomiting 30 tablet 03/20/2024 benzonatate (TESSALON) 100 mg capsuleIndications:C ough Take 1 capsule (100 mg total) by mouth every 8 (eight) hours 21 capsule 10/30/2022 PNV with [id number]-[id number] 27 mg iron- 1 mg tablet Take 1 tablet by mouth daily 30 tablet 03/20/2024 cephalexin (KEFLEX) 500 mg capsule Take 1 capsule (500 mg total) by mouth 3 (three) times a day for 5 days 15 capsule 03/20/2024 4 documented as of this encounter Ordered Prescriptions Prescription Sig Dispense Quantity Refills Last Filled Start Date End Date PNV with akpuzmv-slqi-XK 27 mg iron- 1 mg tablet Take 1 tablet by mouth daily 30 tablet 03/20/2024 ondansetron ODT (ZOFRAN-ODT) 4 mg disintegrating tablet Take 1 tablet (4 mg total) by mouth every 8 (eight) hours as needed for nausea or vomiting 30 tablet 03/20/2024 cephalexin (KEFLEX) 500 mg capsule Take 1 capsule (500 mg total) by mouth 3 (three) times a day for 5 days 15 capsule 03/20/2024 4 documented in this encounter Discharge Disposition Disposition Code Departure Means Destination Comment s Discharge to home or self care documented in this encounter ED Notes * Vikki Gonzalez PA - 03/20/2024 3:02 PM CDT CHIEF COMPLAINT: Chief Complaint Patient presents with Vomiting During Fatigue HPI 9:05 AM Tawny Nicholas is a 23 y.o. female presenting to the ED c/o nausea, vomiting, diarrhea that started yesterday. Patient reports she is currently about 5 weeks . Patient states she has Reglan at home and did take this however she vomited immediately. She states she has been unable to keep down water. No fever or any other complaints reported. PCP: No, Physician PAST MEDICAL HISTORY Past Medical History: Diagnosis Date Asthma GERD (gastroesophageal reflux disease) PAST SURGICAL HISTORY Past Surgical History: Procedure Laterality Date NO PAST SURGERIES FAMILY HISTORY Family History Problem Relation Age of Onset Lupus Paternal Grandmother Melanoma Paternal Grandmother Diabetes Paternal Grandfather MEDICATIONS GIVEN IN THE ED Medications sodium chloride 0.9% bolus 1,000 mL (0 mL intravenous Stopped 03/20/24 1516) ondansetron (ZOFRAN) injection 4 mg (4 mg intravenous Given 03/20/24 1400) ondansetron (ZOFRAN) injection 4 mg (4 mg intravenous Given 03/20/24 1515) sodium chloride 0.9% bolus 1,000 mL (0 mL intravenous Stopped 03/20/24 1648) metoclopramide (REGLAN) 5 mg/mL injection 5 mg (5 mg intravenous Given 03/20/24 1650) CURRENT HOME MEDICATIONS No current facility-administered medications for this encounter. Current Outpatient Medications: albuterol HFA (PROVENTIL HFA,VENTOLIN HFA,PROAIR HFA) 90 mcg/actuation inhaler, Inhale 2 puffs every 4 (four) hours as needed for wheezing, Disp: 1 each, Rfl: 0 benzonatate (TESSALON) 100 mg capsule, Take 1 capsule (100 mg total) by mouth every 8 (eight) hours, Disp: 21 capsule, Rfl: 0 cephalexin (KEFLEX) 500 mg capsule, Take 1 capsule (500 mg total) by mouth 3 (three) times a day for 5 days, Disp: 15 capsule, Rfl: 0 guaiFENesin ER (MUCINEX) 600 mg 12 hr tablet, Take 2 tablets (1,200 mg total) by mouth 2 (two) times a day, Disp: 120 tablet, Rfl: 0 ondansetron ODT (ZOFRAN-ODT) 4 mg disintegrating tablet, Take 1 tablet (4 mg total) by mouth every 8 (eight) hours as needed for nausea or vomiting, Disp: 30 tablet, Rfl: 0 PNV with [id number]-ptro-OJ 27 mg iron- 1 mg tablet, Take 1 tablet by mouth daily, Disp: 30 tablet, Rfl: 0 ALLERGIES No Known Allergies SOCIAL HISTORY Social History Tobacco Use Smoking status: Never Smokeless tobacco: Never Substance and Sexual Activity Drug use: Yes Frequency: 21.0 times per week Types: Marijuana Sexual activity: Not on file Alcohol Use: Not on file PHYSICAL EXAM TRIAGE VITAL SIGNS: ED Triage Vitals [03/20/24 1353] Temp Pulse Resp BP SpO2 36.4 ??C (97.5 ??F) 81 16 114/66 100 % Temp src Heart Rate Source Patient Position BP Location FiO2 (%) Oral -- -- -- -- Height Height Method Weight Weight Method 1.702 m (5' 7 ) Stated 79.4 kg (175 lb 0.7 oz) Standing scale Physical Exam Vitals and [...] alert. Psychiatric: Mood and Affect: Mood normal. LABS Labs Reviewed URINALYSIS AND REFLEX TO MICROSCOPIC AND CULTURE - Abnormal Result Value Color, ur Yellow Clarity, ur Cloudy (*) Specific gravity, ur 1.028 pH, urine 7.0 Protein, ur ql 1+ (*) Glucose, ur ql Negative Ketones, ur 4+ (*) Bilirubin, ur Negative Blood, ur Negative Urobilinogen, ur <2.0 Nitrite, ur Negative Leukocyte esterase, ur 1+ (*) UA reflex comment Reflex to microscopic UA will be performed. CBC WITH AUTO DIFFERENTIAL - Abnormal WBC 13.2 (*) Hgb 14.1 Hct 41.1 Plt 285 MPV 10.3 RBC 4.89 MCV 84.0 MCH 28.8 MCHC 34.3 RDW CV 12.5 RDW SD 37.8 NRBC abs 0.00 COMPREHENSIVE METABOLIC PANEL - Abnormal Sodium 137 Potassium, pl 4.1 Chloride 100 CO2 19 (*) Anion gap 18 (*) BUN 8 Creatinine 0.70 Glucose 105 Calcium 9.5 Bilirubin, total 0.5 Protein, pl 8.2 Albumin 4.7 Alk phos 51 ALT 24 AST 21 HCG, BLOOD, QUANTITATIVE - Abnormal hCG, quant 33,591.0 (*) DIFFERENTIAL AUTO - Abnormal Neutrophil abs 11.0 (*) Imm gran abs 0.1 Lymphocyte abs 1.4 Monocyte abs 0.8 Eosinophil abs 0.0 Basophil abs 0.0 Neutrophil pct 82.6 Imm gran pct 0.5 Lymphocyte pct 10.8 Monocyte pct 5.7 Eosinophil pct 0.1 Basophil pct 0.3 URINALYSIS, MICROSCOPIC ONLY - Abnormal WBC, ur 0-5 RBC, ur 3-5 (*) Epithelial cells, squamous, ur >50 (*) Bacteria, ur Trace (*) Mucous, ur Present (*) Culture Reflex Comment Value: Reflex conditions for urine culture (WBC >10) not met. POCT HCG, URINE - Abnormal HCG, ur, POC Positive (*) Lot Number [id number] QC Backgroud Clear Acceptable QC Control Line Acceptable EGFR eGFR >90 ED COURSE/MEDICAL DECISION MAKING Differential diagnosis included but not limited to hyperemesis gravidarum, dehydration, vomiting during Patient's medical records were reviewed. Patient is a 23-year-old female presenting to the ED c/o nausea, vomiting, diarrhea that started yesterday. Patient reports she is currently about 5 weeks . Patient states she has Reglan at home and did take this however she vomited immediately. She states she has been unable to keep down water. No fever or any other complaints reported. Lab work shows mild leukocytosis. Also shows slightly elevated anion gap and decreased bicarb. I gave her 2 L of IV fluids, Zofran, and Reglan the patient was able to keep down crackers and p.o. fluids without difficulty. Patient states she feels significantly better. I sent her home with Zofran to take as needed and instructed to follow up with herOBGYN. Strict return precautions given. Patient expressed understanding. Procedures FINAL IMPRESSION Vomiting during Asymptomatic bacteriuria during DISPOSITION: Home All findings were discussed with patient. Pt agreeable with plan. Non toxic appearing, vitals stable. Patient stable for discharge home. Given return to ER precautions Close outpatient follow-up with a low threshold to return has been mandated, concerning symptoms have been emphasized in detail, and this patient expresses understanding PATIENT INSTRUCTED TO FOLLOW UP Primary Care [phone] Call this number to be set up with a primary care provider. Call Sesar Goldberg MD [address] [facility] [address] DISCHARGE MEDICATIONS Your medication list START taking these medications Instructions Last Dose Given Next Dose Due cephalexin 500 mg capsule Commonly known as: KEFLEX Take 1 capsule (500 mg total) by mouth 3 (three) times a day for 5 days ondansetron ODT 4 mg disintegrating tablet Commonly known as: ZOFRAN-ODT Take 1 tablet (4 mg total) by mouth every 8 (eight) hours as needed for nausea or vomiting PNV with bdtszav-zkzv-NU 27 mg iron- 1 mg tablet Take 1 tablet by mouth daily ASK your doctor about these medications Instructions Last Dose Given Next Dose Due albuterol HFA 90 mcg/actuation inhaler Commonly known as: PROVENTIL HFA,VENTOLIN HFA,PROAIR HFA Inhale 2 puffs every 4 (four) hours as needed for wheezing benzonatate 100 mg capsule Commonly known as: TESSALON Take 1 capsule (100 mg total) by mouth every 8 (eight) hours guaiFENesin ER 600 mg 12 hr tablet Commonly known as: MUCINEX Take 2 tablets (1,200 mg total) by mouth 2 (two) times a day Where to Get Your Medications These medications were sent to [id number] [place], [place] - [address] [place] [address], [place] [address] Hours: 24-hours cephalexin 500 mg capsule ondansetron ODT 4 mg disintegrating tablet PNV with tjtjkwe-vhpb-RN 27 mg iron- 1 mg tablet This examination was transcribed using the [employer] voice recognition system without human rn case mgr. In an effort to expedite patient care, this report has not been adjusted for typographical, grammatical, and syntax by a trained medical service representative. Vikki Gonzalez PA 03/21/24 09 Cosigned by Gurwinder Galvez MD at 03/23/2024 5:49 PM CDT Associated attestation - Gurwinder Galvez MD - 03/23/2024 5:49 PM CDT ED Attestation This patient was independently evaluated by the APC. I was available for immediate consultation andin-person evaluation if required but was not asked to do so. * Gala Carrillo RN - 03/20/2024 1:51 PM CDT Patient presented to the ED with N/V/D that began since yesterday. Patient is approximately 5 weeks this time. Reporting that she is unable to keep water down documented in this encounter Plan of Treatment Not on file documented as of this encounter Procedures Procedure Name Priority Date/Time Associated Diagnosis Comments POCT HCG, URINE Routine 03/20/2024 3:30 PM CDT URINALYSIS AND REFLEX TO MICROSCOPIC AND CULTURE STAT 03/20/2024 3:28 PM CDT URINALYSIS, MICROSCOPIC ONLY STAT 03/20/2024 3:28 PM CDT EGFR STAT 03/20/2024 1:57 PM CDT DIFFERENTIAL AUTO STAT 03/20/2024 1:5 7 PM CDT CBC WITH AUTO DIFFERENTIAL STAT 03/20/2024 1:57 PM CDT HCG, BLOOD, QUANTITATIVE STAT 03/20/2024 1:57 PM CDT COMPREHENSIVE METABOLIC PANEL STAT 03/20/2024 1:57 PM CDT documented in this encounter Results * (ABNORMAL) POCT hCG, urine (03/20/2024 3:30 PM CDT) Pathologist [facility] HCG, ur, POC Positive(A) Negative Lot Number [id number] QC Backgroud Clear Acceptable QC Control Line Acceptable Urine 03/20/2024 3:30 PM CDT Vikki LUNA POINT OF CARE TEST ORDERAB LES Final Result * (ABNORMAL) Urinalysis, microscopic only (03/20/2024 3:28 PM CDT) [facility] WBC, ur 0-5 0 - 5 /HPF Comment:Testing performed by : [address] [address] RBC, ur 3-5(A) 0 - 2 /HPF JOSE Comment:Testing performed by : [address] [address] Epithelial cells, squamous, ur >50(A) 0 - 5 /HPF JOSE Comment:Testing performed by : [address] [address] Bacteria, ur Trace(A) JOSE Comment:Testing performed by : [address] [address] Mucous, ur Present(A) JOSE Comment:Testing performed by : [address] [place]., [address] Culture Reflex Comment Reflex conditions for urine culture (WBC >10) not met. JOSE Comment:Testing performed by : [address] [address] Urine 03/20/2024 3:28 PM CDT 03/20/2024 3:36 PM CDT Vikki LUNA LAB URINE ORDERABLES Final Result JOSE [place] [address] [facility] [place] [address] * (ABNORMAL) Urinalysis reflex to microscopic and culture Urine (03/20/2024 3:28 PM CDT) Color, ur Yellow Yellow Comment:Testing performed by : [address] [address] Clarity, ur Cloudy(A) Clear JOSE Comment:Testing performed by : [address] [address] Specific gravity, ur 1.028 1.003 - 1.030 JOSE Comment:Testing performed by : [address] [address] pH, urine 7.0 JOSE Comment: Interpretive Data ? Urine pH is affected by diet, medications, systemic acid-base disturbances, and renal tubular function. ??pH may affect urinary stone formation. ??For example, urine pH below 6.0 may help reduce the tendency for calcium phosphate stones and pH greater than 6.0 may reduce the tendency for uric acid stone formation. Source: [facility] [place] Current Interpretive Data was last revised on 2017 Testing performed by: [address] [address] Protein, ur ql 1+(A) Negative JOSE Comment:Testing performed by : [address] [address] Glucose, ur ql Negative Negative JOSE Comment:Testing performed by : [address] [address] Ketones, ur 4+(A) Negative JOSE [place] Comment:Testing performed by : [facility], [address] [place] [address], [place]., [address] Bilirubin, ur Negative Negative JOSE Comment:Testing performed by : [address], [place]., [address] Blood, ur Negative Negative JOSE [place] Comment:Testing performed by : [address], [place]., [address] Urobilinogen, ur <2.0 <2.0 mg/dL JOSE Comment:Testing performed by : [address], [place]., [address] Nitrite, ur Negative Negative JOSE Comment:Testing performed by : [address], [place]., [address] Leukocyte esterase, ur 1+(A) Negative JOSE [place] Comment:Testing performed by : [address], [place]., [address] UA reflex comment Reflex to microscopic UA will be performed. JOSE Comment:Testing performed by : [facility], [address] [place] [address], [place]., [address] Urine 03/20/2024 3:28 PM CDT 03/20/2024 3:36 PM CDT Vikki LUNA LAB MICROBIOLOGY - GENERAL ORDERABLES Final Result Performing Organization Address City/State/[facility] Co de Phone Number JOSE [phone] [facility] Department of Laboratories [place], [place] [id number] * eGFR (03/20/2024 1:57 PM CDT) eGFR >90 >=60 mL/min/1. 73 [...] was last reviewed 2021. Testing performed by: [address] [address] Blood 03/20/2024 1:57 PM CDT 03/20/2024 2:02 PM CDT us Vikki LUNA LAB BLOOD ORDERABLES Final Result JOSE [address] [facility] [place] [address] * (ABNORMAL) Differential, auto (03/20/2024 1:57 PM CDT) Neutrophil abs 11.0(H) 1.5 - 6.5 K/cumm Comment:Testing performed by : [address] [address] Imm gran abs 0.1 0.0 - 0.1 K/cumm JOSE Comment:Testing performed by : [address] [address] Lymphocyte abs 1.4 0.8 - 3.3 K/cumm JOSE Comment:Testing performed by : [address] [address] Monocyte abs 0.8 0.2 - 0.8 K/cumm JOSE Comment:Testing performed by : [address] [place] [address] Eosinophil abs 0.0 0.0 - 0.5 K/cumm [facility] Comment:Testing performed by : [address] [address] Basophil abs 0.0 0.0 - 0.1 K/cumm JOSE Comment:Testing performed by : [address] [address] Neutrophil pct 82.6 % [facility] Comment: Interpretive Data Percent cell count reference ranges are not reported, since discordance with absolute values may lead to misinterpretation of CBC data. Current Interpretive Data was last revised on 2017. Testing performed by: [address] [address] Imm gran pct 0.5 % [facility] Comment: Interpretive Data Percent cell count reference ranges are not reported, since discordance with absolute values may lead to misinterpretation of CBC data. Current Interpretive Data was last revised on 2017. Testing performed by: [address] [address] Lymphocyte pct 10.8 % [facility] Comment: Interpretive Data Percent cell count reference ranges are not reported, since discordance with absolute values may lead to misinterpretation of CBC data. Current Interpretive Data was last revised on 2017. Testing performed by: [address] [address] Monocyte pct 5.7 % [facility] Comment: Interpretive Data Percent cell count reference ranges are not reported, since discordance with absolute values may lead to misinterpretation of CBC data. Current Interpretive Data was last revised on 2017. Testing performed by: [address] [address] Eosinophil pct 0.1 % [facility] Comment: Interpretive Data Percent cell count reference ranges are not reported, since discordance with absolute values may lead to misinterpretation of CBC data. Current Interpretive Data was last revised on 2017. Testing performed by: [address] [address] Basophil pct 0.3 % [facility] Comment: Interpretive Data Percent cell count reference ranges are not reported, since discordance with absolute values may lead to misinterpretation of CBC data. Current Interpretive Data was last revised on 2017. Testing performed by: [address] [address] Blood 03/20/2024 1:57 PM CDT 03/20/2024 2:02 PM CDT Vikki LUNA LAB BLOOD ORDERABLES Final Result Performing Organization Address [facility] de Phone Number [place] [phone] [facility] [place] [address] * (ABNORMAL) hCG, blood, quantitative (03/20/2024 1:57 PM CDT) Pathologist [facility] hCG, quant 33,591.0( H) 0.0 - 5.0 IUnits/L Comment: Interpretive Data Male: < 5 IU/L Non- premenopausal Female: <5 IU/L The Marcus hCG Beta Quant assay procedure was used. Results from different manufacturers or methods may not be comparable. ??Serial testing should be performed using the same method. Interpretive Data was last revised on 2023 Testing performed by: [address] [address] Blood 03/20/2024 1:57 PM CDT 03/20/2024 2:02 PM CDT Vikki LUNA LAB BLOOD ORDERABLES Final Result Performing Organization Address [facility] de Phone Number [facility] [address] [facility] [place] [address] * (ABNORMAL) Comprehensive metabolic panel (03/20/2024 1:57 PM CDT) [facility] Sodium 137 135 - 145 mmol/L Comment:Testing performed by : [address] [address] Potassium, pl 4.1 3.3 - 4.9 mmol/L JOSE Comment:Testing performed by : [address] [place] [address] Chloride 100 97 - 110 mmol/L JOSE Comment:Testing performed by : [address], [place]., [address] CO2 19(L) 22 - 32 mmol/L JOSE Comment:Testing performed by : [address], [place]., [address] Anion gap 18(H) 2 - 15 mmol/L JOSE Comment:Testing performed by : [address] [address] BUN 8 6 - 25 mg/dL [facility] Comment:Testing performed by : [address], [place]., [address] Creatinine 0.70 0.60 - 1.10 mg/dL JOSE Comment:Testing performed by : [address], [place]., [address] Glucose 105 70 - 199 mg/dL JOSE Comment: Interpretive [...] was last revised 2022. Testing performed by: [address] [address] Calcium 9.5 8.5 - 10.3 mg/dL [facility] Comment:Testing performed by : [address] [address] Bilirubin, total 0.5 0.1 - 1.2 mg/dL JOSE Comment:Testing performed by : [address] [address] Protein, pl 8.2 6.5 - 8.5 g/dL JOSE Comment:Testing performed by : [address] [address] Albumin 4.7 3.5 - 5.0 g/dL JOSE [place] Comment:Testing performed by : [address] [address] Alk phos 51 40 - 130 Units/L JOSE [place] Comment:Testing performed by : [address] [address] ALT 24 7 - 45 Units/L JOSE [place] Comment:Testing performed by : [address] [address] AST 21 10 - 45 Units/L JOSE [place] Comment:Testing performed by : [address] [address] Blood (Blood, Venous) 03/20/2024 1:57 PM CDT 03/20/2024 2:02 PM CDT Vikki LUNA LAB BLOOD ORDERABLES Final Result Performing Organization Address City/State/[facility] Co de Phone Number JOSE [facility] [place] [address] * (ABNORMAL) CBC with auto differential (03/20/2024 1:57 PM CDT) WBC 13.2(H) 3.8 - 9.9 K/cumm Comment:Testing performed by : [address] [address] Hgb 14.1 11.9 - 15.5 g/dL JOSE [place] Comment:Testing performed by : [address] [address] Hct 41.1 35.6 - 45.5 % JOSE [place] Comment:Testing performed by : [address] [address] Plt 285 150 - 400 K/cumm JOSE [place] Comment:Testing performed by : [address] [address] MPV 10.3 9.1 - 12.3 fL JOSE [place] Comment:Testing performed by : [address] [address] RBC 4.89 3.90 - 5.20 M/cumm JOSE [place] Comment:Testing performed by : [facility], [address] [place] [address]., [address] MCV 84.0 81.3 - 96.4 fL JOSE [place] Comment:Testing performed by : [address] [address] MCH 28.8 27.1 - 33.3 pg JOSE [place] Comment:Testing performed by : [address] [address] MCHC 34.3 32.3 - 35.7 g/dL JOSE [place] Comment:Testing performed by : [address] [address] RDW CV 12.5 11.1 - 14.9 % JOSE [place] Comment:Testing performed by : [address] [address] RDW SD 37.8 35.7 - 48.1 fL JOSE [place] Comment:Testing performed by : [address] [address] NRBC abs 0.00 0.00 - 0.01 K/cumm JOSE Comment:Testing performed by : [address] [address] Blood (Blood, Venous) 03/20/2024 1:57 PM CDT 03/20/2024 2:02 PM CDT Vikki LUNA LAB BLOOD ORDERABLES Final Result JOSE [address] [facility] [place] [address] documented in this encounter Visit Diagnoses Diagnosis Vomiting during - Primary Asymptomatic bacteriuria during documented in this encounter Administered Medications Inactive Administered Medications - up to 3 most recent administrations Medication Order MAR Action Action Date Dose Rate Site metoclopramide (REGLAN) 5 mg/mL injection 5 mg 5 mg, intravenous, Administer over 1 Minutes, Once, On Josefina 03/20/24 at 1647, For 1 dose Given 03/20/2024 4:50 PM CDT 5 mg ondansetron (ZOFRAN) injection 4 mg 4 mg, intravenous, Administer over 2 Minutes, Once, On Josefina 03/20/24 at 1355, For 1 dose, Indications: Nausea, VomitingIndications:Nausea,Vo miting Given 03/20/2024 2:00 PM CDT 4 mg ondansetron (ZOFRAN) injection 4 mg 4 mg, intravenous, Administer over 2 Minutes, Once, On Josefina 03/20/24 at 1503, For 1 dose Given 03/20/2024 3:15 PM CDT 4 mg ondansetron ODT (ZOFRAN-ODT) disintegrating tablet 4 mg 4 mg, oral, Once as needed, nausea, vomiting, If able to tolerate PO, Starting on Josefina 03/20/24 at 1355, For 1 dose, Do not administer if patient had 8mg administered within 6 hours of patient presenting to ED Do not administer if patient was formally diagnosed with prolonged QT syndrome sodium chloride 0.9% bolus 1,000 mL 1,000 mL, intravenous, at 1,000 mL/hr, Administer over 1 Hours, Once, On Josefina 03/20/24 at 1355, For 1 dose New Bag 03/20/2024 2:32 PM CDT 1,000 mL 1000 mL/hr sodium chloride 0.9% bolus 1,000 mL 1,000 mL, intravenous, at 1,000 mL/hr, Administer over 1 Hours, Once, On Josefina 03/20/24 at 1507, For 1 dose New Bag 03/20/2024 3:09 PM CDT 1,000 mL 1000 mL/hr documented in this encounter Active and Recently Administered Medications Times are shown in CDT. Scheduled Medication Order 03/18/2024 03/19/2024 03/20/2024 metoclopramide (REGLAN) 5 mg/mL injection 5 mg (COMPLETED) 5 mg, intravenous, Administer over 1 Minutes, Once, On Josefina 03/20/24 at 1647, For 1 dose 1650 (Given - Provid er: Anabel Carrillo RN) ondansetron (ZOFRAN) injection 4 mg (COMPLETED) 4 mg, intravenous, Administer over 2 Minutes, Once, On Josefina 03/20/24 at 1355, For 1 dose, Indications: Nausea, Vomiting 1400 (Given - Provid er: Mitra Kraft RN) ondansetron (ZOFRAN) injection 4 mg (COMPLETED) 4 mg, intravenous, Administer over 2 Minutes, Once, On Josefina 03/20/24 at 1503, For 1 dose 1515 (Given - Provid er: Anabel Carrillo RN) sodium chloride 0.9% bolus 1,000 mL (COMPLETED) 1,000 mL, intravenous, at 1,000 mL/hr, Administer over 1 Hours, Once, On Josefina 03/20/24 at 1355, For 1 dose 1432 (New Bag - Prov ider: Anabel Carrillo RN)1516 (Stopped - Provider: Anabel Carrillo RN) sodium chloride 0.9% bolus 1,000 mL (COMPLETED) 1,000 mL, intravenous, at 1,000 mL/hr, Administer over 1 Hours, Once, On Josefina 03/20/24 at 1507, For 1 dose 1509 (New Bag - Prov ider: Anabel Carrillo RN)1648 (Stopped - Provider: Anabel Carrillo RN) PRN Medication Order 03/18/2024 03/19/2024 03/20/2024 ondansetron ODT (ZOFRAN-ODT) disintegrating tablet 4 mg 4 mg, oral, Once as needed, nausea, vomiting, If able to tolerate PO, Starting on Josefina 03/20/24 at 1355, For 1 dose, Do not administer if patient had 8mg administered within 6 hours of patient presenting to ED Do not administer if patient was formally diagnosed with prolonged QT syndrome documented in this encounter Orders Medications Ordered That Hardik ht Not Have Been Administered Count Last Ordered Date First Ordered Date ondansetron ODT (ZOFRAN-ODT) disintegrating tablet 4 mg 1 03/20/2024 IV Count Last Ordered Date First Orde red Date SALINE LOCK IV 1 03/20/2024 documented in this encounter Care Teams Dairy Lab Technician Relationship Specialty Start Date End Date No, Physician PCP - General 12/30/20 documented as of this encounter
--- OUTSIDE RECORDS SUMMARY | 2024-08-29 16:51 | XMS_ITS | Encounter Summary ---
Author Organization [facility] Address [facility] [place] [address] Care Team Providers Care Risk Professional Name Role Phone No, Physician Primary Care Provider [phone] Reason for Visit * Reason Comments Vomiting Nausea Encounter Details Date Type Department Care Team ([facility] st Contact Info) Description 05/06/2024 7:53 AM CDT - 05/06/2024 11:27 AM CDT Emergency [facility] [address] [place] [id number] Hyperemesis gravidarum (Primary Dx) Discharge Disposition: Discharge to home [...] making you feel afraid or unsafe? 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 Gender Identity Not on file Sexual Orientation Not on file documented as of this encounter Last Filed Vital Signs Vital Sign Reading Time Taken Comments Blood Pressure 110/62 05/06/2024 11:25 AM CDT Pulse 64 05/06/2024 11:25 AM CDT Temperature 36.4 ??C (97.5 ??F) 05/06/2024 6:13 AM CD T Respiratory Rate 18 05/06/2024 11:2 5 AM CDT Oxygen Saturation 100% 05/06/2024 11: 25 AM CDT Inhaled Oxygen Concentration - - Weight 80.7 kg (177 lb 14.6 oz) 05/06/2024 6:12 AM CDT Height - - Body Mass Index 27.86 03/24/2024 11:04 AM CDT documented in this encounter Discharge Instructions * Discharge Instructions* Jeaneth Armando PA - 05/06/2024 11:13 AM CDT Thank you for allowing us to take care of you at [facility]. Please follow up with your primary care physician or specialist, as soon as possible, and ideally within [...] open02/04 and will take care of you. Please follow up with her OBGYN within the next week. If you have worsening pain, fever, intractable vomiting please return to the emergency room immediately. * Attachments The following attachments cannot be sent through Care Everywhere. * Hyperemesis Gravidarum (AfterCare(R) Instructions(ER/ED)) (Norwegian) documented in this encounter Medications at Time [...] (eight) hours 21 capsule 10/30/2022 PNV with [id number] 27 mg iron- 1 mg tablet Take 1 tablet by mouth daily 30 tablet 03/20/2024 metoclopramide (REGLAN) 10 mg tablet Take 1 tablet (10 mg total) by mouth every 6 (six) hours 30 tablet 03/24/2024 4 metoclopramide (REGLAN) 10 mg tablet Take 1 tablet (10 mg total) by mouth every 6 (six) hours 30 tablet 05/06/2024 4 documented as of this encounter Ordered Prescriptions Prescription Sig Dispense Quantity Refills Last Filled Start Date End Date metoclopramide (REGLAN) 10 mg tablet Take 1 tablet (10 mg total) by mouth every 6 (six) hours 30 tablet 05/06/2024 07/22/2024 documented in this encounter Discharge Disposition Disposition Code Departure Means Destination Comment s Discharge to home or self care documented in this encounter ED Notes * Jeaneth Armando PA - 05/06/2024 9:28 AM CDT CHIEF COMPLAINT: Chief Complaint Patient presents with Vomiting Nausea HPI 11:13 AM Tawny Nicholas is a 23 y.o. female presenting to the ED c/o nausea and vomiting for the past several days. Patient is 12 weeks . Patient has had an ultrasound to confirm her . Patient states she has not been able to keep anything down. Patient states that the vomiting will cause her to have some stomach pain but in general does not have pain outside of vomiting. Patient denies any abnormal bowel movements, blood in her vomit, fever, blood in her stool, vaginal bleeding,abnormal vaginal discharge. PCP: No, Physician PAST MEDICAL HISTORY Past Medical History: Diagnosis Date Asthma GERD (gastroesophageal reflux disease) PAST SURGICAL HISTORY Past Surgical History: Procedure Laterality Date NO PAST SURGERIES FAMILY HISTORY Family History Problem Relation Age of Onset Lupus Paternal Grandmother Melanoma Paternal Grandmother Diabetes Paternal Grandfather MEDICATIONS GIVEN IN THE ED Medications ondansetron (ZOFRAN) injection 4 mg (has no administration in time range) sodium chloride 0.9% bolus 1,000 mL (0 mL intravenous Stopped 05/06/24823) ondansetron (ZOFRAN) injection 4 mg (4 mg intravenous Given 05/06/24 07) diphenhydrAMINE (BENADRYL) 50 mg/mL injection 25 mg (25 mg intravenous Given 05/06/24823) prochlorperazine (COMPAZINE) injection 10 mg (10 mg intravenous Given 05/06/24826) CURRENT HOME MEDICATIONS Current Facility-Administered Medications: ondansetron (ZOFRAN) injection 4 mg, 4 mg, intravenous, Once PRN, Travis Nichols Jr., MD Current Outpatient Medications: doxylamine (UNISOM) 25 mg tablet, Take 0.5 tablets (12.5 mg total) by mouth nightly as needed for sleep, Disp: 15 tablet, Rfl: 0 metoclopramide (REGLAN) 10 mg tablet, Take 1 tablet (10 mg total) by mouth every 6 (six) hours, Disp: 30 tablet, Rfl: 0 ondansetron ODT (ZOFRAN-ODT) 4 mg disintegrating tablet, Take 1 tablet (4 mg total) by mouth every 8 (eight) hours as needed for nausea or vomiting, Disp: 30 tablet, Rfl: 0 PNV with xtfumxn-vpau-IQ 27 mg iron- 1 mg tablet, Take 1 tablet by mouth daily, Disp: 30 tablet, Rfl: 0 pyridoxine (VITAMIN B6) 25 mg tablet, Take 1 tablet (25 mg total) by mouth daily, Disp: 30 tablet, Rfl: 0 albuterol HFA (PROVENTIL HFA,VENTOLIN HFA,PROAIR HFA) 90 mcg/actuation inhaler, Inhale 2 puffs every 4 (four) hours as needed for wheezing, Disp: 1 each, Rfl: 0 benzonatate (TESSALON) 100 mg capsule, Take 1 capsule (100 mg total) by mouth every 8 (eight) hours, Disp: 21 capsule, Rfl: 0 guaiFENesin ER (MUCINEX) 600 mg 12 hr tablet, Take 2 tablets (1,200 mg total) by mouth 2 (two) times a day, Disp: 120 tablet, Rfl: 0 ALLERGIES No Known Allergies SOCIAL HISTORY Social History Tobacco Use Smoking status: Never Smokeless tobacco: Never Substance and Sexual Activity Drug use: Yes Frequency: 21.0 times per week Types: Marijuana Sexual activity: None Alcohol Use: Not on file PHYSICAL EXAM TRIAGE VITAL SIGNS: ED Triage Vitals Temp Pulse Resp BP SpO2 05/06/24 0613 05/06/24 0612 05/06/24 0612 05/06/24 0612 05/06/24611 36.4 ??C (97.5 ??F) 87 18 122/72 100 % Temp src Heart Rate Source Patient Position BP Location FiO2 (%) 05/06/24612 -- -- 05/06/24809 -- Axillary Right arm Height Height Method Weight Weight Method -- -- 05/06/2461105/06/24611 80.7 kg (177 lb 14.6 oz) Standing scale Physical Exam Vitals and [...] is abdominal tenderness in the right lower quadrant. Musculoskeletal: General: No swelling. Cervical back: Neck supple. Skin: General: Skin is warm and dry. Capillary Refill: Capillary refill takes less than 2 seconds. Neurological: Mental Status: She is alert. Psychiatric: Mood and Affect: Mood normal. LABS Labs Reviewed URINALYSIS AND REFLEX TO MICROSCOPIC AND CULTURE - Abnormal Result Value Color, ur Caro Clarity, ur Turbid (*) Specific gravity, ur 1.019 pH, urine 8.0 Protein, ur ql 1+ (*) Glucose, ur ql Negative Ketones, ur 3+ (*) Bilirubin, ur Negative Blood, ur Negative Urobilinogen, ur <2.0 Nitrite, ur Negative Leukocyte esterase, ur 4+ (*) UA reflex comment Reflex to microscopic UA will be performed. CBC WITH AUTO DIFFERENTIAL - Abnormal WBC 11.5 (*) Hgb 11.8 (*) Hct 34.4 (*) Plt 239 MPV 10.5 RBC 4.02 MCV 85.6 MCH 29.4 MCHC 34.3 RDW CV 12.7 RDW SD 39.3 NRBC abs 0.00 COMPREHENSIVE METABOLIC PANEL - Abnormal Sodium 141 Potassium, pl 4.4 Chloride 104 CO2 22 Anion gap 15 BUN 7 Creatinine 0.60 Glucose 105 Calcium 9.3 Bilirubin, total 0.3 Protein, pl 7.4 Albumin 4.1 Alk phos 36 (*) ALT 17 AST 19 DRUGS OF ABUSE SCREEN, URINE WITHOUT CONFIRMATION - Abnormal Amphetamine, ur Not Detected Barbiturates, ur Not Detected Benzodiazepines, ur Not Detected Cannabinoids, ur Screen Positive, presumptive (*) Cocaine, ur Not Detected Fentanyl, Ur Not Detected Methadone, ur Not Detected Opiates, ur Not Detected Oxycodone, ur Not Detected Phencyclidine, ur Not Detected Urine Creatinine 212 Narrative: Drug of Abuse screening is performed by immunoassay for medical purposes only. This is not to be used for Pain Management purposes. DIFFERENTIAL AUTO - Abnormal Neutrophil abs 9.3 (*) Imm gran abs 0.1 Lymphocyte abs 1.6 Monocyte abs 0.6 Eosinophil abs 0.0 Basophil abs 0.0 Neutrophil pct 80.6 Imm gran pct 0.4 Lymphocyte pct 13.7 Monocyte pct 4.9 Eosinophil pct 0.2 Basophil pct 0.2 URINALYSIS, MICROSCOPIC ONLY - Abnormal WBC, ur 0-5 RBC, ur 11-20 (*) Epithelial cells, squamous, ur >50 (*) Mucous, ur Present (*) Culture Reflex Comment Value: Reflex conditions for urine culture (WBC >10) not met. EGFR eGFR >90 LIPASE Lipase 22 LIPASE RADIOLOGY Impression: Ultrasound OB under 14 weeks:Single live intrauterine gestation at 13 weeks and 0 days with an NATHANIEL of November 11, 2024. Ultrasound abdomen:No specific findings to account for the patient's symptoms. Ultrasound appendix:No sonographic imaging evidence of acute appendicitis EKG NA ED COURSE/MEDICAL DECISION MAKING Differential diagnosis included but not limited to Appendicitis, surgical biliary disease, pancreatitis, SBO, serious intra-abdominal bacterial illness, UTI, kidney stone, gynecological emergencies. Patient's medical records were reviewed. Patient seen in the ED for nausea, vomiting for the past several weeks. On exam patient has mild tenderness of the right lower quadrant. No other abdominal pain noted on exam. Patient states that thepain is only present when she is vomiting. Patient has normal bowel sounds. Patient's white blood cell count elevated at 11.5. No other acute abnormality seen on labs. heart tones found at 152 b eats per minute. Patient denies any vaginal bleeding or abnormal vaginal discharge. Patient was given Zofran, Benadryl and Compazine and IV fluids and states that her nausea feels much better. Ob ultrasound shows single live intrauterine gestation at 13 weeks. Ultrasound of the abdomen shows no acute abnormalities. Ultrasound of the appendix shows no evidence of acute appendicitis. Patient was able to tolerate food and water by mouth with no vomiting. Findings discussed with the patient who feels comfortable going home and following up with PCP and OBGYN. Patient is stable for discharge home. Procedures FINAL IMPRESSION Hyperemesis gravidarum DISPOSITION: Home All findings were discussed with patient. Pt agreeable with plan. Non toxic appearing, vitals stable. Patient stable for discharge home. Given return to ER precautions Close outpatient follow-up with a low threshold to return has been mandated, concerning symptoms have been emphasized in detail, and this patient expresses understanding PATIENT INSTRUCTED TO FOLLOW UP PCP Referral Line Call [phone] to be provided a PCP and arrange a follow up appointment Call in 1 week DISCHARGE MEDICATIONS Your medication list ASK your doctor about these medications Instructions Last Dose Given Next Dose Due albuterol HFA 90 mcg/actuation inhaler Commonly known as: PROVENTIL HFA,VENTOLIN HFA,PROAIR HFA 2 puffs, inhalation, Every 4 hours PRN benzonatate 100 mg capsule Commonly known as: TESSALON 100 mg, oral, Every 8 hours doxylamine 25 mg tablet Commonly known as: UNISOM 12.5 mg, oral, Nightly PRN guaiFENesin ER 600 mg 12 hr tablet Commonly known as: MUCINEX 1,200 mg, oral, 2 times daily metoclopramide 10 mg tablet Commonly known as: REGLAN 10 mg, oral, Every 6 hours ondansetron ODT 4 mg disintegrating tablet Commonly known as: ZOFRAN-ODT 4 mg, oral, Every 8 hours PRN PNV with [id number]-[id number]-WT 27 mg iron- 1 mg tablet 1 tablet, oral, Daily pyridoxine 25 mg tablet Commonly known as: VITAMIN B6 25 mg, oral, Daily This examination was transcribed using the [employer] voice recognition system without human boiler house operator. In an effort to expedite patient care, this report has not been adjusted for typographical, grammatical, and syntax by a trained medical research associate. Jeaneth Armando PA 05/06/24 1113 Cosigned by Jeramie Pace MD at 05/06/2024 5:57 PM CDT Associated attestation - Jeramie Pace MD - 05/06/2024 5:57 PM CDT I was available in the emergency department for consult. The midlevel chose to manage this patient on their own. I was unable to personally evaluate the patient at the time of their ED visit. * Amy Stubbs RN - 05/06/2024 6:10 AM CDT Pt states is 12 weeks , started with N/V yesterday, pt states is unable to keep anything down , pt states has vomited several times an hour throughout the night documented in this encounter Plan of Treatment Pending Results Name Type Priority Associated Diagnoses Date /Time Lipase Lab STAT 05/06/2024 6:1 7 AM CDT Scheduled Orders Name Type Priority Associated Diagnoses Orde r Schedule Lipase Lab STAT Once for 1 Occ urrences starting 05/06/2024 until 05/06/2024 documented as of this encounter Procedures Procedure Name Priority Date/Time Associated Diagnosis Comments US OB UNDER 14 WEEKS ED 05/06/2024 10:19 AM CDT US APPENDIX ED 05/06/2024 10:19 AM CDT US ABDOMEN LIMITED ED 05/06/2024 10 :19 AM CDT URINALYSIS AND REFLEX TO MICROSCOPIC AND CULTURE STAT 05/06/2024 8:09 AM CDT DRUGS OF ABUSE SCREEN, URINE WITHOUT CONFIRMATION STAT 05/06/2024 8:09 AM CDT URINALYSIS, MICROSCOPIC ONLY STAT 05/06/2024 8:09 AM CDT EGFR STAT 05/06/2024 6:17 AM CDT DIFFERENTIAL AUTO STAT 05/06/2024 6:1 7 AM CDT CBC WITH AUTO DIFFERENTIAL STAT 05/06/2024 6:17 AM CDT LIPASE STAT 05/06/2024 6:17 AM CDT COMPREHENSIVE METABOLIC PANEL STAT 05/06/2024 6:17 AM CDT documented in this encounter Results * US Ob Under 14 Weeks (05/06/2024 10:19 AM CDT) Anatomical Region Laterality Modality Abdomen N/A Ultrasound 05/06/2024 10:4 7 AM CDT Narrative 05/06/2024 10:52 AM CDT EXAM DESCRIPTION: ?? US OB UNDER 14 WEEKS REASON FOR STUDY: ?? pelvic pain TECHNIQUE: ?? Transabdominal and transvaginal ??images acquired of the pelvis. COMPARISON: None. FINDINGS: Clinical gestational age: ?? 12 weeks 4 days Clinical estimated Due Date: ?? November 14, 2024 ?? There is an intrauterine gestational sac. ??There is a single pole. ??The mean crown-rump length is 6.7 cm which corresponds to a mean gestational age by ultrasound of 13 weeks and 0 days with an NATHANIEL of November 11, 2024. ??The heart rate is 153 beats per minute. The maternal ovaries are normal in size and echogenicity with normal flow. ?? There is an approximately 4 cm left ovarian cyst. There is no abnormal free pelvic fluid. IMPRESSION: Single live intrauterine gestation at 13 weeks and 0 days with an NATHANIEL of November 11, 2024. THIS IS AN ELECTRONICALLY VERIFIED FINAL REPORT 05/06/2024 10:52 AM - Electronically signed by ??Rico Honeycutt M.D. SN: SN D: ??05/06/2024 10:52 AM T: ??05/06/2024 10:52 AM Report ID: [id number] Reading Location: ??[id number] Procedure Note Rico Honeycutt MD - 05/06/2024 EXAM DESCRIPTION: US OB UNDER 14 WEEKS REASON FOR STUDY: pelvic pain TECHNIQUE: Transabdominal and transvaginal images acquired of thepelvis. COMPARISON: None. FINDINGS: Clinical gestational age: 12 weeks 4 days Clinical estimated Due Date: November 14, 2024 There is an intrauterine gestational sac. There is a single pole.The mean crown-rump length is 6.7 cm which corresponds to a mean gestationalage by ultrasound of 13 weeks and 0 days with an NATHANIEL of November 11, 2024. Thefetal heart rate is 153 beats per minute. The maternal ovaries are normal in size and echogenicity with normal flow. There is an approximately 4 cm left ovarian cyst. There is no abnormal free pelvic fluid. IMPRESSION: Single live intrauterine gestation at 13 weeks and 0 days withan NATHANIEL of November 11, 2024. THIS IS AN ELECTRONICALLY VERIFIED FINAL REPORT 05/06/2024 10:52 AM - Electronically signed by Rico Honeycutt M.D. SN: Report ID: [id number] Reading Location: [id number] us [facility] OB US PROCEDURES F inal Result * US Appendix (05/06/2024 10:19 AM CDT) Anatomical Region Laterality Modality Abdomen N/A Ultrasound 05/06/2024 10:4 1 AM CDT Narrative 05/06/2024 10:43 AM CDT EXAM DESCRIPTION: ?US APPENDIX REASON FOR STUDY: ?? RLQ, pt and vomiting TECHNIQUE: Grayscale and color Doppler sonographic imaging of the right lower quadrant. COMPARISON: None. FINDINGS: No abnormally dilated tubular structure in the right lower quadrant to suggest an enlarged appendix. ??No free fluid in the right lower quadrant to suggest inflammatory change. ??No fluid collection in the right lower quadrant to suggest an abscess. ??Normal peristalsing segments of intestine are seen. IMPRESSION: No sonographic imaging evidence of acute appendicitis. THIS IS AN ELECTRONICALLY VERIFIED FINAL REPORT 05/06/2024 10:43 AM - Electronically signed by ??Rico Honeycutt M.D. SN: D: ??05/06/2024 10:43 AM T: ??05/06/2024 10:43 AM Report ID: [id number] Reading Location: ??[id number] Procedure Note Rico Honeycutt MD - 05/06/2024 EXAM DESCRIPTION: US APPENDIX REASON FOR STUDY: RLQ, pt and vomiting TECHNIQUE: Grayscale and color Doppler sonographic imaging of the rightlower quadrant. COMPARISON: None. FINDINGS: No abnormally dilated tubular structure in the right lowerquadrant to suggest an enlarged appendix. No free fluid in the right lowerquadrant to suggest inflammatory change. No fluid collection in the right lowerquadrant to suggest an abscess. Normal peristalsing segments of intestine areseen. IMPRESSION: No sonographic imaging evidence of acute appendicitis. THIS IS AN ELECTRONICALLY VERIFIED FINAL REPORT 05/06/2024 10:43 AM - Electronically signed by Rico Honeycutt M.D. SN: SN Report ID: [id number] Reading Location: [id number] us [facility] US PROCEDURES Josephine l Result * US Abdomen Limited (05/06/2024 10:19 AM CDT) Anatomical Region Laterality Modality Abdomen N/A Ultrasound 05/06/2024 10:4 3 AM CDT Narrative 05/06/2024 10:47 AM CDT EXAM DESCRIPTION: US ABDOMEN LIMITED REASON FOR STUDY: RLQ, RUQ TECHNIQUE: Grayscale and color Doppler sonographic imaging of the right upper quadrant. COMPARISON: None. FINDINGS: The liver is normal in size but increased in echogenicity as can be seen with steatosis. The portal vein is patent with hepatopetal flow. There are no echogenic shadowing gallstones, there is no gallbladder wall thickening and there is no pericholecystic fluid. ??The sonographic Kitchen's sign is negative. There is no intrahepatic or extrahepatic biliary ductal dilatation. The pancreas is normal in echogenicity where imaged. The right kidney is normal in size and echogenicity without hydronephrosis. IMPRESSION: No specific findings to account for the patient's symptoms. THIS IS AN ELECTRONICALLY VERIFIED FINAL REPORT 05/06/2024 10:47 AM - Electronically signed by ??Rico Honeycutt M.D. SN: D: ??05/06/2024 10:47 AM T: ??05/06/2024 10:47 AM Report ID: [id number] Reading Location: ??[id number] Procedure Note Rico Honeycutt MD - 05/06/2024 EXAM DESCRIPTION: US ABDOMEN LIMITED REASON FOR STUDY: RLQ, RUQ TECHNIQUE: Grayscale and color Doppler sonographic imaging of the rightupper quadrant. COMPARISON: None. FINDINGS: The liver is normal in size but increased in echogenicity as canbe seen with steatosis. The portal vein is patent with hepatopetal flow. There are no echogenic shadowing gallstones, there is no gallbladder wall thickening and there is no pericholecystic fluid. The sonographicMurphy's sign is negative. There is no intrahepatic or extrahepatic biliary ductal dilatation. The pancreas is normal in echogenicity where imaged. The right kidney is normal in size and echogenicity withouthydronephrosis. IMPRESSION: No specific findings to account for the patient's symptoms. THIS IS AN ELECTRONICALLY VERIFIED FINAL REPORT 05/06/2024 10:47 AM - Electronically signed by Rico Honeycutt M.D. SN: Report ID: [id number] Reading Location: [place] [address] [facility] US PROCEDURES Josephine l Result * (ABNORMAL) Urinalysis, microscopic only (05/06/2024 8:09 AM CDT) WBC, ur 0-5 0 - 5 /HPF Comment:Testing performed by : [address] [address] RBC, ur 11-20(A) 0 - 2 /HPF JOSE Comment:Testing performed by : [address] [address] Epithelial cells, squamous, ur >50(A) 0 - 5 /HPF JOSE Comment:Testing performed by : [address] [address] Mucous, ur Present(A) JOSE Comment:Testing performed by : [address] [address] Culture Reflex Comment Reflex conditions for urine culture (WBC >10) not met. JOSE Comment:Testing performed by : [address] [address] Urine 05/06/2024 8:09 AM CDT 05/06/2024 8:14 AM CDT Travis Nichols Jr., MD LAB URINE ORDERABLES Fi nal Result [facility] [address] [facility] Department [place] [address] * (ABNORMAL) Drugs of Abuse Screen, Urine without Confirmation (05/06/2024 8:09 AM CDT) Amphetamine, ur Not Detected CutOff 500ng/mL Comment: Interpretive Data - Amphetamines: ??Samples containing greater than 500 ng/mL d-methamphetamine ??or other cross-reacting amphetamine compounds are reported as positive. ??Amphetamine immunoassays are subject to significant false positive rates due to cross-reactivity of non-amphetamine drugs. Confirmatory testing required for definitive results. Current Interpretive Data was last reviewed 2023. Testing performed by: [facility], [address] [place] [address]., [address] Barbiturates, ur Not Detected CutOff 200ng/mL [facility] Comment: Interpretive Data - Barbiturates: ??Samples containing greater than 200 ng/mL secobarbital or other cross-reacting barbiturate compounds are reported as positive. ??False positive and false negative results are possible. Confirmatory testing required for definitive results. Current Interpretive Data was last reviewed 2023. Testing performed by: [address] [address] Benzodiazepines, ur Not Detected CutOff 100ng/mL [facility] Comment: Interpretive Data - Benzodiazepines: ??Samples containing greater than 100 ng/mL nordiazepam or other cross-reacting compounds are reported as positive. False positive and false negative results are possible. Confirmatory testing required for definitive results. Current Interpretive Data was last reviewed 2023. Testing performed by: [address] [address] Cannabinoids, ur Screen Positive, presumptive (A) CutOff 50 ng/mL [facility] Comment: Interpretive Data - Cannabinoids: ??Samples containing greater than 50 ng/mL delta-9 THC -COOH or other cross-reacting compounds are reported as positive. ??False positive and false negative results are possible. ??Confirmatory testing required for definitive results. Current Interpretive Data was last reviewed 2023. Testing performed by: [address] [address] Cocaine, ur Not Detected CutOff 150ng/mL [facility] Comment: Interpretive Data - Cocaine: ??Samples containing greater than 150 ng/mL benzoylecgonine or other cross-reacting compounds are reported as positive. False positive and false negative results are possible. Confirmatory testing required for definitive results. Current Interpretive Data was last reviewed 2023. Testing performed by: [facility], [address] [place] [address]., [id number] Fentanyl, Ur Not Detected Cutoff 1 ng/mL [facility] Comment: Interpretive Data - Fentanyl: ??Samples containing greater than 1 ng/mL fentanyl or other cross-reacting fentanyl compounds are reported as positive. ??False positive and false negative results are possible. Confirmatory testing required for definitive results. Current Interpretive Data was last reviewed 2023. Testing performed by: [address] [address] Methadone, ur Not Detected CutOff 300ng/mL [facility] Comment: Interpretive Data - Methadone: ??Samples containing greater than 300 ng/mL d,l-methadone or other cross-reacting compounds are reported as positive. ??False positive and false negative results are possible. Confirmatory testing required for definitive results. Current Interpretive Data was last reviewed 2023. Testing performed by: [address] [address] Opiates, ur Not Detected CutOff 300ng/mL [facility] Comment: Interpretive Data - Opiates: ??Samples containing greater than 300 ng/mL morphine or other cross-reacting compounds are reported as positive. ??False positive and false negative results are possible. Confirmatory testing required for definitive results. Current Interpretive Data was last reviewed 2023. Testing performed by: [address] [address] Oxycodone, ur Not Detected CutOff 100ng/mL [facility] Comment: Interpretive Data - Oxycodone: ??Samples containing greater than 100 ng/mL oxycodone or other cross-reacting compounds are reported as ??positive. ??False positive and false negative results are possible. Confirmatory testing required for definitive results. Current Interpretive Data was last reviewed 2023. Testing performed by: [address] [address] Phencyclidine, ur Not Detected CutOff 25 ng/mL [facility] Comment: Interpretive Data - Phencyclidine: ??Samples containing greater than 25 ng/mL phencyclidine or other cross-reacting compounds are reported as positive. ??False positive and false negative results are possible. Confirmatory testing required for definitive results. Current Interpretive Data was last reviewed 2023. Testing performed by: [address] [address] Urine Creatinine 212 mg/dL JOSE Comment: Interpretive Data Urine Creatinine: < 10 mg/dL is extremely dilute = or > 10 but < 20 mg/dL is dilute = or > 20 mg/dL is normal Current Interpretive Data was last revised on 2017. Testing performed by: [address] [address] Urine 05/06/2024 8:09 AM CDT 05/06/2024 8:14 AM CDT Narrative JOSE - 05/06/2024 8:47 AM CDT Drug of Abuse screening is performed by immunoassay for medical purposes only. ??This is not to be used for Pain Management purposes. us Jeramie Pace MD LAB URINE ORDERABLES Final Res ult JOSE [address] [facility] Department of Laboratories [place], [place] [id number] * (ABNORMAL) Urinalysis reflex to microscopic and culture Urine (05/06/2024 8:09 AM CDT) Color, ur Caro Yellow Comment:Testing performed by : [address] [address] Clarity, ur Turbid(A) Clear JOSE Comment:Testing performed by : [address] [address] Specific gravity, ur 1.019 1.003 - 1.030 JOSE Comment:Testing performed by : [address] [address] pH, urine 8.0 JOSE Comment: Interpretive Data ? Urine pH is affected by diet, medications, systemic acid-base disturbances, and renal tubular function. ??pH may affect urinary stone formation. ??For example, urine pH below 6.0 may help reduce the tendency for calcium phosphate stones and pH greater than 6.0 may reduce the tendency for uric acid stone formation. Source: [facility] Current Interpretive Data was last revised on 2017 Testing performed by: [facility], [address] [place] [address], [place]., [address] Protein, ur ql 1+(A) Negative JOSE Comment:Testing performed by : [facility], [address] [place] [address], [place]., [address] Glucose, ur ql Negative Negative JOSE Comment:Testing performed by : [address], [place]., [address] Ketones, ur 3+(A) Negative JOSE Comment:Testing performed by : [address], [place]., [address] Bilirubin, ur Negative Negative JOSE Comment:Testing performed by : [address], [place]., [address] Blood, ur Negative Negative JOSE Comment:Testing performed by : [address], [place]., [address] Urobilinogen, ur <2.0 <2.0 mg/dL JOSE Comment:Testing performed by : [address], [place]., [address] Nitrite, ur Negative Negative JOSE Comment:Testing performed by : [address] [address] Leukocyte esterase, ur 4+(A) Negative JOSE Comment:Testing performed by : [address], [place]., [address] UA reflex comment Reflex to microscopic UA will be performed. JOSE Comment:Testing performed by : [address] [address] Urine 05/06/2024 8:09 AM CDT 05/06/2024 8:14 AM CDT us Travis Nichols Jr., MD LAB MICROBIOLOGY - GENE RAL ORDERABLES Final Result JOSE [place] [address] [facility] Department [place] [address] * Lipase (05/06/2024 6:17 AM CDT) Lipase 22 10 - 99 Units/L Comment:Testing performed by : [facility], [address] [place] [address]., [address] Blood 05/06/2024 6:17 AM CDT 05/06/2024 6:53 AM CDT us Travis Nichols Jr., MD LAB BLOOD ORDERABLES Fi nal Result Performing Organization Address City/State/[facility] Co ms Phone Number MARIA DEL ROSARIOT[place] [address] [facility] Department of Laboratories [place], [place] [id number] * eGFR (05/06/2024 6:17 AM CDT) Pathologist [facility] eGFR >90 >=60 mL/min/1. 73 m2 Comment: [...] was last reviewed 2021. Testing performed by: [facility], [address] [place] [address]., [address] Blood 05/06/2024 6:17 AM CDT 05/06/2024 6:53 AM CDT us Travis Nichols Jr., MD LAB BLOOD ORDERABLES Fi nal Result JOSE [address] [facility] Department [place] [address] * (ABNORMAL) Differential, auto (05/06/2024 6:17 AM CDT) Neutrophil abs 9.3(H) 1.5 - 6.5 K/cumm Comment:Testing performed by : [address] [address] Imm gran abs 0.1 0.0 - 0.1 K/cumm JOSE Comment:Testing performed by : [address] [address] Lymphocyte abs 1.6 0.8 - 3.3 K/cumm JOSE Comment:Testing performed by : [address] [address] Monocyte abs 0.6 0.2 - 0.8 K/cumm JOSE Comment:Testing performed by : [address] [address] Eosinophil abs 0.0 0.0 - 0.5 K/cumm JOSE Comment:Testing performed by : [address] [address] Basophil abs 0.0 0.0 - 0.1 K/cumm JOSE Comment:Testing performed by : [address] [address] Neutrophil pct 80.6 % JOSE Comment: Interpretive Data Percent cell count reference ranges are not reported, since discordance with absolute values may lead to misinterpretation of CBC data. Current Interpretive Data was last revised on 2017. Testing performed by: [address] [address] Imm gran pct 0.4 % JOSE Comment: Interpretive Data Percent cell count reference ranges are not reported, since discordance with absolute values may lead to misinterpretation of CBC data. Current Interpretive Data was last revised on 2017. Testing performed by: [address] [address] Lymphocyte pct 13.7 % [facility] Comment: Interpretive Data Percent cell count reference ranges are not reported, since discordance with absolute values may lead to misinterpretation of CBC data. Current Interpretive Data was last revised on 2017. Testing performed by: [address] [address] Monocyte pct 4.9 % [facility] Comment: Interpretive Data Percent cell count reference ranges are not reported, since discordance with absolute values may lead to misinterpretation of CBC data. Current Interpretive Data was last revised on 2017. Testing performed by: [address] [address] Eosinophil pct 0.2 % [facility] Comment: Interpretive Data Percent cell count reference ranges are not reported, since discordance with absolute values may lead to misinterpretation of CBC data. Current Interpretive Data was last revised on 2017. Testing performed by: [address] [address] Basophil pct 0.2 % [facility] Comment: Interpretive Data Percent cell count reference ranges are not reported, since discordance with absolute values may lead to misinterpretation of CBC data. Current Interpretive Data was last revised on 2017. Testing performed by: [address] [address] Blood 05/06/2024 6:17 AM CDT 05/06/2024 6:53 AM CDT us Travis Nichols Jr., MD LAB BLOOD ORDERABLES Fi nal Result JOSE [address] [facility] Department [place] [address] * (ABNORMAL) Comprehensive metabolic panel (05/06/2024 6:17 AM CDT) Pathologist [facility] Sodium 141 135 - 145 mmol/L Comment:Testing performed by : [address] [address] Potassium, pl 4.4 3.3 - 4.9 mmol/L [facility] Comment:Testing performed by : [address] [address] Chloride 104 97 - 110 mmol/L JOSE Comment:Testing performed by : [address], [place]., [address] CO2 22 22 - 32 mmol/L JOSE Comment:Testing performed by : [address], [place]., [address] Anion gap 15 2 - 15 mmol/L [facility] Comment:Testing performed by : [address], [place]., [address] BUN 7 6 - 25 mg/dL [facility] Comment:Testing performed by : [address] [address] Creatinine 0.60 0.60 - 1.10 mg/dL [facility] Comment:Testing performed by : [address] [address] Glucose 105 70 - 199 mg/dL [facility] Comment: Interpretive Data Fasting glucose >/= 126 [...] was last revised 2022. Testing performed by: [address] [address] Calcium 9.3 8.5 - 10.3 mg/dL [facility] Comment:Testing performed by : [address] [address] Bilirubin, total 0.3 0.1 - 1.2 mg/dL [facility] Comment:Testing performed by : [address] [address] Protein, pl 7.4 6.5 - 8.5 g/dL MARIA DEL ROSARIOCARLOS [place] Comment:Testing performed by : [address] [address] Albumin 4.1 3.5 - 5.0 g/dL JOSE [place] Comment:Testing performed by : [address] [address] Alk phos 36(L) 40 - 130 Units/L JOSE [place] Comment:Testing performed by : [address] [address] ALT 17 7 - 45 Units/L JOSE [place] Comment:Testing performed by : [address] [address] AST 19 10 - 45 Units/L JOSE Comment:Testing performed by : [address] [address] Blood (Blood, Venous) 05/06/2024 6:17 AM CDT 05/06/2024 6:53 AM CDT Travis Nichols Jr., MD LAB BLOOD ORDERABLES Fi nal Result [place] [id number] [facility] Department [place] [address] * (ABNORMAL) CBC with auto differential (05/06/2024 6:17 AM CDT) [facility] WBC 11.5(H) 3.8 - 9.9 K/cumm Comment:Testing performed by : [address] [address] Hgb 11.8(L) 11.9 - 15.5 g/dL JOSE [place] Comment:Testing performed by : [address] [address] Hct 34.4(L) 35.6 - 45.5 % JOSE [place] Comment:Testing performed by : [address] [address] Plt 239 150 - 400 K/cumm JOSE [place] Comment:Testing performed by : [address] [address] MPV 10.5 9.1 - 12.3 fL JOSE [place] Comment:Testing performed by : [facility], [address] [place] [address]., [address] RBC 4.02 3.90 - 5.20 M/cumm JOSE [place] Comment:Testing performed by : [address] [address] MCV 85.6 81.3 - 96.4 fL JOSE [place] Comment:Testing performed by : [address] [address] MCH 29.4 27.1 - 33.3 pg JOSE [place] Comment:Testing performed by : [address] [address] MCHC 34.3 32.3 - 35.7 g/dL JOSE [place] Comment:Testing performed by : [address] [address] RDW CV 12.7 11.1 - 14.9 % JOSE [place] Comment:Testing performed by : [address] [address] RDW SD 39.3 35.7 - 48.1 fL JOSE [place] Comment:Testing performed by : [address] [address] NRBC abs 0.00 0.00 - 0.01 K/cumm JOSE [place] Comment:Testing performed by : [address] [address] Blood (Blood, Venous) 05/06/2024 6:17 AM CDT 05/06/2024 6:53 AM CDT us Travis Nichols Jr., MD LAB BLOOD ORDERABLES Fi nal Result [facility] Department [place] [address] documented in this encounter Visit Diagnoses Diagnosis Hyperemesis gravidarum- Primary Mild hyperemesis gravidarum, unspecified as to episode of care documented in this encounter Administered Medications Inactive Administered Medications - up to 3 most recent administrations Medication Order MAR Action Action Date Dose Rate Site diphenhydrAMINE (BENADRYL) 50 mg/mL injection 25 mg 25 mg, intravenous, Administer over 2 Minutes, Once, On e 05/06/24 at 0819, For 1 dose Given 05/06/2024 8:24 AM CDT 25 mg ondansetron (ZOFRAN) injection 4 mg 4 mg, intravenous, Administer over 2 Minutes, Once as needed, nausea, vomiting, If patient unable to tolerate PO, Starting on Sun05/06/24 at 0613, For 1 dose, Do not administer if patient had 8mg administered within 6 hours of patient presenting to ED Do not administer if patient was formally diagnosed with prolonged QT syndrome ondansetron (ZOFRAN) injection 4 mg 4 mg, intravenous, Administer over 2 Minutes, Once, On Sun05/06/24 at 0623, For 1 dose Given 05/06/2024 7:31 AM CDT 4 mg prochlorperazine (COMPAZINE) injection 10 mg 10 mg, intravenous, Administer over 2 Minutes, Once, On Sun05/06/24 at 0819, For 1 dose Given 05/06/2024 8:27 AM CDT 10 mg sodium chloride 0.9% bolus 1,000 mL 1,000 mL, intravenous, at 1,000 mL/hr, Administer over 1 Hours, Once, On Sun05/06/24 at 0623, For 1 dose New Bag 05/06/2024 7:31 AM CDT 1,000 mL 100 0 mL/hr documented in this encounter Active and Recently Administered Medications Times are shown in CDT. Scheduled Medication Order 05/04/2024 05/05/2024 05/06/2024 diphenhydrAMINE (BENADRYL) 50 mg/mL injection 25 mg (COMPLETED) 25 mg, intravenous, Administer over 2 Minutes, Once, On Sun05/06/24 at 0819, For 1 dose 0824 (Given - Provid er: Yvonne Cast, CHARISSE) ondansetron (ZOFRAN) injection 4 mg (COMPLETED) 4 mg, intravenous, Administer over 2 Minutes, Once, On Sun05/06/24 at 0623, For 1 dose 0731 (Given - Provid er: Ibis Langley RN) prochlorperazine (COMPAZINE) injection 10 mg (COMPLETED) 10 mg, intravenous, Administer over 2 Minutes, Once, On Sun05/06/24 at 0819, For 1 dose 0827 (Given - Provid er: Yvonne Cast, CHARISSE) sodium chloride 0.9% bolus 1,000 mL (COMPLETED) 1,000 mL, intravenous, at 1,000 mL/hr, Administer over 1 Hours, Once, On Sun05/06/24 at 0623, For 1 dose 0731 (New Bag - Prov ider: Ibis Langley, CHARISSE)0824 (Stopped - Provider: Ibis Langley RN) PRN Medication Order 05/04/2024 05/05/2024 05/06/2024 ondansetron (ZOFRAN) injection 4 mg 4 mg, intravenous, Administer over 2 Minutes, Once as needed, nausea, vomiting, If patient unable to tolerate PO, Starting on Sun05/06/24 at 0613, For 1 dose, Do not administer if patient had 8mg administered within 6 hours of patient presenting to ED Do not administer if patient was formally diagnosed with prolonged QT syndrome documented in this encounter Orders Medications Ordered That Hardik ht Not Have Been Administered Count Last Ordered Date First Ordered Date ondansetron (ZOFRAN) injection 4 mg 1 05/06 Nursing Count Last Ordered Date First Orde red Date ASSESS/MONITOR HEART TONES 1 05/06/20 IV Count Last Ordered Date First Orde red Date SALINE LOCK IV 1 05/06/2024 documented in this encounter Care Teams Risk Professional Relationship Specialty Start Date End Date No, Physician PCP - General 12/30/20 documented as of this encounter
--- OUTSIDE RECORDS SUMMARY | 2024-08-29 16:51 | XMS_ITS | Encounter Summary ---
Author Organization [facility] Healthcare Address [address] [place] [id number] Care Team Providers Care Photography Colorist Name Role Phone No, Physician Primary Care Provider Reason for Visit * Reason Comments Vomiting During Encounter Details Date Type Department Care Team (Late st Contact Info) Description 07/09/2024 9:34 PM CDT - 07/10/2024 1:37 AM CDT Emergency [facility] Emergency Department [address] [place] [id number] Ferro Teashleigh Palomares, [address] [place] [id number] Acute cystitis without hematuria (Primary Dx); Nausea [...] making you feel afraid or unsafe? Denies 07/09/2024 Estimated Date of Delivery Comme nts Yes 11/10/2024 Sex and Gender Information Value Date Recorded Sex Assigned at Not on file Legal Sex Female 11:54 AM [employer] Gender Identity Not on file Sexual Orientation Not on file documented as of this encounter Last Filed Vital Signs Vital Sign Reading Time Taken Comments Blood Pressure 109/65 07/10/2024 1:15 AM CDT Pulse 69 07/10/2024 1:15 AM CDT Temperature 36.3 ??C (97.3 ??F) 07/09/2024 7:13 PM CD T Respiratory Rate 18 07/10/2024 1:15 AM CDT Oxygen Saturation 97% 07/10/2024 1:15 AM CDT Inhaled Oxygen Concentration - - Weight 81.3 kg (179 lb 3.7 oz) 07/09/2024 7:13 P M CDT Height - - Body Mass Index 28.07 03/24/2024 11:04 AM CDT documented in this encounter Discharge Instructions * Attachments The following attachments cannot be sent through Care Everywhere. * Urinary Tract Infection in (AfterCare(R) Instructions(ER/ED)) (Nigerien) documented in this encounter Medications at Time [...] every 8 (eight) hours 21 capsule 10/30/2022 metoclopramide (REGLAN) 10 mg tablet Take 1 tablet (10 mg total) by mouth every 6 (six) hours 30 tablet 03/24/2024 4 cephalexin (KEFLEX) 500 mg capsule Take 1 capsule (500 mg total) by mouth 3 (three) times a day 21 capsule 07/09/2024 4 metoclopramide (REGLAN) 10 mg tablet Take 1 tablet (10 mg total) by mouth every 6 (six) hours 30 tablet 05/06/2024 4 documented as of this encounter Ordered Prescriptions Prescription Sig Dispense Quantity Refills Last Filled Start Date End Date cephalexin (KEFLEX) 500 mg capsule Take 1 capsule (500 mg total) by mouth 3 (three) times a day 21 capsule 07/09/2024 4 documented in this encounter Discharge Disposition Disposition Code Departure Means Destination Comment s Discharge to home or self care documented in this encounter ED Notes * Te Ferro, - 07/09/2024 11:07 PM CDT HPI Chief Complaint Patient presents with ??? Vomiting During HPI 11:07 PM Tawny Nicholas is a 23 y.o. female w/ PMHx including asthma and GERD presenting to the ED w/ c/o vomiting. Pt endorses nausea and vomiting which onset yesterday evening. Pt notes she was unable to sleep secondary to frequent vomiting. Pt also endorses frequent urination due to . Ptdenies chest pain, SOB, or any other associated symptoms. Pt does not have any other acute complaints. Patient History: Past Medical History: Diagnosis Date ??? Asthma ??? GERD (gastroesophageal reflux disease) Past Surgical History: Procedure Laterality Date ??? NO PAST SURGERIES Family History Problem Relation Age of Onset ??? Lupus Paternal Grandmother ??? Melanoma Paternal Grandmother ??? Diabetes Paternal Grandfather Social History Tobacco Use ??? Smoking status: Never ??? Smokeless tobacco: Never Substance and Sexual Activity ??? Drug use: Yes Frequency: 21.0 times per week Types: Marijuana ??? Sexual activity: Not on file Alcohol Use: Not on file Current Facility-Administered Medications: ??? ondansetron ODT (ZOFRAN-ODT) disintegrating tablet 4 mg, 4 mg, oral, Once PRN ??? sodium chloride 0.9% bolus 1,000 mL, 1,000 mL, intravenous, Once Current Outpatient Medications: ??? albuterol HFA (PROVENTIL HFA,VENTOLIN HFA,PROAIR HFA) 90 mcg/actuation inhaler ??? benzonatate (TESSALON) 100 mg capsule ??? doxylamine (UNISOM) 25 mg tablet ??? guaiFENesin ER (MUCINEX) 600 mg 12 hr tablet ??? metoclopramide (REGLAN) 10 mg tablet ??? metoclopramide (REGLAN) 10 mg tablet ??? ondansetron ODT (ZOFRAN-ODT) 4 mg disintegrating tablet ??? PNV with zotrarx-evhe-VA 27 mg iron- 1 mg tablet ??? pyridoxine (VITAMIN B6) 25 mg tablet Review of Systems Review of Systems Constitutional: Negative for chills and fever. HENT: Negative for ear pain and sore throat. Eyes: Negative for pain and visual disturbance. Respiratory: Negative for cough and shortness of breath. Cardiovascular: Negative for chest pain and palpitations. Gastrointestinal: Positive for abdominal pain, nausea and vomiting. Genitourinary: Positive for frequency. Negative for dysuria and hematuria. Musculoskeletal: Negative for arthralgias and back pain. Skin: Negative for color change and rash. Neurological: Negative for seizures and syncope. All other systems reviewed and are negative. All systems reviewed and are negative or non contributory for this patients presentation today other than as stated in the HPI . Physical Exam ED Triage Vitals [07/09/24 1913] Temp Pulse Resp BP SpO2 36.3 ??C (97.3 ??F) 73 16 113/65 100 % Temp src Heart Rate Source Patient Position BP Location FiO2 (%) Oral -- -- -- -- Height Height Method Weight Weight Method -- -- 81.3 kg (179 lb 3.7 oz) Standing scale Physical Exam Vitals and [...] soft. Tenderness: There is no abdominal tenderness. Comments: Gravid uterus appreciated. Musculoskeletal: General: No swelling. Cervical back: Neck supple. Skin: General: Skin is warm and dry. Capillary Refill: Capillary refill takes less than 2 seconds. Neurological: Mental Status: She is alert. Psychiatric: Mood and Affect: Mood normal. Procedures MDM Labs Reviewed URINALYSIS AND REFLEX TO MICROSCOPIC AND CULTURE - Abnormal Result Value Color, ur Yellow Clarity, ur Cloudy (*) Specific gravity, ur 1.027 pH, urine 6.5 Protein, ur ql 1+ (*) Glucose, ur ql Negative Ketones, ur 4+ (*) Bilirubin, ur Negative Blood, ur Negative Urobilinogen, ur <2.0 Nitrite, ur Negative Leukocyte esterase, ur 2+ (*) UA reflex comment Reflex to microscopic UA will be performed. CBC WITH AUTO DIFFERENTIAL - Abnormal WBC 10.8 (*) Hgb 11.8 (*) Hct 35.0 (*) Plt 215 MPV 11.1 RBC 3.94 MCV 88.8 MCH 29.9 MCHC 33.7 RDW CV 12.2 RDW SD 39.7 NRBC abs 0.00 COMPREHENSIVE METABOLIC PANEL - Abnormal Sodium 136 Potassium, pl 4.0 Chloride 102 CO2 21 (*) Anion gap 13 BUN 8 Creatinine 0.50 (*) Glucose 86 Calcium 9.5 Bilirubin, total 0.3 Protein, pl 7.1 Albumin 3.9 Alk phos 35 (*) ALT 15 AST 15 DIFFERENTIAL AUTO - Abnormal Neutrophil abs 8.3 (*) Imm gran abs 0.0 Lymphocyte abs 1.8 Monocyte abs 0.6 Eosinophil abs 0.0 Basophil abs 0.0 Neutrophil pct 76.8 Imm gran pct 0.4 Lymphocyte pct 16.8 Monocyte pct 5.3 Eosinophil pct 0.4 Basophil pct 0.3 URINALYSIS, MICROSCOPIC ONLY - Abnormal WBC, ur 0-5 RBC, ur 3-5 (*) Epithelial cells, squamous, ur >50 (*) Bacteria, ur Trace (*) Mucous, ur Present (*) Hyaline casts, ur 1-5 Culture Reflex Comment Value: Reflex conditions for urine culture (WBC >10) not met. EGFR eGFR >90 US Ob 14 Weeks Or Over EXAM DESCRIPTION: US OB 14 WEEKS OR [...] Electronically signed by Lamont Fernandez M.D. AG: ADAN Report ID: [id number] Reading Location: [id number] BP 108/65 Pulse 68 Temp 36.3 ??C (97.3 ??F) (Oral) Resp 16 Wt 81.3 kg (179 lb 3.7 oz) LMP(LMP Unknown) SpO2 98% BMI 28.07 kg/m?? MDM Amount and/or Complexity of Data Reviewed Clinical lab tests: reviewed Tests in the radiology section of CPT??: reviewed Risk of Complications, Morbidity, and/or Mortality Presenting problems: moderate Diagnostic procedures: moderate Management options: moderate General comments: Patient has the diagnosis hyperemesis gravidarum and has had this before she doesfeel much better after the fluids and the Zofran she can be discharged home safely she is agreeablewith the plan will place her on Keflex and she does have Zofran at home stable discharge Patient was instructed to follow-up with primary care doctor within the next 7-10 days. They were also instructed to return to the emergency department for any new or worsening symptoms including but not limited to headache fever chest pain shortness of breath abdominal pain nausea and vomiting. Patient voiced understanding all questions were answered at this was a shared decision-making process Patient Progress Patient progress: stable ED Course as of 07/10/2431 Time: 07/10 31 Comment: SDM: Pt agreeable with and understanding of DC instructions. By: Shazia De La Rosa Clinical Impression: No diagnosis found. This note was prepared by Shazia De La Rosa, acting as a Scribe for Te Ferro DO. I electronically signed this note at 11:07 PM on 07/09/2024. I, Te Ferro DO, personally performed the services described in this documentation, reviewed and edited the documentation which was dictated to the scribe in my presence, and it accurately records my words and actions. Shazia De La Rosa 07/09/24 [id number] Te Frero DO 07/10/24 0032 * Amber Baires RN - 07/09/2024 7:12 PM CDT Patient 22 weeks . Reports vomiting that began last PM and continued through today. States patient has been seen for this in the past r/t her . Sees OB at [facility]. . Has been taking zofran at home with no relief. Last zofran 0000 last PM. documented in this encounter Plan of Treatment Not on file documented as of this encounter Procedures Procedure Name Priority Date/Time Associated Diagnosis Comments US OB 14 WEEKS OR OVER ED 8:37 PM CDT URINALYSIS AND REFLEX TO MICROSCOPIC AND CULTURE STAT 07/09/2024 7:36 PM CDT URINALYSIS, MICROSCOPIC ONLY STAT 07/09/2024 7:36 PM CDT EGFR STAT 07/09/2024 7:19 PM CDT DIFFERENTIAL AUTO STAT 07/09/2024 7:1 9 PM CDT CBC WITH AUTO DIFFERENTIAL STAT 07/09/2024 7:19 PM CDT COMPREHENSIVE METABOLIC PANEL STAT 07/09/2024 7:19 PM CDT documented in this encounter Results * US Ob 14 Weeks Or Over [...] PM T: ??07/09/2024 9:21 PM Report ID: [id number] Reading Location: ??[id number] Procedure Note Lamont Fernandez MD - 07/09/2024 [...] Lamont Fernandez M.D. AG: AG Report ID: [id number] Reading Location: [id number] us Leela LUNA IMG OB US PROCEDURES Final Resul t * (ABNORMAL) Urinalysis, microscopic only (07/09/2024 7:36 PM CDT) WBC, ur 0-5 0 - 5 /HPF Comment:Testing performed by : [facility], [address] [place] [address]., [address] RBC, ur 3-5(A) 0 - 2 /HPF JOSE Comment:Testing performed by : [address], [place]., [address] Epithelial cells, squamous, ur >50(A) 0 - 5 /HPF JOSE Comment:Testing performed by : [address] [address] Bacteria, ur Trace(A) JOSE Comment:Testing performed by : [address], [place]., [address] Mucous, ur Present(A) JOSE Comment:Testing performed by : [address] [address] Hyaline casts, ur 1-5 0 - 10 /LPF JOSE Comment:Testing performed by : [address] [address] Culture Reflex Comment Reflex conditions for urine culture (WBC >10) not met. JOSE Comment:Testing performed by : [address], [place]., [address] Urine 07/09/2024 7:36 PM CDT 07/09/2024 7:38 PM CDT Te Ferro DO LAB URINE ORDERABLES F inal Result JOSE [address] [facility] Department of Laboratories [place], [place] [id number] * (ABNORMAL) Urinalysis reflex to microscopic and culture Urine (07/09/2024 7:36 PM CDT) Color, ur Yellow Yellow Comment:Testing performed by : [address] [address] Clarity, ur Cloudy(A) Clear JOSE Comment:Testing performed by : [address] [address] Specific gravity, ur 1.027 1.003 - 1.030 JOSE Comment:Testing performed by : [facility], [address] [place] [address], [place]., [address] pH, urine 6.5 JOSE Comment: Interpretive Data ? Urine pH is affected by diet, medications, systemic acid-base disturbances, and renal tubular function. ??pH may affect urinary stone formation. ??For example, urine pH below 6.0 may help reduce the tendency for calcium phosphate stones and pH greater than 6.0 may reduce the tendency for uric acid stone formation. Source: [facility] [place] Current Interpretive Data was last revised on 2017 Testing performed by: [facility], [address] [place] [address], [place]., [address] Protein, ur ql 1+(A) Negative JOSE Comment:Testing performed by : [address], [place]., [address] Glucose, ur ql Negative Negative JOSE Comment:Testing performed by : [address], [place]., [address] Ketones, ur 4+(A) Negative JOSE Comment:Testing performed by : [address], [place]., [address] Bilirubin, ur Negative Negative JOSE Comment:Testing performed by : [address], [place]., [address] Blood, ur Negative Negative JOSE Comment:Testing performed by : [address], [place]., [address] Urobilinogen, ur <2.0 <2.0 mg/dL JOSE Comment:Testing performed by : [address] [address] Nitrite, ur Negative Negative JOSE Comment:Testing performed by : [address], [place]., [address] Leukocyte esterase, ur 2+(A) Negative JOSE Comment:Testing performed by : [address] [address] UA reflex comment Reflex to microscopic UA will be performed. JOSE Comment:Testing performed by : [address], [place]., [address] Urine 07/09/2024 7:36 PM CDT 07/09/2024 7:38 PM CDT us Te Ferro DO LAB MICROBIOLOGY - GEN ERAL ORDERABLES Final Result Performing Organization Address City/State/[facility] Co id Phone Number JOSE MH [phone] [facility] Department [place] [address] * eGFR (07/09/2024 7:19 PM CDT) eGFR [...] was last reviewed 2021. Testing performed by: [facility], [address] [place] [address], [place]., [address] Blood 07/09/2024 7:19 PM CDT 07/09/2024 7:31 PM CDT us Te Ferro DO LAB BLOOD ORDERABLES F inal Result JOSE [address] [facility] Department [place] [address] * (ABNORMAL) Differential, auto (07/09/2024 7:19 PM CDT) Neutrophil abs 8.3(H) 1.5 - 6.5 K/cumm Comment:Testing performed by : [address] [address] Imm gran abs 0.0 0.0 - 0.1 K/cumm [facility] Comment:Testing performed by : [address] [address] Lymphocyte abs 1.8 0.8 - 3.3 K/cumm JOSE Comment:Testing performed by : [address] [address] Monocyte abs 0.6 0.2 - 0.8 K/cumm JOSE Comment:Testing performed by : [address] [address] Eosinophil abs 0.0 0.0 - 0.5 K/cumm [facility] Comment:Testing performed by : [address] [address] Basophil abs 0.0 0.0 - 0.1 K/cumm [facility] Comment:Testing performed by : [address] [address] Neutrophil pct 76.8 % [facility] Comment: Interpretive Data Percent cell count reference ranges are not reported, since discordance with absolute values may lead to misinterpretation of CBC data. Current Interpretive Data was last revised on 2017. Testing performed by: [address] [address] Imm gran pct 0.4 % JOSE Comment: Interpretive Data Percent cell count reference ranges are not reported, since discordance with absolute values may lead to misinterpretation of CBC data. Current Interpretive Data was last revised on 2017. Testing performed by: [address] [address] Lymphocyte pct 16.8 % JOSE Comment: Interpretive Data Percent cell count reference ranges are not reported, since discordance with absolute values may lead to misinterpretation of CBC data. Current Interpretive Data was last revised on 2017. Testing performed by: [address] [address] Monocyte pct 5.3 % JOSE Comment: Interpretive Data Percent cell count reference ranges are not reported, since discordance with absolute values may lead to misinterpretation of CBC data. Current Interpretive Data was last revised on 2017. Testing performed by: [address] [address] Eosinophil pct 0.4 % JOSE Comment: Interpretive Data Percent cell count reference ranges are not reported, since discordance with absolute values may lead to misinterpretation of CBC data. Current Interpretive Data was last revised on 2017. Testing performed by: [address] [address] Basophil pct 0.3 % JOSE Comment: Interpretive Data Percent cell count reference ranges are not reported, since discordance with absolute values may lead to misinterpretation of CBC data. Current Interpretive Data was last revised on 2017. Testing performed by: [address] [address] Blood 07/09/2024 7:19 PM CDT 07/09/2024 7:31 PM CDT us Te Ferro DO LAB BLOOD ORDERABLES F inal Result JOSE [address] [facility] Department of Laboratories [place], [place] [id number] * (ABNORMAL) Comprehensive metabolic panel (07/09/2024 7:19 PM CDT) Sodium 136 135 - 145 mmol/L Comment:Testing performed by : [address] [address] Potassium, pl 4.0 3.3 - 4.9 mmol/L [facility]SE [place] Comment:Testing performed by : [address] [address] Chloride 102 97 - 110 mmol/L [facility] Comment:Testing performed by : [facility], [address] [place] [address]., [address] CO2 21(L) 22 - 32 mmol/L JOSE Comment:Testing performed by : [address] [address] Anion gap 13 2 - 15 mmol/L JOSE Comment:Testing performed by : [address] [address] BUN 8 6 - 25 mg/dL [facility] Comment:Testing performed by : [address], [place]., [address] Creatinine 0.50(L) 0.60 - 1.10 mg/dL JOSE Comment:Testing performed by : [address] [address] Glucose 86 70 - 199 mg/dL [facility] Comment: Interpretive Data Fasting glucose >/= 126 [...] was last revised 2022. Testing performed by: [address] [address] Calcium 9.5 8.5 - 10.3 mg/dL [facility] Comment:Testing performed by : [address] [address] Bilirubin, total 0.3 0.1 - 1.2 mg/dL [facility] Comment:Testing performed by : [address] [address] Protein, pl 7.1 6.5 - 8.5 g/dL JOSE Comment:Testing performed by : [address] [address] Albumin 3.9 3.5 - 5.0 g/dL [facility] [place] Comment:Testing performed by : [address] [address] Alk phos 35(L) 40 - 130 Units/L [facility] [place] Comment:Testing performed by : [address] [address] ALT 15 7 - 45 Units/L [facility] [place] Comment:Testing performed by : [address] [address] AST 15 10 - 45 Units/L [facility] [place] Comment:Testing performed by : [address] [address] Blood (Blood, Venous) 07/09/2024 7:19 PM CDT 07/09/2024 7:31 PM CDT us Te Ferro DO LAB BLOOD ORDERABLES F inal Result JOSE [facility] Department [place] [address] * (ABNORMAL) CBC with auto differential (07/09/2024 7:19 PM CDT) WBC 10.8(H) 3.8 - 9.9 K/cumm Comment:Testing performed by : [address] [address] Hgb 11.8(L) 11.9 - 15.5 g/dL JOSE [place] Comment:Testing performed by : [address] [address] Hct 35.0(L) 35.6 - 45.5 % [facility] [place] Comment:Testing performed by : [address] [address] Plt 215 150 - 400 K/cumm [facility] [place] Comment:Testing performed by : [address] [address] MPV 11.1 9.1 - 12.3 fL JO[facility] [place] Comment:Testing performed by : [address] [address] RBC 3.94 3.90 - 5.20 M/cumm [facility] [place] Comment:Testing performed by : [facility], [address] [place] [address]., [address] MCV 88.8 81.3 - 96.4 fL JOSE [place] Comment:Testing performed by : [address] [address] MCH 29.9 27.1 - 33.3 pg JOSE [place] Comment:Testing performed by : [address] [address] MCHC 33.7 32.3 - 35.7 g/dL JOSE [place] Comment:Testing performed by : [address], [address] RDW CV 12.2 11.1 - 14.9 % JOSE [place] Comment:Testing performed by : [address] [address] RDW SD 39.7 35.7 - 48.1 fL JOSE Comment:Testing performed by : [address] [address] NRBC abs 0.00 0.00 - 0.01 K/cumm JOSE Comment:Testing performed by : [address] [address] Blood (Blood, Venous) 07/09/2024 7:19 PM CDT 07/09/2024 7:31 PM CDT Te Ferro DO LAB BLOOD ORDERABLES F inal Result JOSE [address] [facility] Department [place] [address] documented in this encounter Visit Diagnoses Diagnosis Acute cystitis without hematuria- Primary Nausea and vomiting, unspecified vomiting type 23 weeks gestation of Hyperemesis gravidarum Mild hyperemesis gravidarum, unspecified as to episode of care documented in this encounter Administered Medications Inactive Administered Medications - up to 3 most recent administrations Medication Order MAR Action Action Date Dose Rate Site cephalexin (KEFLEX) capsule 500 mg 500 mg, oral, Once, On Sun07/09/24 at 2345, For 1 dose, Indications: Urinary Tract/Genitourinary InfectionIndications:Urinary Tract/Genitourinary Infection Given 07/09/2024 11:53 PM CDT 500 mg ondansetron (ZOFRAN) injection 4 mg 4 mg, intravenous, Administer over 2 Minutes, Once as needed, nausea, vomiting, If patient unable to tolerate PO, Starting on Sun07/09/24 at 1914, For 1 dose, Do not administer if patient had 8mg administered within 6 hours of patient presenting to ED Do not administer if patient was formally diagnosed with prolonged QT syndrome Given 07/09/2024 10:02 PM CDT 4 mg ondansetron ODT (ZOFRAN-ODT) disintegrating tablet 4 mg 4 mg, oral, Once as needed, nausea, vomiting, If able to tolerate PO, Starting on Sun07/09/24 at 1914, For 1 dose, Do not administer if patient had 8mg administered within 6 hours of patient presenting to ED Do not administer if patient was formally diagnosed with prolonged QT syndrome sodium chloride 0.9% bolus 1,000 mL 1,000 mL, intravenous, at 1,000 mL/hr, Administer over 1 Hours, Once, On Sun07/09/24 at 2157, For 1 dose New Bag 07/09/2024 10:02 PM CDT 1,000 mL 1000 mL/hr sodium chloride 0.9% bolus 1,000 mL 1,000 mL, intravenous, at 1,000 mL/hr, Administer over 1 Hours, Once, On Sun07/09/24 at 2311, For 1 dose New Bag 07/09/2024 11:53 PM CDT 1,000 mL 1000 mL/hr documented in this encounter Active and Recently Administered Medications Times are shown in CDT. Scheduled Medication Order 07/08/2024 07/09/2024 07/10/2024 cephalexin (KEFLEX) capsule 500 mg (COMPLETED) 500 mg, oral, Once, On Sun07/09/24 at 2345, For 1 dose, Indications: Urinary Tract/Genitourinary Infection 2353 (Given - Provider: Shellie Zavaleta, CHARISSE) ondansetron (ZOFRAN) injection 4 mg 4 mg, intravenous, Administer over 2 Minutes, Once, On Sun07/09/24 at 2311, For 1 dose, Indications: Nausea, Vomiting 0127 (Not Given - Provider: Amy Stubbs RN - Reason: Order Discontinued) sodium chloride 0.9% bolus 1,000 mL (COMPLETED) 1,000 mL, intravenous, at 1,000 mL/hr, Administer over 1 Hours, Once, On Sun07/09/24 at 2157, For 1 dose 220 (New Bag - Provider: Shellie Zavaleta RN)235 (Stopped - Provider: Shellie Zavaleta RN) sodium chloride 0.9% bolus 1,000 mL (COMPLETED) 1,000 mL, intravenous, at 1,000 mL/hr, Administer over 1 Hours, Once, On Sun07/09/24 at 2311, For 1 dose 235 (New Bag - Provider: Shellie Zavaleta RN)2353 (Stopped - Provider: Shellie Zavaleta RN) PRN Medication Order 07/08/2024 07/09/2024 07/10/2024 ondansetron (ZOFRAN) injection 4 mg (COMPLETED) 4 mg, intravenous, Administer over 2 Minutes, Once as needed, nausea, vomiting, If patient unable to tolerate PO, Starting on Sun07/09/24 at 1914, For 1 dose, Do not administer if patient had 8mg administered within 6 hours of patient presenting to ED Do not administer if patient was formally diagnosed with prolonged QT syndrome 2201 (Given - Provider: Deon Zavaleta RN) ondansetron ODT (ZOFRAN-ODT) disintegrating tablet 4 mg 4 mg, oral, Once as needed, nausea, vomiting, If able to tolerate PO, Starting on Sun07/09/24 at 1914, For 1 dose, Do not administer if patient had 8mg administered within 6 hours of patient presenting to ED Do not administer if patient was formally diagnosed with prolonged QT syndrome documented in this encounter Orders Medications Ordered That Hardik ht Not Have Been Administered Count Last Ordered Date First Ordered Date ondansetron (ZOFRAN) injection 4 mg 1 07/09 ondansetron ODT (ZOFRAN-ODT) disintegrating tablet 4 mg 1 07/09/2024 sodium chloride 0.9% bolus 1,000 mL 1 07/09 documented in this encounter Care Teams Photography Colorist Relationship Specialty Start Date End Date No, Physician PCP - General 12/30/20 documented as of this encounter
--- OUTSIDE RECORDS SUMMARY | 2024-08-29 16:51 | XMS_ITS | Encounter Summary ---
Author Organization [facility] Healthcare Address [address] [place] [address] Care Team Providers Care Field Supervisor Name Role Phone No, Physician Primary Care Provider [phone] Reason for Visit * Reason Comments Nausea And Vomitting Reports frequent na usea and vomiting with but for last 2 days unable to keep meds or water down. Denies leaking, bleeding or contractions. Reports movement Encounter Details Date Type Department Care Team (Late st Contact Info) Description 07/22/2024 7:36 AM RPG DEVELOPER - 07/22/2024 10:18 AM [facility] Emergency [facility] OB Emergency Department [address], [place] [id number] Sesar Goldberg MD [address] [place], [place] [id number] 24 weeks gestation of (Primary Dx); Hyperemesis [...] on file Legal Sex Female 11:54 AM RPG DEVELOPER Gender Identity Not on file Sexual Orientation Not on file documented as of this encounter Last Filed Vital Signs Vital Sign Reading Time Taken Comments Blood Pressure 122/56 07/22/2024 9:24 AM RPG DEVELOPER Pulse 67 07/22/2024 9:24 AM RPG DEVELOPER Temperature 36.8 ??C (98.2 ??F) 07/22/2024 9:24 AM CS T Respiratory Rate 18 07/22/2024 9:24 AM RPG DEVELOPER Oxygen Saturation 99% 07/22/2024 9:24 AM RPG DEVELOPER Inhaled Oxygen Concentration - - Weight 79.8 kg (175 lb 14.8 oz) 07/22/2024 7:24 AM RPG DEVELOPER Height - - Body Mass Index 27.55 03/24/2024 11:04 AM CDT documented in this encounter Discharge Instructions * Attachments The following attachments cannot be sent through Care Everywhere. * Nausea and Vomiting in (AfterCare(R) Instructions(ER/ED)) (Syrian) documented in this encounter Medications at Time of Discharge calcium carbonate (TUMS) 500 mg (200 mg elemental calcium) chewable tablet Take 1 tablet/chew tab (500 mg total) by mouth daily doxylamine (UNISOM) 25 mg tablet Take 0.5 tablets (12.5 mg total) by mouth nightly as needed for sleep 15 tablet 03/24/2024 famotidine (PEPCID) 10 mg tablet Take 1 tablet (10 mg total) by mouth 2 (two) times a day ondansetron ODT (ZOFRAN-ODT) 4 mg disintegrating tablet [...] every 6 (six) hours 30 tablet 3 07/22/2024 ondansetron (ZOFRAN) 4 mg tablet Take 1 tablet (4 mg total) by mouth every 6 (six) hours 30 tablet 3 07/22/2024 documented as of this encounter Ordered Prescriptions Prescription Sig Dispense Quantity Refills Last Filled Start Date End Date metoclopramide (REGLAN) 10 mg tablet Take 1 tablet (10 mg total) by mouth every 6 (six) hours 30 tablet 3 07/22/2024 ondansetron (ZOFRAN) 4 mg tablet Take 1 tablet (4 mg total) by mouth every 6 (six) hours 30 tablet 3 07/22/2024 documented in this encounter Discharge Disposition Disposition Code Departure Means Destination Comment s Discharge to home or self care documented in this encounter ED Notes * Lis Lee MD - 07/22/2024 10:14 AM CST HPI Chief Complaint Patient presents with Nausea And Vomitting Reports frequent nausea and vomiting with but for last 2 days unable to keep meds or water down. Denies leaking, bleeding or contractions. Reports movement 23 y.o. at 24w1d c/o recurrent HG acute exacerbation today with persistent N/V. No other complaints, GFM, no change in vaginal d/c, no bleeding. Last took her Zofran yesterday and has not taken Reglan. Current Outpatient Medications: ?? calcium carbonate, 1 tablet, oral, Daily ?? doxylamine, 12.5 mg, oral, Nightly PRN ?? famotidine, 10 mg, oral, BID ?? ondansetron ODT, 4 mg, oral, Q8H PRN ?? pyridoxine, 25 mg, oral, Daily ?? albuterol HFA, 2 puff, inhalation, Q4H PRN ?? benzonatate, 100 mg, oral, Q8H ?? guaiFENesin ER, 1,200 mg, oral, BID ?? metoclopramide, 10 mg, oral, Q6H ?? ondansetron, 4 mg, oral, Q6H ?? PNV with [id number], 1 tablet, oral, Daily Patient History: There are no active problems to display for this patient. Past Medical History: Diagnosis Date Asthma Chlamydia this and treated GERD (gastroesophageal reflux disease) Past Surgical History: Procedure Laterality Date NO PAST SURGERIES Family History Problem Relation Age of Onset Lupus Paternal Grandmother Melanoma Paternal Grandmother Diabetes Paternal Grandfather Social History Tobacco Use Smoking status: Never Smokeless tobacco: Never Vaping Use Vaping status: Every Day Substances: Nicotine Substance and Sexual Activity Alcohol use: Yes Drug use: Yes Frequency: 21.0 times per week Types: Marijuana Sexual activity: Yes control/protection: None Social History Social History Narrative Not on file Review of Systems Review of Systems Physical Exam ED Triage Vitals Temp Pulse Resp BP SpO2 07/22/2472307/22/2472307/22/2472307/22/2472307/22/24723 36.6 ??C (97.9 ??F) 65 20 130/65 100 % Temp src Heart Rate Source Patient Position BP Location FiO2 (%) 07/22/24744 -- -- -- -- Tympanic Height Height Method Weight Weight Method -- -- 07/22/2472307/22/24723 79.8 kg (175 lb 14.8 oz) Standing scale Physical Exam Vitals and [...] Tenderness: There is no abdominal tenderness. Comments: NT gravid Musculoskeletal: General: No swelling. Cervical back: Neck supple. Skin: General: Skin is warm and dry. Capillary Refill: Capillary refill takes less than 2 seconds. Neurological: Mental Status: She is alert. Psychiatric: Mood and Affect: Mood normal. Recent Results (from the past 12 hours) CBC with auto differential Collection Time: 07/22/24 8:04 AM Result Value Ref Range WBC 9.6 3.8 - 9.9 K/cumm Hgb 11.8 (L) 11.9 - 15.5 g/dL Hct 34.5 (L) 35.6 - 45.5 % Plt 230 150 - 400 K/cumm MPV 10.8 9.1 - 12.3 fL RBC 3.91 3.90 - 5.20 M/cumm MCV 88.2 81.3 - 96.4 fL MCH 30.2 27.1 - 33.3 pg MCHC 34.2 32.3 - 35.7 g/dL RDW CV 12.2 11.1 - 14.9 % RDW SD 39.1 35.7 - 48.1 fL NRBC abs 0.00 0.00 - 0.01 K/cumm Comprehensive metabolic panel Collection Time: 07/22/24 8:04 AM Result Value Ref Range Sodium 138 135 - 145 mmol/L Potassium, pl 4.0 3.3 - 4.9 mmol/L Chloride 101 97 - 110 mmol/L CO2 21 (L) 22 - 32 mmol/L Anion gap 16 (H) 2 - 15 mmol/L BUN 8 6 - 25 mg/dL Creatinine 0.60 0.60 - 1.10 mg/dL Glucose 79 70 - 199 mg/dL Calcium 9.5 8.5 - 10.3 mg/dL Bilirubin, total 0.4 0.1 - 1.2 mg/dL Protein, pl 7.2 6.5 - 8.5 g/dL Albumin 4.0 3.5 - 5.0 g/dL Alk phos 37 (L) 40 - 130 Units/L ALT 15 7 - 45 Units/L AST 15 10 - 45 Units/L Lipase Collection Time: 07/22/24 8:04 AM Result Value Ref Range Lipase 22 10 - 99 Units/L Differential, auto Collection Time: 07/22/24 8:04 AM Result Value Ref Range Neutrophil abs 7.2 (H) 1.5 - 6.5 K/cumm Imm gran abs 0.1 0.0 - 0.1 K/cumm Lymphocyte abs 1.7 0.8 - 3.3 K/cumm Monocyte abs 0.6 0.2 - 0.8 K/cumm Eosinophil abs 0.0 0.0 - 0.5 K/cumm Basophil abs 0.0 0.0 - 0.1 K/cumm Neutrophil pct 75.3 % Imm gran pct 0.6 % Lymphocyte pct 17.6 % Monocyte pct 5.9 % Eosinophil pct 0.2 % Basophil pct 0.4 % eGFR Collection Time: 07/22/24 8:04 AM Result Value Ref Range eGFR >90 >=60 mL/min/1.73 m2 Urinalysis reflex to microscopic and culture Urine, clean voided Collection Time: 07/22/24 9:23 AM Specimen: Urine, clean voided Result Value Ref Range Color, ur Yellow Yellow Clarity, ur Clear Clear Specific gravity, ur 1.030 1.003 - 1.030 pH, urine 6.0 Protein, ur ql 1+ (A) Negative Glucose, ur ql Negative Negative Ketones, ur 4+ (A) Negative Bilirubin, ur Negative Negative Blood, ur Negative Negative Urobilinogen, ur <2.0 <2.0 mg/dL Nitrite, ur Negative Negative Leukocyte esterase, ur 3+ (A) Negative UA reflex comment Reflex to microscopic UA will be performed. Urinalysis, microscopic only Collection Time: 07/22/24 9:23 AM Result Value Ref Range WBC, ur 6-10 (A) 0 - 5 /HPF RBC, ur 6-10 (A) 0 - 2 /HPF Epithelial cells, squamous, ur >50 (A) 0 - 5 /HPF Mucous, ur Present (A) Culture Reflex Comment Reflex conditions for urine culture (WBC >10) not met. MDM Medical Decision Making 1. HG: resolved and now tolerating po clears with IVF 1 liter, Zofran Reglan. Has appt tomorrow with her primary OB at [place]. Unable to locate any outside records in Care Everywhere. Advised patient that care is limited by we don't have records and she said she will discuss with her primary OB re distance issues she has with [facility]. 2. FWB: EFM Cat 1 for GA 3. Maternal surveillance: see above. Amount and/or Complexity of Data Reviewed Labs: ordered. Decision-making details documented in ED Course. ECG/medicine tests: ordered and independent interpretation performed. Details: [facility] Risk Prescription drug management. Final diagnoses: 24 weeks gestation of Hyperemesis gravidarum with dehydration Lis Lee MD 07/22/24 1020 DEVELOPER documented in this encounter Plan of Treatment Not on file documented as of this encounter Procedures Procedure Name Priority Date/Time Associated Diagnosis Comments URINALYSIS AND REFLEX TO MICROSCOPIC AND CULTURE STAT 07/22/2024 9:23 AM RPG DEVELOPER URINALYSIS, MICROSCOPIC ONLY STAT 07/22/2024 9:23 AM RPG DEVELOPER EGFR STAT 07/22/2024 8:04 AM RPG DEVELOPER DIFFERENTIAL AUTO STAT 07/22/2024 8:0 4 AM RPG DEVELOPER CBC WITH AUTO DIFFERENTIAL STAT 07/22/2024 8:04 AM RPG DEVELOPER LIPASE STAT 07/22/2024 8:04 AM RPG DEVELOPER COMPREHENSIVE METABOLIC PANEL STAT 07/22/2024 8:04 AM RPG DEVELOPER documented in this encounter Results * (ABNORMAL) Urinalysis, microscopic only (07/22/2024 9:23 AM RPG DEVELOPER) WBC, ur 6-10(A) 0 - 5 /HPF Comment:Testing performed by : [address] [address] RBC, ur 6-10(A) 0 - 2 /HPF JOSE Comment:Testing performed by : [address] [address] Epithelial cells, squamous, ur >50(A) 0 - 5 /HPF JOSE Comment:Testing performed by : [address] [address] Mucous, ur Present(A) JOSE Comment:Testing performed by : [address] [address] Culture Reflex Comment Reflex conditions for urine culture (WBC >10) not met. JOSE Comment:Testing performed by : [address] [address] Urine, clean voided 07/22/2024 9:23 AM RPG DEVELOPER 07/22/2024 9:28 AM RPG DEVELOPER us Zac Regan MD LAB URINE ORDERABLES Final Result [facility] [address] [facility] Department of Laboratories [place], [place] [id number] * (ABNORMAL) Urinalysis reflex to microscopic and culture Urine, clean voided (07/22/2024 9:23 AM RPG DEVELOPER) Color, ur Yellow Yellow Comment:Testing performed by : [facility] [address] [place] [address]., [address] Clarity, ur Clear Clear JOSE Comment:Testing performed by : [facility] [address] [place] [address], [place]., [address] Specific gravity, ur 1.030 1.003 - 1.030 JOSE Comment:Testing performed by : [address] [address] pH, urine 6.0 JOSE Comment: Interpretive Data ? Urine pH is affected by diet, medications, systemic acid-base disturbances, and renal tubular function. ??pH may affect urinary stone formation. ??For example, urine pH below 6.0 may help reduce the tendency for calcium phosphate stones and pH greater than 6.0 may reduce the tendency for uric acid stone formation. Source: [facility] Current Interpretive Data was last revised on 2017 Testing performed by: [address] [address] Protein, ur ql 1+(A) Negative JOSE Comment:Testing performed by : [address] [address] Glucose, ur ql Negative Negative JOSE Comment:Testing performed by : [address] [address] Ketones, ur 4+(A) Negative JOSE Comment:Testing performed by : [address] [address] Bilirubin, ur Negative Negative JOSE Comment:Testing performed by : [address] [address] Blood, ur Negative Negative JOSE Comment:Testing performed by : [address] [address] Urobilinogen, ur <2.0 <2.0 mg/dL JOSE Comment:Testing performed by : [address] [address] Nitrite, ur Negative Negative JOSE Comment:Testing performed by : [address] [address] Leukocyte esterase, ur 3+(A) Negative [facility] Comment:Testing performed by : [facility], [address] [place] [address]., [address] UA reflex comment Reflex to microscopic UA will be performed. JOSE [facility] Comment:Testing performed by : [facility], [address] [place] [address]., [address] Urine, clean voided 07/22/2024 9:23 AM RPG DEVELOPER 07/22/2024 9:28 AM RPG DEVELOPER us Zac Regan MD LAB MICROBIOLOGY - GENERAL ORDERABLES Final Result JOSE [address] [facility] Department [place] [address] * eGFR (07/22/2024 8:04 AM RPG DEVELOPER) eGFR >90 >=60 mL/min/1. 73 m2 Comment: [...] was last reviewed 2021. Testing performed by: [address] [address] Blood 07/22/2024 8:04 AM RPG DEVELOPER 07/22/2024 8:08 AM RPG DEVELOPER us Zac Regan MD LAB BLOOD ORDERABLES Final Result [facility] [address] [facility] Department [place] [address] * (ABNORMAL) Differential, auto (07/22/2024 8:04 AM RPG DEVELOPER) Neutrophil abs 7.2(H) 1.5 - 6.5 K/cumm Comment:Testing performed by : [address] [address] Imm gran abs 0.1 0.0 - 0.1 K/cumm JOSE Comment:Testing performed by : [address] [address] Lymphocyte abs 1.7 0.8 - 3.3 K/cumm JOSE Comment:Testing performed by : [address] [address] Monocyte abs 0.6 0.2 - 0.8 K/cumm JOSE Comment:Testing performed by : [address] [address] Eosinophil abs 0.0 0.0 - 0.5 K/cumm JOSE Comment:Testing performed by : [address] [address] Basophil abs 0.0 0.0 - 0.1 K/cumm JOSE Comment:Testing performed by : [address] [address] Neutrophil pct 75.3 % JOSE Comment: Interpretive Data Percent cell count reference ranges are not reported, since discordance with absolute values may lead to misinterpretation of CBC data. Current Interpretive Data was last revised on 2017. Testing performed by: [address] [address] Imm gran pct 0.6 % [facility] Comment: Interpretive Data Percent cell count reference ranges are not reported, since discordance with absolute values may lead to misinterpretation of CBC data. Current Interpretive Data was last revised on 2017. Testing performed by: [address] [address] Lymphocyte pct 17.6 % [facility] Comment: Interpretive Data Percent cell count reference ranges are not reported, since discordance with absolute values may lead to misinterpretation of CBC data. Current Interpretive Data was last revised on 2017. Testing performed by: [address] [address] Monocyte pct 5.9 % [facility] Comment: Interpretive Data Percent cell count reference ranges are not reported, since discordance with absolute values may lead to misinterpretation of CBC data. Current Interpretive Data was last revised on 2017. Testing performed by: [address] [address] Eosinophil pct 0.2 % [facility] Comment: Interpretive Data Percent cell count reference ranges are not reported, since discordance with absolute values may lead to misinterpretation of CBC data. Current Interpretive Data was last revised on 2017. Testing performed by: [address] [address] Basophil pct 0.4 % [facility] Comment: Interpretive Data Percent cell count reference ranges are not reported, since discordance with absolute values may lead to misinterpretation of CBC data. Current Interpretive Data was last revised on 2017. Testing performed by: [address] [address] Blood 07/22/2024 8:04 AM RPG DEVELOPER 07/22/2024 8:08 AM RPG DEVELOPER us Zac Regan MD LAB BLOOD ORDERABLES Final Result [facility] [address] [facility] Department [place] [address] * Lipase (07/22/2024 8:04 AM RPG DEVELOPER) Lipase 22 10 - 99 Units/L Comment:Testing performed by : [address] [address] Blood 07/22/2024 8:04 AM RPG DEVELOPER 07/22/2024 8:08 AM RPG DEVELOPER us Zac Regan MD LAB BLOOD ORDERABLES Final Result [facility] [address] [facility] Department [place] [address] * (ABNORMAL) Comprehensive metabolic panel (07/22/2024 8:04 AM RPG DEVELOPER) Sodium 138 135 - 145 mmol/L Comment:Testing performed by : [address] [address] Potassium, pl 4.0 3.3 - 4.9 mmol/L JOSE Comment:Testing performed by : [address] [address] Chloride 101 97 - 110 mmol/L JOSE Comment:Testing performed by : [address] [address] CO2 21(L) 22 - 32 mmol/L JOSE Comment:Testing performed by : [address] [address] Anion gap 16(H) 2 - 15 mmol/L JOSE Comment:Testing performed by : [address] [address] BUN 8 6 - 25 mg/dL JOSE Comment:Testing performed by : [address] [address] Creatinine 0.60 0.60 - 1.10 mg/dL JOSE Comment:Testing performed by : [address] [address] Glucose 79 70 - 199 mg/dL JOSE [...] was last revised 2022. Testing performed by: [address] [address] Calcium 9.5 8.5 - 10.3 mg/dL JOSE Comment:Testing performed by : [address] [address] Bilirubin, total 0.4 0.1 - 1.2 mg/dL JOSE Comment:Testing performed by : [address] [address] Protein, pl 7.2 6.5 - 8.5 g/dL JOSE Comment:Testing performed by : [address] [address] Albumin 4.0 3.5 - 5.0 g/dL JOSE Comment:Testing performed by : [address] [address] Alk phos 37(L) 40 - 130 Units/L JOSE Comment:Testing performed by : [address] [address] ALT 15 7 - 45 Units/L JOSE Comment:Testing performed by : [address] [address] AST 15 10 - 45 Units/L [facility]Testing performed by : [address] [address] Blood 07/22/2024 8:04 AM RPG DEVELOPER 07/22/2024 8:08 AM RPG DEVELOPER us Zac Regan MD LAB BLOOD ORDERABLES Final Result [facility] [address] [facility] Department [place] [address] * (ABNORMAL) CBC with auto differential (07/22/2024 8:04 AM RPG DEVELOPER) WBC 9.6 3.8 - 9.9 K/cumm Comment:Testing performed by : [address] [address] Hgb 11.8(L) 11.9 - 15.5 g/dL JOSE Comment:Testing performed by : [address] [address] Hct 34.5(L) 35.6 - 45.5 % JOSE Comment:Testing performed by : [address] [address] Plt 230 150 - 400 K/cumm JOSE Comment:Testing performed by : [address] [address] MPV 10.8 9.1 - 12.3 fL JOSE Comment:Testing performed by : [address] [address] RBC 3.91 3.90 - 5.20 M/cumm JOSE Comment:Testing performed by : [address] [address] MCV 88.2 81.3 - 96.4 fL JOSE Comment:Testing performed by : [address], [address] MCH 30.2 27.1 - 33.3 pg JOSE Comment:Testing performed by : [address] [address] MCHC 34.2 32.3 - 35.7 g/dL JOSE Comment:Testing performed by : [address], [address] RDW CV 12.2 11.1 - 14.9 % JOSE Comment:Testing performed by : [address], [address] RDW SD 39.1 35.7 - 48.1 fL JOSE Comment:Testing performed by : [address] [address] NRBC abs 0.00 0.00 - 0.01 K/cumm JOSE Comment:Testing performed by : [address], [address] Blood 07/22/2024 8:04 AM RPG DEVELOPER 07/22/2024 8:08 AM RPG DEVELOPER us Zac Regan MD LAB BLOOD ORDERABLES Final Result JO[facility] Department [place] [address] documented in this encounter Visit Diagnoses Diagnosis 24 weeks gestation of - Primary Hyperemesis gravidarum with dehydration Hyperemesis gravidarum with metabolic disturbance, unspecified as to episode of care documented in this encounter Administered Medications Inactive Administered Medications - up to 3 most recent administrations Medication Order MAR Action Action Date Dose Rate Site famotidine (PEPCID) injection 20 mg 20 mg, intravenous, Administer over 2 Minutes, Once, On Sun07/22/24 at 0830, For 1 dose Given 07/22/2024 8:10 AM RPG DEVELOPER 20 mg Lactated Ringer's (LR) bolus 1,000 mL 1,000 mL, intravenous, Once, On Sun07/22/24 at 0845, For 1 dose New Bag 07/22/2024 8:09 AM RPG DEVELOPER 1,000 mL Lactated Ringer's (LR) infusion - ADS Override Pull Starting on Sun07/22/24 at 0806, For 1 dose, Created by cabinet override metoclopramide (REGLAN) 5 mg/mL injection 10 mg 10 mg, intravenous, Administer over 1 Minutes, Once, On Sun07/22/24 at 0830, For 1 dose Given 07/22/2024 8:10 AM RPG DEVELOPER 10 mg ondansetron (ZOFRAN) injection 4 mg 4 mg, intravenous, Administer over 2 Minutes, Once, On Sun07/22/24 at 0830, For 1 dose Given 07/22/2024 8:11 AM RPG DEVELOPER 4 mg documented in this encounter Discontinued Medications Medication Sig Discontinue Reason Start Date End Da te cephalexin (KEFLEX) 500 mg capsule Take 1 capsule (500 mg total) by mouth 3 (three) times a day Therapy completed 07/09/2024 07/22/2024 metoclopramide (REGLAN) 10 mg tablet Take 1 tablet (10 mg total) by mouth every 6 (six) hours Therapy completed 05/06/2024 07/22/2024 metoclopramide (REGLAN) 10 mg tablet Take 1 tablet (10 mg total) by mouth every 6 (six) hours 03/24/2024 07/22/2024 documented as of this encounter Historical Medications * This list may reflect changes made after this encounter. famotidine (PEPCID) 10 mg tablet Take 1 tablet (10 mg total) by mouth 2 (two) times a day calcium carbonate (TUMS) 500 mg (200 mg elemental calcium) chewable tablet Take 1 tablet/chew tab (500 mg total) by mouth daily added in this encounter Active and Recently Administered Medications Times are shown in RPG DEVELOPER. Scheduled Medication Order 07/20/2024 07/21/2024 07/22/2024 famotidine (PEPCID) injection 20 mg (COMPLETED) 20 mg, intravenous, Administer over 2 Minutes, Once, On Sun07/22/24 at 0830, For 1 dose 0810 (Given - Provid er: Tayler Redding RN) Lactated Ringer's (LR) bolus 1,000 mL (COMPLETED) 1,000 mL, intravenous, Once, On Sun07/22/24 at 0845, For 1 dose 0809 (New Bag - Prov ider: Tayler Redding RN)0900 (Stopped - Provider: Tayler Redding RN) metoclopramide (REGLAN) 5 mg/mL injection 10 mg (COMPLETED) 10 mg, intravenous, Administer over 1 Minutes, Once, On Sun07/22/24 at 0830, For 1 dose 0810 (Given - Provid er: Tayler Redding RN) ondansetron (ZOFRAN) injection 4 mg (COMPLETED) 4 mg, intravenous, Administer over 2 Minutes, Once, On Sun07/22/24 at 0830, For 1 dose 0811 (Given - Provid er: Tayler Redding RN) documented in this encounter Orders Nursing Count Last Ordered Date First Orde red Date CONTRACTION - MONITORING 1 07/22/2024 MONITORING 1 07/22/2024 IV Count Last Ordered Date First Orde red Date INSERT PERIPHERAL IV 1 07/22/2024 documented in this encounter Care Teams Field Supervisor Relationship Specialty Start Date End Date No, Physician PCP - General 12/30/20 documented as of this encounter
--- OUTSIDE RECORDS SUMMARY | 2024-08-29 16:51 | XMS_ITS | Referral Summary ---
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 Name Role Phone No, Physician Primary Care Provider Encounters Date Type Department Care Team Description 07/22/2024 7:36 AM [facility] - 07/22/2024 10:18 AM [facility] Emergency [facility] Emergency Department [address] [place], [place] [id number] Sesar Goldberg MD 24 weeks gestation of (Primary Dx); Hyperemesis gravidarum with dehydration Discharge Disposition: Discharge to home or self care 07/09/2024 9:34 PM T - 07/10/2024 1:37 AM [facility] Emergency [facility] Emergency Department [address] [place] [address] Te Ferro DO Acute cystitis without hematuria (Primary Dx); Nausea and vomiting, unspecified vomiting type; 23 weeks gestation of ; Hyperemesis gravidarum Discharge Disposition: Discharge to home or self care from Last 3 Months Allergies No known active allergies Medications guaiFENesin [...] vomiting 30 tablet 4 Active PNV with [id number] 27 mg iron- 1 mg tablet Take [...] nts Yes 11/10/2024 No known active problems Social History Tobacco Use Types Packs/Day Years [...] on file Legal Sex Female 11:54 AM NECK CUTTER Gender Identity Not on file Sexual Orientation Not on file Last Filed Vital Signs Vital Sign Reading Time Taken Comments Blood Pressure 122/56 07/22/2024 9:24 AM NECK CUTTER Pulse 67 07/22/2024 9:24 AM NECK CUTTER Temperature 36.8 ??C (98.2 ??F) 07/22/2024 9:24 AM CS T Respiratory Rate 18 07/22/2024 9:24 AM NECK CUTTER Oxygen Saturation 99% 07/22/2024 9:24 AM NECK CUTTER Inhaled Oxygen Concentration - - Weight 79.8 kg (175 lb 14.8 oz) 07/22/2024 7:24 AM NECK CUTTER Height 170.2 cm (5' 7 ) 03/24/2024 11:0 4 AM CDT Body Mass Index 27.55 03/24/2024 11:04 AM CDT Plan of Treatment Not on file Procedures Procedure Name Priority Date/Time Associated Diagnosis Comments URINALYSIS, MICROSCOPIC ONLY STAT 07/22/2024 9:23 AM NECK CUTTER URINALYSIS AND REFLEX TO MICROSCOPIC AND CULTURE STAT 07/22/2024 9:23 AM NECK CUTTER EGFR STAT 07/22/2024 8:04 AM NECK CUTTER DIFFERENTIAL AUTO STAT 07/22/2024 8:0 4 AM NECK CUTTER LIPASE STAT 07/22/2024 8:04 AM NECK CUTTER COMPREHENSIVE METABOLIC PANEL STAT 07/22/2024 8:04 AM NECK CUTTER CBC WITH AUTO DIFFERENTIAL STAT 07/22/2024 8:04 AM NECK CUTTER US OB 14 WEEKS OR OVER ED [...] culture Urine, clean voided (07/22/2024 9:23 AM NECK CUTTER) Color, ur Yellow Yellow Comment:Testing performed by : [address] [address] Clarity, ur Clear Clear JOSE Comment:Testing performed by : [address] [address] Specific gravity, ur 1.030 1.003 - 1.030 JOSE Comment:Testing performed by : [address] [address] pH, urine 6.0 JOSE Comment: Interpretive Data ? Urine pH is affected by diet, medications, systemic acid-base disturbances, and renal tubular function. ??pH may affect urinary stone formation. ??For example, urine pH below 6.0 may help reduce the tendency for calcium phosphate stones and pH greater than 6.0 may reduce the tendency for uric acid stone formation. Source: [facility] Current Interpretive Data was last revised on 2017 Testing performed by: [address] [address] Protein, ur ql 1+(A) Negative JOSE Comment:Testing performed by : [address] [address] Glucose, ur ql Negative Negative JOSE Comment:Testing performed by : [address] [address] Ketones, ur 4+(A) Negative JOSE Comment:Testing performed by : [address] [address] Bilirubin, ur Negative Negative JOSE Comment:Testing performed by : [facility], [address] [place] [address], [place]., [address] Blood, ur Negative Negative JOSE Comment:Testing performed by : [facility], [address] [place] [address], [place]., [address] Urobilinogen, ur <2.0 <2.0 mg/dL JOSE [place] Comment:Testing performed by : [address], [place]., [address] Nitrite, ur Negative Negative JOSE Comment:Testing performed by : [address], [place]., [address] Leukocyte esterase, ur 3+(A) Negative JOSE L[place] Comment:Testing performed by : [address] [address] UA reflex comment Reflex to microscopic UA will be performed. JOSE Comment:Testing performed by : [address] [address] Urine, clean voided 07/22/2024 9:23 AM NECK CUTTER 07/22/2024 9:28 AM NECK CUTTER us Zac Regan MD LAB MICROBIOLOGY - GENERAL ORDERABLES Final Result JOSE [address] [facility] Department [place] [address] * (ABNORMAL) Urinalysis, microscopic only (07/22/2024 9:23 AM NECK CUTTER) WBC, ur 6-10(A) 0 - 5 /HPF Comment:Testing performed by : [address], [place]., [address] RBC, ur 6-10(A) 0 - 2 /HPF JOSE LIV[place] Comment:Testing performed by : [address] [address] Epithelial cells, squamous, ur >50(A) 0 - 5 /HPF JOSE LIV[place] Comment:Testing performed by : [address], [place]., [address] Mucous, ur Present(A) JOSE [place] Comment:Testing performed by : [facility], [address] [place] [address]., [address] Culture Reflex Comment Reflex conditions for urine culture (WBC >10) not met. JOSE Comment:Testing performed by : [facility], [address] [place] [address]., [address] Urine, clean voided 07/22/2024 9:23 AM NECK CUTTER 07/22/2024 9:28 AM NECK CUTTER us Zac Regan MD LAB URINE ORDERABLES Final Result JOSE [address] [facility] Department [place] [address] * eGFR (07/22/2024 8:04 AM NECK CUTTER) eGFR >90 >=60 mL/min/1. 73 m2 Comment: [...] was last reviewed 2021. Testing performed by: [address] [address] Blood 07/22/2024 8:04 AM NECK CUTTER 07/22/2024 8:08 AM NECK CUTTER us Zac Regan MD LAB BLOOD ORDERABLES Final Result [facility] [address] [facility] Department [place] [address] * (ABNORMAL) Differential, auto (07/22/2024 8:04 AM NECK CUTTER) Neutrophil abs 7.2(H) 1.5 - 6.5 K/cumm Comment:Testing performed by : [address] [address] Imm gran abs 0.1 0.0 - 0.1 K/cumm JOSE Comment:Testing performed by : [address] [address] Lymphocyte abs 1.7 0.8 - 3.3 K/cumm JOSE Comment:Testing performed by : [address] [address] Monocyte abs 0.6 0.2 - 0.8 K/cumm JOSE Comment:Testing performed by : [address] [address] Eosinophil abs 0.0 0.0 - 0.5 K/cumm JOSE Comment:Testing performed by : [address] [address] Basophil abs 0.0 0.0 - 0.1 K/cumm JOSE Comment:Testing performed by : [address] [address] Neutrophil pct 75.3 % JOSE Comment: Interpretive Data Percent cell count reference ranges are not reported, since discordance with absolute values may lead to misinterpretation of CBC data. Current Interpretive Data was last revised on 2017. Testing performed by: [address] [address] Imm gran pct 0.6 % JOSE Comment: Interpretive Data Percent cell count reference ranges are not reported, since discordance with absolute values may lead to misinterpretation of CBC data. Current Interpretive Data was last revised on 2017. Testing performed by: [address] [address] Lymphocyte pct 17.6 % JOSE Comment: Interpretive Data Percent cell count reference ranges are not reported, since discordance with absolute values may lead to misinterpretation of CBC data. Current Interpretive Data was last revised on 2017. Testing performed by: [address] [address] Monocyte pct 5.9 % JOSE Comment: Interpretive Data Percent cell count reference ranges are not reported, since discordance with absolute values may lead to misinterpretation of CBC data. Current Interpretive Data was last revised on 2017. Testing performed by: [address] [address] Eosinophil pct 0.2 % JOSE Comment: Interpretive Data Percent cell count reference ranges are not reported, since discordance with absolute values may lead to misinterpretation of CBC data. Current Interpretive Data was last revised on 2017. Testing performed by: [address] [address] Basophil pct 0.4 % JOSE Comment: Interpretive Data Percent cell count reference ranges are not reported, since discordance with absolute values may lead to misinterpretation of CBC data. Current Interpretive Data was last revised on 2017. Testing performed by: [address] [address] Blood 07/22/2024 8:04 AM NECK CUTTER 07/22/2024 8:08 AM NECK CUTTER us Zac Regan MD LAB BLOOD ORDERABLES Final Result JOSE [place] [address] [facility] Department [place] [address] * (ABNORMAL) CBC with auto differential (07/22/2024 8:04 AM NECK CUTTER) WBC 9.6 3.8 - 9.9 K/cumm Comment:Testing performed by : [address] [address] Hgb 11.8(L) 11.9 - 15.5 g/dL JOSE Comment:Testing performed by : [address] [address] Hct 34.5(L) 35.6 - 45.5 % JOSE Comment:Testing performed by : [address], [address] Plt 230 150 - 400 K/cumm JOSE Comment:Testing performed by : [address], [address] MPV 10.8 9.1 - 12.3 fL JOSE Comment:Testing performed by : [address], [address] RBC 3.91 3.90 - 5.20 M/cumm JOSE Comment:Testing performed by : [address], [address] MCV 88.2 81.3 - 96.4 fL JOSE Comment:Testing performed by : [address], [address] MCH 30.2 27.1 - 33.3 pg JOSE Comment:Testing performed by : [address], [address] MCHC 34.2 32.3 - 35.7 g/dL JOSE Comment:Testing performed by : [address], [address] RDW CV 12.2 11.1 - 14.9 % JOSE Comment:Testing performed by : [address], [address] RDW SD 39.1 35.7 - 48.1 fL JOSE Comment:Testing performed by : [address], [address] NRBC abs 0.00 0.00 - 0.01 K/cumm JOSE Comment:Testing performed by : [address], [address] Blood 07/22/2024 8:04 AM NECK CUTTER 07/22/2024 8:08 AM NECK CUTTER Zac Rgean MD LAB BLOOD ORDERABLES Final Result Performing Organization Address City/[facility] Co de Phone Number MARIA DEL ROSARIO[address] [address] * Lipase (07/22/2024 8:04 AM NECK CUTTER) Pathologist [facility] Lipase 22 10 - 99 Units/L Comment:Testing performed by : [address] [address] Blood 07/22/2024 8:04 AM NECK CUTTER 07/22/2024 8:08 AM NECK CUTTER Zac Regan MD LAB BLOOD ORDERABLES Final Result Performing Organization Address [facility] de Phone Number MARIA DEL ROSARIO[address] [place] [address] * (ABNORMAL) Comprehensive metabolic panel (07/22/2024 8:04 AM NECK CUTTER) Pathologist [facility] Sodium 138 135 - 145 mmol/L Comment:Testing performed by : [address] [address] Potassium, pl 4.0 3.3 - 4.9 mmol/L JOSE Comment:Testing performed by : [address] [address] Chloride 101 97 - 110 mmol/L JOSE Comment:Testing performed by : [address] [address] CO2 21(L) 22 - 32 mmol/L JOSE Comment:Testing performed by : [address] [address] Anion gap 16(H) 2 - 15 mmol/L JOSE Comment:Testing performed by : [address] [address] BUN 8 6 - 25 mg/dL JOSE Comment:Testing performed by : [address] [address] Creatinine 0.60 0.60 - 1.10 mg/dL [facility] Comment:Testing performed by : [address] [address] Glucose 79 70 - 199 mg/dL JOSE [...] was last revised 2022. Testing performed by: [address] [address] Calcium 9.5 8.5 - 10.3 mg/dL [facility] Comment:Testing performed by : [address] [address] Bilirubin, total 0.4 0.1 - 1.2 mg/dL [facility] Comment:Testing performed by : [address] [address] Protein, pl 7.2 6.5 - 8.5 g/dL [facility] Comment:Testing performed by : [address] [address] Albumin 4.0 3.5 - 5.0 g/dL [facility] Comment:Testing performed by : [address] [address] Alk phos 37(L) 40 - 130 Units/L JOSE Comment:Testing performed by : [address] [address] ALT 15 7 - 45 Units/L JOSE Comment:Testing performed by : [address] [address] AST 15 10 - 45 Units/L JOSE Comment:Testing performed by : [address] [address] Blood 07/22/2024 8:04 AM NECK CUTTER 07/22/2024 8:08 AM NECK CUTTER us Zac Regan MD LAB BLOOD ORDERABLES Final Result JOSE [address] [facility] Department [place] [address] * US Ob 14 Weeks Or Over [...] PM T: ??07/09/2024 9:21 PM Report ID: [id number] Reading Location: ??[id number] Procedure Note Lamont Fernandez MD - 07/09/2024 [...] Lamont Fernandez M.D. AG: AG Report ID: [id number] Reading Location: [id number] us [facility] IMG OB US PROCEDURES Final Resul t * (ABNORMAL) Urinalysis reflex to microscopic and culture Urine (07/09/2024 7:36 PM CDT) Color, ur Yellow Yellow Comment:Testing performed by : [address] [address] Clarity, ur Cloudy(A) Clear JOSE Comment:Testing performed by : [address] [address] Specific gravity, ur 1.027 1.003 - 1.030 JOSE Comment:Testing performed by : [address] [address] pH, urine 6.5 JOSE Comment: Interpretive Data ? Urine pH is affected by diet, medications, systemic acid-base disturbances, and renal tubular function. ??pH may affect urinary stone formation. ??For example, urine pH below 6.0 may help reduce the tendency for calcium phosphate stones and pH greater than 6.0 may reduce the tendency for uric acid stone formation. Source: [employer] Current Interpretive Data was last revised on 2017 Testing performed by: [address] [address] Protein, ur ql 1+(A) Negative JOSE Comment:Testing performed by : [address] [address] Glucose, ur ql Negative Negative JOSE Comment:Testing performed by : [address] [address] Ketones, ur 4+(A) Negative JOSE [place] Comment:Testing performed by : [facility], [address] [place] [address]., [address] Bilirubin, ur Negative Negative JOSE [place] Comment:Testing performed by : [facility], [address] [place] [address], [place]., [address] Blood, ur Negative Negative JOSE [place] Comment:Testing performed by : [address], [place]., [address] Urobilinogen, ur <2.0 <2.0 mg/dL JOSE Comment:Testing performed by : [address], [place]., [address] Nitrite, ur Negative Negative JOSE [place] Comment:Testing performed by : [address] [address] Leukocyte esterase, ur 2+(A) Negative JOSE [place] Comment:Testing performed by : [address], [place]., [address] UA reflex comment Reflex to microscopic UA will be performed. JOSE [place] Comment:Testing performed by : [address], [place]., [address] Urine 07/09/2024 7:36 PM CDT 07/09/2024 7:38 PM CDT Te Ferro DO LAB MICROBIOLOGY - GEN ERAL ORDERABLES Final Result JOSE [address] [facility] Department of Laboratories [place], [place] [id number] * (ABNORMAL) Urinalysis, microscopic only (07/09/2024 7:36 PM CDT) WBC, ur 0-5 0 - 5 /HPF Comment:Testing performed by : [address] [address] RBC, ur 3-5(A) 0 - 2 /HPF JOSE [place] Comment:Testing performed by : [address] [address] Epithelial cells, squamous, ur >50(A) 0 - 5 /HPF JOSE [place] Comment:Testing performed by : [facility], [address] [place] [address]., [address] Bacteria, ur Trace(A) JOSE Comment:Testing performed by : [address] [address] Mucous, ur Present(A) JOSE Comment:Testing performed by : [facility], [address] [place] [address], [place]., [address] Hyaline casts, ur 1-5 0 - 10 /LPF JOSE Comment:Testing performed by : [address] [address] Culture Reflex Comment Reflex conditions for urine culture (WBC >10) not met. JOSE Comment:Testing performed by : [address] [address] Urine 07/09/2024 7:36 PM CDT 07/09/2024 7:38 PM CDT Te Ferro DO LAB URINE ORDERABLES F inal Result JOSE [address] [facility] Department [place] [address] * eGFR (07/09/2024 7:19 PM CDT) eGFR [...] was last reviewed 2021. Testing performed by: [address] [address] Blood 07/09/2024 7:19 PM CDT 07/09/2024 7:31 PM CDT Te Ferro DO LAB BLOOD ORDERABLES F inal Result [facility] Department [place] [address] * (ABNORMAL) Differential, auto (07/09/2024 7:19 PM CDT) Neutrophil abs 8.3(H) 1.5 - 6.5 K/cumm Comment:Testing performed by : [address] [address] Imm gran abs 0.0 0.0 - 0.1 K/cumm JOSE Comment:Testing performed by : [address] [address] Lymphocyte abs 1.8 0.8 - 3.3 K/cumm JOSE Comment:Testing performed by : [address] [address] Monocyte abs 0.6 0.2 - 0.8 K/cumm JOSE Comment:Testing performed by : [address] [address] Eosinophil abs 0.0 0.0 - 0.5 K/cumm JOSE Comment:Testing performed by : [address] [address] Basophil abs 0.0 0.0 - 0.1 K/cumm JOSE Comment:Testing performed by : [address] [address] Neutrophil pct 76.8 % JOSE Comment: Interpretive Data Percent cell count reference ranges are not reported, since discordance with absolute values may lead to misinterpretation of CBC data. Current Interpretive Data was last revised on 2017. Testing performed by: [address] [address] Imm gran pct 0.4 % JOSE Comment: Interpretive Data Percent cell count reference ranges are not reported, since discordance with absolute values may lead to misinterpretation of CBC data. Current Interpretive Data was last revised on 2017. Testing performed by: [address] [address] Lymphocyte pct 16.8 % JOSE Comment: Interpretive Data Percent cell count reference ranges are not reported, since discordance with absolute values may lead to misinterpretation of CBC data. Current Interpretive Data was last revised on 2017. Testing performed by: [address] [address] Monocyte pct 5.3 % JOSE Comment: Interpretive Data Percent cell count reference ranges are not reported, since discordance with absolute values may lead to misinterpretation of CBC data. Current Interpretive Data was last revised on 2017. Testing performed by: [address] [address] Eosinophil pct 0.4 % JOSE Comment: Interpretive Data Percent cell count reference ranges are not reported, since discordance with absolute values may lead to misinterpretation of CBC data. Current Interpretive Data was last revised on 2017. Testing performed by: [address] [address] Basophil pct 0.3 % [facility] Comment: Interpretive Data Percent cell count reference ranges are not reported, since discordance with absolute values may lead to misinterpretation of CBC data. Current Interpretive Data was last revised on 2017. Testing performed by: [address] [address] Blood 07/09/2024 7:19 PM CDT 07/09/2024 7:31 PM CDT us Te Ferro DO LAB BLOOD ORDERABLES F inal Result JOSE [address] [facility] Department [place] [address] * (ABNORMAL) CBC with auto differential (07/09/2024 7:19 PM CDT) [facility] WBC 10.8(H) 3.8 - 9.9 K/cumm Comment:Testing performed by : [address] [address] Hgb 11.8(L) 11.9 - 15.5 g/dL JOSE Comment:Testing performed by : [address] [address] Hct 35.0(L) 35.6 - 45.5 % JOSE Comment:Testing performed by : [address] [address] Plt 215 150 - 400 K/cumm JOSE Comment:Testing performed by : [address] [address] MPV 11.1 9.1 - 12.3 fL JOSE Comment:Testing performed by : [address] [address] RBC 3.94 3.90 - 5.20 M/cumm JOSE Comment:Testing performed by : [address] [address] MCV 88.8 81.3 - 96.4 fL JOSE Comment:Testing performed by : [address] [address] MCH 29.9 27.1 - 33.3 pg JOSE [place] Comment:Testing performed by : [address] [address] MCHC 33.7 32.3 - 35.7 g/dL JOSE Comment:Testing performed by : [address], [address] RDW CV 12.2 11.1 - 14.9 % JOSE [place] Comment:Testing performed by : [address] [address] RDW SD 39.7 35.7 - 48.1 fL JOSE [place] Comment:Testing performed by : [address] [address] NRBC abs 0.00 0.00 - 0.01 K/cumm JOSE [place] Comment:Testing performed by : [address] [address] Blood (Blood, Venous) 07/09/2024 7:19 PM CDT 07/09/2024 7:31 PM CDT Te Ferro LAB BLOOD ORDERABLES F inal Result [facility] Department [place] [address] * (ABNORMAL) Comprehensive metabolic panel (07/09/2024 7:19 PM CDT) Sodium 136 135 - 145 mmol/L Comment:Testing performed by : [address] [address] Potassium, pl 4.0 3.3 - 4.9 mmol/L JOSE [place] Comment:Testing performed by : [address] [address] Chloride 102 97 - 110 mmol/L JOSE Comment:Testing performed by : [address] [address] CO2 21(L) 22 - 32 mmol/L JOSE Comment:Testing performed by : [address] [address] Anion gap 13 2 - 15 mmol/L JOSE [place] Comment:Testing performed by : [address] [address] BUN 8 6 - 25 mg/dL JOSE [place] Comment:Testing performed by : [address] [address] Creatinine 0.50(L) 0.60 - 1.10 mg/dL JSOE Comment:Testing performed by : [address] [address] Glucose 86 70 - 199 mg/dL JOSE [...] classification and Diagnosis of Diabetes Diabetes Care 2021; 46: S19-S40. Current interpretive data was last revised 2022. Testing performed by: [address] [address] Calcium 9.5 8.5 - 10.3 mg/dL JOSE Comment:Testing performed by : [address] [address] Bilirubin, total 0.3 0.1 - 1.2 mg/dL JOSE Comment:Testing performed by : [address] [address] Protein, pl 7.1 6.5 - 8.5 g/dL JOSE Comment:Testing performed by : [address] [address] Albumin 3.9 3.5 - 5.0 g/dL JOSE Comment:Testing performed by : [address] [address] Alk phos 35(L) 40 - 130 Units/L JOSE Comment:Testing performed by : [address] [address] ALT 15 7 - 45 Units/L JOSE Comment:Testing performed by : [address] [address] AST 15 10 - 45 Units/L JOSE Comment:Testing performed by : [address] [address] Blood (Blood, Venous) 07/09/2024 7:19 PM CDT 07/09/2024 7:31 PM CDT Te Ferro DO LAB BLOOD ORDERABLES F inal Result Performing Organization Address [facility] Co de Phone Number JOSE [address] [place] [address] * N. gonorrhoeae/C. trachomatis Amplification Urine (06/07/2022 12:51 AM CDT) C. trachomatis Not Detected Not Detected JOSE Comment:Testing performed by : [facility], [address] [place] [address]., [address] N. gonorrhoeae Not Detected Not Detected JOSE Comment: Interpretive Data Testing performed by the [facility]. This assay detects Chlamydia trachomatis and Neisseria gonorrhoeae by nucleic acid amplification testing (NAAT). This test is approved by the [facility] Food and Drug Administration and the performance characteristics have been verified by the laboratory. The performance characteristics of this test have not been evaluated in individuals less than 14 years of age. Current Interpretive Data was last revised on 2019. Testing performed by: [facility], [address] [place] [address]., [address] Urine (None) 06/07/2022 12:5 1 AM CDT 06/07/2022 12:56 AM CDT Laura Santa DO LAB MICROBIOLOGY - GENERAL ROSEMARIE BROCK Final Result Performing Organization Address City/[facility] Co de Phone Number JOSE [address] [place] [address] from Last 3 Months or Most Recently Relevant to Health Maintenance Insurance [facility] [address] [id number] [place] [address] [employer] Member Subscriber Plan / Payer (Ef fective 2021-Present) Name:Tawny Nicholas Relation to Subscriber:Spouse Name:TE MEYERS Date of :1899 (Home) Address: [address] [place] [address] Payer ID:[id number] (NAIC) Type:[facility] Address: [address] [facility] [address] [address] [place] [address] Care Teams Yacht Captain Relationship Specialty Start Date End Date No, Physician PCP - General 12/30/20
--- OUTSIDE RECORDS SUMMARY | 2024-08-29 16:51 | XMS_ITS | Encounter Summary ---
Author Organization [facility] Healthcare Address [address] [place] [address] Care Team Providers Care Xerox Machine Mechanic Name Role Phone No, Physician Primary Care Provider [phone] Reason for Visit * Reason Comments Dental Pain Encounter Details Date Type Department Care Team (Late st Contact Info) Description 12/30/2020 4:40 AM CDT - 12/30/2020 5:09 AM CDT Emergency [facility] Emergency Department [id number] [place] [address] Reji Briseno MD [address] [facility] [address] [place] [id number] Pain, dental (Primary Dx); Dental abscess Discharge Disposition: Discharge to home or self care Social History Tobacco Use Types Packs/Day Years Used Date Smoking Tobacco: Never Assessed Comments Unknown Sex and Gender Information Value Date Recorded Sex Assigned at Not on file 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 Gender Identity Not on file Sexual Orientation Not on file documented as of this encounter Last Filed Vital Signs Vital Sign Reading Time Taken Comments Blood Pressure 113/90 12/30/2020 4:47 AM CDT Pulse 86 12/30/2020 4:47 AM CDT Temperature 36.7 ??C (98.1 ??F) 12/30/2020 4:47 AM CD T Respiratory Rate 18 12/30/2020 4:47 AM CDT Oxygen Saturation 96% 12/30/2020 4:47 AM CDT Inhaled Oxygen Concentration - - Weight 133.8 kg (295 lb) 12/30/2020 4:47 AM CDT Height 170.2 cm (5' 7 ) 12/30/2020 4:47 AM CDT Body Mass Index 46.2 12/30/2020 4:47 AM CDT documented in this encounter Discharge Diagnoses Diagnosis Periapical abscess without sinus - PERIAPICAL ABSCESS WITHOUT SINUS documented in this encounter Discharge Instructions * Attachments The following attachments cannot be sent through Care Everywhere. * ABSCESS (ANTIBIOTIC TREATMENT ONLY) (MALAY) * Dental Abscess (AfterCare(R) Instructions(ER/ED)) (Puerto Rican) documented in this encounter Medications at Time of Discharge amoxicillin-clavu lanate (AUGMENTIN) 875-125 mg per tabletIndications :Periapical abscess Take 1 tablet by mouth every 12 (twelve) hours 14 tablet 12/30/2020 07/25/2021 documented as of this encounter Ordered Prescriptions Prescription Sig Dispense Quantity Refills Last Filled Start Date End Date amoxicillin-clavul anate (AUGMENTIN) 875-125 mg per tabletIndications: Periapical abscess Take 1 tablet by mouth every 12 (twelve) hours 14 tablet 12/30/2020 07/25/2021 documented in this encounter Discharge Disposition Disposition Code Departure Means Destination Discharge to home or self care documented in this encounter ED Notes * Cydney Martin RN - 12/30/2020 5:05 AM CDT Patient tolerated toradol injection well. Reports she feels ready to leave. Cydney Martin RN 12/30/20 0510 * Cydney Martin RN - 12/30/2020 4:46 AM CDT Patient has pain to her left upper molar. Reports she does not have a dentist and does not rememberthe last time she saw one. Patient states it is swollen and hurts to eat. * Reji Briseno MD - 12/30/2020 4:44 AM CDT Images from the original note were not included. HPI Chief Complaint Patient presents with ??? Dental Pain 20-year-old female without past medical history, presents the ER with 3 day history of left upper dental pain. Patient states she has taken Advil intermittently without significant improvement of pain. Patient currently rates pain 8/10, aching in nature, exacerbated by palpation and eating. Patienthas not seen a dentist in several years. Patient denies fevers, chills, facial swelling, purulenct drainage. Patient History: There are no problems to display for this patient. History reviewed. No pertinent past medical history. No past surgical history on file. History reviewed. No pertinent family history. Social History Tobacco Use ??? Smoking status: Not on file Substance Use Topics ??? Alcohol use: Not on file ??? Drug use: Not on file Social History Social History Narrative ??? Not on file Review of Systems Review of Systems Constitutional: Negative for chills and fever. HENT: Positive for dental problem. Negative for congestion and sore throat. Eyes: Negative for visual disturbance. Respiratory: Negative for shortness of breath. Cardiovascular: Negative for chest pain. Gastrointestinal: Negative for abdominal pain, nausea and vomiting. Endocrine: Negative for polydipsia, polyphagia and polyuria. Genitourinary: Negative for dysuria. Musculoskeletal: Negative for back pain and neck pain. Skin: Negative for rash. Neurological: Negative for weakness and headaches. Psychiatric/Behavioral: Negative for sleep disturbance. Physical Exam ED Triage Vitals Temp Pulse Resp BP SpO2 12/30/20 0447 12/30/20 0445 12/30/20 0447 12/30/20 0445 12/30/20 0445 36.7 ??C (98.1 ??F) 94 18 113/90 97 % Temp src Heart Rate Source Patient Position BP Location FiO2 (%) 12/30/207 -- -- -- -- Oral Physical Exam Vitals and nursing note reviewed. Constitutional: General: She is not in acute distress. Appearance: She is well-developed. HENT: Head: Normocephalic and atraumatic. Mouth/Throat: Eyes: Conjunctiva/sclera: Conjunctivae normal. Cardiovascular: Rate and [...] Decision Making Differential Diagnosis or Management Options: Patient's history and physical exam consistent with dental gage of left upper last molar. No red flags for facial cellulitis or Leif's angina. Will administer Toradol shot. Will give patient Augmentin prescription. Will give patient resources for dentist. Patient to be discharged. Patient's questions and concerns were addressed. Patient given return precautions. Patient instructed on utilization of ibuprofen for analgesia. Patient amenable to discharge. Final diagnoses: Pain, dental Dental abscess Reji Briseno MD 12/30/20 0454 documented in this encounter Plan of Treatment Not on file documented as of this encounter Visit Diagnoses Diagnosis Pain, dental- Primary Dental abscess Periapical abscess without sinus documented in this encounter Administered Medications Inactive Administered Medications - up to 3 most recent administrations Medication Order MAR Action Action Date Dose Rate Site ketorolac (TORADOL) injection 30 mg 30 mg, intramuscular, Once, On Josefina 12/30/20 at 0446, For 1 dose, For Adult IV push, administer over 15 seconds Given 12/30/2020 4:52 AM CDT 30 mg Right Deltoid documented in this encounter Active and Recently Administered Medications Times are shown in CDT. Scheduled Medication Order 12/28/2020 12/29/2020 12/30/2020 ketorolac (TORADOL) injection 30 mg (COMPLETED) 30 mg, intramuscular, Once, On Josefina 12/30/20 at 0446, For 1 dose, For Adult IV push, administer over 15 seconds 0452 (Given - Provid er: Kali Carmichael RN) documented in this encounter Orders Medications Ordered That Hardik ht Not Have Been Administered Count Last Ordered Date First Ordered Date ketorolac (TORADOL) injection 30 mg 1 12/30 documented in this encounter Care Teams Xerox Machine Mechanic Relationship Specialty Start Date End Date No, Physician PCP - General 12/30/20 documented as of this encounter
--- OUTSIDE RECORDS SUMMARY | 2024-08-29 16:51 | XMS_ITS | Encounter Summary ---
Author Organization [facility] Healthcare Address [address] [place] [id number] Care Team Providers Care Relief Man Name Role Phone No, Physician Primary Care Provider Reason for Visit * Reason Comments Shortness of Breath Encounter Details Date Type Department Care Team (Late st Contact Info) Description 06/07/2022 1:18 AM CDT - 06/07/2022 3:[address] 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 Gender Identity Not on file Sexual Orientation Not on file documented as of this encounter Last Filed Vital Signs Vital Sign Reading Time Taken Comments Blood Pressure 114/78 06/07/2022 12:30 AM CDT Pulse 90 06/07/2022 12:30 AM CDT Temperature 36.7 ??C (98.1 ??F) 06/07/2022 12:30 AM C DT Respiratory Rate 18 06/07/2022 12:30 AM CDT Oxygen Saturation 98% 06/07/2022 12:30 AM CDT Inhaled Oxygen Concentration - - Weight 79.4 kg (175 lb 0.7 oz) 06/07/2022 12:31 AM CDT Height 170.2 cm (5' 7 ) 06/07/2022 12:30 AM CDT Body Mass Index 27.42 06/07/2022 12:30 AM CDT documented in this encounter Discharge Instructions * Discharge Instructions* Laura Santa DO - 06/07/2022 2:39 AM CDT Please follow-up with your primary care physician in the next 2-3 days for further evaluation. You have been prescribed an inhaler, steroids, cough medications. You may also take mucinex to help break up the phelgm. Return immediately for any new symptoms, worsening of symptoms, or persistent symptoms. You MUST follow up for further evaluation of all incidental abnormal radiographic and laboratory findings, Have your physician obtain records from this visit and address all the incidental abnormal findings. This may include final results of lab testing, cultures, final x-ray reports which may not have been available during the time of the visit. * Attachments The following attachments cannot be sent through Care Everywhere. * Shortness of Breath (AfterCare(R) Instructions(ER/ED)) (Guamanian) * Upper Respiratory Infection (AfterCare(R) Instructions(ER/ED)) (Guamanian) documented in this encounter Medications at Time of Discharge methylPREDNISolo ne (MEDROL DOSEPACK) 4 mg Dosepack Take as directed on package 1 packet 06/07/2022 06/13/2022 albuterol HFA (PROVENTIL HFA,VENTOLIN HFA,PROAIR HFA) 90 mcg/actuation inhaler Inhale 2 puffs every 4 (four) hours as needed for wheezing 1 each 06/07/2022 08/06/2022 azithromycin (Zithromax Z-Magdaleno) 250 mg tablet Take [...] every 8 (eight) hours 30 capsule 06/07/2022 2 albuterol HFA (PROVENTIL HFA,VENTOLIN HFA,PROAIR HFA) 90 mcg/actuation inhaler Inhale 2 puffs every 4 (four) hours as needed for wheezing 1 each 06/07/2022 2 methylPREDNISolone (MEDROL DOSEPACK) 4 mg Dosepack Take as directed on package 1 packet 06/07/2022 2 documented in this encounter Discharge Disposition Disposition Code Departure Means Destination Discharge to home or self care documented in this encounter ED Notes * Nimco Byers, CHARISSE - 06/07/2022 3:38 AM CDT Called lab for status of trich test. She stated it was ordered as PCR so it goes to [facility]. Pt ok for d/c and will call if positive. Nimco Byers, CHARISSE 06/07/22 0339 * Laura Santa DO - 06/07/2022 2:20 AM CDT HPI Chief Complaint Patient presents with Shortness of Breath HPI Pt complains hx bronchitis multiple times per year . This episode has lasted shanelle 3 weeks. Pt reports CP worse on inspiration and SOB. Pt is smoker. Pt states uses inhaler PRN in the past only duringepisodes but has not this time. Rates pain at 3/10. RR WNL and RA sat 97%. Lungs coarse on inspiration and dim expiration. NAD noted. Pt also would like STD testing due to mew partner. Tawny Nicholas is a 21 y.o. female presenting to the ED c/o bronchitis and cough. She has had it forthe last 3 weeks. She states she has not taken anything for it. She did an albuterol treatment a week ago. She gets bronchitis a few times a year. No fever, chills, chest pain, n/v/d/c, dysuria. She also wanted testing for STDs because she suspects her partner has been cheating. Patient History: Past Medical History: Diagnosis Date [...] on file Alcohol Use: Not on file No current facility-administered medications for this encounter. Current Outpatient Medications: albuterol HFA (PROVENTIL HFA,VENTOLIN HFA,PROAIR HFA) 90 mcg/actuation inhaler azithromycin (Zithromax Z-Magdaleno) 250 mg tablet benzonatate (TESSALON) 100 mg capsule methylPREDNISolone (MEDROL DOSEPACK) 4 mg Dosepack Review of Systems Review of Systems All systems reviewed and are neg or non contributory for this patients presentation today other than as stated in the HPI . Physical Exam ED Triage Vitals Temp Pulse Resp BP SpO2 06/07/222906/07/222906/07/222906/07/222906/07/2229 36.7 ??C (98.1 ??F) 90 18 114/78 98 % Temp src Heart Rate Source Patient Position BP Location FiO2 (%) 06/07/2229 -- -- -- -- Oral Height Height Method Weight Weight Method 06/07/222906/07/222906/07/2230 -- 1.702 m (5' 7 ) Stated 79.4 kg (175 lb 0.7 oz) Patient Vitals for the past 24 hrs: BP Temp Temp src Pulse Resp SpO2 Height Weight 06/07/2230 -- -- -- -- -- -- -- 79.4 kg (175 lb 0.7 oz) 06/07/2229 114/78 36.7 ??C (98.1 ??F) Oral 90 18 98 % 170.2 cm (5' 7 ) -- Physical Exam Vitals and nursing note reviewed. GENERAL: Patient is conscious alert and oriented x3 and in no acute distress. HEENT: Head is normocephalic and atraumatic. Extraocular muscles are intact. NECK: Trachea is midline. No meningeal signs. LUNGS: Lungs are clear to auscultation bilaterally. There is good respiratory effort. HEART: regular rate and rhythm, no murmur. There is no gallop or rub. ABDOMEN: Soft and nontender to palpation. Bowel sounds are normal in all quadrants. There is no guarding or rebound. There are no masses. No CVA tenderness. MUSCULOSKELETAL: Moves all extremities x4. There is no obvious deformity. Radial pulses are intact.No spinal process tenderness. SKIN: Exposed skin shows no obvious erythema. Skin is warm and dry. There is no rash. NEUROLOGIC: Patient is conscious, alert and oriented x3. No focal neurologic defect is noted. PSYCH: Normal affect. Procedures MDM Labs Reviewed N. GONORRHOEAE/C. TRACHOMATIS AMPLIFICATION Result Value C. trachomatis Not Detected N. gonorrhoeae Not Detected INFLUENZA A/B, RSV, AND COVID-19 PCR COVID-19 RNA Negative Influenza A RNA Negative Influenza B RNA Negative RSV RNA Negative Narrative: Is the Patient experiencing symptoms consistent with COVID?->Yes Date of Symptom Onset->06/05/22 Reason for testing?->Bed placement or semi-private room TRICHOMONAS VAGINALIS PCR XR Chest 1 Vw Portable EXAM DESCRIPTION: XR CHEST 1 VIEW REASON FOR STUDY: Shortness of breath Sob and chest pain x 3 weeks TECHNIQUE: Frontal radiographic view of the chest acquired. COMPARISON: None Available. FINDINGS: LUNGS/PLEURA: No focal consolidation or pneumothorax. No pleural effusion. HEART/MEDIASTINUM: Heart size is normal. Normal mediastinal and hilar contours. HARDWARE/LINES/TUBES: None. BONES: No acute findings. OTHER: No other significant finding. IMPRESSION: No acute cardiopulmonary disease. THIS IS AN ELECTRONICALLY VERIFIED FINAL REPORT 06/07/2022 1:18 AM - Electronically signed by Colton Chin M.D. RW: REX Report ID: [id number] Reading Location: [place] [address] BP 114/78 Pulse 90 Temp 36.7 ??C (98.1 ??F) (Oral) Resp 18 Ht 170.2 cm (5' 7 ) Wt 79.4 kg(175 lb 0.7 oz) SpO2 98% BMI 27.42 kg/m?? Medical Decision Making Clinical problems/dx: Tawny Nicholas is a 21 y.o. female who presents with Cough, SOB. ED Course -Patient seen and evaluated, available studies reviewed -Prior available records reviewed, triage notes reviewed. 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 She states understanding and agrees. This examination was transcribed using the [employer] voice recognition system without human data security coordinator. In an effort to expedite patient care, this report has not been adjusted for typographical, grammatical, and syntax by a trained medical records technician. Close outpatient follow-up with a low threshold to return has been mandated , concerning symptoms have been emphasized in detail, and this patient expresses understanding Clinical Impression: Cough Shortness of breath Upper respiratory tract infection, unspecified type Laura Santa DO 06/14/22 4340 * Nimco Byers RN - 06/07/2022 12:32 AM CDT Pt complains hx bronchitis multiple times per year . This episode has lasted shanelle 3 weeks. Pt reports CP worse on inspiration and SOB. Pt is smoker. Pt states uses inhaler PRN in the past only duringepisodes but has not this time. Rates pain at 3/10. RR WNL and RA sat 97%. Lungs coarse on inspiration and dim expiration. NAD noted. Pt also would like STD testing due to mew partner. documented in this encounter Plan of Treatment Not on file documented as of this encounter Procedures Procedure Name Priority Date/Time Associated Diagnosis Comments XR CHEST 1 VIEW ED 06/07/2022 1:10 AM CDT INFLUENZA A/B, RSV, AND COVID-19 PCR Routine 06/07/2022 1:00 AM CDT N. GONORRHOEAE/C. TRACHOMATIS AMPLIFICATION STAT 06/07/2022 12:51 AM CDT TRICHOMONAS VAGINALIS PCR STAT 06/07/2022 12:51 AM CDT ECG 12-LEAD STAT 06/07/2022 12:40 AM CDT documented in this encounter Results * XR Chest 1 Vw Portable (06/07/2022 1:10 AM CDT) Anatomical Region Laterality Modality Body, Chest N/A Computed Radiogr aphy 06/07/2022 1:17 AM CDT Narrative 06/07/2022 1:18 AM CDT EXAM DESCRIPTION: ?? XR CHEST 1 VIEW REASON FOR STUDY: ?? Shortness of breath ?? Sob and chest pain x 3 weeks ?? TECHNIQUE: ?? Frontal ??radiographic view of the chest acquired. COMPARISON: None Available. FINDINGS: LUNGS/PLEURA: ?? No focal consolidation or pneumothorax. No pleural effusion. HEART/MEDIASTINUM: ?? Heart size is normal. Normal mediastinal and hilar contours. HARDWARE/LINES/TUBES: ?? None. BONES: ?? No acute findings. OTHER: ?? No other significant finding. IMPRESSION: ?? No acute cardiopulmonary disease. THIS IS AN ELECTRONICALLY VERIFIED FINAL REPORT 06/07/2022 1:18 AM - Electronically signed by ??Colton Chin M.D. RW: REX D: ??06/07/2022 1:18 AM T: ??06/07/2022 1:18 AM Report ID: [id number] Reading Location: ??[id number] Procedure Note Colton Chin MD - 06/07/2022 EXAM DESCRIPTION: XR CHEST 1 VIEW REASON FOR STUDY: Shortness of breath Sob and chest pain x 3 weeks TECHNIQUE: Frontal radiographic view of the chest acquired. COMPARISON: None Available. FINDINGS: LUNGS/PLEURA: No focal consolidation or pneumothorax. Nopleural effusion. HEART/MEDIASTINUM: Heart size is normal. Normal mediastinal and hilar contours. HARDWARE/LINES/TUBES: None. BONES: No acute findings. OTHER: No other significant finding. IMPRESSION: No acute cardiopulmonary disease. THIS IS AN ELECTRONICALLY VERIFIED FINAL REPORT 06/07/2022 1:18 AM - Electronically signed by Colton Chin M.D. RW: REX Report ID: [id number] Reading Location: [place] [address] Laura Santa DO IMG XR PROCEDURES Final Result * Influenza A/B, RSV, and COVID-19 PCR Nasopharyngeal (06/07/2022 1:00 AM CDT) [facility] COVID-19 RNA Negative Negative [facility] Comment:Testing performed by : [address], [address] Influenza A RNA Negative Negative [facility] Comment:Testing performed by : [address] [address] Influenza B RNA Negative Negative [facility] Comment:Testing performed by : [address], [address] RSV RNA Negative Negative [facility] Comment: Interpretive data: This test is performed using the [employer] Xpress CoV-2/Flu/RSV plus assay. This is a [...] Data last revised 2021. Testing performed by: [address] [address] Nasopharyngeal 06/07/2022 1: 00 AM CDT 06/07/2022 1:07 AM CDT Narrative JOSE - 06/07/2022 2:04 AM CDT Is the Patient experiencing symptoms consistent with COVID?->Yes Date of Symptom Onset->06/05/22 Reason for testing?->Bed placement or semi-private room Laura Santa DO LAB MICROBIOLOGY - GENERAL ORDE RABLES Final Result JOSE [facility] [place] [address] * Trichomonas vaginalis PCR Urine (06/07/2022 12:51 AM CDT) Pathologist [facility] Trichomonas DNA Not Detected Not Detected [facility] Comment: Interpretive Data Testing performed by [facility] using Nucleic Acid Amplification with the [employer] Xpert TV Assay. ??This assay detects DNA from Trichomonas vaginalis using Real-Time PCR. ??This test is cleared by the [facility] Food and Drug Administration for endocervical swabs, vaginal swabs, female urine (first-catch), and male urine (first-catch). ??The performance characteristics for these specimen types have been verified by the [facility]. ??Excess blood in specimens may be inhibitory and result in false negative results. ??The performance of this test has not been evaluated in women or individuals less than 18 years of age. Current Interpretive Data was last revised on 2019. Testing performed by: [facility], [address] [place] [place]., [address] Urine 06/07/2022 12:5 1 AM CDT 06/07/2022 8:14 PM CDT Laura Santa DO LAB MICROBIOLOGY - GENERAL [facility] Final Result Performing Organization Address [facility]/ZIP Co de Phone Number JOSE [address] [place] [address] * N. gonorrhoeae/C. trachomatis Amplification Urine (06/07/2022 12:51 AM CDT) Pathologist [facility] C. trachomatis Not Detected Not Detected [facility] Comment:Testing performed by : [facility], [address] [place] [address]., [address] N. gonorrhoeae Not Detected Not Detected [facility]SE [facility] Comment: Interpretive Data Testing performed by the [facility]. This assay detects Chlamydia trachomatis [...] last revised on 2019. Testing performed by: [facility], [address] [place] [address]., [id number] Urine (None) 06/07/2022 12:5 1 AM CDT 06/07/2022 12:56 AM CDT Laura Santa DO LAB MICROBIOLOGY - GENERAL ORDE RABLES Final Result Performing Organization Address [facility] Co de Phone Number JOSE [facility] Department [place] [address] * ECG 12 lead (06/07/2022 12:40 AM CDT) Pathologist [facility] Ventricular Rate EKG/Min 85 BPM [facility] Atrial Rate 85 BPM [facility] WI-Interval (MSEC) 124 ms [facility] QRS-Interval (MSEC) 74 ms [facility] QT-Interval (MSEC) 358 ms [facility] QTc 426 ms [facility] P [place] 63 degrees [facility] R [place] 80 degrees [facility] T [place] 55 degrees [facility] Diagnosis Normal sinus rhythm Normal ECG No previous ECGs available [facility] 06/07/2022 12:4 0 AM CDT 06/07/2022 1:58 PM CDT Laura Santa DO ECG ORDERABLES Final Result Performing Organization Address [facility] de Phone Number [facility] [employer] [facility] documented in this encounter Visit Diagnoses Diagnosis Cough- Primary Shortness of breath Upper respiratory tract infection, unspecified type documented in this encounter Discontinued Medications Medication Sig Discontinue Reason Start Date End Da te predniSONE (DELTASONE) 10 mg tablet Take 0.5 tablets (5 mg) by mouth daily 02/03/2022 06/07/2022 albuterol HFA (PROVENTIL HFA,VENTOLIN HFA,PROAIR HFA) 90 mcg/actuation inhaler Inhale 2 puffs every 4 (four) hours as needed for wheezing 02/03/2022 06/07/2022 benzonatate (TESSALON) 100 mg capsuleIndications:Harsha diaz Take 1 capsule (100 mg total) by mouth every 8 (eight) hours 02/03/2022 06/07/2022 documented as of this encounter Additional Health Concerns Infection Onset Date Last Indicated Resolved Time COVID: Suspected 06/07/2022 06/07/2022 06/07/2022 2:05 AM CDT documented as of this encounter Care Teams Relief Man Relationship Specialty Start Date End Date No, Physician PCP - General 12/30/20 documented as of this encounter
--- OUTSIDE RECORDS SUMMARY | 2024-08-29 16:51 | XMS_ITS | Encounter Summary ---
Author Organization [facility] Healthcare Address [address] [place] [address] Care Team Providers Care Installation Helper Name Role Phone No, Physician Primary Care Provider [phone] Reason for Visit * Reason Comments Possible Encounter Details Date Type Department Care Team ([facility] st Contact Info) Description 07/25/2021 8:24 AM FOAM RUBBER FABRICATOR - 07/25/2021 10:02 AM FOAM RUBBER FABRICATOR Emergency [facility] Emergency Department [address] [place] [address] Moises Celestin MD [address] [facility] [address] [place], [place] [id number] Acute UTI (Primary Dx) Discharge Disposition: Discharge to home or self care Social History Tobacco Use Types Packs/Day Years Used Date Smoking Tobacco: Never Smokeless Tobacco: Never Comments Unknown Sex and Gender Information Value Date Recorded Sex Assigned at Not on file Legal Sex Female 11:54 AM FOAM RUBBER FABRICATOR Gender Identity Not on file Sexual Orientation Not on file documented as of this encounter Last Filed Vital Signs Vital Sign Reading Time Taken Comments Blood Pressure 135/70 07/25/2021 9:53 AM FOAM RUBBER FABRICATOR Pulse 81 07/25/2021 9:53 AM FOAM RUBBER FABRICATOR Temperature 36.8 ??C (98.3 ??F) 07/25/2021 9:53 AM CS T Respiratory Rate 18 07/25/2021 8:15 AM FOAM RUBBER FABRICATOR Oxygen Saturation 99% 07/25/2021 9:53 AM FOAM RUBBER FABRICATOR Inhaled Oxygen Concentration - - Weight 131 kg (288 lb 12.8 oz) 07/25/2021 8:15 A M FOAM RUBBER FABRICATOR Height 170 cm (5' 6.93 ) 07/25/2021 8:15 AM FOAM RUBBER FABRICATOR Body Mass Index 45.33 07/25/2021 8:15 AM FOAM RUBBER FABRICATOR documented in this encounter Discharge Diagnoses Diagnosis Urinary tract infection, site not specified - URINARY TRACT INFECTION, SITE NOT SPECIFIED Gastro-esophageal reflux disease without esophagitis - GASTRO-ESOPHAGEAL REFLUX DISEASE WITHOUT ESOPHAGITIS Unspecified asthma, uncomplicated - UNSPECIFIED ASTHMA, UNCOMPLICATED documented in this encounter Discharge Instructions * Attachments The following attachments cannot be sent through Care Everywhere. * Bladder Infection, Female (Adult) (Luxembourger) documented in this encounter Medications at Time of Discharge ciprofloxacin (CIPRO) 500 mg tabletIndications :Urinary Tract/Genitourina ry Infection Take 1 tablet (500 mg total) by mouth 2 (two) times a day for 5 days 10 tablet 07/25/2021 07/30/2021 fluconazole (DIFLUCAN) 150 mg tabletIndications :Anogenital Candidiasis,Urina ry Tract/Genitourina ry Infection Take 1 tablet (150 mg total) by mouth once for 1 dose 1 tablet 07/25/2021 07/25/2021 documented as of this encounter Ordered Prescriptions Prescription Sig Dispense Quantity Refills Last Filled Start Date End Date fluconazole (DIFLUCAN) 150 mg tabletIndications: Anogenital Candidiasis,Urinar y Tract/Genitourinar y Infection Take 1 tablet (150 mg total) by mouth once for 1 dose 1 tablet 07/25/2021 07/25/2021 ciprofloxacin (CIPRO) 500 mg tabletIndications: Urinary Tract/Genitourinar y Infection Take 1 tablet (500 mg total) by mouth 2 (two) times a day for 5 days 10 tablet 07/25/2021 07/30/2021 documented in this encounter Discharge Disposition Disposition Code Departure Means Destination Discharge to home or self care documented in this encounter ED Notes * Moises Celestin MD - 07/25/2021 9:53 AM CST HPI Chief Complaint Patient presents with ??? Possible 20 yo F with c/o abominal aching, nausea and sweating. Pt has irregular periods and thinks that shemight be . History provided by: Patient and medical records Illness Location: Generalized Quality: Aching and sweaty Severity: Moderate Onset quality: Gradual Duration: 2 weeks Timing: Constant Progression: Unchanged Chronicity: New Associated symptoms: abdominal pain, fatigue, myalgias and nausea Associated symptoms: no chest pain, no cough, no diarrhea, no fever, no headaches, no rash, no shortness of breath, no sore throat and no vomiting Patient History: There are no problems to [...] Systems Review of Systems Constitutional: Positive for fatigue. Negative for chills and fever. HENT: Negative for sore throat. Eyes: Negative for visual disturbance. Respiratory: Negative for cough and shortness of breath. Cardiovascular: Negative for chest pain and palpitations. Gastrointestinal: Positive for abdominal pain and nausea. Negative for constipation, diarrhea and vomiting. Endocrine: Negative. Genitourinary: Negative for dysuria, hematuria and urgency. Musculoskeletal: Positive for myalgias. Negative for arthralgias and back pain. Skin: Negative for rash. Allergic/Immunologic: Negative. Neurological: Negative for syncope, weakness and headaches. Hematological: Negative. Psychiatric/Behavioral: Negative. All other systems reviewed and are negative. Breast: Negative. Physical Exam ED Triage Vitals Temp Pulse Resp BP SpO2 07/25/21 0815 07/25/21 0815 07/25/21 0815 07/25/21 0815 07/25/21 0815 36.7 ??C (98.1 ??F) 79 18 132/71 99 % Temp src Heart Rate Source Patient Position BP Location FiO2 (%) 07/25/21 0953 07/25/21 0953 07/25/21 0953 07/25/21 0953 -- Oral Monitor Sitting Right arm Physical Exam Vitals and nursing note [...] Decision Making Differential Diagnosis or Management Options: 20 yo F with generalized Sx. Work- up for isnegative. UA shows UTI. Will Rx with ABx. Final diagnoses: Acute UTI Moises Celestin MD 07/25/21 0958 RUBBER FABRICATOR * Disha Herndon, CHARISSE - 07/25/2021 8:11 AM CST Patient states she is here today because she knows she is . This would be her first if it is. States she took 2 digital home preg tests and they were both negative. States she took 2 non digital and believes she saw a faint line. States she has a family history of urine preg testsbeing negative when the are supposed to be possitive. States has been on her cycle for 5 days now but it is not her normal heavy bleeding. Complains of hot flashes, nausea, and decreased appetite along with fatigue. States she can smell herself and she feels as if her nipples and stomach are getting bigger. RUBBER FABRICATOR documented in this encounter Plan of Treatment Not on file documented as of this encounter Procedures Procedure Name Priority Date/Time Associated Diagnosis Comments POCT HCG, URINE Routine 07/25/2021 8:59 AM FOAM RUBBER FABRICATOR DIFFERENTIAL AUTO STAT 07/25/2021 8:3 7 AM FOAM RUBBER FABRICATOR CBC WITH AUTO DIFFERENTIAL STAT 07/25/2021 8:37 AM FOAM RUBBER FABRICATOR HCG, BLOOD, QUANTITATIVE STAT 07/25/2021 8:37 AM FOAM RUBBER FABRICATOR URINALYSIS AND REFLEX TO MICROSCOPIC AND CULTURE STAT 07/25/2021 8:26 AM FOAM RUBBER FABRICATOR URINALYSIS, MICROSCOPIC ONLY STAT 07/25/2021 8:26 AM FOAM RUBBER FABRICATOR URINE CULTURE STAT 07/25/2021 8:26 AM FOAM RUBBER FABRICATOR documented in this encounter Results * POCT hCG, urine (07/25/2021 8:59 AM FOAM RUBBER FABRICATOR) Pathologist [facility] [place] HCG, ur, POC Negative Lot Number [id number] QC Backgroud Clear Acceptable QC Control Line Acceptable Urine 07/25/2021 8:59 AM FOAM RUBBER FABRICATOR Moises Celestin MD POINT OF CARE TEST ROSEMARIE BROCK Final Result * Differential, auto (07/25/2021 8:37 AM FOAM RUBBER FABRICATOR) Pathologist [facility] [place] Neutrophil abs 3.3 1.7 - 6.5 K/cumm [facility] Imm gran abs 0.0 0.0 - 0.1 K/cumm [facility] Lymphocyte abs 1.9 0.8 - 3.3 K/cumm [facility] Monocyte abs 0.8 0.2 - 0.8 K/cumm [facility] Eosinophil abs 0.0 0.0 - 0.5 K/cumm [facility] Basophil abs 0.0 0.0 - 0.1 K/cumm [facility] Neutrophil pct 54.7 % [facility] Comment: Interpretive Data Percent cell count reference ranges are not reported, since discordance with absolute values may lead to misinterpretation of CBC data. Current Interpretive Data was last revised on 2017. Imm gran pct 0.3 % [facility] Comment: Interpretive Data Percent cell count reference ranges are not reported, since discordance with absolute values may lead to misinterpretation of CBC data. Current Interpretive Data was last revised on 2017. Lymphocyte pct 31.2 % [facility] Comment: Interpretive Data Percent cell count reference ranges are not reported, since discordance with absolute values may lead to misinterpretation of CBC data. Current Interpretive Data was last revised on 2017. Monocyte pct 12.8 % [facility] Comment: Interpretive Data Percent cell count reference ranges are not reported, since discordance with absolute values may lead to misinterpretation of CBC data. Current Interpretive Data was last revised on 2017. Eosinophil pct 0.3 % [facility] Comment: Interpretive Data Percent cell count reference ranges are not reported, since discordance with absolute values may lead to misinterpretation of CBC data. Current Interpretive Data was last revised on 2017. Basophil pct 0.7 % [facility] Comment: Interpretive Data Percent cell count reference ranges are not reported, since discordance with absolute values may lead to misinterpretation of CBC data. Current Interpretive Data was last revised on 2017. Blood 07/25/2021 8:37 AM FOAM RUBBER FABRICATOR 07/25/2021 8:39 AM FOAM RUBBER FABRICATOR us Moises Celestin MD LAB BLOOD ORDERABLES Fi nal Result [facility] [address] [facility]. [place] [address] * hCG, blood, quantitative (07/25/2021 8:37 AM FOAM RUBBER FABRICATOR) hCG, quant <0.1 0.0 - 5.0 IUnits/L [facility] Comment: Interpretive Data Non- Female premenopausal: < or = 5.0 IUnits/L Men: < 5.0 IUnits/L Weeks of Gestation ? Reference Interval ?? 3 to 6 ? 5.8-31,795 IUnits/L ?? 7 to 10 ? 3,697-186,977 IUnits/L ??12 to 15 ?27,832- 70,791 IUnits/L ??16 to 18 ? 9,040- 58,179 IUnits/L Current Interpretive Data was last revised on 2018. Blood 07/25/2021 8:37 AM FOAM RUBBER FABRICATOR 07/25/2021 8:39 AM FOAM RUBBER FABRICATOR Moises Celestin MD LAB BLOOD ORDERABLES Fi nal Result [facility] [address] [facility]. [place] [address] * (ABNORMAL) CBC with auto differential (07/25/2021 8:37 AM FOAM RUBBER FABRICATOR) Pathologist [facility] [place] WBC 6.0 3.8 - 9.9 K/cumm [facility] Hgb 13.8 11.9 - 15.5 g/dL [facility] Hct 42.2 35.6 - 45.5 % [facility] Plt 268 150 - 400 K/cumm [facility] MPV 10.6 9.1 - 12.3 fL [facility] RBC 5.13 3.90 - 5.20 M/cumm [facility] MCV 82.3 81.3 - 96.4 fL [facility] MCH 26.9(L) 27.1 - 33.3 pg [facility] MCHC 32.7 32.3 - 35.7 g/dL [facility] RDW CV 13.1 11.1 - 14.9 % [facility] RDW SD 39.2 35.7 - 48.1 fL [facility] NRBC abs 0.00 0.00 - 0.01 K/cumm [facility] Blood 07/25/2021 8:37 AM FOAM RUBBER FABRICATOR 07/25/2021 8:39 AM FOAM RUBBER FABRICATOR Moises Celestin MD LAB BLOOD ORDERABLES Fi nal Result Performing Organization Address [facility] Co de Phone Number [facility] [phone] [place] [employer] [facility] [facility] [employer] [place], [place] [id number] * (ABNORMAL) Urine culture Urine (07/25/2021 8:26 AM FOAM RUBBER FABRICATOR) Report Final Report: Growth indicates contamination with mixed bacterial juan m. Includes the followin,000 to 100,000 colonies/ml of Streptococcus agalactiae (Group B Streptococci) Penicillin is the drug of choice for Beta strep infections. ??If susceptibility testing is clinically indicated, please contact the Microbiology Lab within 7 days for susceptibilites ([phone]). (.) [facility] Comment:Testing performed by : [facility], [address] [place] [address]., [id number] Organism STREPTOCOCCUS AGALACTIAE (GROUP B STREPTOCOCCI) [facility] Organism GROWTH INDICATES CONTAMINATION WITH MIXED JUAN M. [facility] Urine 07/25/2021 8:26 AM FOAM RUBBER FABRICATOR 07/25/2021 12:33 PM FOAM RUBBER FABRICATOR Narrative [facility] - 07/27/2021 11:39 AM FOAM RUBBER FABRICATOR Urine culture reflexed based upon urinalysis results. Moises Celestin MD LAB MICROBIOLOGY - GENE RAL ORDERABLES Final Result Performing Organization Address [facility] Co de Phone Number [facility] [phone] [employer] [facility] [employer] [employer] [place], [place] [phone] * (ABNORMAL) Urinalysis, microscopic only (07/25/2021 8:26 AM FOAM RUBBER FABRICATOR) WBC, ur >50(A) 0 - 5 /HPF [facility] RBC, ur >50(A) 0 - 2 /HPF [facility] Epithelial cells, squamous, ur 21-50(A) 0 - 5 /HPF [facility] Bacteria, ur 1+(A) [facility] Mucous, ur Present(A) [facility] Culture Reflex Comment Reflex to urine culture will be performed. [facility] Urine 07/25/2021 8:26 AM FOAM RUBBER FABRICATOR 07/25/2021 9:09 AM FOAM RUBBER FABRICATOR Moises Celestin MD LAB URINE ORDERABLES Fi nal Result [facility] [address] [facility] [place] [address] * (ABNORMAL) Urinalysis reflex to microscopic and culture Urine (07/25/2021 8:26 AM FOAM RUBBER FABRICATOR) Color, ur Red(A) Yellow [facility] Clarity, ur Turbid(A) Clear [facility] Specific gravity, ur >1.030(H) 1.003 - 1.030 [facility] pH, urine 5.5 [facility] Protein, ur ql 2+(A) Negative [facility] Glucose, ur ql Negative Negative [facility] Ketones, ur 1+(A) Negative [facility] Bilirubin, ur Negative Negative [facility] Blood, ur 3+(A) Negative [facility] Urobilinogen, ur <2.0 <2.0 mg/dL [facility] Nitrite, ur Negative Negative [facility] Leukocyte esterase, ur 2+(A) Negative [facility] UA reflex comment Reflex to microscopic UA will be performed. [facility] Urine 07/25/2021 8:26 AM FOAM RUBBER FABRICATOR 07/25/2021 9:09 AM FOAM RUBBER FABRICATOR Narrative [facility] - 07/25/2021 9:32 AM FOAM RUBBER FABRICATOR ?? Urine pH is affected by diet, medications, systemic acid-base disturbances, and renal tubular function. ??pH may affect urinary stone formation. ??For example, urine pH below 6.0 may help reduce the tendency for calcium phosphate stones and pH greater than 6.0 may reduce the tendency for uric acid stone formation. Source: [employer]. Last revised 09-20-2017 Moises Celestin MD LAB MICROBIOLOGY - GENE RAL ORDERABLES Final Result [facility] [address] [address] [facility]. [place] [address] documented in this encounter Visit Diagnoses Diagnosis Acute UTI- Primary Urinary tract infection, site not specified documented in this encounter Discontinued Medications Medication Sig Discontinue Reason Start Date End Da te amoxicillin-clavulanate (AUGMENTIN) 875-125 mg per tabletIndications:Periap ical abscess Take 1 tablet by mouth every 12 (twelve) hours Discontinued by another clinician 12/30/2020 07/25/2021 ondansetron ODT (ZOFRAN-ODT) 4 mg disintegrating tablet Dissolve 1-2 tablets oral every 8 hours as needed for nausea or vomiting. Discontinued by another clinician 06/03/2021 07/25/2021 documented as of this encounter Care Teams Installation Helper Relationship Specialty Start Date End Date No, Physician PCP - General 12/30/20 documented as of this encounter
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
--- OUTSIDE RECORDS SUMMARY | 2024-08-29 16:53 | XMS_ITS | Encounter Summary ---
[facility] Address [address] [place] [address] Care Team Providers Care Aviation Ordnance Officer Name Role Phone Unavailable Primary Care Provider Unavailabl e Reason for Visit * Reason Comments Cough 20F arrives ambulato ry for eval of ongoing cough. states had s/s 2.5 wks and went to where she completed a burst of steroids. states cough has been productive of clear or white sputum. initially was febrile, hasn't since. skin PWD. speaking in full sentences. * Auth/Cert Specialty Diagnoses / Procedures Referred By Addie dean Referred To Contact Emergency Medicine [facility] Emergency Dept [address] [place] [address] Referral ID Status Reason Start Date Expiration Date Visits Re quested Visits Authorized [id number] 1 1 Encounter Details Date Type Department Care Team (Late st Contact Info) Description 12/24/2020 1:45 PM CDT - 12/24/2020 6:32 PM CDT Emergency [facility] Emergency Department [address] [place] [address] Sachi Jackson MD [address] [place] [address] Hemoptysis (Primary Dx); Cough Discharge Disposition: Home or Self Care Social History Tobacco Use Types Packs/Day Years Used Date Smoking Tobacco: Every Day Smokeless Tobacco: Never Alcohol Use Standard Drinks/Week Comments Not Currently 0 (1 standard drink = 0.6 oz pur e alcohol) Feeling Safe Answer Date Recorded Within the last year, have y ou been afraid of your partner or ex-partner? No 12/24/2020 Emotionally Abused Not on file 12/24/2020 Physically Abused Not on file 12/24/2020 Sexually Abused Not on file 12/24/2020 Social Connections Answer Date Recorded In a typical week, how many times do you talk on the telephone with family, friends, or neighbors? More than three times a week 12/24/2020 How often do you get togethe r with friends or relatives? Three times a week 12/24/2020 Attends Anabaptism Services Not on file 12/24 Active Member of Clubs or Organizations Not on f ile 12/24/2020 Attends Club or Organization Meetings Not on nathan e 12/24/2020 Marital Status Not on file 12/24/2020 Food Insecurity Answer Date Recorded In the past 12 months, have you worried that your food would run out before you had money to buy more? Never true 12/24/2020 In the past 12 months, did y ou run out of food and didn't have money to buy more? Never true 12/24/2020 Transportation Needs Answer Date Record ed In the past 12 months, has l ack of transportation kept you from medical appointments or from getting medications? No 12/09 In the past 12 months, has l ack of transportation kept you from meetings, work, or from getting things needed for daily living? No 12/24/2020 Housing Stability Answer Date Recorded In the last 12 months, was t here a time when you were not able to pay the mortgage or rent on time? Yes 12/24/2020 Number of Times Moved in the Last Year Not on fi le 12/24/2020 (RETIRED) In the last 12 sun ths, was there a time when you did not have a steady place to sleep or slept in a snf (including now)? No 12/24/2020 Sex and Gender Information Value Date Recorded Sex Assigned at Not on file Gender Identity Not on file Sexual Orientation Not on file Job Start Date Occupation Industry Not on file Not on file Not on file COVID-19 Exposure Response Date Recorded In the last month, have you been in contact with someone who was confirmed or suspected to have Coronavirus / COVID-19? No / Unsure 12/24/2020 3:39 PM CDT documented as of this encounter Last Filed Vital Signs Vital Sign Reading Time Taken Comments Blood Pressure 120/82 12/24/2020 6:31 PM CDT Pulse - - Temperature 37.1 ??C (98.7 ??F) 12/24/2020 1:33 PM CD T Respiratory Rate 18 12/24/2020 6:31 PM CDT Oxygen Saturation 98% 12/24/2020 6:31 PM CDT Inhaled Oxygen Concentration - - Weight 132.9 kg (293 lb) 12/24/2020 1:33 PM CDT Height 170.2 cm (5' 7 ) 12/24/2020 1:33 PM CDT Body Mass Index 45.89 12/24/2020 1:33 PM CDT documented in this encounter Discharge Instructions * Discharge Instructions* Sachi Jackson MD - 12/24/2020 6:[address] scan was negative. Your cough is likely related to post viral cough syndrome. This can takeseveral weeks to clear up. You are being prescribed Tessalon Perles. Follow-up with your primary care doctor in 1 week if symptoms are not improving. * Attachments The following attachments cannot be sent through Care Everywhere. * Cough: Chronic (Vincentian) documented in this encounter Medications at Time of Discharge Medication Sig Dispensed Refills Start Date End Date benzonatate (TESSALON) 200 mg capsule Take 1 Capsule (200 mg) by mouth 3 times daily for 10 days. 30 Capsule 12/24/2020 01/03/2021 documented as of this encounter ED Notes * Je Kelley RN - 12/24/2020 6:31 PM CDT Reviewed discharge instructions with patient. No questions for this RN or MD at this time. Pt appears to be in NAD currently. Verbalized understanding of all discharge instructions. Ambulatory out ofthe department with steady gait and all belongings. * Je Kelley RN - 12/24/2020 5:22 PM CDT Pt to CT via stretcher with transportation * Sachi Jackson MD - 12/24/2020 1:07 PM CDT HISTORY OF PRESENT ILLNESS Tawny Nicholas, a 20 y.o. female presents to the ED with a Chief Complaint of Cough Subjective Documented Triage Chief Complaint: Cough 3:03PM: Tawny Nicholas is a 20 y.o. female with no pertinent past medical history, who presents to the Emergency Department with complaints of a cough. Patient reports that she has been coughing for the past month. At first, she was coughing up small amounts of blood. Now she is just coughing up mucus. Also sometimes short of breath. Patient initially went to urgent care where she was given antibiotics, a cough suppressant, and an albuterol inhaler. She finished her Prednisone prescription but still has antibiotics. Also obtained a negative Covid test. Denies leg swelling, use of control, recent travel, or smoking cigarettes. Does admit to smoking marijuana. Physician(s): No primary care provider on file. History provided by: The patient Arrived by: Private vehicle Arrived from: Home REVIEW OF SYSTEMS Review of Systems Constitutional: Negative for activity change, appetite change, fatigue and fever. HENT: Negative for congestion, sneezing and sore throat. Eyes: Negative for redness. Respiratory: Positive for cough and shortness of breath. Negative for wheezing. Positive for hemoptysis Cardiovascular: Negative for chest pain, palpitations and leg swelling. Gastrointestinal: Negative for abdominal pain, diarrhea, nausea and vomiting. Genitourinary: Negative for decreased urine volume, difficulty urinating, dysuria, frequency and hematuria. Musculoskeletal: Negative for back pain, gait problem and neck pain. Skin: Negative for rash. Neurological: Negative for weakness, numbness and headaches. PAST MEDICAL HISTORY REVIEWED MEDICAL: Patient has a past medical history of Patient denies relevant medical history. SURGICAL: Patient has a past surgical history that includes toe surgery (Right). FAMILY: Patient's family history is not on file. SOCIAL: reports that she has been smoking. She has never used smokeless tobacco. She reports previous alcohol use. She reports current drug use. Drug: Marijuana. No history on file. Social History Other Topics Concern ??? Not on file ALLERGIES Patient has no known allergies. HOME MEDICATIONS Patient's Home Medications Objective PHYSICAL EXAM INITIAL VS BP: 129/83 (12/24/20 1333), Heart Rate: 88 bpm (12/24/20 133), Resp: 24 (12/24/20 133), Pulse: (not recorded), Temp: 98.7 ??F (37.1 ??C) (12/24/20 133), Temp src: Oral (12/24/201332), SpO2: 99 % (12/24/201332), Height: 5' 7 (170.2 cm) (12/24/201332), Weight: 132.9 kg (293 lb) (12/24/201332), BMI (Calculated): 45.88 (12/24/201332) Patient's last menstrual period was 11/10/2020. Physical Exam Vitals and nursing note reviewed. Constitutional: General: She is not in acute distress. Appearance: She is obese. She is not toxic-appearing. HENT: Head: Normocephalic and atraumatic. Right Ear: External ear normal. Left Ear: External ear normal. Nose: No congestion or rhinorrhea. Mouth/Throat: Mouth: Mucous membranes are moist. Eyes: General: Right eye: No discharge. Left eye: No discharge. Pupils: Pupils are equal, round, and reactive to light. Cardiovascular: Rate and Rhythm: Normal rate and regular rhythm. Heart sounds: No murmur. Pulmonary: Effort: Pulmonary effort is normal. Breath sounds: Normal breath sounds. Comments: Dry cough Abdominal: General: There is no distension. Palpations: Abdomen is soft. Musculoskeletal: General: Normal range of motion. Cervical back: Normal range of motion. Skin: General: Skin is warm and dry. Capillary Refill: Capillary refill takes less than 2 seconds. Findings: No rash. Neurological: General: No focal deficit present. Mental Status: She is alert. DIAGNOSTICS LAB: No data to display RADIOLOGY: No orders to display EKG: Sinus rate 77, no ST elevation or depression, no T-wave inversion, normal axis, normal DC and QT intervals. PROCEDURES Procedures MEDICAL DECISION MAKING AND PLAN OF CARE --On initial examination, discussed plan of obtaining an EKG, chest x-ray, and labs. Patient agreeswith plan. ED provider and ED nurse verbally discussed patient plan of care at this time. MDM Summary Statement: 20-year-old female presented emergency department with cough. Patient also reports scant hemoptysis. Has been chronic for some time not improving. Normal exam, patient without any kind of respiratorydistress and has clear lungs bilaterally. Dimer positive, but likely CTA negative for evidence of infectious etiology or clot. Likely post viral cough syndrome. Hemoptysis likely related to mild mucosal irritation. Plan for discharge with Jolynn Lucero, return precautions, primary care doctor follow-up. I have reviewed previous: notes I have reviewed current: labs, ECG and imaging I have reviewed nursing notes related to past medical history, social history, and review of systems and agree, unless otherwise noted. . LAST VS BP: 129/83 (12/24/20 1333), Heart Rate: 88 bpm (12/24/20 1333), Resp: 24 (12/24/20 1333), Pulse: (not recorded), Temp: 98.7 ??F (37.1 ??C) (12/24/20 1333), Temp src: Oral (12/24/20 1333), SpO2: 99 % (12/24/20 1333) CLINICAL IMPRESSION Final diagnoses: None DISPOSITION, EDUCATION AND MEDICATION RECONCILIATION Medications reconciled. See after visit summary for patient education on discharged patients. ATTESTATION STATEMENTS This note has been prepared by Rosemary Garvey acting as a scribe for Dr. Sachi Jackson on 12/24/2020 at 4:14 PM. The scribe's documentation has been prepared under my direction and personally reviewed by me, Sachi Jackson, in its entirety on 12/24/20 at 2:54 PM. I confirm that the note above accurately reflects all work, treatment, procedures, and medical decision making performed by me. documented in this encounter Plan of Treatment Not on file documented as of this encounter Procedures Procedure Name Priority Date/Time Associated Diagnosis Comments CTA CHEST W AND/OR WO CONTRAST Stat 12/24/2020 5:31 PM CDT POC , URINE Stat 12/24/2020 4:34 PM CDT EKG 12-LEAD Stat 12/24/2020 3:45 PM CDT XR CHEST PA AND LATERAL 2 VW Stat 12/24/2020 3:31 PM CDT POC CREATININE Stat 12/24/2020 3:25 PM CDT D-DIMER Stat 12/24/2020 3:21 PM CDT documented in this encounter Results * CTA CHEST W AND/OR WO CONTRAST (12/24/2020 5:31 PM CDT) Anatomical Region Laterality Modality Chest Computed Tomogra phy 12/24/2020 5:31 PM CDT Impressions 12/24/2020 7:30 PM CDT IMPRESSION: No CT evidence of pulmonary emboli or acute lung disease. The examination was performed with the adjustment of mA according to the patient size and/or the use of Iterative Reconstruction Technique. DICTATION LOCATION: Location 1 - [facility] 12/24/2020 7:[address] ANGIOGRAM OF THE CHEST WITHOUT AND WITH INTRAVENOUS CONTRAST INCLUDING RECONSTRUCTIONS. DATE: ??12/24/2020 5:31 PM HISTORY: Pulmonary embolism suspected, high probability. COMPARISON: Reference is made to chest x-ray performed earlier in the day. TECHNIQUE: ??Spiral volumetric acquisition of the chest was performed following intravenous contrast. Initially noncontrast images were obtained for localization and bolus tracking. Postprocessing 3-D MIP (maximum intensity projection) reconstructions were performed. FINDINGS: No intraluminal filling defects are noted within the pulmonary arteries to suggest pulmonary emboli. The thoracic aorta is normal in caliber without evidence of dissection. No mediastinal, hilar, or axillary adenopathy is seen. The heart is normal in size. No pericardial or pleural effusions are noted. No mediastinal, hilar, or axillary adenopathy is seen. Lung parenchymal windows demonstrate no focal infiltrate or consolidation. No suspicious pulmonary nodules are seen. No pneumothorax is evident. The visualized upper abdomen is unremarkable for phase of injection. INCIDENTAL FINDINGS: ??None. Procedure Note Ioana Funk MD - 12/24/2020 CT ANGIOGRAM OF THE CHEST WITHOUT AND WITH INTRAVENOUS CONTRAST INCLUDING RECONSTRUCTIONS. DATE: 12/24/2020 5:31 PM HISTORY: Pulmonary embolism suspected, high probability. COMPARISON: Reference is made to chest x-ray performed earlier in the day. TECHNIQUE: Spiral volumetric acquisition of the chest was performed following intravenous contrast. Initially noncontrast images were obtained for localization and bolus tracking. Postprocessing 3-D MIP (maximum intensity projection) reconstructions were performed. FINDINGS: No intraluminal filling defects are noted within the pulmonary arteries to suggest pulmonary emboli. The thoracic aorta is normal in caliber without evidence of dissection. No mediastinal, hilar, or axillary adenopathy is seen. The heart is normal in size. No pericardial or pleural effusions are noted. No mediastinal, hilar, or axillary adenopathy is seen. Lung parenchymal windows demonstrate no focal infiltrate or consolidation. No suspicious pulmonary nodules are seen. No pneumothorax is evident. The visualized upper abdomen is unremarkable for phase of injection. INCIDENTAL FINDINGS: None. IMPRESSION: No CT evidence of pulmonary emboli or acute lung disease. The examination was performed with the adjustment of mA according to the patient size and/or the use of Iterative Reconstruction Technique. DICTATION LOCATION: Location 1 - [facility] Sachi Jackson MD CT ORDERABLES * POC , URINE (12/24/2020 4:34 PM CDT) HCG QUAL URINE Negative Negative 12/24/2020 4:34 PM CDT [facility] CLOTH EXAMINER MACHINE NAME POC LISA ZIMMER 12/24/2020 4:34 PM CDT [facility] [employer] [facility] SPECIFIC GRAVITY UA POC 1.025 1.000 - 1.030 12/24/2020 4:34 PM CDT [facility] [employer] [facility] Urine 12/24/2020 4:34 PM CDT 12/24/2020 4:38 PM CDT Sachi Jackson MD POINT OF CARE TESTIN G [facility]# [id number] [address] [place] [address] * EKG 12-LEAD (12/24/2020 3:45 PM CDT) 12/24/2020 3:45 PM CDT Narrative INTERFACE SYSTEM - 12/24/2020 4:53 PM CDT ? Stationary ECG Study ? [facility] ? Test Date: ?12/24/2020 3:45 PM Pat Name: ? TAWNY NICHOLAS ?Department: ?? 42 ?Room: ? 32 32 Gender: ? F ?Electronics Research Engineer: ?? christiano ANDINOB: ?2000 ? Requested By: SACHI JACKSON Order Number: [id number] ?Reading MD: ?? Osorio Salinas ? Measurements Intervals ?[place] ? Rate: ? 77 ? P: ?26 DC: ? 131 ?QRS: ?62 QRSD: ? 82 ? T: ?4 QT: ? 351 ? QTc: ?398 ? Interpretive Statements ? Sinus rhythm Baseline wander in lead(s) V1 Electronically Signed On 12-24-2020 16:53:06 CDT by Osorio Salinas Procedure Note Osorio Salinas MD - 12/24/2020 Stationary ECG Study [facility] Test Date: 12/24/2020 3:45 PM Pat Name: TAWNY JERI Department: 42 Room: 32 Gender: F Electronics Research Engineer: christiano : 2000 Requested By: SACHI JACKSON Order Number: [id number] Reading MD: Osorio Salinas Measurements Intervals [place] Rate: 77 P: 26 DC: 131 QRS: 62 QRSD: 82 T: 4 QT: 351 QTc: 398 Interpretive Statements Sinus rhythm Baseline wander in lead(s) V1 Electronically Signed On 12-24-2020 16:53:06 CDT by Osorio Salinas Sachi Jackson MD ECG ORDERABLES INTERFACE SYSTEM Refer to clinic/hospital department * XR CHEST PA AND LATERAL 2 VW (12/24/2020 3:31 PM CDT) Anatomical Region Laterality Modality Chest Computed Radiogr aphy 12/24/2020 3:31 PM CDT Impressions 12/24/2020 3:34 PM CDT IMPRESSION: 1. Normal radiographs of the chest. DICTATION LOCATION: [address] Narrative 12/24/2020 3:34 PM CDT EXAMINATION: ??CHEST 2 VIEWS DATE: 12/24/2020 3:31 PM HISTORY: Cough. COMPARISON: ??None. FINDINGS: The lungs are clear without focal lung consolidation, pneumothorax or pleural effusion. The cardiomediastinal silhouette is normal. Procedure Note Cholo Arevalo MD - 12/24/2020 EXAMINATION: CHEST 2 VIEWS DATE: 12/24/2020 3:31 PM HISTORY: Cough. COMPARISON: None. FINDINGS: The lungs are clear without focal lung consolidation, pneumothorax or pleural effusion. The cardiomediastinal silhouette is normal. IMPRESSION: 1. Normal radiographs of the chest. DICTATION LOCATION: [address] Sachi Jackson MD DIAGNOSTIC IMAGING O RDERABLES * POC CREATININE (12/24/2020 3:25 PM CDT) CREATININE POC 1.00 0.50 - 1.00 mg/dL 12/24/2020 3:25 PM CDT [facility] [employer] [facility] GFR >60 >=60 mL/min/1. 73 sq meter 12/24/2020 3:25 PM CDT [employer] [facility] Comment: eGFR has not been validated for use in the elderly (> 70 years of age), women, patients with serious co-morbid conditions, or persons with extremes of body size or muscle mass and should also be interpreted with caution in patients with acute kidney failure, dialysis dependent patients, patients reporting exceptional dietary intake (e.g. vegetarian diet, high protein diets, creatine supplementation), and patients with severe liver disease. Based on National Kidney Disease Education Program If patient is , please refer to the GFR result. GFR, >60 >=60 mL/min/1. 73 sq meter 12/24/2020 3:25 PM CDT [employer] [facility] CLOTH EXAMINER MACHINE NAME LISA LAINEZ 12/24/2020 3:25 PM CDT [facility] [employer] [facility] Blood, capillary 12/24/2020 3:25 PM CDT 12/24/2020 3:55 PM CDT Sachi Jackson MD POINT OF CARE TESTIN G [facility] [employer] [facility]# [id number] [address] [facility] [place] [address] * (ABNORMAL) D-DIMER (12/24/2020 3:21 PM CDT) D-DIMER QUANT 0.54(H) <0.42 ug/mL FEU 12/24/2020 4:09 PM CDT [employer] [facility] Comment: The DIC reference range is not clearly established in uncomplicated pregnancies. ??Values above the upper limit of the reference range are common from the 31st to 40th week of . ??High negative predictive values for DVT have been reported with the current methodology, as part of a comprehensive medical examination, including risk stratification. Various clinical studies utilizing this method have shown that a result of <0.5 mcg/ml FEU excludes deep vein thrombosis and pulmonary embolism with high sensitivity when used in conjunction with a non-high clinical pre-test probability assessment. Blood Venipuncture / Unknown 12/24/2020 3:21 PM CDT 12/24/2020 3:27 PM CDT Sachi Jackson MD HEMATOLOGY ORDERABLE [facility]# [id number] [address] [facility] [place] [address] documented in this encounter Visit Diagnoses Diagnosis Hemoptysis- Primary Hemoptysis, unspecified Cough documented in this encounter Administered Medications Inactive Administered Medications - up to 3 most recent administrations Medication Order MAR Action Action Date Dose Rate Site iopamidoL (ISOVUE-300) 61 % injection (drawn from multi-use bulk pack) 90 mL 90 mL, IV, INTRA-PROCEDURE ONCE, 1 dose, Starting on Sun12/24/20 at 1730, Until Sun12/24/20 at 1730, Routine Contrast Given 12/24/2020 5:30 PM CDT 90 mL sodium chloride flush injection 10 mL 10 mL, IV, ONE TIME ONLY, 1 dose, On Sun12/24/20 at 1745, Routine Given 12/24/2020 5:30 PM CDT 10 mL documented in this encounter Active and Recently Administered Medications Times are shown in CDT. Scheduled Medication Order 12/22/2020 12/23/2020 12/24/2020 iopamidoL (ISOVUE-300) 61 % injection (drawn from multi-use bulk pack) 90 mL (COMPLETED) 90 mL, IV, INTRA-PROCEDURE ONCE, 1 dose, Starting on Sun12/24/20 at 1730, Until Sun12/24/20 at 1730, Routine 1730 (Contrast Given - Provider: RT Shona) sodium chloride flush injection 10 mL (COMPLETED) 10 mL, IV, ONE TIME ONLY, 1 dose, On Sun12/24/20 at 1745, Routine 1730 (Given - Provid er: RT Shona) documented in this encounter
--- OUTSIDE RECORDS SUMMARY | 2024-08-29 16:53 | XMS_ITS | Encounter Summary ---
Author Organization [facility] Address [address] Nunez: Epic Prelude [place]T [place] [address] Care Team Providers Care Patient Registration Supervisor Name Role Phone Unavailable Primary Care Provider Unavailabl e Encounter Details Date Type Department Care Team (Latest Contact Info) Description 12/24/2020 Travel Social History Tobacco Use Types Packs/Day Years [...] relatives? Three times a week 12/24/2020 Attends [employer] Services Not on file 12/24 Active Member [...] place to sleep or slept in a care home (including now)? No 12/24/2020 Sex and Gender [...] PM CDT documented as of this encounter Plan of Treatment Not on file documented as of this encounter Visit Diagnoses Not on filedocumented in this encounter
--- OUTSIDE RECORDS SUMMARY | 2024-08-29 16:53 | XMS_ITS | Clinical Summary ---
Author Organization [facility] Address [address] [place] [address] Phone Care Team Providers Care Training Representative Name Role Phone Unavailable Primary Care Provider Unavailabl e Allergies No known active allergies Medications No known medications Social History Tobacco Use Types Packs/Day Years [...] relatives? Three times a week 12/24/2020 Attends [employer] Services Not on file 12/24 Active Member [...] place to sleep or slept in a chcf (including now)? No 12/24/2020 Sex and Gender Information Value Date Recorded Sex Assigned at Not on file Gender Identity Not on file Sexual Orientation Not on file Job Start Date Occupation Industry Not on file Not on file Not on file Last Filed Vital Signs [...] Mass Index 45.89 12/24/2020 1:33 PM CDT Plan of Treatment Health Maintenance Due Date Last Done Comments PNEUMOCOCCAL VACCINE 0-64 YEARS (1 of 2 - PCV) 006 CHLAMYDIA SCREENING (ANNUAL) 11-24 YEARS 2011 HPV VACCINES (1 - 3-dose series) 2015 DTAP/TDAP/TD VACCINES (1 - Tdap) 2019 HEPATITIS B VACCINES (1 of 3 - 19+ 3-dose series) 08/11 CERVICAL CANCER SCREENING 2021 INFLUENZA VACCINE (#1) 2024
--- OUTSIDE RECORDS SUMMARY | 2024-08-29 16:53 | XMS_ITS | Encounter Summary ---
Author Organization [facility] Address [address] [place] [address] Care Team Providers Care Assembler Dc Field Yoke Name Role Phone Unavailable Primary Care Provider Unavailabl e Reason for Visit * Reason Onset Date Comments Financial Assistance Program 02/03/2021 Encounter Details Date Type Department Care Team (Late st Contact Info) Description 02/03/2021 Patient Outreach [facility] [address] [place] [address] Moises Peralta [address] [place] [address] Financial Assistance Program Social History Tobacco Use Types Packs/Day Years [...] relatives? Three times a week 12/24/2020 Attends Yazidi Services Not on file 12/24 Active Member [...] le 12/24/2020 (RETIRED) In the last 12 mon ths, was there a time when you did not have a steady place to sleep or slept in a intermediate (including now)? No 12/24/2020 Sex and Gender Information Value Date Recorded Sex Assigned at Not on file Gender Identity Not on file Sexual Orientation Not on file Job Start Date Occupation Industry Not on file Not on file Not on file documented as of this encounter Progress Notes * Moises Peralta - 02/03/2021 3:35 PM CDT CHW attempted to follow up from brief contact last week. The person picking up reported that it ([phone]) was a wrong number. Will attempt again tomorrow. Rico Peralta, CHW Community Health Worker [email or web address] documented in this encounter Plan of Treatment Not on file documented as of this encounter Visit Diagnoses Not on filedocumented in this encounter
--- OUTSIDE RECORDS SUMMARY | 2024-08-29 16:53 | XMS_ITS | Encounter Summary ---
Author Organization [facility] Address [address] [place] [address] Care Team Providers Care Chorus Dancer Name Role Phone Unavailable Primary Care Provider Unavailabl e Reason for Visit * Reason Onset Date Comments Financial Assistance Program 02/04/2021 Encounter Details Date Type Department Care Team (Late st Contact Info) Description 02/04/2021 Patient Outreach [facility] [address] [place] [address] Moises Peralta [address] [place] [address] Financial Assistance Program Social History [...] relatives? Three times a week 12/24/2020 Attends Oriental Orthodox Services Not on file 12/24 Active Member [...] encounter Progress Notes * Moises Peralta - 02/04/2021 2:06 PM CDT CHW attempted another call but received message that wireless customer is not available and no option for VM. CHW stands ready to assist if the patient reaches out. ACE Shea Community Health Worker [email or web address] documented in this encounter Plan of Treatment Not on file documented as of this encounter Visit Diagnoses Not on filedocumented in this encounter
--- OUTSIDE RECORDS SUMMARY | 2024-08-29 16:53 | XMS_ITS | Encounter Summary ---
Author Organization [facility] Address [address] [place] [address] Care Team Providers Care Merchant Tailor Name Role Phone Unavailable Primary Care Provider Unavailabl e Reason for Visit * Reason Onset Date Comments Financial Assistance Program 01/25/2021 Encounter Details Date Type Department Care Team (Late st Contact Info) Description 01/25/2021 Patient Outreach [facility] [address] [place] [address] Moises Peralta [address] [place] [address] Financial Assistance Program Social History [...] relatives? Three times a week 12/24/2020 Attends Scientologist Services Not on file 12/24 Active Member [...] place to sleep or slept in a prison (including now)? No 12/24/2020 Sex and Gender Information Value Date Recorded Sex Assigned at Not on file Gender Identity Not on file Sexual Orientation Not on file Job Start Date Occupation Industry Not on file Not on file Not on file documented as of this encounter Progress Notes * Moises Peralta - 01/25/2021 3:44 PM CDT CHW spoke with the patient about her [employer] Financial Assistance application. She asked for a call back next week as she was out of town for her sister's graduation. CHW will call back in a week. ACE Shea Community Health Worker [email or web address] documented in this encounter Plan of Treatment Not on file documented as of this encounter Visit Diagnoses Not on filedocumented in this encounter
--- OUTSIDE RECORDS SUMMARY | 2024-08-29 16:53 | XMS_ITS | Encounter Summary ---
Author Organization [facility] Address [address] [place] [address] Care Team Providers Care Dressmaker Garment Fitter Name Role Phone Unavailable Primary Care Provider Unavailabl e Reason for Visit * Reason Onset Date Comments Financial Assistance Program 12/24/2020 Encounter Details Date Type Department Care Team (Late st Contact Info) Description 12/24/2020 Patient Outreach [facility] [address] [place] [address] Moises Peralta [address] [place] [address] Financial Assistance Program Social History [...] relatives? Three times a week 12/24/2020 Attends Anglican Services Not on file 12/24 Active Member [...] place to sleep or slept in a long-term (including now)? No 12/24/2020 Sex and Gender [...] PM CDT documented as of this encounter Progress Notes * Moises Peralta - 12/24/2020 4:12 PM CDT 12/24/20 1600 Initial Encounter Initial Encounter: 12/24/20 Community Health Worker Name: Rico Kathryn Community: [facility] Method of Encounter In Person Type of Encounter: New Referral Source: Emergency Department Primary Reason for Referral: Healthcare Financial Assistance Secondary Reasons for Referral: Healthcare Access Within the last year, have you ever eaten less or skipped meals because there wasn't enough money for food? No Within the last year, have you had any of your utilities turned off because you were unable to pay your bill? No Do you struggle with getting childcare, which makes it difficult for you to work or study? No Within the last year, have you skipped medication doses or not filled prescriptions to save money? Yes Within the last year, have you skipped doctor visits, when care was needed, because you didn't havea way to get there? No Within the last year, have you skipped doctor visits, when care was needed, because you could not afford the cost? Yes Do you ever have difficulty understanding the explanation, or instructions, you are given regardingyour medical condition? No Are you afraid of being hurt in your apartment building or home? No Do you have any urgent needs? No Outcomes: Insurance or Financial Assistance Enrollment Insurance or Financial Assistance Enrollment: Attempt Replise Assistance Minutes spent with the patient/client in the initial encounter: 20 CHW spoke with the patient in the ED as a follow-up to receiving the Healthy Lifestyles Questionnaire. The patient is interested in services, specifically [employer] Financial Assistance. The CHW explained the application process and left her with a copy of the application, a document checklist, a 4506-T (the patient did file taxes but is unsure if she will be able to find a copy), and CHW intro materials. CHW will follow up later in the visit and again in one month. Rico Peralta, ACE Community Health Worker [email or web address] documented in this encounter Plan of Treatment Not on file documented as of this encounter Visit Diagnoses Not on filedocumented in this encounter
== END 2024-08-24 19:04 | disposition home or self-care (01) ==
PROVIDERS: Admitting Provider Obstetrics & Gynecology; Visit Provider Obstetrics & Gynecology
DX: O23.43 Unspecified infection of urinary tract in pregnancy, third trimester (principal); N39.0 Urinary tract infection, site not specified; Z3A.28 28 weeks gestation of pregnancy
CPT/HCPCS: 81001; 87086; A9270; G0379

== ENCOUNTER 2024-09-27 23:34 | Observation (INO) | payer OTHER, SELFPAY ==
[2024-09-28] VITALS (12 sets, daily range): BP systolic 121; BP diastolic 64–68; PULSE 73–94; O2SAT 100; BMI 30.4
[2024-09-28 00:10] LABS: Add Urine Microscopic? YES; Appearance Urine Cloudy (Clear); Bacteria Urine Rare /hpf; Bilirubin Urine Negative (Negative); Blood Urine 3+ (Negative); Color Urine Yellow (Yellow); Glucose Urine UA Negative (Negative); Ketones Urine 2+ mg/dL (Negative); Leukocyte Esterase Ur 1+ LEU/UL (Negative); Nitrate Urine Negative (Negative); Non Pathogenic Casts 0-2; Protein Urine Trace mg/dL (Negative); RBC Urine >100 /hpf (0-2); Specific Grav Ur 1.022 (1.001-1.035); Squamous Epithelial Cell Urine Few /hpf (Few); Urobilinogen Urine 0.2 mg/dL (<2.0); WBC Urine 21-50 /hpf (0-3); pH Urine 5.5 (5.0-9.0)
[2024-09-28] MEDS: LACTATED RINGERS 1,000 ML 999 ML IV CONT (01:05)
[2024-09-28 01:32] LABS: Chlamydia trachomatis NOT DETECTED (NOT DETECTE); Neisseria gonorrhoeae PCR NOT DETECTED (NOT DETECTE)
--- NOTE | 2024-09-29 10:20 | P.PNOB_ITS ---
OB - Triage/Final Diagnosis Visit Information Comments/Additional reasons for admission: I have assessed the risk for this patient, Tawny Nicholsa, and determined that she would benefit from observation care. Evaluation Laboratory results: Laboratory Tests 09/27/24 23:55 Urine Color Yellow Urine Appearance Cloudy H Urine pH 5.5 Ur Specific [place] 1.022 Urine Protein Trace Urine Glucose (UA) Negative Urine Ketones 2+ H Ur Blood (Man) 3+ H Urine Nitrate Negative Urine Bilirubin Negative Urine Urobilinogen 0.2 Leukocyte Esterase Rfl 1+ H Urine RBC >100 H Urine WBC 21-50 H Ur Squamous Epith Cells Few Urine Bacteria Rare Urine Casts 0-2 C. trachomatis (PCR) Not detected N. gonorrhoeae (PCR) Not detected Final Diagnosis (1) Pelvic cramping: Code(s): R10.2 - Pelvic and perineal pain Status: Acute (2) UTI (urinary tract infection): Code(s): N39.0 - Urinary tract infection, site not specified Status: Inactive
--- OUTSIDE RECORDS SUMMARY | 2024-10-02 09:40 | XMS_ITS | Encounter Summary ---
Author Organization [facility] Address [address] [place], [place] [address] [address] Care Team Providers Care Pantry Chef Name Role Phone Unavailable Primary Care Provider Unavailabl e Encounter Details Date Type Department Care Team (Late st Contact Info) Description 07/29/2020 Lab Requisition [facility] [address] [place] [address] Social History Tobacco Use Types Packs/Day Years [...] (COVID-19) IN HOUSE Routine 07/28/2020 4:45 PM RADIAL SAW OPERATOR documented in this encounter Results * SARS-COV-2 (COVID-19) IN HOUSE (07/28/2020 4:45 PM RADIAL SAW OPERATOR) COVID-19 PCR Not detected Not detected 07/31/2020 6:11 AM RADIAL SAW OPERATOR [facility] MICROBIOLOGY Microbiology SPECIMEN FROM NASOPHARYNGEAL STRUCTURE / Unknown Collection / Unknown 07/28/2020 4:45 PM RADIAL SAW OPERATOR 07/29/2020 1:59 PM RADIAL SAW OPERATOR Narrative [facility] MICRO[facility] - 07/31/2020 6:11 AM RADIAL SAW OPERATOR This Real Time RT-PCR assay was developed and its performance characteristics determined by [facility]. This test has been authorized [...] upon request. LAB - MICROBIOLOGY O RDERABLES [facility] MICRO[facility] [address] [place] [place] [address], [facility] [phone] documented in this encounter Visit Diagnoses Not on filedocumented in this encounter Additional Health Concerns Infection Onset Date Last Indicated Resolved Time COVID-19 Under Investigation 07/28/2020 07/28/2020 07/31/2020 6:11 AM RADIAL SAW OPERATOR documented as of this encounter
--- OUTSIDE RECORDS SUMMARY | 2024-10-02 09:40 | XMS_ITS | Referral Summary ---
Author Organization [facility] Address [address] [place] [address] Care Team Providers Care Careers Adviser Name Role Phone Unavailable Primary Care Provider Unavailabl e Source Comments [facility],non-owned Affiliates and Associated Physician Practices is amultiple site organization consisting of ambulatory clinics and hospital sitesin [place], [place], [place] and [place]. This disclosure is being madepursuant to the Care Everywhere program and may not contain all information available regarding this patient. Last updated 18.[facility] AddressHealth Allergies No known active allergies Social History Tobacco Use Types Packs/Day Years Used Date Smoking Tobacco: Never Assessed Sex and Gender Information Value Date Recorded Sex Assigned at Not on file Gender Identity Not on file Sexual Orientation Not on file Last Filed Vital Signs Vital Sign Reading Time Taken Comments Blood Pressure 135/71 10/06/2021 8:57 AM SAMPLE TAILOR Pulse 75 10/06/2021 8:57 AM SAMPLE TAILOR Temperature 36.7 ??C (98 ??F) 10/06/2021 8:57 AM SAMPLE TAILOR Respiratory Rate 14 10/06/2021 8:57 AM SAMPLE TAILOR Oxygen Saturation 98% 10/06/2021 8:57 AM SAMPLE TAILOR Inhaled Oxygen Concentration - - Weight 131.5 kg (290 lb) 10/06/2021 8:57 AM SAMPLE TAILOR Height 170.2 cm (5' 7 ) 10/06/2021 8:57 AM SAMPLE TAILOR Body Mass Index 45.42 10/06/2021 8:57 AM SAMPLE TAILOR Plan of Treatment Not on file
--- OUTSIDE RECORDS SUMMARY | 2024-10-02 09:40 | XMS_ITS | Patient Health Summary ---
Author Organization [facility] Address [address] [place] [address] Care Team Providers Care Snuff Packing Machine Operator Name Role Phone Unavailable Primary Care Provider Unavailabl e Note from [facility],non-owned Affiliates and Associated Physician Practices is amultiple site organization consisting of ambulatory clinics and hospital sitesin [place], [place], [place] and [place]. This disclosure is being madepursuant to the Care Everywhere program and may not contain all information available regarding this patient. Last updated 18.[facility] Allergies No known active allergies Social History Tobacco Use Types Packs/Day Years Used Date Smoking Tobacco: Never Assessed Sex and Gender Information Value Date Recorded Sex Assigned at Not on file Gender Identity Not on file Sexual Orientation Not on file Last Filed Vital Signs Vital Sign Reading Time Taken Comments Blood Pressure 135/71 10/06/2021 8:57 AM FIREFIGHTING EQUIPMENT SPECIALIST Pulse 75 10/06/2021 8:57 AM FIREFIGHTING EQUIPMENT SPECIALIST Temperature 36.7 ??C (98 ??F) 10/06/2021 8:57 AM FIREFIGHTING EQUIPMENT SPECIALIST Respiratory Rate 14 10/06/2021 8:57 AM FIREFIGHTING EQUIPMENT SPECIALIST Oxygen Saturation 98% 10/06/2021 8:57 AM FIREFIGHTING EQUIPMENT SPECIALIST Inhaled Oxygen Concentration - - Weight 131.5 kg (290 lb) 10/06/2021 8:57 AM FIREFIGHTING EQUIPMENT SPECIALIST Height 170.2 cm (5' 7 ) 10/06/2021 8:57 AM FIREFIGHTING EQUIPMENT SPECIALIST Body Mass Index 45.42 10/06/2021 8:57 AM FIREFIGHTING EQUIPMENT SPECIALIST Procedures * HCG URINE QUAL POCT NOTIFICATION(Performed 10/06/2021) * SARS-COV-2 (COVID-19) IN HOUSE(Performed 07/28/2020) * SARS-COV-2 (COVID-19) IN HOUSE(Performed 04/14/2020) * SARS-COV-2 (COVID-19) IN HOUSE(Performed 03/29/2020) Results * HCG URINE QUAL POCT NOTIFICATION (10/06/2021 10:32 AM FIREFIGHTING EQUIPMENT SPECIALIST) Comment Notification Label Only - See Separate Report 10/06/2021 10:32 AM FIREFIGHTING EQUIPMENT SPECIALIST [facility] Urine URINE / Unknown 2 9:17 AM FIREFIGHTING EQUIPMENT SPECIALIST Alia Gill MD LAB - URINALYSIS ORD ERABLES [facility] [address] [place], [place] [phone] * SARS-COV-2 (COVID-19) IN HOUSE (07/28/2020 4:45 PM FIREFIGHTING EQUIPMENT SPECIALIST) Only the most recent of3 resultswithin the time period is included. COVID-19 PCR Not detected Not detected 07/31/2020 6:11 AM FIREFIGHTING EQUIPMENT SPECIALIST [facility] MICROBIOLOGY Microbiology SPECIMEN FROM NASOPHARYNGEAL STRUCTURE / Unknown Collection / Unknown 07/28/2020 4:45 PM FIREFIGHTING EQUIPMENT SPECIALIST 07/29/2020 1:59 PM FIREFIGHTING EQUIPMENT SPECIALIST Narrative [facility] MICROBIOLOGY - 07/31/2020 6:11 AM FIREFIGHTING EQUIPMENT SPECIALIST This Real Time RT-PCR assay was developed and its performance characteristics determined by [facility]. This test has been [...] upon request. LAB - MICROBIOLOGY O RDERABLES [facility]CRO[facility] [address] [place] [address], [facility] [phone]
--- OUTSIDE RECORDS SUMMARY | 2024-10-02 09:40 | XMS_ITS | Clinical Summary ---
Author Organization [facility] Address [facility] [place] [address] Care Team Providers Care Store Cashier Name Role Phone Unavailable Primary Care Provider Unavailabl e Source Comments [facility],non-owned Affiliates and Associated Physician Practices is amultiple site organization consisting of ambulatory clinics and hospital sitesin [place], [place], [place] and [place]. This disclosure is being madepursuant to the Care Everywhere program and may not contain all information available regarding this patient. Last updated 18.[facility] [employer] Allergies No known active allergies Social History Tobacco Use Types Packs/Day Years Used Date Smoking Tobacco: Never Assessed Sex and Gender Information Value Date Recorded Sex Assigned at Not on file Gender Identity Not on file Sexual Orientation Not on file Last Filed Vital Signs Vital Sign Reading Time Taken Comments Blood Pressure 135/71 10/06/2021 8:57 AM HYDRAULIC RIVETER Pulse 75 10/06/2021 8:57 AM HYDRAULIC RIVETER Temperature 36.7 ??C (98 ??F) 10/06/2021 8:57 AM HYDRAULIC RIVETER Respiratory Rate 14 10/06/2021 8:57 AM HYDRAULIC RIVETER Oxygen Saturation 98% 10/06/2021 8:57 AM HYDRAULIC RIVETER Inhaled Oxygen Concentration - - Weight 131.5 kg (290 lb) 10/06/2021 8:57 AM HYDRAULIC RIVETER Height 170.2 cm (5' 7 ) 10/06/2021 8:57 AM HYDRAULIC RIVETER Body Mass Index 45.42 10/06/2021 8:57 AM HYDRAULIC RIVETER Plan of Treatment Health Maintenance Due Date Last Done Comments PAP SMEAR 2000 HIV SCREENING 2015 HPV VACCINE (1 - 3-dose series) 2015 CHLAMYDIA/GONORRHEA SCREENING 2016 HEPATITIS C SCREENING 08/27/2018 DTAP/TDAP/TD VACCINES (1 - Tdap) 2019 HEPATITIS B VACCINE (1 of 3 - 19+ 3-dose series) 2019 COVID-19 VACCINE (1 - 2023-2 5 season) 2024 INFLUENZA VACCINE (#1) 2024 06/22/2014 DEPRESSION SCREENING 09/10/2024 ZOSTER VACCINE (1 of 2) 2050 HIB VACCINE Aged Out No longer eligi ble based on patient's age to complete this topic MENINGOCOCCAL (Group B) VACCINE Aged Out No longer eligible based on patient's age to complete this topic MENINGOCOCCAL VACCINE Aged Out No kait jeronimo eligible based on patient's age to complete this topic PNEUMOCOCCAL VACCINE Aged Out No long er eligible based on patient's age to complete this topic
--- OUTSIDE RECORDS SUMMARY | 2024-10-02 09:41 | XMS_ITS | Clinical Summary ---
Author Organization [facility] Address [address] [id number] Care Team Providers Care Tree Specialist Name Role Phone No, Physician Primary Care Provider [phone] Allergies No known active allergies Medications guaiFENesin [...] vomiting 30 tablet 4 Active PNV with [id number] 27 mg iron- 1 mg tablet Take [...] 07/22/2024 10:18 AM [facility] Emergency [facility] Emergency Department [address] [place] [id number] Sesar Goldberg MD 24 weeks gestation of (Primary Dx); Hyperemesis gravidarum with dehydration Discharge Disposition: Discharge to home or self care 07/09/2024 9:34 PM CDT - 07/10/2024 1:37 AM [facility] Emergency [facility] Emergency Department [address] [place] [id number] Te Ferro DO Acute cystitis without hematuria [...] on file Legal Sex Female 11:54 AM TOBACCO WEIGHER Gender Identity Not on file Sexual Orientation Not on file Obstetrics History Para Term AB IAB SAB Ectopic Multiple Livin g Live Births 1 Date Outcome GA Total Labor Labor/2nd/3rd Weight Sex Type Anes PTL Nellie A1 A5 Name Clin Current Last Filed Vital Signs Vital Sign Reading Time Taken Comments Blood Pressure 122/56 07/22/2024 9:24 AM TOBACCO WEIGHER Pulse 67 07/22/2024 9:24 AM TOBACCO WEIGHER Temperature 36.8 ??C (98.2 ??F) 07/22/2024 9:24 AM CS T Respiratory Rate 18 07/22/2024 9:24 AM TOBACCO WEIGHER Oxygen Saturation 99% 07/22/2024 9:24 AM TOBACCO WEIGHER Inhaled Oxygen Concentration - - Weight 79.8 kg (175 lb 14.8 oz) 07/22/2024 7:24 AM TOBACCO WEIGHER Height 170.2 cm (5' 7 ) 03/24/2024 11:0 4 AM CDT Body Mass Index 27.55 03/24/2024 11:04 AM CDT Plan of Treatment Health Maintenance Due Date Last Done Comments Cervical Cancer Screening 2000 Depression Screening 2000 Hepatitis C Screening 2000 Regular Well Visit/Exam 18-64 2018 Chlamydia and [...] URINALYSIS, MICROSCOPIC ONLY STAT 07/22/2024 9:23 AM TOBACCO WEIGHER URINALYSIS AND REFLEX TO MICROSCOPIC AND CULTURE STAT 07/22/2024 9:23 AM TOBACCO WEIGHER EGFR STAT 07/22/2024 8:04 AM TOBACCO WEIGHER DIFFERENTIAL AUTO STAT 07/22/2024 8:0 4 AM TOBACCO WEIGHER LIPASE STAT 07/22/2024 8:04 AM TOBACCO WEIGHER COMPREHENSIVE METABOLIC PANEL STAT 07/22/2024 8:04 AM TOBACCO WEIGHER CBC WITH AUTO DIFFERENTIAL STAT 07/22/2024 8:04 AM TOBACCO WEIGHER US OB 14 WEEKS OR OVER ED [...] culture Urine, clean voided (07/22/2024 9:23 AM TOBACCO WEIGHER) Color, ur Yellow Yellow Comment:Testing performed by : [facility], [address] [place] [address], [place]., [address] Clarity, ur Clear Clear JOSE LIVINGSTON Comment:Testing performed by : [address] [address] Specific gravity, ur 1.030 1.003 - 1.030 JOSE Comment:Testing performed by : [address] [address] pH, urine 6.0 JOSE Comment: Interpretive Data ? Urine pH is affected by diet, medications, systemic acid-base disturbances, and renal tubular function. ??pH may affect urinary stone formation. ??For example, urine pH below 6.0 may help reduce the tendency for calcium phosphate stones and pH greater than 6.0 may reduce the tendency for uric acid stone formation. Source: [facility] [employer] Current Interpretive Data was last revised on 2017 Testing performed by: [address] [address] Protein, ur ql 1+(A) Negative JOSE Comment:Testing performed by : [address] [address] Glucose, ur ql Negative Negative JOSE Comment:Testing performed by : [address] [address] Ketones, ur 4+(A) Negative JOSE Comment:Testing performed by : [address] [address] Bilirubin, ur Negative Negative JOSE Comment:Testing performed by : [address] [address] Blood, ur Negative Negative JOSE Comment:Testing performed by : [address] [address] Urobilinogen, ur <2.0 <2.0 mg/dL JOSE Comment:Testing performed by : [address] [address] Nitrite, ur Negative Negative JOSE Comment:Testing performed by : [address] [address] Leukocyte esterase, ur 3+(A) Negative JOSE Comment:Testing performed by : [address] [address] UA reflex comment Reflex to microscopic UA will be performed. JOSE LIVINGSTON Comment:Testing performed by : [address] [address] Urine, clean voided 07/22/2024 9:23 AM TOBACCO WEIGHER 07/22/2024 9:28 AM TOBACCO WEIGHER Zac Regan MD LAB MICROBIOLOGY - GENERAL ORDERABLES Final Result Performing Organization Address City/[facility] Co de Phone Number JOSE [address] [employer] [place] [address] * (ABNORMAL) Urinalysis, microscopic only (07/22/2024 9:23 AM TOBACCO WEIGHER) WBC, ur 6-10(A) 0 - 5 /HPF Comment:Testing performed by : [address] [address] RBC, ur 6-10(A) 0 - 2 /HPF JOSE Comment:Testing performed by : [address] [address] Epithelial cells, squamous, ur >50(A) 0 - 5 /HPF JOSE Comment:Testing performed by : [address] [address] Mucous, ur Present(A) JOSE Comment:Testing performed by : [address] [address] Culture Reflex Comment Reflex conditions for urine culture (WBC >10) not met. JOSE Comment:Testing performed by : [address] [address] Urine, clean voided 07/22/2024 9:23 AM TOBACCO WEIGHER 07/22/2024 9:28 AM TOBACCO WEIGHER Zac Regan MD LAB URINE ORDERABLES Final Result Performing Organization Address City/[facility]/ZIP Co de Phone Number MARIA DEL ROSARIO[address] [employer] [place] [address] * eGFR (07/22/2024 8:04 AM TOBACCO WEIGHER) eGFR >90 >=60 mL/min/1. 73 m2 Comment: [...] was last reviewed 2021. Testing performed by: [address] [address] Blood 07/22/2024 8:04 AM TOBACCO WEIGHER 07/22/2024 8:08 AM TOBACCO WEIGHER us Zac Regan MD LAB BLOOD ORDERABLES Final Result JOSE LIVINGSTON [address] [facility] [place] [address] * (ABNORMAL) Differential, auto (07/22/2024 8:04 AM TOBACCO WEIGHER) Neutrophil abs 7.2(H) 1.5 - 6.5 K/cumm Comment:Testing performed by : [address] [address] Imm gran abs 0.1 0.0 - 0.1 K/cumm JOSE LIVINGSTON Comment:Testing performed by : [facility], [address] [place] [address], [place]., [address] Lymphocyte abs 1.7 0.8 - 3.3 K/cumm JOSE Comment:Testing performed by : [address], [place]., [address] Monocyte abs 0.6 0.2 - 0.8 K/cumm JOSE Comment:Testing performed by : [address], [place]., [address] Eosinophil abs 0.0 0.0 - 0.5 K/cumm JOSE Comment:Testing performed by : [address], [place]., [address] Basophil abs 0.0 0.0 - 0.1 K/cumm JOSE Comment:Testing performed by : [address] [address] Neutrophil pct 75.3 % [facility] Comment: Interpretive Data Percent cell count reference ranges are not reported, since discordance with absolute values may lead to misinterpretation of CBC data. Current Interpretive Data was last revised on 2017. Testing performed by: [address] [address] Imm gran pct 0.6 % [facility] Comment: Interpretive Data Percent cell count reference ranges are not reported, since discordance with absolute values may lead to misinterpretation of CBC data. Current Interpretive Data was last revised on 2017. Testing performed by: [address] [address] Lymphocyte pct 17.6 % [facility] Comment: Interpretive Data Percent cell count reference ranges are not reported, since discordance with absolute values may lead to misinterpretation of CBC data. Current Interpretive Data was last revised on 2017. Testing performed by: [address] [address] Monocyte pct 5.9 % [facility] Comment: Interpretive Data Percent cell count reference ranges are not reported, since discordance with absolute values may lead to misinterpretation of CBC data. Current Interpretive Data was last revised on 2017. Testing performed by: [address] [address] Eosinophil pct 0.2 % JOSE LIVINGSTON Comment: Interpretive Data Percent cell count reference ranges are not reported, since discordance with absolute values may lead to misinterpretation of CBC data. Current Interpretive Data was last revised on 2017. Testing performed by: [address] [address] Basophil pct 0.4 % JOSE LIVINGSTON Comment: Interpretive Data Percent cell count reference ranges are not reported, since discordance with absolute values may lead to misinterpretation of CBC data. Current Interpretive Data was last revised on 2017. Testing performed by: [address] [address] Blood 07/22/2024 8:04 AM TOBACCO WEIGHER 07/22/2024 8:08 AM TOBACCO WEIGHER us Zac Regan MD LAB BLOOD ORDERABLES Final Result Performing Organization Address City/State/[facility] Co de Phone Number JOSE [address] [facility] Department [place] [address] * (ABNORMAL) CBC with auto differential (07/22/2024 8:04 AM TOBACCO WEIGHER) WBC 9.6 3.8 - 9.9 K/cumm Comment:Testing performed by : [address] [address] Hgb 11.8(L) 11.9 - 15.5 g/dL JOSE LIVINGSTON Comment:Testing performed by : [address] [address] Hct 34.5(L) 35.6 - 45.5 % JOSE LIVINGSTON Comment:Testing performed by : [address] [address] Plt 230 150 - 400 K/cumm JOSE LIVINGSTON Comment:Testing performed by : [address] [address] MPV 10.8 9.1 - 12.3 fL JOSE LIVINGSTON Comment:Testing performed by : [address] [address] RBC 3.91 3.90 - 5.20 M/cumm JOSE LIVINGSTON Comment:Testing performed by : [facility], [address] [place] [address]., [address] MCV 88.2 81.3 - 96.4 fL JOSE LIVINGSTON Comment:Testing performed by : [address] [address] MCH 30.2 27.1 - 33.3 pg JOSE LIVINGSTON Comment:Testing performed by : [address] [address] MCHC 34.2 32.3 - 35.7 g/dL JOSE Comment:Testing performed by : [address] [address] RDW CV 12.2 11.1 - 14.9 % JOSE Comment:Testing performed by : [address] [address] RDW SD 39.1 35.7 - 48.1 fL JOSE Comment:Testing performed by : [address] [address] NRBC abs 0.00 0.00 - 0.01 K/cumm JOSE Comment:Testing performed by : [address] [address] Blood 07/22/2024 8:04 AM TOBACCO WEIGHER 07/22/2024 8:08 AM TOBACCO WEIGHER Zac Regan MD LAB BLOOD ORDERABLES Final Result JOSE [address] [facility] Department [place] [address] * Lipase (07/22/2024 8:04 AM TOBACCO WEIGHER) Lipase 22 10 - 99 Units/L Comment:Testing performed by : [address] [address] Blood 07/22/2024 8:04 AM TOBACCO WEIGHER 07/22/2024 8:08 AM TOBACCO WEIGHER Zac Regan MD LAB BLOOD ORDERABLES Final Result JOSE [address] [facility] Department [place] [address] * (ABNORMAL) Comprehensive metabolic panel (07/22/2024 8:04 AM TOBACCO WEIGHER) Sodium 138 135 - 145 mmol/L Comment:Testing performed by : [address] [address] Potassium, pl 4.0 3.3 - 4.9 mmol/L JOSE Comment:Testing performed by : [address] [address] Chloride 101 97 - 110 mmol/L JOSE Comment:Testing performed by : [address] [address] CO2 21(L) 22 - 32 mmol/L JOSE Comment:Testing performed by : [address] [address] Anion gap 16(H) 2 - 15 mmol/L JOSE Comment:Testing performed by : [address] [address] BUN 8 6 - 25 mg/dL JOSE Comment:Testing performed by : [address] [address] Creatinine 0.60 0.60 - 1.10 mg/dL JOSE Comment:Testing performed by : [address] [address] Glucose 79 70 - 199 mg/dL JOSE [...] was last revised 2022. Testing performed by: [address] [address] Calcium 9.5 8.5 - 10.3 mg/dL JOSE Comment:Testing performed by : [address] [address] Bilirubin, total 0.4 0.1 - 1.2 mg/dL JOSE Comment:Testing performed by : [address], [place]., [address] Protein, pl 7.2 6.5 - 8.5 g/dL JOSE Comment:Testing performed by : [address], [place]., [address] Albumin 4.0 3.5 - 5.0 g/dL JOSE Comment:Testing performed by : [address] [address] Alk phos 37(L) 40 - 130 Units/L JOSE Comment:Testing performed by : [address] [address] ALT 15 7 - 45 Units/L JOSE Comment:Testing performed by : [address] [address] AST 15 10 - 45 Units/L JOSE Comment:Testing performed by : [address] [address] Blood 07/22/2024 8:04 AM TOBACCO WEIGHER 07/22/2024 8:08 AM TOBACCO WEIGHER us Zac Regan MD LAB BLOOD ORDERABLES Final Result Performing Organization Address City/State/[facility] Co sc Phone Number [facility] [address] [facility] [place] [address] * US Ob 14 Weeks Or Over [...] Electronically signed by ??Lamont Fernandez M.D. AG: ADAN D: ??07/09/2024 9:21 PM T: ??07/09/2024 9:21 PM Report ID: [id number] Reading Location: ??[id number] Procedure Note Lamont Fernandez MD - 07/09/2024 [...] Lamont Fernandez M.D. AG: ADAN Report ID: [id number] Reading Location: [id number] us Leela LUNA IMG OB US PROCEDURES Final Resul t * (ABNORMAL) Urinalysis reflex to microscopic and culture Urine (07/09/2024 7:36 PM CDT) Color, ur Yellow Yellow Comment:Testing performed by : [address] [address] Clarity, ur Cloudy(A) Clear JOSE Comment:Testing performed by : [address] [address] Specific gravity, ur 1.027 1.003 - 1.030 JOSE Comment:Testing performed by : [address], [place]., [address] pH, urine 6.5 JOSE Comment: Interpretive Data ? Urine pH is affected by diet, medications, systemic acid-base disturbances, and renal tubular function. ??pH may affect urinary stone formation. ??For example, urine pH below 6.0 may help reduce the tendency for calcium phosphate stones and pH greater than 6.0 may reduce the tendency for uric acid stone formation. Source: [facility] [employer] Current Interpretive Data was last revised on 2017 Testing performed by: [address] [address] Protein, ur ql 1+(A) Negative JOSE Comment:Testing performed by : [address] [address] Glucose, ur ql Negative Negative JOSE Comment:Testing performed by : [address] [address] Ketones, ur 4+(A) Negative JOSE Comment:Testing performed by : [address] [address] Bilirubin, ur Negative Negative JOSE Comment:Testing performed by : [address] [address] Blood, ur Negative Negative JOSE Comment:Testing performed by : [address] [address] Urobilinogen, ur <2.0 <2.0 mg/dL JOSE Comment:Testing performed by : [address] [address] Nitrite, ur Negative Negative JOSE Comment:Testing performed by : [address] [address] Leukocyte esterase, ur 2+(A) Negative JOSE Comment:Testing performed by : [address] [address] UA reflex comment Reflex to microscopic UA will be performed. JOSE Comment:Testing performed by : [address] [address] Urine 07/09/2024 7:36 PM CDT 07/09/2024 7:38 PM CDT Te Ferro DO LAB MICROBIOLOGY - GEN ERAL ORDERABLES Final Result JOSE [address] [facility] Department [place] [address] * (ABNORMAL) Urinalysis, microscopic only (07/09/2024 7:36 PM CDT) WBC, ur 0-5 0 - 5 /HPF Comment:Testing performed by : [address], [place]., [address] RBC, ur 3-5(A) 0 - 2 /HPF JOSE Comment:Testing performed by : [address] [address] Epithelial cells, squamous, ur >50(A) 0 - 5 /HPF JOSE Comment:Testing performed by : [address] [address] Bacteria, ur Trace(A) JOSE Comment:Testing performed by : [address] [address] Mucous, ur Present(A) JOSE Comment:Testing performed by : [address] [address] Hyaline casts, ur 1-5 0 - 10 /LPF JOSE Comment:Testing performed by : [address] [address] Culture Reflex Comment Reflex conditions for urine culture (WBC >10) not met. JOSE Comment:Testing performed by : [address], [place]., [address] Urine 07/09/2024 7:36 PM CDT 07/09/2024 7:38 PM CDT us Te Raye DO LAB URINE ORDERABLES F inal Result Performing Organization Address [facility] Co de Phone Number JOSE [address] [facility] Department [place] [address] * eGFR (07/09/2024 7:19 PM CDT) eGFR [...] was last reviewed 2021. Testing performed by: [facility], [address] [place] [address], [place]., [address] Blood 07/09/2024 7:19 PM CDT 07/09/2024 7:31 PM CDT us Te Ferro DO LAB BLOOD ORDERABLES F inal Result Performing Organization Address City/[facility] Co de Phone Number JOSE LIVINGSTON [address] Department [place] [address] * (ABNORMAL) Differential, auto (07/09/2024 7:19 PM CDT) Neutrophil abs 8.3(H) 1.5 - 6.5 K/cumm Comment:Testing performed by : [address] [address] Imm gran abs 0.0 0.0 - 0.1 K/cumm JOSE Comment:Testing performed by : [address] [address] Lymphocyte abs 1.8 0.8 - 3.3 K/cumm JOSE Comment:Testing performed by : [address] [address] Monocyte abs 0.6 0.2 - 0.8 K/cumm JOSE Comment:Testing performed by : [address] [address] Eosinophil abs 0.0 0.0 - 0.5 K/cumm JOSE Comment:Testing performed by : [address] [address] Basophil abs 0.0 0.0 - 0.1 K/cumm JOSE Comment:Testing performed by : [address] [address] Neutrophil pct 76.8 % JOSE Comment: Interpretive Data Percent cell count reference ranges are not reported, since discordance with absolute values may lead to misinterpretation of CBC data. Current Interpretive Data was last revised on 2017. Testing performed by: [address] [address] Imm gran pct 0.4 % JOSE Comment: Interpretive Data Percent cell count reference ranges are not reported, since discordance with absolute values may lead to misinterpretation of CBC data. Current Interpretive Data was last revised on 2017. Testing performed by: [address] [address] Lymphocyte pct 16.8 % JOSE Comment: Interpretive Data Percent cell count reference ranges are not reported, since discordance with absolute values may lead to misinterpretation of CBC data. Current Interpretive Data was last revised on 2017. Testing performed by: [address] [address] Monocyte pct 5.3 % JOSE Comment: Interpretive Data Percent cell count reference ranges are not reported, since discordance with absolute values may lead to misinterpretation of CBC data. Current Interpretive Data was last revised on 2017. Testing performed by: [address] [address] Eosinophil pct 0.4 % JOSE Comment: Interpretive Data Percent cell count reference ranges are not reported, since discordance with absolute values may lead to misinterpretation of CBC data. Current Interpretive Data was last revised on 2017. Testing performed by: [address] [address] Basophil pct 0.3 % JOSE Comment: Interpretive Data Percent cell count reference ranges are not reported, since discordance with absolute values may lead to misinterpretation of CBC data. Current Interpretive Data was last revised on 2017. Testing performed by: [address] [address] Blood 07/09/2024 7:19 PM CDT 07/09/2024 7:31 PM CDT us Te Ferro DO LAB BLOOD ORDERABLES F inal Result [facility] [address] [facility] Department [place] [address] * (ABNORMAL) CBC with auto differential (07/09/2024 7:19 PM CDT) WBC 10.8(H) 3.8 - 9.9 K/cumm Comment:Testing performed by : [address] [address] Hgb 11.8(L) 11.9 - 15.5 g/dL JOSE Comment:Testing performed by : [address] [address] Hct 35.0(L) 35.6 - 45.5 % JOSE LIVINGSTON Comment:Testing performed by : [address], [address] Plt 215 150 - 400 K/cumm JOSE LIVINGSTON Comment:Testing performed by : [address] [address] MPV 11.1 9.1 - 12.3 fL JOSE LIVINGSTON Comment:Testing performed by : [address], [address] RBC 3.94 3.90 - 5.20 M/cumm JOSE LIVINGSTON Comment:Testing performed by : [address], [address] MCV 88.8 81.3 - 96.4 fL JOSE LIVINGSTON Comment:Testing performed by : [address], [address] MCH 29.9 27.1 - 33.3 pg JOSE LIVINGSTON Comment:Testing performed by : [address], [address] MCHC 33.7 32.3 - 35.7 g/dL JOSE Comment:Testing performed by : [address], [address] RDW CV 12.2 11.1 - 14.9 % JOSE Comment:Testing performed by : [address], [address] RDW SD 39.7 35.7 - 48.1 fL JOSE Comment:Testing performed by : [address], [address] NRBC abs 0.00 0.00 - 0.01 K/cumm JOSE Comment:Testing performed by : [address], [address] Blood (Blood, Venous) 07/09/2024 7:19 PM CDT 07/09/2024 7:31 PM CDT us Te Ferro DO LAB BLOOD ORDERABLES F inal Result JOSE LIVINGSTON [address] [facility] [place] [address] * (ABNORMAL) Comprehensive metabolic panel (07/09/2024 7:19 PM CDT) Sodium 136 135 - 145 mmol/L Comment:Testing performed by : [address] [address] Potassium, pl 4.0 3.3 - 4.9 mmol/L JOSE Comment:Testing performed by : [address], [place]., [address] Chloride 102 97 - 110 mmol/L JOSE Comment:Testing performed by : [address], [place]., [address] CO2 21(L) 22 - 32 mmol/L JOSE Comment:Testing performed by : [address], [place]., [address] Anion gap 13 2 - 15 mmol/L JOSE Comment:Testing performed by : [address] [address] BUN 8 6 - 25 mg/dL JOSE Comment:Testing performed by : [address], [place]., [address] Creatinine 0.50(L) 0.60 - 1.10 mg/dL JOSE Comment:Testing performed by : [address] [address] Glucose 86 70 - 199 mg/dL JOSE [...] was last revised 2022. Testing performed by: [address] [address] Calcium 9.5 8.5 - 10.3 mg/dL JOSE LIVINGSTON Comment:Testing performed by : [facility], [address] [place] [address]., [address] Bilirubin, total 0.3 0.1 - 1.2 mg/dL JOSE LIVINGSTON Comment:Testing performed by : [facility], [address] [place] [address]., [address] Protein, pl 7.1 6.5 - 8.5 g/dL JOSE Comment:Testing performed by : [address], [place]., [address] Albumin 3.9 3.5 - 5.0 g/dL JOSE Comment:Testing performed by : [facility], [address] [place] [address], [place]., [address] Alk phos 35(L) 40 - 130 Units/L JOSE Comment:Testing performed by : [address] [address] ALT 15 7 - 45 Units/L JOSE Comment:Testing performed by : [address] [address] AST 15 10 - 45 Units/L JOSE Comment:Testing performed by : [address] [address] Blood (Blood, Venous) 07/09/2024 7:19 PM CDT 07/09/2024 7:31 PM CDT Te Ferro LAB BLOOD ORDERABLES F inal Result JOSE [address] [facility] [place] [address] * N. gonorrhoeae/C. trachomatis Amplification Urine (06/07/2022 12:51 AM CDT) C. trachomatis Not Detected Not Detected JOSE LIVINGSTON Comment:Testing performed by : [address] [address] N. gonorrhoeae Not Detected Not Detected JOSE LIVINGSTON Comment: Interpretive Data Testing performed by the [facility]. This assay detects Chlamydia trachomatis and [...] last revised on 2019. Testing performed by: [facility], [address] [place] [address]., [address] Urine (None) 06/07/2022 12:5 1 AM CDT 06/07/2022 12:56 AM CDT us Laura Santa DO LAB MICROBIOLOGY - GENERAL ORDE VINOD Final Result JOSE [address] [facility] [place] [address] from Last 3 Months or Most Recently Relevant to Health Maintenance Insurance [employer] Member Subscriber Plan / Payer (Ef fective 2021-Present) Name:Tawny Nicholas Relation to Subscriber:Spouse Name:TE MEYERS Date of :1899 (Home) Address: [address] [place] [address] [address] [place] [address] Payer ID:[id number] (NAIC) Type: Your Style Unzipped Address: [facility] [id number] [facility] [address] [address] [place] [address] Care Teams Tree Specialist Relationship Specialty Start Date End Date No, Physician PCP - General 12/30/20
--- OUTSIDE RECORDS SUMMARY | 2024-10-02 09:41 | XMS_ITS | Encounter Summary ---
Author Organization [facility] Address [address] [place], [place] [address] [address] Care Team Providers Care Tool Crib Clerk Name Role Phone Unavailable Primary Care Provider Unavailabl e Encounter Details Date Type Department Care Team (Late st Contact Info) Description 03/29/2020 Lab Requisition [facility] [address] [place] [address] Social History Tobacco Use Types Packs/Day Years [...] Not detected, Invalid 03/30/2020 6:18 AM CDT [facility] Microbiology SPECIMEN FROM NASOPHARYNGEAL STRUCTURE / Unknown Collection / Unknown 03/29/2020 8:10 AM CDT 03/30/2020 2:17 AM CDT Narrative [facility] - 03/30/2020 6:18 AM CDT This [...] revoked sooner. LAB - MICROBIOLOGY O RDERABLES [facility] [address] [place] [address], [facility] [phone] documented in this encounter Visit Diagnoses Not on filedocumented in this encounter Additional Health Concerns Infection Onset Date Last Indicated Resolved Time COVID-19 Under Investigation 03/29/2020 03/29/2020 03/30/2020 6:18 AM CDT COVID-19 Under Investigation 04/14/2020 04/14/2020 04/17/2020 3:59 AM CDT COVID-19 Under Investigation 07/28/2020 07/28/2020 07/31/2020 6:11 AM BARBACK documented as of this encounter
--- OUTSIDE RECORDS SUMMARY | 2024-10-02 09:41 | XMS_ITS | Clinical Summary ---
Author Organization [facility] Address [address] [place] [address] Phone Care Team Providers Care Hand Driller Name Role Phone Unavailable Primary Care Provider [...] relatives? Three times a week 12/24/2020 Attends [employer] Services Not on file 12/24 Active Member [...] place to sleep or slept in a senior care (including now)? No 12/24/2020 Comments No Sex and Gender Information Value Date Recorded Sex Assigned at Not on file Legal Sex Female 1:07 PM CDT Gender Identity Not on file Sexual Orientation [...] CANCER SCREENING 2021 INFLUENZA VACCINE (#1) 2024 Insurance RX [employer] (INTERNAL) [facility] [employer]
--- OUTSIDE RECORDS SUMMARY | 2024-10-02 09:41 | XMS_ITS | Referral Summary ---
Author Organization [facility] Address [address] [id number] Care Team Providers Care Conche Operator Name Role Phone No, Physician Primary Care Provider Encounters Date Type Department Care Team Description 07/22/2024 7:36 AM [facility] - 07/22/2024 10:18 AM [facility] Emergency [facility] Emergency Department [address] [place] [id number] Sesar Goldberg MD 24 weeks gestation of (Primary Dx); Hyperemesis gravidarum with dehydration Discharge Disposition: Discharge to home or self care 07/09/2024 9:34 PM T - 07/10/2024 1:37 AM [facility] Emergency [facility] Emergency Department [address] [place] [id number] Te Ferro DO Acute cystitis without hematuria [...] vomiting 30 tablet 4 Active PNV with [id number] 27 mg iron- 1 mg tablet Take [...] on file Legal Sex Female 11:54 AM FILM HISTORIAN Gender Identity Not on file Sexual Orientation Not on file Last Filed Vital Signs Vital Sign Reading Time Taken Comments Blood Pressure 122/56 07/22/2024 9:24 AM FILM HISTORIAN Pulse 67 07/22/2024 9:24 AM FILM HISTORIAN Temperature 36.8 ??C (98.2 ??F) 07/22/2024 9:24 AM CS T Respiratory Rate 18 07/22/2024 9:24 AM FILM HISTORIAN Oxygen Saturation 99% 07/22/2024 9:24 AM FILM HISTORIAN Inhaled Oxygen Concentration - - Weight 79.8 kg (175 lb 14.8 oz) 07/22/2024 7:24 AM FILM HISTORIAN Height 170.2 cm (5' 7 ) 03/24/2024 11:0 4 AM CDT Body Mass Index 27.55 03/24/2024 11:04 AM CDT Plan of Treatment Not on file Procedures Procedure Name Priority Date/Time Associated Diagnosis Comments URINALYSIS, MICROSCOPIC ONLY STAT 07/22/2024 9:23 AM FILM HISTORIAN URINALYSIS AND REFLEX TO MICROSCOPIC AND CULTURE STAT 07/22/2024 9:23 AM FILM HISTORIAN EGFR STAT 07/22/2024 8:04 AM FILM HISTORIAN DIFFERENTIAL AUTO STAT 07/22/2024 8:0 4 AM FILM HISTORIAN LIPASE STAT 07/22/2024 8:04 AM FILM HISTORIAN COMPREHENSIVE METABOLIC PANEL STAT 07/22/2024 8:04 AM FILM HISTORIAN CBC WITH AUTO DIFFERENTIAL STAT 07/22/2024 8:04 AM FILM HISTORIAN US OB 14 WEEKS OR OVER ED [...] culture Urine, clean voided (07/22/2024 9:23 AM FILM HISTORIAN) Color, ur Yellow Yellow Comment:Testing performed by : [address] [address] Clarity, ur Clear Clear JOSE Comment:Testing performed by : [address] [address] Specific gravity, ur 1.030 1.003 - 1.030 JSOE Comment:Testing performed by : [address] [address] pH, urine 6.0 JOSE Comment: Interpretive Data ? Urine pH is affected by diet, medications, systemic acid-base disturbances, and renal tubular function. ??pH may affect urinary stone formation. ??For example, urine pH below 6.0 may help reduce the tendency for calcium phosphate stones and pH greater than 6.0 may reduce the tendency for uric acid stone formation. Source: [facility] [employer] Current Interpretive Data was last revised on 2017 Testing performed by: [address] [address] Protein, ur ql 1+(A) Negative JOSE Comment:Testing performed by : [address] [address] Glucose, ur ql Negative Negative JOSE Comment:Testing performed by : [address] [address] Ketones, ur 4+(A) Negative JOSE Comment:Testing performed by : [address] [address] Bilirubin, ur Negative Negative JOSE Comment:Testing performed by : [facility], [address] [place] [address], [place]., [address] Blood, ur Negative Negative JOSE Comment:Testing performed by : [facility], [address] [place] [address], [place]., [address] Urobilinogen, ur <2.0 <2.0 mg/dL JOSE LIVINGSTON Comment:Testing performed by : [address], [place]., [address] Nitrite, ur Negative Negative JOSE Comment:Testing performed by : [address], [place]., [address] Leukocyte esterase, ur 3+(A) Negative JOSE LIVINGSTON Comment:Testing performed by : [address] [address] UA reflex comment Reflex to microscopic UA will be performed. JOSE Comment:Testing performed by : [address] [address] Urine, clean voided 07/22/2024 9:23 AM FILM HISTORIAN 07/22/2024 9:28 AM FILM HISTORIAN us Zac Regan MD LAB MICROBIOLOGY - GENERAL ORDERABLES Final Result JOSE [address] [facility] [place] [address] * (ABNORMAL) Urinalysis, microscopic only (07/22/2024 9:23 AM FILM HISTORIAN) WBC, ur 6-10(A) 0 - 5 /HPF Comment:Testing performed by : [address], [place]., [address] RBC, ur 6-10(A) 0 - 2 /HPF JOSE LIVINGSTON Comment:Testing performed by : [address] [address] Epithelial cells, squamous, ur >50(A) 0 - 5 /HPF JOSE LIVINGSTON Comment:Testing performed by : [address], [place]., [address] Mucous, ur Present(A) JOSE LIVINGSTON Comment:Testing performed by : [facility], [address] [place] [address]., [address] Culture Reflex Comment Reflex conditions for urine culture (WBC >10) not met. JOSE Comment:Testing performed by : [facility], [address] [place] [address]., [address] Urine, clean voided 07/22/2024 9:23 AM FILM HISTORIAN 07/22/2024 9:28 AM FILM HISTORIAN us Zac Regan MD LAB URINE ORDERABLES Final Result JOSE [address] [facility] [place] [address] * eGFR (07/22/2024 8:04 AM FILM HISTORIAN) eGFR >90 >=60 mL/min/1. 73 m2 Comment: [...] last reviewed 2021. Testing performed by: [address] [address] Blood 07/22/2024 8:04 AM FILM HISTORIAN 07/22/2024 8:08 AM FILM HISTORIAN us Zac Regan MD LAB BLOOD ORDERABLES Final Result [facility] [address] [facility] [place] [address] * (ABNORMAL) Differential, auto (07/22/2024 8:04 AM FILM HISTORIAN) Neutrophil abs 7.2(H) 1.5 - 6.5 K/cumm Comment:Testing performed by : [address] [address] Imm gran abs 0.1 0.0 - 0.1 K/cumm JOSE Comment:Testing performed by : [address] [address] Lymphocyte abs 1.7 0.8 - 3.3 K/cumm JOSE Comment:Testing performed by : [address] [address] Monocyte abs 0.6 0.2 - 0.8 K/cumm JOSE Comment:Testing performed by : [address] [address] Eosinophil abs 0.0 0.0 - 0.5 K/cumm JOSE Comment:Testing performed by : [address] [address] Basophil abs 0.0 0.0 - 0.1 K/cumm JOSE Comment:Testing performed by : [address] [address] Neutrophil pct 75.3 % JOSE Comment: Interpretive Data Percent cell count reference ranges are not reported, since discordance with absolute values may lead to misinterpretation of CBC data. Current Interpretive Data was last revised on 2017. Testing performed by: [address] [address] Imm gran pct 0.6 % JOSE Comment: Interpretive Data Percent cell count reference ranges are not reported, since discordance with absolute values may lead to misinterpretation of CBC data. Current Interpretive Data was last revised on 2017. Testing performed by: [address] [address] Lymphocyte pct 17.6 % JOSE Comment: Interpretive Data Percent cell count reference ranges are not reported, since discordance with absolute values may lead to misinterpretation of CBC data. Current Interpretive Data was last revised on 2017. Testing performed by: [address] [address] Monocyte pct 5.9 % JOSE Comment: Interpretive Data Percent cell count reference ranges are not reported, since discordance with absolute values may lead to misinterpretation of CBC data. Current Interpretive Data was last revised on 2017. Testing performed by: [address] [address] Eosinophil pct 0.2 % JOSE Comment: Interpretive Data Percent cell count reference ranges are not reported, since discordance with absolute values may lead to misinterpretation of CBC data. Current Interpretive Data was last revised on 2017. Testing performed by: [address] [address] Basophil pct 0.4 % JOSE Comment: Interpretive Data Percent cell count reference ranges are not reported, since discordance with absolute values may lead to misinterpretation of CBC data. Current Interpretive Data was last revised on 2017. Testing performed by: [address] [address] Blood 07/22/2024 8:04 AM FILM HISTORIAN 07/22/2024 8:08 AM FILM HISTORIAN us Zac Regan MD LAB BLOOD ORDERABLES Final Result JOSE LIVINGSTON [address] [facility] [place] [address] * (ABNORMAL) CBC with auto differential (07/22/2024 8:04 AM FILM HISTORIAN) WBC 9.6 3.8 - 9.9 K/cumm Comment:Testing performed by : [address] [address] Hgb 11.8(L) 11.9 - 15.5 g/dL JOSE Comment:Testing performed by : [address] [address] Hct 34.5(L) 35.6 - 45.5 % JOSE Comment:Testing performed by : [address], [address] Plt 230 150 - 400 K/cumm JOSE Comment:Testing performed by : [address], [address] MPV 10.8 9.1 - 12.3 fL JOSE Comment:Testing performed by : [address], [address] RBC 3.91 3.90 - 5.20 M/cumm JOSE Comment:Testing performed by : [address], [address] MCV 88.2 81.3 - 96.4 fL JOSE Comment:Testing performed by : [address], [address] MCH 30.2 27.1 - 33.3 pg JOSE Comment:Testing performed by : [address], [address] MCHC 34.2 32.3 - 35.7 g/dL JOSE Comment:Testing performed by : [address], [address] RDW CV 12.2 11.1 - 14.9 % JOSE Comment:Testing performed by : [address], [address] RDW SD 39.1 35.7 - 48.1 fL JOSE Comment:Testing performed by : [address], [address] NRBC abs 0.00 0.00 - 0.01 K/cumm JOSE Comment:Testing performed by : [address], [address] Blood 07/22/2024 8:04 AM FILM HISTORIAN 07/22/2024 8:08 AM FILM HISTORIAN Zac Regan MD LAB BLOOD ORDERABLES Final Result Performing Organization Address [facility] Co de Phone Number MARIA DEL ROSARIO[address] [address] * Lipase (07/22/2024 8:04 AM FILM HISTORIAN) Pathologist [facility] Lipase 22 10 - 99 Units/L Comment:Testing performed by : [address] [address] Blood 07/22/2024 8:04 AM FILM HISTORIAN 07/22/2024 8:08 AM FILM HISTORIAN Zac Regan MD LAB BLOOD ORDERABLES Final Result Performing Organization Address [facility] de Phone Number MARIA DEL ROSARIO[address] [place] [address] * (ABNORMAL) Comprehensive metabolic panel (07/22/2024 8:04 AM FILM HISTORIAN) Pathologist [facility] Sodium 138 135 - 145 mmol/L Comment:Testing performed by : [address] [address] Potassium, pl 4.0 3.3 - 4.9 mmol/L JOSE Comment:Testing performed by : [address] [address] Chloride 101 97 - 110 mmol/L JOSE Comment:Testing performed by : [address] [address] CO2 21(L) 22 - 32 mmol/L JOSE Comment:Testing performed by : [address] [address] Anion gap 16(H) 2 - 15 mmol/L JOSE Comment:Testing performed by : [address] [address] BUN 8 6 - 25 mg/dL JOSE Comment:Testing performed by : [address] [address] Creatinine 0.60 0.60 - 1.10 mg/dL [facility] Comment:Testing performed by : [address] [address] Glucose 79 70 - 199 mg/dL JOSE [...] last revised 2022. Testing performed by: [address] [address] Calcium 9.5 8.5 - 10.3 mg/dL [facility] Comment:Testing performed by : [address] [address] Bilirubin, total 0.4 0.1 - 1.2 mg/dL [facility] Comment:Testing performed by : [address] [address] Protein, pl 7.2 6.5 - 8.5 g/dL [facility] Comment:Testing performed by : [address] [address] Albumin 4.0 3.5 - 5.0 g/dL [facility] Comment:Testing performed by : [address] [address] Alk phos 37(L) 40 - 130 Units/L JOSE Comment:Testing performed by : [address] [address] ALT 15 7 - 45 Units/L JOSE Comment:Testing performed by : [address] [address] AST 15 10 - 45 Units/L JOSE Comment:Testing performed by : [address] [address] Blood 07/22/2024 8:04 AM FILM HISTORIAN 07/22/2024 8:08 AM FILM HISTORIAN us Zac Regan MD LAB BLOOD ORDERABLES Final Result JOSE [address] [facility] Department [place] [address] * US Ob 14 Weeks Or Over [...] PM T: ??07/09/2024 9:21 PM Report ID: [id number] Reading Location: ??[id number] Procedure Note Lamont Fernandez MD - 07/09/2024 [...] Lamont Fernandez M.D. AG: AG Report ID: [id number] Reading Location: [id number] us [place] LUNA IMG OB US PROCEDURES Final Resul t * (ABNORMAL) Urinalysis reflex to microscopic and culture Urine (07/09/2024 7:36 PM CDT) Color, ur Yellow Yellow Comment:Testing performed by : [address] [address] Clarity, ur Cloudy(A) Clear JOSE Comment:Testing performed by : [address] [address] Specific gravity, ur 1.027 1.003 - 1.030 JOSE Comment:Testing performed by : [address] [address] pH, urine 6.5 JOSE Comment: Interpretive Data ? Urine pH is affected by diet, medications, systemic acid-base disturbances, and renal tubular function. ??pH may affect urinary stone formation. ??For example, urine pH below 6.0 may help reduce the tendency for calcium phosphate stones and pH greater than 6.0 may reduce the tendency for uric acid stone formation. Source: [employer] Current Interpretive Data was last revised on 2017 Testing performed by: [address] [address] Protein, ur ql 1+(A) Negative JOSE Comment:Testing performed by : [address] [address] Glucose, ur ql Negative Negative JOSE Comment:Testing performed by : [address] [address] Ketones, ur 4+(A) Negative JOSE LIVINGSTON Comment:Testing performed by : [facility], [address] [place] [address]., [address] Bilirubin, ur Negative Negative JOSE LIVINGSTON Comment:Testing performed by : [facility], [address] [place] [address], [place]., [address] Blood, ur Negative Negative JOSE LIVINGSTON Comment:Testing performed by : [address], [place]., [address] Urobilinogen, ur <2.0 <2.0 mg/dL JOSE Comment:Testing performed by : [address], [place]., [address] Nitrite, ur Negative Negative JOSE LIVINGSTON Comment:Testing performed by : [address] [address] Leukocyte esterase, ur 2+(A) Negative JOSE LIVINGSTON Comment:Testing performed by : [address], [place]., [address] UA reflex comment Reflex to microscopic UA will be performed. JOSE LIVINGSTON Comment:Testing performed by : [address], [place]., [address] Urine 07/09/2024 7:36 PM CDT 07/09/2024 7:38 PM CDT Te Ferro DO LAB MICROBIOLOGY - GEN ERAL ORDERABLES Final Result JOSE [address] [facility] Department of Laboratories [place], [place] [id number] * (ABNORMAL) Urinalysis, microscopic only (07/09/2024 7:36 PM CDT) WBC, ur 0-5 0 - 5 /HPF Comment:Testing performed by : [address] [address] RBC, ur 3-5(A) 0 - 2 /HPF JOSE LIVINGSTON Comment:Testing performed by : [address] [address] Epithelial cells, squamous, ur >50(A) 0 - 5 /HPF JOSE LIVINGSTON Comment:Testing performed by : [facility], [address] [place] [address]., [address] Bacteria, ur Trace(A) JOSE Comment:Testing performed by : [address] [address] Mucous, ur Present(A) JOSE Comment:Testing performed by : [facility], [address] [place] [address], [place]., [address] Hyaline casts, ur 1-5 0 - 10 /LPF JOSE Comment:Testing performed by : [address] [address] Culture Reflex Comment Reflex conditions for urine culture (WBC >10) not met. JOSE Comment:Testing performed by : [address] [address] Urine 07/09/2024 7:36 PM CDT 07/09/2024 7:38 PM CDT Te Ferro DO LAB URINE ORDERABLES F inal Result JOSE [address] [facility] [place] [address] * eGFR (07/09/2024 7:19 PM [...] last reviewed 2021. Testing performed by: [address] [address] Blood 07/09/2024 7:19 PM CDT 07/09/2024 7:31 PM CDT Te Ferro DO LAB BLOOD ORDERABLES F inal Result JOSE [facility] [place] [address] * (ABNORMAL) Differential, auto (07/09/2024 7:19 PM CDT) Neutrophil abs 8.3(H) 1.5 - 6.5 K/cumm Comment:Testing performed by : [address] [address] Imm gran abs 0.0 0.0 - 0.1 K/cumm JOSE Comment:Testing performed by : [address] [address] Lymphocyte abs 1.8 0.8 - 3.3 K/cumm JOSE Comment:Testing performed by : [address] [address] Monocyte abs 0.6 0.2 - 0.8 K/cumm JOSE Comment:Testing performed by : [address] [address] Eosinophil abs 0.0 0.0 - 0.5 K/cumm JOSE Comment:Testing performed by : [address] [address] Basophil abs 0.0 0.0 - 0.1 K/cumm JOSE Comment:Testing performed by : [address] [address] Neutrophil pct 76.8 % JOSE Comment: Interpretive Data Percent cell count reference ranges are not reported, since discordance with absolute values may lead to misinterpretation of CBC data. Current Interpretive Data was last revised on 2017. Testing performed by: [address] [address] Imm gran pct 0.4 % JOSE Comment: Interpretive Data Percent cell count reference ranges are not reported, since discordance with absolute values may lead to misinterpretation of CBC data. Current Interpretive Data was last revised on 2017. Testing performed by: [address] [address] Lymphocyte pct 16.8 % JOSE Comment: Interpretive Data Percent cell count reference ranges are not reported, since discordance with absolute values may lead to misinterpretation of CBC data. Current Interpretive Data was last revised on 2017. Testing performed by: [address] [address] Monocyte pct 5.3 % JOSE Comment: Interpretive Data Percent cell count reference ranges are not reported, since discordance with absolute values may lead to misinterpretation of CBC data. Current Interpretive Data was last revised on 2017. Testing performed by: [address] [address] Eosinophil pct 0.4 % JOSE Comment: Interpretive Data Percent cell count reference ranges are not reported, since discordance with absolute values may lead to misinterpretation of CBC data. Current Interpretive Data was last revised on 2017. Testing performed by: [address] [address] Basophil pct 0.3 % [facility] Comment: Interpretive Data Percent cell count reference ranges are not reported, since discordance with absolute values may lead to misinterpretation of CBC data. Current Interpretive Data was last revised on 2017. Testing performed by: [address] [address] Blood 07/09/2024 7:19 PM CDT 07/09/2024 7:31 PM CDT us Te Ferro DO LAB BLOOD ORDERABLES F inal Result JOSE [address] [facility] [place] [address] * (ABNORMAL) CBC with auto differential (07/09/2024 7:19 PM CDT) [facility] WBC 10.8(H) 3.8 - 9.9 K/cumm Comment:Testing performed by : [address] [address] Hgb 11.8(L) 11.9 - 15.5 g/dL JOSE Comment:Testing performed by : [address] [address] Hct 35.0(L) 35.6 - 45.5 % JOSE Comment:Testing performed by : [address] [address] Plt 215 150 - 400 K/cumm JOSE Comment:Testing performed by : [address] [address] MPV 11.1 9.1 - 12.3 fL JOSE Comment:Testing performed by : [address] [address] RBC 3.94 3.90 - 5.20 M/cumm JOSE Comment:Testing performed by : [address] [address] MCV 88.8 81.3 - 96.4 fL JOSE Comment:Testing performed by : [address] [address] MCH 29.9 27.1 - 33.3 pg JOSE LIVINGSTON Comment:Testing performed by : [address] [address] MCHC 33.7 32.3 - 35.7 g/dL JOSE Comment:Testing performed by : [address], [address] RDW CV 12.2 11.1 - 14.9 % JOSE LIVINGSTON Comment:Testing performed by : [address] [address] RDW SD 39.7 35.7 - 48.1 fL JOSE LIVINGSTON Comment:Testing performed by : [address] [address] NRBC abs 0.00 0.00 - 0.01 K/cumm JOSE LIVINGSTON Comment:Testing performed by : [address] [address] Blood (Blood, Venous) 07/09/2024 7:19 PM CDT 07/09/2024 7:31 PM CDT Te Ferro LAB BLOOD ORDERABLES F inal Result JOSE [facility] [place] [address] * (ABNORMAL) Comprehensive metabolic panel (07/09/2024 7:19 PM CDT) Sodium 136 135 - 145 mmol/L Comment:Testing performed by : [address] [address] Potassium, pl 4.0 3.3 - 4.9 mmol/L JOSE LIVINGSTON Comment:Testing performed by : [address] [address] Chloride 102 97 - 110 mmol/L JOSE Comment:Testing performed by : [address] [address] CO2 21(L) 22 - 32 mmol/L JOSE Comment:Testing performed by : [address] [address] Anion gap 13 2 - 15 mmol/L JOSE LIVINGSTON Comment:Testing performed by : [address] [address] BUN 8 6 - 25 mg/dL JOSE [place] Comment:Testing performed by : [address] [address] Creatinine 0.50(L) 0.60 - 1.10 mg/dL JOSE Comment:Testing performed by : [address] [address] Glucose 86 70 - 199 mg/dL JOSE [...] last revised 2022. Testing performed by: [address] [address] Calcium 9.5 8.5 - 10.3 mg/dL JOSE Comment:Testing performed by : [address] [address] Bilirubin, total 0.3 0.1 - 1.2 mg/dL JOSE Comment:Testing performed by : [address] [address] Protein, pl 7.1 6.5 - 8.5 g/dL JOES Comment:Testing performed by : [address] [address] Albumin 3.9 3.5 - 5.0 g/dL JOSE Comment:Testing performed by : [address] [address] Alk phos 35(L) 40 - 130 Units/L JOSE Comment:Testing performed by : [address] [address] ALT 15 7 - 45 Units/L JOSE Comment:Testing performed by : [address] [address] AST 15 10 - 45 Units/L JOSE Comment:Testing performed by : [address] [address] Blood (Blood, Venous) 07/09/2024 7:19 PM CDT 07/09/2024 7:31 PM CDT Te Ferro DO LAB BLOOD ORDERABLES F inal Result Performing Organization Address [facility] Co de Phone Number JOSE [address] [place] [address] * N. gonorrhoeae/C. trachomatis Amplification Urine (06/07/2022 12:51 AM CDT) C. trachomatis Not Detected Not Detected JOSE Comment:Testing performed by : [facility], [address] [place] [address]., [address] N. gonorrhoeae Not Detected Not Detected JOSE Comment: Interpretive Data Testing performed by the [facility]. This assay detects Chlamydia trachomatis and Neisseria gonorrhoeae by nucleic acid amplification testing (NAAT). This test is approved by the [facility] Food and Drug Administration and the performance characteristics have been verified by the laboratory. The performance characteristics of this test have not been evaluated in individuals less than 14 years of age. Current Interpretive Data was last revised on 2019. Testing performed by: [facility], [address] [place] [address]., [address] Urine (None) 06/07/2022 12:5 1 AM CDT 06/07/2022 12:56 AM CDT Laura Santa DO LAB MICROBIOLOGY - GENERAL ROSEMARIE BROCK Final Result Performing Organization Address [facility] Co de Phone Number JOSE [address] [place] [address] from Last 3 Months or Most Recently Relevant to Health Maintenance Insurance [id number] [place] [address] [employer] Member Subscriber Plan / Payer (Ef fective 2021-Present) Name:Tawny Nicholas Relation to Subscriber:Spouse Name:TE MEYERS Date of :1899 (Home) Address: [address] [address] [place] [address] Payer ID:[id number] (NAIC) Type:[facility] Address: [address] [facility] [address] [id number] [place] [address] Care Teams Conche Operator Relationship Specialty Start Date End Date No, Physician PCP - General 12/30/20
--- OUTSIDE RECORDS SUMMARY | 2024-10-02 09:41 | XMS_ITS | Data Portability ---
Author Organization [facility], [facility]_Rosemarie Address [address] [place] [address] Assessment Encounter Date Assessment Date Assessment LastModified by Organization Details LastModified Time 09/12/2023 09/12/2023 Patient is new to our Practice. She presents today for a gynecological Annual Exam. Patients Past Medical History and Family History reviewed. 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 Her menses are regular, occurring every [...] lab - Pap reflex hold 2023 024 [facility], [address] [place], [address], 4 11:08:22 pap, LB 2023 ALEXANDRE [facility], [address] [facility], [place], [address], 18:10:08 STI panel 2023 ALEXANDRE [facility], [address] [place], [address], 14:30:44 Referral None recorded. Procedures None recorded. Surgeries None recorded. Imaging None recorded. Medication Orders None recorded. Patient TargetsNo targets recorded. Patient Instructions Encounter Date Encounter Id Patient Instructions Last Modified By Organization Details Last Modified Time 09/12/2023 [id number] A healthy lifestyle: care instructions bnotzke Not [...] TRICH neg negati ve normal Not Available [facility] [address] [place], [address], 09/13/2023 14:30:44 09/12/19 24 09/13/2023 STI PANEL chlamydia trachomatis CT neg negati ve normal This repor t is inten ded for us in clini lelia monit oring and manag ement of brandon de leon. It is not inten ded for use in medic al-le gal appli catio n. Not Available [facility] [address] [place], [address], 09/13/2023 14:30:44 09/12/19 24 09/13/2023 STI PANEL neisseria gonorrhoeae GC neg negati ve normal This repor t is inten ded for us in clini lelia monit oring and manag ement of brandon de leon. It is not inten ded for use in medic al-le gal appli catio n. Not Available [facility] [address] [place], [address], 09/13/2023 14:30:44 09/12/19 24 09/16/2023 THINP REP TIS PAP clinical information: normal None given Not Available [address] [address] [place], [address], 09/16/2023 18:10:07 09/12/19 24 09/16/2023 THINP REP TIS PAP LMP: normal NONE GIVEN Not Available [address] [place], [address], 09/16/2023 18:10:07 09/12/19 24 09/16/2023 THINP REP TIS PAP prev. Pap: normal NONE GIVEN Not Available [facility] [place] [address] [address] [place], [address], 09/16/2023 18:10:07 09/12/19 24 09/16/2023 THINP REP TIS PAP prev. BX: normal NONE GIVEN Not Available [address] [address] [place], [address], 09/16/2023 18:10:07 09/12/19 24 09/16/2023 THINP REP TIS PAP source: normal Cervi x Not Available [address] [place], [address], 09/16/2023 18:10:07 09/12/19 24 09/16/2023 THINP REP TIS PAP statement of adequacy: normal Satis facto ry for evalu ation . Endoc ervic al/tr ansfo rmati on zone compo nent prese nt. Age and/o r menst rual statu s not provi ded Not Available [address], [place], [address], 09/16/2023 18:10:07 09/12/19 24 09/16/2023 THINP REP TIS PAP interpretati on/result: normal Cytol ogy Resul ts: Negat tez for intra epith elial lesio n or malig delphine . Not Available [address] [address] [place], [address], 09/16/2023 18:10:07 09/12/19 24 09/16/2023 THINP REP TIS PAP comment: normal This Pap test has been evalu ated with compu joe techn ology . Not Available [address] [address] [facility] [place], [address], 09/16/2023 18:10:07 09/12/19 24 09/16/2023 THINP REP TIS PAP cytotechnolo gist: normal LM, CT( CP) CT scree kimberly locat ion: [place] [address] [place] [address] Not Available [place] [address] [place], [address], 09/16/2023 18:10:07 09/12/19 24 09/16/2023 THINP REP [...] clini lelia infor matio n. Not Available [address] [address] [place], [address], 09/16/2023 18:10:07 Result Notes None recorded. Procedures Surgical History Date Name Laterality Status Provider Name and Address Organization Details Recorded Time 09/12/2023 Date of Last Pap Smear completed WINDY SHELL [facility] [address] [facility], [place], [address], [facility] Dr. TATTOFF IV 09/12/2023 15:26:14 Imaging Results None recorded. Procedure Notes None recorded. Medical Equipment None Reported. Allergies No known drug allergies Medications Not known to be on any medication Vitals Date Recorded Body weight Provider Name an d Address Organization Details Last Updated DateTime 09/12/2023 28012.1 g Tania Singh [facility] Dr. TATTOFF IV 09/12/2023 15:11:35 Date Recorded Body temperature Provider Name a nd Address Organization Details Last Updated DateTime 09/12/2023 97.8 [degF] Tania Singh [facility] Dr. TATTOFF IV 09/12/2023 15:11:48 Date Recorded Body mass index (BMI) Body height Provider Name and Address Organization Details Last Updated DateTime 09/12/2023 31.6 kg/m2 167.64 cm Tania Singh [facility] [employer] IV 09/12/2023 15:13:01 Date Recorded Systolic blood pressure Diastolic blood pressure Provider Name and Address Organization Details Last Updated DateTime 09/12/2023 104 mm[Hg] 72 mm[Hg] Tania Singh [facility] Dr. TATTOFF IV 09/12/2023 15:12:55 Social History Question Answer Notes LastModified by Organizat ion Details LastModified Time Tobacco Smoking Status Current Every Day Smoker Tania Abbottell [facility] Dr. TATTOFF IV 09/12/2023 15:13:24 What Is Your Level Of Alcohol Consumption? Occasional [email or web address] Information not available 09/12/2023 How Many Years Have You Consumed Alcohol? 7 [email or web address] Information not available 09/12/2023 Are You Blind Or Do You Have Difficulty Seeing? Yes Information not available 09/12/2023 Are You Currently Employed? Yes [email or web address] Information not available 09/12/2023 Are You Deaf Or Do You Have Serious Difficulty Hearing? No [email or web address] Information not available 09/12/2023 What Type Of Diet Are You Following? REGULAR [email or web address] Information not available 09/12/2023 Which Illicit Or Recreational Drugs Have You Used? [place] [email or web address] Information not available 09/12/2023 How Many Children Do You Have? 0 [email or web address] Information not available 09/12/2023 Are There Any Occupational Health Risks Where You Work? No [email or web address] Information not available 09/12/2023 What Is Your Relationship Status? Domestic Partner [email or web address] Information not available 09/12/2023 Are You Sexually Active? Yes [email or web address] Information not available 09/12/2023 At What Age Did You Start Smoking Tobacco? 19 [email or web address] Information not available 09/12/2023 How Much Tobacco Do You Smoke? 1 PPW [email or web address] Information not available 09/12/2023 Do You Use Any Illicit Or Recreational Drugs? Yes [email or web address] Information not available 09/12/2023 How Many Years Have You Smoked Tobacco? 4 [email or web address] Information not available 09/12/2023 Sex: Unknown Functional Status Question Answer Note LastModified by Organizat ion Details LastModified Time What is your exercise level? Occasional Information not available 09/12/2023 Mental Status None [...] Diagnosis/Indication Diagnosis SNOMED-CT Code Diagnosis ICD10 Code Diagnosis Note [id number] [facility] [address] [place] [address] 09/12/2023 14:58:10 09/12/2023 18:24:24 Gynecologic examination 57006932 Z01.419 Screening for malignant neoplasm of cervix 641184493 Z12.4 Contracept ion education 805391730 Z30.09 Contracept tez counseling : Discussed options including OCPs, NuvaRing, Nexplanon, hormonal and copper IUDs. Discussed risks, efficacy, noncontrac eptive benefits, and side effects of each option, including risk of VTE with hormonal contracept ion and uterine perforatio n, expulsion, infection with IUD. Depression screening 171 493333 Z13.31 See PHQ-9 Screening Trying to conceive 59556 4271 Z31.9 Pt is Trying to Conceive. Education given.-- Reviewed normal fecundity, peak fertility around time of ovulation, and monitoring menses. -- Pt reports menses come every month and last around 5 days. She is not tracking her menses, she will start tracking.- - Discussed intercours e during ovulation Q other day.-- Recommende d starting PNV.-- Discussed following up within 2-4 weeks of first pos UPT and in 1 year if pt has not had positive UPT. Menorrhagia [id number] N9 2.0 Education given. This is not new for pt. Family edu cation about hygiene 247497060 Z71.89 Health Concerns Section Related Observation LastModified [...] for about a year. WINDY SHELL, ELISA- [address] [facility], [place], [address], [facility] - Dr. TATTOFF IV 09/12/2023 15:39:59 OBGyn Episode No OBEpisode recorded.
--- OUTSIDE RECORDS SUMMARY | 2024-10-02 09:41 | XMS_ITS | Encounter Summary ---
Author Organization [facility] Address [address] [place], [place] [address]Er[place] [address] Care Team Providers Care Diesel Engine Inspector Name Role Phone Unavailable Primary Care Provider Unavailabl e Encounter Details Date Type Department Care Team (Late st Contact Info) Description 04/14/2020 Lab Requisition [facility] [address] [place] [address] Social History Tobacco Use Types Packs/Day Years [...] Not detected, Invalid 04/17/2020 3:59 AM CDT [facility] Microbiology SPECIMEN FROM NASOPHARYNGEAL STRUCTURE / Unknown Collection / Unknown 04/14/2020 8:55 AM CDT 04/14/2020 6:16 PM CDT Narrative [facility] - 04/17/2020 3:59 AM CDT This [...] revoked sooner. LAB - MICROBIOLOGY O RDERABLES [facility] [address] [place] [address], [facility] [phone] documented in this encounter Visit Diagnoses Not on filedocumented in this encounter Additional Health Concerns Infection Onset Date Last Indicated Resolved Time COVID-19 Under Investigation 04/14/2020 04/14/2020 04/17/2020 3:59 AM CDT COVID-19 Under Investigation 07/28/2020 07/28/2020 07/31/2020 6:11 AM DIESEL ENGINE MECHANIC documented as of this encounter
== END 2024-09-28 02:29 | disposition home or self-care (01) ==
PROVIDERS: Admitting Provider Obstetrics & Gynecology; Visit Provider Obstetrics & Gynecology
DX: O26.893 Other specified pregnancy related conditions, third trimester (principal); R10.2 Pelvic and perineal pain; O23.43 Unspecified infection of urinary tract in pregnancy, third trimester; N39.0 Urinary tract infection, site not specified; Z3A.33 33 weeks gestation of pregnancy
CPT/HCPCS: 81001; 87086; 87491; 87591; 96374; G0378; G0379; J0696; J7120

== ENCOUNTER 2024-10-04 22:50 | Observation (INO) | payer OTHER, SELFPAY ==
--- NOTE | 2024-10-04 22:50 | LDADM ---
This Patient arrived to the labor and delivery unit with complaints of cramping, vomiting and a headache. Patient states that she started cramping at 8pm tonight and has frequent UTIs throughout this . Patient states that she has been vomiting stomach acid and has not been able to keep food or drinks down.
--- OUTSIDE RECORDS SUMMARY | 2024-10-04 22:57 | XMS_ITS | Encounter Summary ---
Author Organization [facility] Address [address] [place], [place] [address]Erinn [place] [address] Care Team Providers Care Formstone Fitter Name Role Phone Unavailable Primary Care Provider Unavailabl e Encounter Details Date Type Department Care Team (Late st Contact Info) Description 03/29/2020 Lab Requisition [facility] [address] [place] [address] Social History Tobacco Use Types Packs/Day Years [...] Not detected, Invalid 03/30/2020 6:18 AM CDT [facility] Microbiology SPECIMEN FROM NASOPHARYNGEAL STRUCTURE / Unknown Collection / Unknown 03/29/2020 8:10 AM CDT 03/30/2020 2:17 AM CDT Narrative [facility] - 03/30/2020 6:18 AM CDT This Real Time RT-PCR assay was developed and its performance characteristics determined by [facility]. This test has been authorized [...] revoked sooner. LAB - MICROBIOLOGY O RDERABLES [facility] [address] [place] [address], [facility] [phone] documented in this encounter Visit Diagnoses Not on filedocumented in this encounter Additional Health Concerns Infection Onset Date Last Indicated Resolved Time COVID-19 Under Investigation 03/29/2020 03/29/2020 03/30/2020 6:18 AM CDT COVID-19 Under Investigation 04/14/2020 04/14/2020 04/17/2020 3:59 AM CDT COVID-19 Under Investigation 07/28/2020 07/28/2020 07/31/2020 6:11 AM SENIOR MATERIALS PLANNER documented as of this encounter
--- OUTSIDE RECORDS SUMMARY | 2024-10-04 22:57 | XMS_ITS | Clinical Summary ---
Author Organization [facility] Address [facility] [place] [address] Care Team Providers Care Humid System Operator Name Role Phone Unavailable Primary Care Provider Unavailabl e Source Comments [facility],non-owned Affiliates and Associated Physician Practices is amultiple site organization consisting of ambulatory clinics and hospital sitesin [place], [place], [place] and [place]. This disclosure is being madepursuant to the Care Everywhere program and may not contain all information available regarding this patient. Last updated 18.[facility] [employer] Allergies No known active allergies Social History Tobacco Use Types Packs/Day Years Used Date Smoking Tobacco: Never Assessed Sex and Gender Information Value Date Recorded Sex Assigned at Not on file Gender Identity Not on file Sexual Orientation Not on file Last Filed Vital Signs Vital Sign Reading Time Taken Comments Blood Pressure 135/71 10/06/2021 8:57 AM TRAFFIC ENGINEERING DIRECTOR Pulse 75 10/06/2021 8:57 AM TRAFFIC ENGINEERING DIRECTOR Temperature 36.7 ??C (98 ??F) 10/06/2021 8:57 AM TRAFFIC ENGINEERING DIRECTOR Respiratory Rate 14 10/06/2021 8:57 AM TRAFFIC ENGINEERING DIRECTOR Oxygen Saturation 98% 10/06/2021 8:57 AM TRAFFIC ENGINEERING DIRECTOR Inhaled Oxygen Concentration - - Weight 131.5 kg (290 lb) 10/06/2021 8:57 AM TRAFFIC ENGINEERING DIRECTOR Height 170.2 cm (5' 7 ) 10/06/2021 8:57 AM TRAFFIC ENGINEERING DIRECTOR Body Mass Index 45.42 10/06/2021 8:57 AM TRAFFIC ENGINEERING DIRECTOR Plan of Treatment Health Maintenance Due Date [...]
--- OUTSIDE RECORDS SUMMARY | 2024-10-04 22:57 | XMS_ITS | Data Portability ---
Author Organization [facility]_Rosemarie Address [address] [place] [address] Assessment Encounter Date Assessment Date Assessment LastModified by Organization Details LastModified Time 09/12/2023 09/12/2023 Patient is new to our Practice. She presents today for a gynecological Annual Exam. Patients Past Medical History and Family History reviewed. 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 Her menses are regular, occurring every [...] lab - Pap reflex hold 2023 024 [facility], [address] [place], [address], 4 11:08:22 pap, LB 2023 ALEXANDRE [facility], [address] [facility] [place], [place], [address], 18:10:08 STI panel 2023 ALEXANDRE [facility], [address] [place], [address], 14:30:44 Referral None recorded. Procedures None recorded. Surgeries None recorded. Imaging None recorded. Medication Orders None recorded. Patient TargetsNo targets recorded. Patient Instructions Encounter Date Encounter Id Patient Instructions Last Modified By Organization Details Last Modified Time 09/12/2023 [id number] A healthy lifestyle: care instructions bnotzke Not [...] TRICH neg negati ve normal Not Available [facility] [address] [place], [address], 09/13/2023 14:30:44 09/12/19 24 09/13/2023 STI PANEL chlamydia trachomatis CT neg negati ve normal This repor t is inten ded for us in clini lelia monit oring and manag ement of brandon de leon. It is not inten ded for use in medic al-le gal appli catio n. Not Available [facility] [address] [place], [address], 09/13/2023 14:30:44 09/12/19 24 09/13/2023 STI PANEL neisseria gonorrhoeae GC neg negati ve normal This repor t is inten ded for us in clini lelia monit oring and manag ement of brandon de leon. It is not inten ded for use in medic al-le gal appli catio n. Not Available [facility] [address] [place], [address], 09/13/2023 14:30:44 09/12/19 24 09/16/2023 THINP REP TIS PAP clinical information: normal None given Not Available [place] [address] [address] [place], [address], 09/16/2023 18:10:07 09/12/19 24 09/16/2023 THINP REP TIS PAP LMP: normal NONE GIVEN Not Available [address] [place], [address], 09/16/2023 18:10:07 09/12/19 24 09/16/2023 THINP REP TIS PAP prev. Pap: normal NONE GIVEN Not Available [facility] [address] [address] [place], [address], 09/16/2023 18:10:07 09/12/19 24 09/16/2023 THINP REP TIS PAP prev. BX: normal NONE GIVEN Not Available [address] [address] [place], [address], 09/16/2023 18:10:07 09/12/19 24 09/16/2023 THINP REP TIS PAP source: normal Cervi x Not Available [address] [address] [place], [address], 09/16/2023 18:10:07 09/12/19 24 09/16/2023 THINP REP TIS PAP statement of adequacy: normal Satis facto ry for evalu ation . Endoc ervic al/tr ansfo rmati on zone compo nent prese nt. Age and/o r menst rual statu s not provi ded Not Available [address], [place], [address], 09/16/2023 18:10:07 09/12/19 24 09/16/2023 THINP REP TIS PAP interpretati on/result: normal Cytol ogy Resul ts: Negat tez for intra epith elial lesio n or malig delphine . Not Available [address] [address] [place], [address], 09/16/2023 18:10:07 09/12/19 24 09/16/2023 THINP REP TIS PAP comment: normal This Pap test has been evalu ated with compu joe techn ology . Not Available [place] [address] [facility] [place], [address], 09/16/2023 18:10:07 09/12/19 24 09/16/2023 THINP REP TIS PAP cytotechnolo gist: normal LM, CT( CP) CT scree kimberly locat ion: [place] [address] [place] [address] Not Available [address] [address] [place], [address], 09/16/2023 18:10:07 09/12/19 24 09/16/2023 THINP REP [...] clini lelia infor matio n. Not Available [address] [address] [place], [address], 09/16/2023 18:10:07 Result Notes None recorded. Procedures Surgical History Date Name Laterality Status Provider Name and Address Organization Details Recorded Time 09/12/2023 Date of Last Pap Smear completed WINDY SHELL [facility] [address] [facility], [place], [address], [facility] [employer] IV 09/12/2023 15:26:14 Imaging Results None recorded. Procedure Notes None recorded. Medical Equipment None Reported. Allergies No known drug allergies Medications Not known to be on any medication Vitals Date Recorded Body weight Provider Name an d Address Organization Details Last Updated DateTime 09/12/2023 34294.1 g Tania Singh [facility] [employer] IV 09/12/2023 15:11:35 Date Recorded Body temperature Provider Name a nd Address Organization Details Last Updated DateTime 09/12/2023 97.8 [degF] Tania Singh [facility] [employer] IV 09/12/2023 15:11:48 Date Recorded Body mass index (BMI) Body height Provider Name and Address Organization Details Last Updated DateTime 09/12/2023 31.6 kg/m2 167.64 cm Tania Singh [facility] [employer] IV 09/12/2023 15:13:01 Date Recorded Systolic blood pressure Diastolic blood pressure Provider Name and Address Organization Details Last Updated DateTime 09/12/2023 104 mm[Hg] 72 mm[Hg] Tania Singh [facility] [employer] IV 09/12/2023 15:12:55 Social History Question Answer Notes LastModified by Organizat ion Details LastModified Time Tobacco Smoking Status Current Every Day Smoker Tania Abbottell [facility] [employer] IV 09/12/2023 15:13:24 What Is Your Level Of Alcohol Consumption? Occasional Information not available 09/12/2023 How Many Years Have You Consumed Alcohol? 7 [email or web address] Information not available 09/12/2023 Are You Blind Or Do You Have Difficulty Seeing? Yes [email or web address] Information not available 09/12/2023 Are You Currently Employed? Yes [email or web address] Information not available 09/12/2023 Are You Deaf Or Do You Have Serious Difficulty Hearing? No [email or web address] Information not available 09/12/2023 What Type Of Diet Are You Following? REGULAR Information not available 09/12/2023 Which Illicit Or Recreational Drugs Have You Used? [place] [email or web address] Information not available 09/12/2023 How Many Children Do You Have? 0 [email or web address] Information not available 09/12/2023 Are There Any Occupational Health Risks Where You Work? No [email or web address] Information not available 09/12/2023 What Is Your Relationship Status? Domestic Partner Information not available 09/12/2023 Are You Sexually Active? Yes [email or web address] Information not available 09/12/2023 At What Age Did You Start Smoking Tobacco? 19 [email or web address] Information not available 09/12/2023 How Much Tobacco Do You Smoke? 1 PPW [email or web address] Information not available 09/12/2023 Do You Use Any Illicit Or Recreational Drugs? Yes [email or web address] Information not available 09/12/2023 How Many Years Have You Smoked Tobacco? 4 [email or web address] Information not available 09/12/2023 Sex: Unknown Functional Status Question Answer Note LastModified by Organizat ion Details LastModified Time What is your exercise level? Occasional [email or web address] Information not available 09/12/2023 Mental Status None [...] SNOMED-CT Code Diagnosis ICD10 Code Diagnosis Note [id number] [facility] [address] [place] [address] 09/12/2023 14:58:10 09/12/2023 18:24:24 Gynecologic examination 20919406 Z01.419 Screening for malignant neoplasm of cervix 857389167 Z12.4 Contracept ion education 920200535 Z30.09 Contracept tez counseling : Discussed options including OCPs, NuvaRing, Nexplanon, hormonal and copper IUDs. Discussed risks, efficacy, noncontrac eptive benefits, and side effects of each option, including risk of VTE with hormonal contracept ion and uterine perforatio n, expulsion, infection with IUD. Depression screening 171 243614 Z13.31 See PHQ-9 Screening Trying to conceive 54575 5857 Z31.9 Pt is Trying to Conceive. Education [...] pt has not had positive UPT. Menorrhagia 400515562 N9 2.0 Education given. This is not new for pt. Family edu cation about hygiene 635279554 Z71.89 Health Concerns Section Related Observation LastModified [...] for about a year. WINDY SHELL, ELISA- [address] [facility], [place], [address], [facility] - [employer] IV 09/12/2023 15:39:59 OBGyn Episode No OBEpisode recorded.
--- OUTSIDE RECORDS SUMMARY | 2024-10-04 22:57 | XMS_ITS | Encounter Summary ---
Author Organization [facility] Address [address] [place], [place] [address] [address] Care Team Providers Care Chemistry Research Assistant Name Role Phone Unavailable Primary Care Provider Unavailabl e Encounter Details Date Type Department Care Team (Late st Contact Info) Description 04/14/2020 Lab Requisition [facility] [address] [place] [address] Social History Tobacco Use Types Packs/Day Years [...] detected, Invalid 04/17/2020 3:[address] [facility] Microbiology SPECIMEN FROM NASOPHARYNGEAL STRUCTURE / Unknown Collection / Unknown 04/14/2020 8:55 AM CDT 04/14/2020 6:[address] [facility] - 04/17/2020 3:59 AM CDT This Real Time RT-PCR assay was developed and its performance characteristics determined by [facility]. This test has been [...] revoked sooner. LAB - MICROBIOLOGY O RDERABLES [facility] [address] [place] [address], [facility] [place] [phone] documented in this encounter Visit Diagnoses Not on filedocumented in this encounter Additional Health Concerns Infection Onset Date Last Indicated Resolved Time COVID-19 Under Investigation 04/14/2020 04/14/2020 04/17/2020 3:59 AM CDT COVID-19 Under Investigation 07/28/2020 07/28/2020 07/31/2020 6:11 AM FITNESS AND WELLNESS MANAGER documented as of this encounter
--- OUTSIDE RECORDS SUMMARY | 2024-10-04 22:57 | XMS_ITS | Referral Summary ---
Author Organization [facility] Address [address] [place] [place] [address] Care Team Providers Care Supervisor Customer Records Division Name Role Phone Unavailable Primary Care Provider Unavailabl e Source Comments [facility],non-owned Affiliates and Associated Physician Practices is amultiple site organization consisting of ambulatory clinics and hospital sitesin [place], [place], [place] and [place]. This disclosure is being madepursuant to the Care Everywhere program and may not contain all information available regarding this patient. Last updated 18.[facility] [employer] Allergies No known active allergies Social History Tobacco Use Types Packs/Day Years Used Date Smoking Tobacco: Never Assessed Sex and Gender Information Value Date Recorded Sex Assigned at Not on file Gender Identity Not on file Sexual Orientation Not on file Last Filed Vital Signs Vital Sign Reading Time Taken Comments Blood Pressure 135/71 10/06/2021 8:57 AM PE TEACHER Pulse 75 10/06/2021 8:57 AM PE TEACHER Temperature 36.7 ??C (98 ??F) 10/06/2021 8:57 AM PE TEACHER Respiratory Rate 14 10/06/2021 8:57 AM PE TEACHER Oxygen Saturation 98% 10/06/2021 8:57 AM PE TEACHER Inhaled Oxygen Concentration - - Weight 131.5 kg (290 lb) 10/06/2021 8:57 AM PE TEACHER Height 170.2 cm (5' 7 ) 10/06/2021 8:57 AM PE TEACHER Body Mass Index 45.42 10/06/2021 8:57 AM PE TEACHER Plan of Treatment Not on file
--- OUTSIDE RECORDS SUMMARY | 2024-10-04 22:57 | XMS_ITS | Clinical Summary ---
Author Organization [facility] Address [address] [id number] Care Team Providers Care Logistics Operations Manager Name Role Phone No, Physician Primary Care Provider [phone] Allergies No known active allergies Medications guaiFENesin [...] vomiting 30 tablet 4 Active PNV with [id number] 27 mg iron- 1 mg tablet Take [...] Department Care Team Description 07/22/2024 7:36 AM [facility] - 07/22/2024 10:18 AM [facility] Emergency [facility] Emergency Department [address] [place] [id number] Sesar Goldberg MD 24 weeks gestation of (Primary Dx); Hyperemesis gravidarum with dehydration Discharge Disposition: Discharge to home or self care 07/09/2024 9:34 PM CDT - 07/10/2024 1:37 AM [facility] Emergency [facility] Emergency Department [address] [place] [address] Te Ferro DO Acute cystitis without hematuria [...] on file Legal Sex Female 11:54 AM RADIATION THERAPIST Gender Identity Not on file Sexual Orientation Not on file Obstetrics History Para Term AB IAB SAB Ectopic Multiple Livin g Live Births 1 Date Outcome GA Total Labor Labor/2nd/3rd Weight Sex Type Anes PTL Nellie A1 A5 Name Clin Current Last Filed Vital Signs Vital Sign Reading Time Taken Comments Blood Pressure 122/56 07/22/2024 9:24 AM RADIATION THERAPIST Pulse 67 07/22/2024 9:24 AM RADIATION THERAPIST Temperature 36.8 ??C (98.2 ??F) 07/22/2024 9:24 AM CS T Respiratory Rate 18 07/22/2024 9:24 AM RADIATION THERAPIST Oxygen Saturation 99% 07/22/2024 9:24 AM RADIATION THERAPIST Inhaled Oxygen Concentration - - Weight 79.8 kg (175 lb 14.8 oz) 07/22/2024 7:24 AM RADIATION THERAPIST Height 170.2 cm (5' 7 ) 03/24/2024 [...] URINALYSIS, MICROSCOPIC ONLY STAT 07/22/2024 9:23 AM RADIATION THERAPIST URINALYSIS AND REFLEX TO MICROSCOPIC AND CULTURE STAT 07/22/2024 9:23 AM RADIATION THERAPIST EGFR STAT 07/22/2024 8:04 AM RADIATION THERAPIST DIFFERENTIAL AUTO STAT 07/22/2024 8: 04 AM RADIATION THERAPIST LIPASE STAT 07/22/2024 8:04 AM RADIATION THERAPIST COMPREHENSIVE METABOLIC PANEL STAT 07/22/2024 8:04 AM RADIATION THERAPIST CBC WITH AUTO DIFFERENTIAL STAT 07/22/2024 8:04 AM RADIATION THERAPIST US OB 14 WEEKS OR OVER ED [...] culture Urine, clean voided (07/22/2024 9:23 AM RADIATION THERAPIST) Color, ur Yellow Yellow Comment:Testing performed by : [facility], [address] [place] [address], [place]., [address] Clarity, ur Clear Clear JOSE LIVINGSTON Comment:Testing performed by : [address] [address] Specific gravity, ur 1.030 1.003 - 1.030 JOSE Comment:Testing performed by : [address] [address] pH, urine 6.0 JOSE Comment: Interpretive Data ? Urine pH is affected by diet, medications, systemic acid-base disturbances, and renal tubular function. ??pH may affect urinary stone formation. ??For example, urine pH below 6.0 may help reduce the tendency for calcium phosphate stones and pH greater than 6.0 may reduce the tendency for uric acid stone formation. Source: [facility] Current Interpretive Data was last revised on 2017 Testing performed by: [address] [address] Protein, ur ql 1+(A) Negative JOSE Comment:Testing performed by : [address] [address] Glucose, ur ql Negative Negative JOSE Comment:Testing performed by : [address] [address] Ketones, ur 4+(A) Negative JOSE Comment:Testing performed by : [address] [address] Bilirubin, ur Negative Negative JOSE Comment:Testing performed by : [address] [address] Blood, ur Negative Negative JOSE Comment:Testing performed by : [address] [address] Urobilinogen, ur <2.0 <2.0 mg/dL JOSE Comment:Testing performed by : [address] [address] Nitrite, ur Negative Negative JOSE Comment:Testing performed by : [address] [address] Leukocyte esterase, ur 3+(A) Negative JOSE Comment:Testing performed by : [address] [address] UA reflex comment Reflex to microscopic UA will be performed. JOSE Comment:Testing performed by : [address] [address] Urine, clean voided 07/22/2024 9:23 AM RADIATION THERAPIST 07/22/2024 9:28 AM RADIATION THERAPIST Zac Regan MD LAB MICROBIOLOGY - GENERAL ORDERABLES Final Result Performing Organization Address City/[facility] Co de Phone Number JOSE [address] [address] * (ABNORMAL) Urinalysis, microscopic only (07/22/2024 9:23 AM RADIATION THERAPIST) WBC, ur 6-10(A) 0 - 5 /HPF Comment:Testing performed by : [address] [address] RBC, ur 6-10(A) 0 - 2 /HPF JOSE Comment:Testing performed by : [address] [address] Epithelial cells, squamous, ur >50(A) 0 - 5 /HPF JOSE Comment:Testing performed by : [address] [address] Mucous, ur Present(A) JOSE Comment:Testing performed by : [address] [address] Culture Reflex Comment Reflex conditions for urine culture (WBC >10) not met. JOSE Comment:Testing performed by : [address] [address] Urine, clean voided 07/22/2024 9:23 AM RADIATION THERAPIST 07/22/2024 9:28 AM RADIATION THERAPIST Zac Regan MD LAB URINE ORDERABLES Final Result Performing Organization Address City/[facility]/ZIP Co de Phone Number MARIA DEL ROSARIO[address] [employer] [place] [address] * eGFR (07/22/2024 8:04 AM RADIATION THERAPIST) eGFR >90 >=60 mL/min/1. 73 m2 Comment: [...] was last reviewed 2021. Testing performed by: [address] [address] Blood 07/22/2024 8:04 AM RADIATION THERAPIST 07/22/2024 8:08 AM RADIATION THERAPIST us Zac Regan MD LAB BLOOD ORDERABLES Final Result JOSE [address] [facility] Department [place] [address] * (ABNORMAL) Differential, auto (07/22/2024 8:04 AM RADIATION THERAPIST) Neutrophil abs 7.2(H) 1.5 - 6.5 K/cumm Comment:Testing performed by : [address] [address] Imm gran abs 0.1 0.0 - 0.1 K/cumm JOSE LIVINGSTON Comment:Testing performed by : [facility], [address] [place] [address], [place]., [address] Lymphocyte abs 1.7 0.8 - 3.3 K/cumm JOSE Comment:Testing performed by : [address], [place]., [address] Monocyte abs 0.6 0.2 - 0.8 K/cumm JOSE Comment:Testing performed by : [address], [place]., [address] Eosinophil abs 0.0 0.0 - 0.5 K/cumm JOSE Comment:Testing performed by : [address], [place]., [address] Basophil abs 0.0 0.0 - 0.1 K/cumm JOSE Comment:Testing performed by : [address], [place]., [address] Neutrophil pct 75.3 % [facility] Comment: Interpretive Data Percent cell count reference ranges are not reported, since discordance with absolute values may lead to misinterpretation of CBC data. Current Interpretive Data was last revised on 2017. Testing performed by: [address] [address] Imm gran pct 0.6 % [facility] Comment: Interpretive Data Percent cell count reference ranges are not reported, since discordance with absolute values may lead to misinterpretation of CBC data. Current Interpretive Data was last revised on 2017. Testing performed by: [address] [address] Lymphocyte pct 17.6 % [facility] Comment: Interpretive Data Percent cell count reference ranges are not reported, since discordance with absolute values may lead to misinterpretation of CBC data. Current Interpretive Data was last revised on 2017. Testing performed by: [address] [address] Monocyte pct 5.9 % [facility] Comment: Interpretive Data Percent cell count reference ranges are not reported, since discordance with absolute values may lead to misinterpretation of CBC data. Current Interpretive Data was last revised on 2017. Testing performed by: [address] [address] Eosinophil pct 0.2 % JOSE LIVINGSTON Comment: Interpretive Data Percent cell count reference ranges are not reported, since discordance with absolute values may lead to misinterpretation of CBC data. Current Interpretive Data was last revised on 2017. Testing performed by: [address] [address] Basophil pct 0.4 % JOSE LIVING[place]ON Comment: Interpretive Data Percent cell count reference ranges are not reported, since discordance with absolute values may lead to misinterpretation of CBC data. Current Interpretive Data was last revised on 2017. Testing performed by: [address] [address] Blood 07/22/2024 8:04 AM RADIATION THERAPIST 07/22/2024 8:08 AM RADIATION THERAPIST us Zac Regan MD LAB BLOOD ORDERABLES Final Result Performing Organization Address City/State/[facility] Co de Phone Number JOSE [address] [facility] Department [place] [address] * (ABNORMAL) CBC with auto differential (07/22/2024 8:04 AM RADIATION THERAPIST) WBC 9.6 3.8 - 9.9 K/cumm Comment:Testing performed by : [address] [address] Hgb 11.8(L) 11.9 - 15.5 g/dL JOSE LIVINGSTON Comment:Testing performed by : [address] [address] Hct 34.5(L) 35.6 - 45.5 % JOSE LIVINGSTON Comment:Testing performed by : [address] [address] Plt 230 150 - 400 K/cumm JOSE LIVINGSTON Comment:Testing performed by : [address] [address] MPV 10.8 9.1 - 12.3 fL JOSE LIVINGSTON Comment:Testing performed by : [address] [address] RBC 3.91 3.90 - 5.20 M/cumm JOSE LIVINGSTON Comment:Testing performed by : [facility], [address] [place] [address]., [address] MCV 88.2 81.3 - 96.4 fL JOSE LIVINGSTON Comment:Testing performed by : [address] [address] MCH 30.2 27.1 - 33.3 pg JOSE LIVINGSTON Comment:Testing performed by : [address] [address] MCHC 34.2 32.3 - 35.7 g/dL JOSE Comment:Testing performed by : [address] [address] RDW CV 12.2 11.1 - 14.9 % JOSE Comment:Testing performed by : [address] [address] RDW SD 39.1 35.7 - 48.1 fL JOSE Comment:Testing performed by : [address] [address] NRBC abs 0.00 0.00 - 0.01 K/cumm JOSE Comment:Testing performed by : [address] [address] Blood 07/22/2024 8:04 AM RADIATION THERAPIST 07/22/2024 8:08 AM RADIATION THERAPIST Zac Regan MD LAB BLOOD ORDERABLES Final Result Performing Organization Address City/State/[facility] Co de Phone Number JOSE [address] [facility] Department [place] [address] * Lipase (07/22/2024 8:04 AM RADIATION THERAPIST) Lipase 22 10 - 99 Units/L Comment:Testing performed by : [address] [address] Blood 07/22/2024 8:04 AM RADIATION THERAPIST 07/22/2024 8:08 AM RADIATION THERAPIST Zac Regan MD LAB BLOOD ORDERABLES Final Result JOSE [address] [facility] Department [place] [address] * (ABNORMAL) Comprehensive metabolic panel (07/22/2024 8:04 AM RADIATION THERAPIST) Sodium 138 135 - 145 mmol/L Comment:Testing performed by : [address] [address] Potassium, pl 4.0 3.3 - 4.9 mmol/L JOSE Comment:Testing performed by : [address] [address] Chloride 101 97 - 110 mmol/L JOSE Comment:Testing performed by : [address] [address] CO2 21(L) 22 - 32 mmol/L JOSE Comment:Testing performed by : [address] [address] Anion gap 16(H) 2 - 15 mmol/L JOSE Comment:Testing performed by : [address] [address] BUN 8 6 - 25 mg/dL JOSE Comment:Testing performed by : [address] [address] Creatinine 0.60 0.60 - 1.10 mg/dL JOSE Comment:Testing performed by : [address] [address] Glucose 79 70 - 199 mg/dL JOSE [...] was last revised 2022. Testing performed by: [address] [address] Calcium 9.5 8.5 - 10.3 mg/dL JOSE Comment:Testing performed by : [address] [address] Bilirubin, total 0.4 0.1 - 1.2 mg/dL JOSE Comment:Testing performed by : [address], [place]., [address] Protein, pl 7.2 6.5 - 8.5 g/dL JOSE Comment:Testing performed by : [address], [place]., [address] Albumin 4.0 3.5 - 5.0 g/dL JOSE Comment:Testing performed by : [address] [address] Alk phos 37(L) 40 - 130 Units/L JOSE Comment:Testing performed by : [address], [place]., [address] ALT 15 7 - 45 Units/L JOSE Comment:Testing performed by : [address] [address] AST 15 10 - 45 Units/L JOSE Comment:Testing performed by : [address] [address] Blood 07/22/2024 8:04 AM RADIATION THERAPIST 07/22/2024 8:08 AM RADIATION THERAPIST us Zac Regan MD LAB BLOOD ORDERABLES Final Result Performing Organization Address City/State/[facility] Co wv Phone Number [facility] [address] [facility] Department [place] [address] * US Ob 14 Weeks Or Over [...] PM T: ??07/09/2024 9:21 PM Report ID: [id number] Reading Location: ??[id number] Procedure Note Lamont Fernandez MD - 07/09/2024 [...] Lamont Fernandez M.D. AG: ADAN Report ID: [id number] Reading Location: [id number] us Leela LUNA IMG OB US PROCEDURES Final Resul t * (ABNORMAL) Urinalysis reflex to microscopic and culture Urine (07/09/2024 7:36 PM CDT) Color, ur Yellow Yellow Comment:Testing performed by : [address] [address] Clarity, ur Cloudy(A) Clear JOSE Comment:Testing performed by : [address] [address] Specific gravity, ur 1.027 1.003 - 1.030 JOSE Comment:Testing performed by : [address], [place]., [address] pH, urine 6.5 JOSE Comment: Interpretive Data ? Urine pH is affected by diet, medications, systemic acid-base disturbances, and renal tubular function. ??pH may affect urinary stone formation. ??For example, urine pH below 6.0 may help reduce the tendency for calcium phosphate stones and pH greater than 6.0 may reduce the tendency for uric acid stone formation. Source: [facility] Current Interpretive Data was last revised on 2017 Testing performed by: [address] [address] Protein, ur ql 1+(A) Negative JOSE Comment:Testing performed by : [address] [address] Glucose, ur ql Negative Negative JOSE Comment:Testing performed by : [address] [address] Ketones, ur 4+(A) Negative JOSE Comment:Testing performed by : [address] [address] Bilirubin, ur Negative Negative JOSE Comment:Testing performed by : [address] [address] Blood, ur Negative Negative JOSE Comment:Testing performed by : [address] [address] Urobilinogen, ur <2.0 <2.0 mg/dL JOSE Comment:Testing performed by : [address] [address] Nitrite, ur Negative Negative JOSE Comment:Testing performed by : [address] [address] Leukocyte esterase, ur 2+(A) Negative JOSE Comment:Testing performed by : [address] [address] UA reflex comment Reflex to microscopic UA will be performed. JOSE Comment:Testing performed by : [address] [address] Urine 07/09/2024 7:36 PM CDT 07/09/2024 7:38 PM CDT Te Ferro DO LAB MICROBIOLOGY - GEN ERAL ORDERABLES Final Result JOSE [address] [facility] Department [place] [address] * (ABNORMAL) Urinalysis, microscopic only (07/09/2024 7:36 PM CDT) WBC, ur 0-5 0 - 5 /HPF Comment:Testing performed by : [address] [address] RBC, ur 3-5(A) 0 - 2 /HPF JOSE Comment:Testing performed by : [address] [address] Epithelial cells, squamous, ur >50(A) 0 - 5 /HPF JOSE Comment:Testing performed by : [address] [address] Bacteria, ur Trace(A) JOSE Comment:Testing performed by : [address] [address] Mucous, ur Present(A) JOSE Comment:Testing performed by : [address] [address] Hyaline casts, ur 1-5 0 - 10 /LPF JOSE Comment:Testing performed by : [address] [address] Culture Reflex Comment Reflex conditions for urine culture (WBC >10) not met. JOSE Comment:Testing performed by : [address] [address] Urine 07/09/2024 7:36 PM CDT 07/09/2024 7:38 PM CDT us Te Raye DO LAB URINE ORDERABLES F inal Result Performing Organization Address [facility] Co de Phone Number JOSE LIVINGSTON [address] [facility] [place] [address] * eGFR (07/09/2024 7:19 PM CDT) eGFR [...] was last reviewed 2021. Testing performed by: [facility], [address] [place] [address], [place]., [address] Blood 07/09/2024 7:19 PM CDT 07/09/2024 7:31 PM CDT us Te Jelani Raye DO LAB BLOOD ORDERABLES F inal Result Performing Organization Address City/[facility] Co de Phone Number JOSE LIVINGSTON [address] [facility] Department [place] [address] * (ABNORMAL) Differential, auto (07/09/2024 7:19 PM CDT) Neutrophil abs 8.3(H) 1.5 - 6.5 K/cumm Comment:Testing performed by : [address] [address] Imm gran abs 0.0 0.0 - 0.1 K/cumm JOSE Comment:Testing performed by : [address] [address] Lymphocyte abs 1.8 0.8 - 3.3 K/cumm JOSE Comment:Testing performed by : [address] [address] Monocyte abs 0.6 0.2 - 0.8 K/cumm JOSE Comment:Testing performed by : [address] [address] Eosinophil abs 0.0 0.0 - 0.5 K/cumm JOSE Comment:Testing performed by : [address] [address] Basophil abs 0.0 0.0 - 0.1 K/cumm JOSE Comment:Testing performed by : [address] [address] Neutrophil pct 76.8 % JOSE Comment: Interpretive Data Percent cell count reference ranges are not reported, since discordance with absolute values may lead to misinterpretation of CBC data. Current Interpretive Data was last revised on 2017. Testing performed by: [address] [address] Imm gran pct 0.4 % JOSE Comment: Interpretive Data Percent cell count reference ranges are not reported, since discordance with absolute values may lead to misinterpretation of CBC data. Current Interpretive Data was last revised on 2017. Testing performed by: [address] [address] Lymphocyte pct 16.8 % JOSE Comment: Interpretive Data Percent cell count reference ranges are not reported, since discordance with absolute values may lead to misinterpretation of CBC data. Current Interpretive Data was last revised on 2017. Testing performed by: [address] [address] Monocyte pct 5.3 % JOSE Comment: Interpretive Data Percent cell count reference ranges are not reported, since discordance with absolute values may lead to misinterpretation of CBC data. Current Interpretive Data was last revised on 2017. Testing performed by: [address] [address] Eosinophil pct 0.4 % JOSE Comment: Interpretive Data Percent cell count reference ranges are not reported, since discordance with absolute values may lead to misinterpretation of CBC data. Current Interpretive Data was last revised on 2017. Testing performed by: [address] [address] Basophil pct 0.3 % JOSE Comment: Interpretive Data Percent cell count reference ranges are not reported, since discordance with absolute values may lead to misinterpretation of CBC data. Current Interpretive Data was last revised on 2017. Testing performed by: [address] [address] Blood 07/09/2024 7:19 PM CDT 07/09/2024 7:31 PM CDT us Te Ferro DO LAB BLOOD ORDERABLES F inal Result [facility] [address] [facility] Department [place] [address] * (ABNORMAL) CBC with auto differential (07/09/2024 7:19 PM CDT) WBC 10.8(H) 3.8 - 9.9 K/cumm Comment:Testing performed by : [address] [address] Hgb 11.8(L) 11.9 - 15.5 g/dL JOSE Comment:Testing performed by : [address] [address] Hct 35.0(L) 35.6 - 45.5 % JOSE LIVINGSTON Comment:Testing performed by : [address], [address] Plt 215 150 - 400 K/cumm JOSE LIVINGSTON Comment:Testing performed by : [address] [address] MPV 11.1 9.1 - 12.3 fL JOSE LIVINGSTON Comment:Testing performed by : [address], [address] RBC 3.94 3.90 - 5.20 M/cumm JOSE Comment:Testing performed by : [address], [address] MCV 88.8 81.3 - 96.4 fL JOSE Comment:Testing performed by : [address] [address] MCH 29.9 27.1 - 33.3 pg JOSE Comment:Testing performed by : [address], [address] MCHC 33.7 32.3 - 35.7 g/dL JOSE Comment:Testing performed by : [address], [address] RDW CV 12.2 11.1 - 14.9 % JOSE Comment:Testing performed by : [address], [address] RDW SD 39.7 35.7 - 48.1 fL JOSE Comment:Testing performed by : [address], [address] NRBC abs 0.00 0.00 - 0.01 K/cumm JOSE Comment:Testing performed by : [address], [address] Blood (Blood, Venous) 07/09/2024 7:19 PM CDT 07/09/2024 7:31 PM CDT us Te Ferro DO LAB BLOOD ORDERABLES F inal Result [facility] Department [place] [address] * (ABNORMAL) Comprehensive metabolic panel (07/09/2024 7:19 PM CDT) Sodium 136 135 - 145 mmol/L Comment:Testing performed by : [address], [place]., [address] Potassium, pl 4.0 3.3 - 4.9 mmol/L JOSE Comment:Testing performed by : [address], [place]., [address] Chloride 102 97 - 110 mmol/L JOSE Comment:Testing performed by : [address], [place]., [address] CO2 21(L) 22 - 32 mmol/L JOSE Comment:Testing performed by : [address], [place]., [address] Anion gap 13 2 - 15 mmol/L JOSE Comment:Testing performed by : [address] [address] BUN 8 6 - 25 mg/dL JOSE Comment:Testing performed by : [address], [place]., [address] Creatinine 0.50(L) 0.60 - 1.10 mg/dL JOSE Comment:Testing performed by : [address], [place]., [address] Glucose 86 70 - 199 mg/dL JOSE [...] was last revised 2022. Testing performed by: [address], [place]., [address] Calcium 9.5 8.5 - 10.3 mg/dL JOSE LIVINGSTON Comment:Testing performed by : [facility], [address] [place] [address]., [address] Bilirubin, total 0.3 0.1 - 1.2 mg/dL JOSE LIVINGSTON Comment:Testing performed by : [facility], [address] [place] [address]., [address] Protein, pl 7.1 6.5 - 8.5 g/dL JOSE Comment:Testing performed by : [address], [place]., [address] Albumin 3.9 3.5 - 5.0 g/dL JOSE Comment:Testing performed by : [address], [place]., [address] Alk phos 35(L) 40 - 130 Units/L JOSE Comment:Testing performed by : [address] [address] ALT 15 7 - 45 Units/L JOSE Comment:Testing performed by : [address] [address] AST 15 10 - 45 Units/L JOSE Comment:Testing performed by : [address] [address] Blood (Blood, Venous) 07/09/2024 7:19 PM CDT 07/09/2024 7:31 PM CDT Te Ferro LAB BLOOD ORDERABLES F inal Result JOSE [address] [facility] Department [place] [address] * N. gonorrhoeae/C. trachomatis Amplification Urine (06/07/2022 12:51 AM CDT) C. trachomatis Not Detected Not Detected JOSE LIVINGSTON Comment:Testing performed by : [address] [address] N. gonorrhoeae Not Detected Not Detected JOSE LIVINGSTON Comment: Interpretive Data Testing performed by the [facility]. This assay detects Chlamydia [...] last revised on 2019. Testing performed by: [facility], [address] [place] [address]., [address] Urine (None) 06/07/2022 12:5 1 AM CDT 06/07/2022 12:56 AM CDT Laura Santa DO LAB MICROBIOLOGY - GENERAL ORDE VINOD Final Result JOSE [address] [facility] Department [place] [address] from Last 3 Months or Most Recently Relevant to Health Maintenance Insurance [employer] [facility] [id number] [place] [address] Care Teams Logistics Operations Manager Relationship Specialty Start Date End Date No, Physician PCP - General 12/30/20
--- OUTSIDE RECORDS SUMMARY | 2024-10-04 22:57 | XMS_ITS | Patient Health Summary ---
Author Organization [facility] Address [address] [place] [address] Care Team Providers Care Cotton Bag Sewer Name Role Phone Unavailable Primary Care Provider Unavailabl e Note from [facility],non-owned Affiliates and Associated Physician Practices is amultiple site organization consisting of ambulatory clinics and hospital sitesin [place], [place], [place] and [place]. This disclosure is being madepursuant to the Care Everywhere program and may not contain all information available regarding this patient. Last updated 18.[facility] Allergies No known active allergies Social History Tobacco Use Types Packs/Day Years Used Date Smoking Tobacco: Never Assessed Sex and Gender Information Value Date Recorded Sex Assigned at Not on file Gender Identity Not on file Sexual Orientation Not on file Last Filed Vital Signs Vital Sign Reading Time Taken Comments Blood Pressure 135/71 10/06/2021 8:57 AM ACCOUNTS RECEIVABLE BOOKKEEPER Pulse 75 10/06/2021 8:57 AM ACCOUNTS RECEIVABLE BOOKKEEPER Temperature 36.7 ??C (98 ??F) 10/06/2021 8:57 AM ACCOUNTS RECEIVABLE BOOKKEEPER Respiratory Rate 14 10/06/2021 8:57 AM ACCOUNTS RECEIVABLE BOOKKEEPER Oxygen Saturation 98% 10/06/2021 8:57 AM ACCOUNTS RECEIVABLE BOOKKEEPER Inhaled Oxygen Concentration - - Weight 131.5 kg (290 lb) 10/06/2021 8:57 AM ACCOUNTS RECEIVABLE BOOKKEEPER Height 170.2 cm (5' 7 ) 10/06/2021 8:57 AM ACCOUNTS RECEIVABLE BOOKKEEPER Body Mass Index 45.42 10/06/2021 8:57 AM ACCOUNTS RECEIVABLE BOOKKEEPER Procedures * HCG URINE QUAL POCT NOTIFICATION(Performed 10/06/2021) * SARS-COV-2 (COVID-19) IN HOUSE(Performed 07/28/2020) * SARS-COV-2 (COVID-19) IN HOUSE(Performed 04/14/2020) * SARS-COV-2 (COVID-19) IN HOUSE(Performed 03/29/2020) Results * HCG URINE QUAL POCT NOTIFICATION (10/06/2021 10:32 AM ACCOUNTS RECEIVABLE BOOKKEEPER) Comment Notification Label Only - See Separate Report 10/06/2021 10:32 AM ACCOUNTS RECEIVABLE BOOKKEEPER [facility] Urine URINE / Unknown 2 9:17 AM ACCOUNTS RECEIVABLE BOOKKEEPER Alia Gill MD LAB - URINALYSIS ORD ERABLES [facility] [address] [place], [place] [id number] * SARS-COV-2 (COVID-19) IN HOUSE (07/28/2020 4:45 PM ACCOUNTS RECEIVABLE BOOKKEEPER) Only the most recent of3 resultswithin the time period is included. COVID-19 PCR Not detected Not detected 07/31/2020 6:11 AM ACCOUNTS RECEIVABLE BOOKKEEPER [facility] Microbiology SPECIMEN FROM NASOPHARYNGEAL STRUCTURE / Unknown Collection / Unknown 07/28/2020 4:45 PM ACCOUNTS RECEIVABLE BOOKKEEPER 07/29/2020 1:59 PM ACCOUNTS RECEIVABLE BOOKKEEPER Narrative [facility] - 07/31/2020 6:11 AM ACCOUNTS RECEIVABLE BOOKKEEPER This Real Time RT-PCR assay was developed and its performance characteristics determined by [facility]. This test has been authorized [...] upon request. LAB - MICROBIOLOGY O RDERABLES [facility] [address] [place] [address], [facility] [phone]
--- OUTSIDE RECORDS SUMMARY | 2024-10-04 22:57 | XMS_ITS | Encounter Summary ---
Author Organization [facility] Address [address] [place], [place] [address] [address] Care Team Providers Care Flue Gas Analyst Name Role Phone Unavailable Primary Care Provider Unavailabl e Encounter Details Date Type Department Care Team (Late st Contact Info) Description 07/29/2020 Lab Requisition [facility] [address] [place] [address] Social History Tobacco Use Types Packs/Day Years [...] (COVID-19) IN HOUSE Routine 07/28/2020 4:45 PM PSYCHOLOGY LECTURER documented in this encounter Results * SARS-COV-2 (COVID-19) IN HOUSE (07/28/2020 4:45 PM PSYCHOLOGY LECTURER) COVID-19 PCR Not detected Not detected 07/31/2020 6:11 AM PSYCHOLOGY LECTURER [facility] Microbiology SPECIMEN FROM NASOPHARYNGEAL STRUCTURE / Unknown Collection / Unknown 07/28/2020 4:45 PM PSYCHOLOGY LECTURER 07/29/2020 1:59 PM PSYCHOLOGY LECTURER Narrative [facility] - 07/31/2020 6:11 AM PSYCHOLOGY LECTURER This Real Time RT-PCR assay was developed and its performance characteristics determined by [facility]. This test has been [...] upon request. LAB - MICROBIOLOGY O RDERABLES [facility] [address] [place] [address], [facility] [phone] documented in this encounter Visit Diagnoses Not on filedocumented in this encounter Additional Health Concerns Infection Onset Date Last Indicated Resolved Time COVID-19 Under Investigation 07/28/2020 07/28/2020 07/31/2020 6:11 AM PSYCHOLOGY LECTURER documented as of this encounter
--- OUTSIDE RECORDS SUMMARY | 2024-10-04 22:58 | XMS_ITS | Clinical Summary ---
Author Organization [facility] Address [address] [place] [address] Phone Care Team Providers Care Presser Hand Name Role Phone Unavailable Primary Care Provider [...] relatives? Three times a week 12/24/2020 Attends [facility] Not on file 12/24 Active Member [...] place to sleep or slept in a [facility] (including now)? No 12/24/2020 Comments No Sex [...]
--- OUTSIDE RECORDS SUMMARY | 2024-10-04 22:58 | XMS_ITS | Referral Summary ---
Author Organization [facility] Address [address] [id number] Care Team Providers Care Bondactor Machine Operator Name Role Phone No, Physician Primary Care Provider [phone] Encounters Date Type Department Care Team Description 07/22/2024 7:36 AM [facility] - 07/22/2024 10:18 AM [facility] Emergency [facility] Emergency Department [address] [place], [place] [id number] Sesar Goldberg MD 24 weeks gestation of (Primary Dx); Hyperemesis gravidarum with dehydration Discharge Disposition: Discharge to home or self care 07/09/2024 9:34 PM T - 07/10/2024 1:37 AM [facility] Emergency [facility] Emergency Department [address] [place] [id number] Te Ferro DO Acute cystitis without hematuria [...] vomiting 30 tablet 4 Active PNV with [id number] 27 mg iron- 1 mg tablet Take [...] on file Legal Sex Female 11:54 AM CNC MILL AND LATHE OPERATOR Gender Identity Not on file Sexual Orientation Not on file Last Filed Vital Signs Vital Sign Reading Time Taken Comments Blood Pressure 122/56 07/22/2024 9:24 AM CNC MILL AND LATHE OPERATOR Pulse 67 07/22/2024 9:24 AM CNC MILL AND LATHE OPERATOR Temperature 36.8 ??C (98.2 ??F) 07/22/2024 9:24 AM CS T Respiratory Rate 18 07/22/2024 9:24 AM CNC MILL AND LATHE OPERATOR Oxygen Saturation 99% 07/22/2024 9:24 AM CNC MILL AND LATHE OPERATOR Inhaled Oxygen Concentration - - Weight 79.8 kg (175 lb 14.8 oz) 07/22/2024 7:24 AM CNC MILL AND LATHE OPERATOR Height 170.2 cm (5' 7 ) 03/24/2024 11:0 4 AM CDT Body Mass Index 27.55 03/24/2024 11:04 AM CDT Plan of Treatment Not on file Procedures Procedure Name Priority Date/Time Associated Diagnosis Comments URINALYSIS, MICROSCOPIC ONLY STAT 07/22/2024 9:23 AM CNC MILL AND LATHE OPERATOR URINALYSIS AND REFLEX TO MICROSCOPIC AND CULTURE STAT 07/22/2024 9:23 AM CNC MILL AND LATHE OPERATOR EGFR STAT 07/22/2024 8:04 AM CNC MILL AND LATHE OPERATOR DIFFERENTIAL AUTO STAT 07/22/2024 8:0 4 AM CNC MILL AND LATHE OPERATOR LIPASE STAT 07/22/2024 8:04 AM CNC MILL AND LATHE OPERATOR COMPREHENSIVE METABOLIC PANEL STAT 07/22/2024 8:04 AM CNC MILL AND LATHE OPERATOR CBC WITH AUTO DIFFERENTIAL STAT 07/22/2024 8:04 AM CNC MILL AND LATHE OPERATOR US OB 14 WEEKS OR OVER ED [...] culture Urine, clean voided (07/22/2024 9:23 AM CNC MILL AND LATHE OPERATOR) Color, ur Yellow Yellow Comment:Testing performed by : [address] [address] Clarity, ur Clear Clear JOSE Comment:Testing performed by : [address] [address] Specific gravity, ur 1.030 1.003 - 1.030 JOSE Comment:Testing performed by : [address] [address] pH, urine 6.0 JOSE Comment: Interpretive Data ? Urine pH is affected by diet, medications, systemic acid-base disturbances, and renal tubular function. ??pH may affect urinary stone formation. ??For example, urine pH below 6.0 may help reduce the tendency for calcium phosphate stones and pH greater than 6.0 may reduce the tendency for uric acid stone formation. Source: [facility] [employer] Current Interpretive Data was last revised on 2017 Testing performed by: [address] [address] Protein, ur ql 1+(A) Negative JOSE Comment:Testing performed by : [address] [address] Glucose, ur ql Negative Negative JOSE Comment:Testing performed by : [address] [address] Ketones, ur 4+(A) Negative JOSE Comment:Testing performed by : [address] [address] Bilirubin, ur Negative Negative JOSE Comment:Testing performed by : [facility], [address] [place] [address], [place]., [address] Blood, ur Negative Negative JOSE Comment:Testing performed by : [facility], [address] [place] [address], [place]., [address] Urobilinogen, ur <2.0 <2.0 mg/dL JOSE L[place]ST[place] Comment:Testing performed by : [address], [place]., [address] Nitrite, ur Negative Negative JOSE Comment:Testing performed by : [address], [place]., [address] Leukocyte esterase, ur 3+(A) Negative JOSE LIVINGSTON Comment:Testing performed by : [address] [address] UA reflex comment Reflex to microscopic UA will be performed. JOSE Comment:Testing performed by : [address] [address] Urine, clean voided 07/22/2024 9:23 AM CNC MILL AND LATHE OPERATOR 07/22/2024 9:28 AM CNC MILL AND LATHE OPERATOR us Zac Regan MD LAB MICROBIOLOGY - GENERAL ORDERABLES Final Result JOSE [address] [facility] Department [place] [address] * (ABNORMAL) Urinalysis, microscopic only (07/22/2024 9:23 AM CNC MILL AND LATHE OPERATOR) WBC, ur 6-10(A) 0 - 5 /HPF Comment:Testing performed by : [address], [place]., [address] RBC, ur 6-10(A) 0 - 2 /HPF JOSE LIVINGSTON Comment:Testing performed by : [address] [address] Epithelial cells, squamous, ur >50(A) 0 - 5 /HPF JOSE LIVINGSTON Comment:Testing performed by : [address], [place]., [address] Mucous, ur Present(A) JOSE LIV[place]STON Comment:Testing performed by : [facility], [address] [place] [address]., [address] Culture Reflex Comment Reflex conditions for urine culture (WBC >10) not met. JOSE Comment:Testing performed by : [facility], [address] [place] [address]., [address] Urine, clean voided 07/22/2024 9:23 AM CNC MILL AND LATHE OPERATOR 07/22/2024 9:28 AM CNC MILL AND LATHE OPERATOR us Zac Regan MD LAB URINE ORDERABLES Final Result JOSE [address] [facility] Department [place] [address] * eGFR (07/22/2024 8:04 AM CNC MILL AND LATHE OPERATOR) eGFR >90 >=60 mL/min/1. 73 m2 Comment: [...] was last reviewed 2021. Testing performed by: [address] [address] Blood 07/22/2024 8:04 AM CNC MILL AND LATHE OPERATOR 07/22/2024 8:08 AM CNC MILL AND LATHE OPERATOR us Zac Regan MD LAB BLOOD ORDERABLES Final Result [facility] [address] Department [place] [address] * (ABNORMAL) Differential, auto (07/22/2024 8:04 AM CNC MILL AND LATHE OPERATOR) Neutrophil abs 7.2(H) 1.5 - 6.5 K/cumm Comment:Testing performed by : [address] [address] Imm gran abs 0.1 0.0 - 0.1 K/cumm JOSE Comment:Testing performed by : [address] [address] Lymphocyte abs 1.7 0.8 - 3.3 K/cumm JOSE Comment:Testing performed by : [address] [address] Monocyte abs 0.6 0.2 - 0.8 K/cumm JOSE Comment:Testing performed by : [address] [address] Eosinophil abs 0.0 0.0 - 0.5 K/cumm JOSE Comment:Testing performed by : [address] [address] Basophil abs 0.0 0.0 - 0.1 K/cumm JOSE Comment:Testing performed by : [address] [address] Neutrophil pct 75.3 % JOSE Comment: Interpretive Data Percent cell count reference ranges are not reported, since discordance with absolute values may lead to misinterpretation of CBC data. Current Interpretive Data was last revised on 2017. Testing performed by: [address] [address] Imm gran pct 0.6 % JOSE Comment: Interpretive Data Percent cell count reference ranges are not reported, since discordance with absolute values may lead to misinterpretation of CBC data. Current Interpretive Data was last revised on 2017. Testing performed by: [address] [address] Lymphocyte pct 17.6 % JOSE Comment: Interpretive Data Percent cell count reference ranges are not reported, since discordance with absolute values may lead to misinterpretation of CBC data. Current Interpretive Data was last revised on 2017. Testing performed by: [address] [address] Monocyte pct 5.9 % JOSE Comment: Interpretive Data Percent cell count reference ranges are not reported, since discordance with absolute values may lead to misinterpretation of CBC data. Current Interpretive Data was last revised on 2017. Testing performed by: [address] [address] Eosinophil pct 0.2 % JOSE Comment: Interpretive Data Percent cell count reference ranges are not reported, since discordance with absolute values may lead to misinterpretation of CBC data. Current Interpretive Data was last revised on 2017. Testing performed by: [address] [address] Basophil pct 0.4 % JOSE Comment: Interpretive Data Percent cell count reference ranges are not reported, since discordance with absolute values may lead to misinterpretation of CBC data. Current Interpretive Data was last revised on 2017. Testing performed by: [address] [address] Blood 07/22/2024 8:04 AM CNC MILL AND LATHE OPERATOR 07/22/2024 8:08 AM CNC MILL AND LATHE OPERATOR us Zac Regan MD LAB BLOOD ORDERABLES Final Result JOSE [place] [address] [facility] Department [place] [address] * (ABNORMAL) CBC with auto differential (07/22/2024 8:04 AM CNC MILL AND LATHE OPERATOR) WBC 9.6 3.8 - 9.9 K/cumm Comment:Testing performed by : [address] [address] Hgb 11.8(L) 11.9 - 15.5 g/dL JOSE Comment:Testing performed by : [address] [address] Hct 34.5(L) 35.6 - 45.5 % JOSE Comment:Testing performed by : [address], [address] Plt 230 150 - 400 K/cumm JOSE Comment:Testing performed by : [address], [address] MPV 10.8 9.1 - 12.3 fL JOSE Comment:Testing performed by : [address], [address] RBC 3.91 3.90 - 5.20 M/cumm JOSE Comment:Testing performed by : [address], [address] MCV 88.2 81.3 - 96.4 fL JOSE Comment:Testing performed by : [address], [address] MCH 30.2 27.1 - 33.3 pg JOSE Comment:Testing performed by : [address], [address] MCHC 34.2 32.3 - 35.7 g/dL JOSE Comment:Testing performed by : [address], [address] RDW CV 12.2 11.1 - 14.9 % JOSE Comment:Testing performed by : [address], [address] RDW SD 39.1 35.7 - 48.1 fL JOSE Comment:Testing performed by : [address], [address] NRBC abs 0.00 0.00 - 0.01 K/cumm JOSE Comment:Testing performed by : [address], [address] Blood 07/22/2024 8:04 AM CNC MILL AND LATHE OPERATOR 07/22/2024 8:08 AM CNC MILL AND LATHE OPERATOR Zac Regan MD LAB BLOOD ORDERABLES Final Result Performing Organization Address City/[facility] Co de Phone Number MARIA DEL ROSARIO[address] [address] * Lipase (07/22/2024 8:04 AM CNC MILL AND LATHE OPERATOR) Pathologist [facility] Lipase 22 10 - 99 Units/L Comment:Testing performed by : [address] [address] Blood 07/22/2024 8:04 AM CNC MILL AND LATHE OPERATOR 07/22/2024 8:08 AM CNC MILL AND LATHE OPERATOR Zac Regan MD LAB BLOOD ORDERABLES Final Result Performing Organization Address [facility] de Phone Number MARIA DEL ROSARIO[address] [place] [address] * (ABNORMAL) Comprehensive metabolic panel (07/22/2024 8:04 AM CNC MILL AND LATHE OPERATOR) Pathologist [facility] Sodium 138 135 - 145 mmol/L Comment:Testing performed by : [address] [address] Potassium, pl 4.0 3.3 - 4.9 mmol/L JOSE Comment:Testing performed by : [address] [address] Chloride 101 97 - 110 mmol/L JOSE Comment:Testing performed by : [address] [address] CO2 21(L) 22 - 32 mmol/L JOSE Comment:Testing performed by : [address] [address] Anion gap 16(H) 2 - 15 mmol/L JOSE Comment:Testing performed by : [address] [address] BUN 8 6 - 25 mg/dL JOSE Comment:Testing performed by : [address] [address] Creatinine 0.60 0.60 - 1.10 mg/dL [facility] Comment:Testing performed by : [address] [address] Glucose 79 70 - 199 mg/dL JOSE [...] was last revised 2022. Testing performed by: [address] [address] Calcium 9.5 8.5 - 10.3 mg/dL [facility] Comment:Testing performed by : [address] [address] Bilirubin, total 0.4 0.1 - 1.2 mg/dL [facility] Comment:Testing performed by : [address] [address] Protein, pl 7.2 6.5 - 8.5 g/dL [facility] Comment:Testing performed by : [address] [address] Albumin 4.0 3.5 - 5.0 g/dL [facility] Comment:Testing performed by : [address] [address] Alk phos 37(L) 40 - 130 Units/L JOSE Comment:Testing performed by : [address] [address] ALT 15 7 - 45 Units/L JOSE Comment:Testing performed by : [address] [address] AST 15 10 - 45 Units/L JOSE Comment:Testing performed by : [address] [address] Blood 07/22/2024 8:04 AM CNC MILL AND LATHE OPERATOR 07/22/2024 8:08 AM CNC MILL AND LATHE OPERATOR us Zac Regan MD LAB BLOOD ORDERABLES Final Result JOSE [address] [facility] Department [place] [address] * US Ob 14 Weeks Or Over [...] PM T: ??07/09/2024 9:21 PM Report ID: [id number] Reading Location: ??[id number] Procedure Note Lamont Fernandez MD - 07/09/2024 [...] Lamont Fernandez M.D. AG: AG Report ID: [id number] Reading Location: [id number] us [place] LUAN IMG OB US PROCEDURES Final Resul t * (ABNORMAL) Urinalysis reflex to microscopic and culture Urine (07/09/2024 7:36 PM CDT) Color, ur Yellow Yellow Comment:Testing performed by : [address] [address] Clarity, ur Cloudy(A) Clear JOSE Comment:Testing performed by : [address] [address] Specific gravity, ur 1.027 1.003 - 1.030 JOSE Comment:Testing performed by : [address] [address] pH, urine 6.5 JOSE Comment: Interpretive Data ? Urine pH is affected by diet, medications, systemic acid-base disturbances, and renal tubular function. ??pH may affect urinary stone formation. ??For example, urine pH below 6.0 may help reduce the tendency for calcium phosphate stones and pH greater than 6.0 may reduce the tendency for uric acid stone formation. Source: [employer] Current Interpretive Data was last revised on 2017 Testing performed by: [address] [address] Protein, ur ql 1+(A) Negative JOSE Comment:Testing performed by : [address] [address] Glucose, ur ql Negative Negative JOSE Comment:Testing performed by : [address] [address] Ketones, ur 4+(A) Negative JOSE LIV[place] Comment:Testing performed by : [facility], [address] [place] [address]., [address] Bilirubin, ur Negative Negative JOSE LIV[place] Comment:Testing performed by : [facility], [address] [place] [address], [place]., [address] Blood, ur Negative Negative JOSE L[place] Comment:Testing performed by : [address], [place]., [address] Urobilinogen, ur <2.0 <2.0 mg/dL JOSE Comment:Testing performed by : [address], [place]., [address] Nitrite, ur Negative Negative JOSE LIV[place] Comment:Testing performed by : [address] [address] Leukocyte esterase, ur 2+(A) Negative JOSE [place] Comment:Testing performed by : [address], [place]., [address] UA reflex comment Reflex to microscopic UA will be performed. JOSE [place] Comment:Testing performed by : [address], [place]., [address] Urine 07/09/2024 7:36 PM CDT 07/09/2024 7:38 PM CDT Te Ferro DO LAB MICROBIOLOGY - GEN ERAL ORDERABLES Final Result JOSE [address] [facility] Department of Laboratories [place], [place] [id number] * (ABNORMAL) Urinalysis, microscopic only (07/09/2024 7:36 PM CDT) WBC, ur 0-5 0 - 5 /HPF Comment:Testing performed by : [address] [address] RBC, ur 3-5(A) 0 - 2 /HPF JOSE [place]IV[place] Comment:Testing performed by : [address] [address] Epithelial cells, squamous, ur >50(A) 0 - 5 /HPF JOSE [place] Comment:Testing performed by : [facility], [address] [place] [address]., [address] Bacteria, ur Trace(A) JOSE Comment:Testing performed by : [address] [address] Mucous, ur Present(A) JOSE Comment:Testing performed by : [facility], [address] [place] [address], [place]., [address] Hyaline casts, ur 1-5 0 - 10 /LPF JOSE Comment:Testing performed by : [address] [address] Culture Reflex Comment Reflex conditions for urine culture (WBC >10) not met. JOSE Comment:Testing performed by : [address] [address] Urine 07/09/2024 7:36 PM CDT 07/09/2024 7:38 PM CDT Te Ferro DO LAB URINE ORDERABLES F inal Result JOSE [address] [facility] Department [place] [address] * eGFR (07/09/2024 7:19 PM [...] was last reviewed 2021. Testing performed by: [address] [address] Blood 07/09/2024 7:19 PM CDT 07/09/2024 7:31 PM CDT Te Ferro DO LAB BLOOD ORDERABLES F inal Result JOSE [facility] [facility] Department [place] [address] * (ABNORMAL) Differential, auto (07/09/2024 7:19 PM CDT) Neutrophil abs 8.3(H) 1.5 - 6.5 K/cumm Comment:Testing performed by : [address] [address] Imm gran abs 0.0 0.0 - 0.1 K/cumm JOSE Comment:Testing performed by : [address] [address] Lymphocyte abs 1.8 0.8 - 3.3 K/cumm JOSE Comment:Testing performed by : [address] [address] Monocyte abs 0.6 0.2 - 0.8 K/cumm JOSE Comment:Testing performed by : [address] [address] Eosinophil abs 0.0 0.0 - 0.5 K/cumm JOSE Comment:Testing performed by : [address] [address] Basophil abs 0.0 0.0 - 0.1 K/cumm JOSE Comment:Testing performed by : [address] [address] Neutrophil pct 76.8 % JOSE Comment: Interpretive Data Percent cell count reference ranges are not reported, since discordance with absolute values may lead to misinterpretation of CBC data. Current Interpretive Data was last revised on 2017. Testing performed by: [address] [address] Imm gran pct 0.4 % JOSE Comment: Interpretive Data Percent cell count reference ranges are not reported, since discordance with absolute values may lead to misinterpretation of CBC data. Current Interpretive Data was last revised on 2017. Testing performed by: [address] [address] Lymphocyte pct 16.8 % JOSE Comment: Interpretive Data Percent cell count reference ranges are not reported, since discordance with absolute values may lead to misinterpretation of CBC data. Current Interpretive Data was last revised on 2017. Testing performed by: [address] [address] Monocyte pct 5.3 % JOSE Comment: Interpretive Data Percent cell count reference ranges are not reported, since discordance with absolute values may lead to misinterpretation of CBC data. Current Interpretive Data was last revised on 2017. Testing performed by: [address] [address] Eosinophil pct 0.4 % JOSE Comment: Interpretive Data Percent cell count reference ranges are not reported, since discordance with absolute values may lead to misinterpretation of CBC data. Current Interpretive Data was last revised on 2017. Testing performed by: [address] [address] Basophil pct 0.3 % [facility] Comment: Interpretive Data Percent cell count reference ranges are not reported, since discordance with absolute values may lead to misinterpretation of CBC data. Current Interpretive Data was last revised on 2017. Testing performed by: [address] [address] Blood 07/09/2024 7:19 PM CDT 07/09/2024 7:31 PM CDT us Te Ferro DO LAB BLOOD ORDERABLES F inal Result JOSE [address] [facility] [address] Department [place] [address] * (ABNORMAL) CBC with auto differential (07/09/2024 7:19 PM CDT) [facility] WBC 10.8(H) 3.8 - 9.9 K/cumm Comment:Testing performed by : [address] [address] Hgb 11.8(L) 11.9 - 15.5 g/dL JOSE Comment:Testing performed by : [address] [address] Hct 35.0(L) 35.6 - 45.5 % JOSE Comment:Testing performed by : [address] [address] Plt 215 150 - 400 K/cumm JOSE Comment:Testing performed by : [address] [address] MPV 11.1 9.1 - 12.3 fL JOSE Comment:Testing performed by : [address] [address] RBC 3.94 3.90 - 5.20 M/cumm JOSE Comment:Testing performed by : [address] [address] MCV 88.8 81.3 - 96.4 fL JOSE Comment:Testing performed by : [address] [address] MCH 29.9 27.1 - 33.3 pg JOSE [place] Comment:Testing performed by : [address] [address] MCHC 33.7 32.3 - 35.7 g/dL JOSE Comment:Testing performed by : [address], [address] RDW CV 12.2 11.1 - 14.9 % JOSE LIV[place] Comment:Testing performed by : [address] [address] RDW SD 39.7 35.7 - 48.1 fL JOSE [place] Comment:Testing performed by : [address] [address] NRBC abs 0.00 0.00 - 0.01 K/cumm JOSE [place] Comment:Testing performed by : [address] [address] Blood (Blood, Venous) 07/09/2024 7:19 PM CDT 07/09/2024 7:31 PM CDT Te Ferro LAB BLOOD ORDERABLES F inal Result JOSE [facility] [facility] Department [place] [address] * (ABNORMAL) Comprehensive metabolic panel (07/09/2024 7:19 PM CDT) Sodium 136 135 - 145 mmol/L Comment:Testing performed by : [address] [address] Potassium, pl 4.0 3.3 - 4.9 mmol/L JOSE [place] Comment:Testing performed by : [address] [address] Chloride 102 97 - 110 mmol/L JOSE Comment:Testing performed by : [address] [address] CO2 21(L) 22 - 32 mmol/L JOSE Comment:Testing performed by : [address] [address] Anion gap 13 2 - 15 mmol/L JOSE [place] Comment:Testing performed by : [address] [address] BUN 8 6 - 25 mg/dL JOSE [place] Comment:Testing performed by : [address] [address] Creatinine 0.50(L) 0.60 - 1.10 mg/dL JOSE Comment:Testing performed by : [address] [address] Glucose 86 70 - 199 mg/dL JOSE [...] was last revised 2022. Testing performed by: [address] [address] Calcium 9.5 8.5 - 10.3 mg/dL JOSE Comment:Testing performed by : [address] [address] Bilirubin, total 0.3 0.1 - 1.2 mg/dL JOSE Comment:Testing performed by : [address] [address] Protein, pl 7.1 6.5 - 8.5 g/dL JOSE Comment:Testing performed by : [address] [address] Albumin 3.9 3.5 - 5.0 g/dL JOSE Comment:Testing performed by : [address] [address] Alk phos 35(L) 40 - 130 Units/L JOSE Comment:Testing performed by : [address] [address] ALT 15 7 - 45 Units/L JOSE Comment:Testing performed by : [address] [address] AST 15 10 - 45 Units/L JOSE Comment:Testing performed by : [address] [address] Blood (Blood, Venous) 07/09/2024 7:19 PM CDT 07/09/2024 7:31 PM CDT Te Ferro DO LAB BLOOD ORDERABLES F inal Result Performing Organization Address [facility] Co de Phone Number JOSE [address] [place] [address] * N. gonorrhoeae/C. trachomatis Amplification Urine (06/07/2022 12:51 AM CDT) C. trachomatis Not Detected Not Detected JOSE Comment:Testing performed by : [facility], [address] [place] [address]., [address] N. gonorrhoeae Not Detected Not Detected JOSE Comment: Interpretive Data Testing performed by the [facility]. This assay detects Chlamydia trachomatis and Neisseria gonorrhoeae by nucleic acid amplification testing (NAAT). This test is approved by the [facility] Food and Drug Administration and the performance characteristics have been verified by the laboratory. The performance characteristics of this test have not been evaluated in individuals less than 14 years of age. Current Interpretive Data was last revised on 2019. Testing performed by: [facility], [address] [place] [address]., [address] Urine (None) 06/07/2022 12:5 1 AM CDT 06/07/2022 12:56 AM CDT Laura Santa DO LAB MICROBIOLOGY - GENERAL ROSEMARIE BROCK Final Result Performing Organization Address City/[facility] Co de Phone Number JOSE [address] [place] [address] from Last 3 Months or Most Recently Relevant to Health Maintenance Insurance [facility] [address] [id number] [place] [address] [employer] Member Subscriber Plan / Payer (Ef fective 2021-Present) Name:Tawny Nicholas Relation to Subscriber:Spouse Name:TE MEYERS Date of :1899 (Home) Address: [address] [place] [address] Payer ID:[id number] (NAIC) Type:[facility] Address: [address] [facility] [address] [address] [place] [address] Care Teams Bondactor Machine Operator Relationship Specialty Start Date End Date No, Physician PCP - General 12/30/20
[2024-10-04 23:15] VITALS: TEMP 36.6
[2024-10-04 23:17] VITALS: BP 109/54; PULSE 71
[2024-10-04 23:31] VITALS: BP 104/56; PULSE 71
[2024-10-04 23:40] LABS: Add Urine Microscopic? YES; Appearance Urine Cloudy (Clear); Bacteria Urine 1+ /hpf; Bilirubin Urine Negative (Negative); Blood Urine 3+ (Negative); Color Urine Dark Yellow (Yellow); Glucose Urine UA Negative (Negative); Ketones Urine 2+ mg/dL (Negative); Leukocyte Esterase Ur 1+ LEU/UL (Negative); Nitrate Urine Negative (Negative); Non Pathogenic Casts 0-2; Protein Urine 1+ mg/dL (Negative); RBC Urine >100 /hpf (0-2); Specific Grav Ur 1.025 (1.001-1.035); Squamous Epithelial Cell Urine Moderate /hpf (Few); Urobilinogen Urine 0.2 mg/dL (<2.0); WBC Urine 21-50 /hpf (0-3)
[2024-10-04 23:46] VITALS: BP 115/61; PULSE 68
--- NOTE | 2024-10-04 23:49 | PC.NURSE ---
Dr. Faith called and notified that patient came in with complaints of cramping, vomiting and headache. MD notified that a urine was sent to the lab, results given. New orders received to give Zofran and Tylenol at this time. Orders received to start a fluid bolus and send a CMP. Orders read back and confirmed.
[2024-10-05] VITALS (9 sets, daily range): BP systolic 103–117; BP diastolic 54–64; PULSE 67–82; TEMP 36.6; BMI 30.7
--- NOTE | 2024-10-05 00:29 | PC.NURSE ---
Dr. Faith called Labor and Delivery at this time. New orders received to give the patient ampicillin. Orders confirmed.
[2024-10-05] MEDS: ONDANSETRON INJ 4 MG/2 ML VIAL IV PUSH (00:38)
[2024-10-05] MEDS: DEXTROSE 5%/LACTATED RINGERS 1,000 ML 999 ML IV CONT (00:40)
[2024-10-05] MEDS: ceFAZolin 1 GM/NS 50 ML 1 GM/50 ML BAG IVPB (00:50)
[2024-10-05 01:39] LABS: Alanine Aminotransferase 18 U/L (6-35); Albumin Level 3.4 g/dL (3.5-5.1); Alkaline Phosphatase 71 U/L (38-126); Anion Gap 8 mmol/L (4-12); Aspartate Amino Transferase 24 U/L (14-36); Bilirubin,Total 0.5 mg/dL (0.2-1.3); Blood Urea Nitrogen 8 mg/dL (7-17); Calcium 8.5 mg/dL (8.4-10.2); Carbon Dioxide 21 mmol/L (22-30); Chloride 106 mmol/L (98-107); Estimated Glomerular Filt Rate > 60; Glucose 87 mg/dL (65-110); Potassium 3.6 mmol/L (3.4-5.0); Sodium 135 mmol/L (137-145)
[2024-10-05] MEDS: ACETAMINOPHEN 325 MG TABLET 650 MG PO (01:50)
--- NOTE | 2024-10-05 01:53 | LDADM ---
This patient, Tawny Nicholas, was admitted to OB Post 117 on 10/04/24 at 22:50. Plans for labor, pain management and were discussed with patient. Patient/family oriented to hospital policies and general routines including ID bracelet, bed and alarms, visiting hours, pain management, procedures, bathroom and other care routines, personal items, smoking policy, room service/diet and guest tray routines, infant security routines, and visiting hours. Patient/Family are encouraged to report perceived risks to care and to ask questions if they do not understand what they are told or what they should do. See OBIX for further documentation.
--- NOTE | 2024-10-05 02:16 | PC.NURSE ---
This RN called Dr. Faith at this time. MD notified of patients CMP results and that patient stated that she is feeling better. New orders received to discharge patient.
--- NOTE | 2024-10-30 09:16 | P.PNOB_ITS ---
OB - Triage/Final Diagnosis Visit Information Comments/Additional reasons for admission: I have assessed the risk for this patient, Tawny Nicholas, and determined that she would benefit from observation care. Evaluation Laboratory results: Laboratory Tests 10/04/24 10/05/24 23:25 00:13 Sodium 135 L Potassium 3.6 Chloride 106 Carbon Dioxide 21 L Anion Gap 8 BUN 8 Creatinine 0.54 L Estim Creat Clear Calc Not Reportable Estimated GFR > 60 Glucose 87 Calcium 8.5 Total Bilirubin 0.5 AST 24 ALT 18 Alkaline Phosphatase 71 Total Protein 6.0 L Albumin 3.4 L Urine Color Dark yellow Urine Appearance Cloudy H Urine pH 6.0 Ur Specific [place] 1.025 Urine Protein 1+ H Urine Glucose (UA) Negative Urine Ketones 2+ H Ur Blood (Man) 3+ H Urine Nitrate Negative Urine Bilirubin Negative Urine Urobilinogen 0.2 Leukocyte Esterase Rfl 1+ H Urine RBC >100 H Urine WBC 21-50 H Ur Squamous Epith Cells Moderate Urine Bacteria 1+ H Urine Casts 0-2 Final Diagnosis (1) Cramping complicating , antepartum: Code(s): O26.899 - Other specified related conditions, unspecified trimester; R10.9 - Unspecified abdominal pain Status: Acute
== END 2024-10-05 02:40 | disposition home or self-care (01) ==
PROVIDERS: Admitting Provider Obstetrics & Gynecology; Visit Provider Obstetrics & Gynecology
DX: O26.893 Other specified pregnancy related conditions, third trimester (principal); R10.9 Unspecified abdominal pain; Z3A.34 34 weeks gestation of pregnancy
CPT/HCPCS: 36415; 76815; 80053; 81001; 85027; 85384; 85610; 85730; 96365; 96375; A9270; G0378; G0379; J0690; J2405; J7121

== ENCOUNTER 2024-11-03 10:21 | Outpatient (RCR) | payer OTHER, SELFPAY ==
[2024-10-09 12:00] VITALS: BP 108/64; PULSE 93
[2024-10-13 12:12] VITALS: BP 113/70; PULSE 87
[2024-10-16 08:34] VITALS: BP 114/71; PULSE 82
[2024-10-20 10:50] VITALS: BP 121/60; PULSE 90
[2024-10-20 11:25] LABS: OBXCEM ROM Plus Negative (Negative)
--- NOTE | 2024-10-20 12:28 | PC.NURSE ---
Called Dr. Aaron with pt status. NST reactive. Initially tachycardic. Pt states that she smoked on her way to the hospital. BPP 02/15. ROM plus negative. States she noticed some wetness today. No fluid noted. Return tomorrow for repeat NST and BPP.
[2024-10-21 10:49] VITALS: BP 117/55
[2024-10-23 08:42] VITALS: BP 115/67; PULSE 92
[2024-10-27 11:08] VITALS: BP 117/59; PULSE 79
--- NOTE | ~2024-11-03 | US_ITS ---
EXAMINATION: US OB BPP wo non-stress DATE: 10/20/2024 12:03 INDICATION: Small for gestational age. Third trimester. TECHNIQUE: Real-time pelvic ultrasound was performed. COMPARISON: Ultrasound 10/13/2024 FINDINGS: There is a single living fetus in vertex presentation. The placenta is anterior. heart rate is 145 beats per minute (bpm). Biophysical profile performed by the technologist: breathing (30 sec sustained breathing in 30 minutes): 2 out of 2 movement (3 gross body movements in 30 minutes): 0 out of 2 tone (one episode of vhzxadb-ujhtsajvv-beqtvze limb movement): 2 out of 2 Amniotic fluid pocket (2 cm): 2 out of 2 Total score: 6 out of 8 IMPRESSION: 1. Single living fetus in vertex presentation. 2. Biophysical profile 6 out of 8. Reviewed, dictated and finalized at location A. R READERS SUPERVISOR
--- NOTE | ~2024-11-03 | US_ITS ---
EXAMINATION: US OB BPP wo non-stress DATE: 10/21/2024 11:26 INDICATION: Intrauterine growth retardation during third trimester TECHNIQUE: Real-time pelvic ultrasound was performed. The interpreting radiologist was not present fo r the study. COMPARISON: None. FINDINGS: There is a single living fetus in vertex presentation. The placenta is anterior. heart rate is 149 beats per minute (bpm). Amniotic fluid volume is subjectively normal with normal deepest vertica l pocket measurement of 4.5 cm. Biophysical profile performed by the technologist: breathing (30 sec sustained breathing in 30 minutes): 2 out of 2 movement (3 gross body movements in 30 minutes): 2 out of 2 tone (one episode of szupjqp-afokehgqc-nhbqjfm limb movement): 2 out of 2 Amniotic fluid pocket (2 cm): 2 out of 2 Total score: 8 out of 8 IMPRESSION: 1. Single living fetus in vertex presentation with heart rate of 149 bpm. 2. Biophysical profile 8 out of 8. Reviewed, dictated and finalized at location A. EEPER
--- NOTE | ~2024-11-03 | US_ITS ---
EXAMINATION: US OB BPP wo non-stress DATE: 11/03/2024 11:38 INDICATION: Small for gestational age during third trimester TECHNIQUE: Real-time pelvic ultrasound was performed. The interpreting radiologist was not present fo r the study. COMPARISON: 10/27/2024 FINDINGS: There is a single living fetus in vertex presentation. The placenta is anterior. heart rate is 141 beats per minute (bpm). Amniotic fluid volume is subjectively normal with normal deepest vertica l pocket measurement of 3.2 cm. Biophysical profile performed by the technologist: breathing (30 sec sustained breathing in 30 minutes): 2 out of 2 movement (3 gross body movements in 30 minutes): 2 out of 2 tone (one episode of tdalnwx-xoxkbpdyp-nzjglgm limb movement): 2 out of 2 Amniotic fluid pocket (2 cm): 2 out of 2 Total score: 8 out of 8 IMPRESSION: 1. Single living fetus in vertex presentation with heart rate of 141 bpm. 2. Biophysical profile 8 out of 8. Reviewed, dictated and finalized at location B. TELEPHONE TRIAGE
--- NOTE | ~2024-11-03 | US_ITS ---
EXAMINATION: US OB BPP wo non-stress DATE: 10/27/2024 11:33 INDICATION: Intrauterine growth restriction. Third trimester. TECHNIQUE: Real-time pelvic ultrasound was performed. COMPARISON: Ultrasound 10/21/2024 FINDINGS: There is a single living fetus in vertex presentation. The placenta is anterior. heart rate is 142 beats per minute (bpm). The amniotic fluid index is 11.1 cm, which is normal. Biophysical profile performed by the technologist: breathing (30 sec sustained breathing in 30 minutes): 2 out of 2 movement (3 gross body movements in 30 minutes): 2 out of 2 tone (one episode of bdgdhwm-iyocmanyw-vynsrty limb movement): 2 out of 2 Amniotic fluid pocket (2 cm): 2 out of 2 Total score: 8 out of 8 IMPRESSION: 1. Single living fetus in vertex presentation. 2. Biophysical profile 8 out of 8. Reviewed, dictated and finalized at location A. ICAL COMPOUNDER
--- NOTE | ~2024-11-03 | US_ITS ---
EXAMINATION: US OB BPP wo non-stress DATE: 10/13/2024 12:45 INDICATION: Nonreactive heart tones TECHNIQUE: Real-time pelvic ultrasound was performed. The interpreting radiologist was not present fo r the study. COMPARISON: None. FINDINGS: There is a single living fetus in vertex presentation. The placenta is anterior. heart rate is 147 beats per minute (bpm). Amniotic fluid volume is subjectively normal with normal deepest vertica l pocket measurement of 6.8 cm. Biophysical profile performed by the technologist: breathing (30 sec sustained breathing in 30 minutes): 2 out of 2 movement (3 gross body movements in 30 minutes): 2 out of 2 tone (one episode of qcmhzhc-jbbpwiskf-bkanuhg limb movement): 2 out of 2 Amniotic fluid pocket (2 cm): 2 out of 2 Total score: 8 out of 8 IMPRESSION: 1. Single living fetus in vertex presentation with heart rate of 147 bpm. 2. Biophysical profile 8 out of 8. Reviewed, dictated and finalized at location B. NGS TELLER
--- NOTE | ~2024-11-03 | US_ITS ---
EXAMINATION: US OB BPP wo non-stress DATE: 10/09/2024 11:51 INDICATION: Intrauterine growth restriction. Third trimester. TECHNIQUE: Real-time pelvic ultrasound was performed. COMPARISON: Ultrasound 10/08/2024 FINDINGS: There is a single living fetus in vertex presentation. The placenta is anterior. heart rate is 133 beats per minute (bpm). The deepest vertical pocket is 6.7 cm. Biophysical profile performed by the technologist: breathing (30 sec sustained breathing in 30 minutes): 2 out of 2 movement (3 gross body movements in 30 minutes): 2 out of 2 tone (one episode of zlviosj-fserbqoxp-tfqsojl limb movement): 2 out of 2 Amniotic fluid pocket (2 cm): 2 out of 2 Total score: 8 out of 8 IMPRESSION: 1. Single living fetus in vertex presentation. 2. Biophysical profile 8 out of 8. Reviewed, dictated and finalized at location A. APIST RADIATION
[2024-11-03 10:58] VITALS: BP 112/60; PULSE 79
== END 2024-11-08 07:25 | disposition home or self-care (01) ==
LOC: ANHOBOP 10:21
PROVIDERS: Visit Provider Obstetrics & Gynecology
DX: O36.5930 Maternal care for other known or suspected poor fetal growth, third trimester, not applicable or unspecified (principal)
CPT/HCPCS: 59025; 76819; 84112

== ENCOUNTER 2024-11-07 14:27 | Inpatient (IN) | payer OTHER, SELFPAY ==
[2024-11-06 08:30] VITALS: BMI 31.2
[2024-11-07] VITALS (60 sets, daily range): BP systolic 99–150; BP diastolic 56–99; PULSE 54–148; TEMP 37.1–37.2; O2SAT 80–100
--- NOTE | 2024-11-07 14:43 | WPDHPUPDATE1 ---
History and Physical Update Update Date/Time: 11/07/24 14:43 - hyperemesis-- zofran - GERD-Pepcid - THC use - chlamydia in ; CAROLINE negative History and Physical has been reviewed, including an updated exam of the patient. There are NO changes in the patient's condition. Risks, benefits, and alternatives have been discussed and questions answered. Patient agrees to proceed with procedure. A/P: admit to L&D routine admission orders Rh+ GBS neg continuos EFM plan for AROM and pitocin augmentation
--- NOTE | 2024-11-07 14:58 | LDADM ---
This patient, Tawny Nicholas, was admitted to Labor/Delivery/Recovery 105 on 11/07/24 at 14:27. Plans for labor, pain management and were discussed with patient. Patient/family oriented to hospital policies and general routines including ID bracelet, bed and alarms, visiting hours, pain management, procedures, bathroom and other care routines, personal items, smoking policy, room service/diet and guest tray routines, security routines, and visiting hours. Patient/Family are encouraged to report perceived risks to care and to ask questions if they do not understand what they are told or what they should do. See OBIX for further documentation.
[2024-11-07 15:05] LABS: Basophils Percent Auto 0.5 % (0.2-1.2); Eosinophils Absolute Auto 0.1 K/mm3 (0-0.3); Eosinophils Percent Auto 0.7 % (0-4.4); Hemoglobin 11.4 g/dL (12.0-15.0); Immature Granulocyte Absolute 0.04 K/mm3 (0.00-0.031); Immature Granulocyte Percent A 0.5 % (0-0.5); Lymphocytes Absolute Auto 2.15 K/mm3 (0.9-3.2); Lymphocytes Percent Auto 26.1 % (18.3-44.2); Mean Corpuscular HGB Conc 32.6 g/dl (32-36); Mean Corpuscular Hemoglobin 29.2 pg (26-34); Mean Corpuscular Volume 89.5 fl (80-100); Mean Platelet Volume 11.2 fl (7.4-10.4); Monocytes Absolute Auto 0.6 K/mm3 (0.1-0.6); Monocytes Percent Auto 7.4 % (2.6-8.5); Neutrophils Absolute Auto 5.3 K/mm3 (1.3-6.7); Neutrophils Percent Auto 64.8 % (45.5-73.1); Platelet Count Result 196 k/mm3 (150-375); Red Blood Count 3.91 M/mm3 (4.2-5.4); Red Cell Distribution Width 13.2 % (11.5-14.5); White Blood Count 8.2 K/mm3 (4.5-10.0)
[2024-11-07] MEDS: LACTATED RINGERS 1,000 ML 125 ML IV CONT ×2 (15:13→18:49)
[2024-11-07] MEDS: OXYTOCIN 30 UNITS/NS 500 ML 30 UNITS/500 ML BAG 6 UNITS IV CONT (15:13)
[2024-11-07 15:50] LABS: Syphilis IgG/IgM Antibody Negative (Negative)
[2024-11-07 15:54] LABS: HIV 1/2 Ab P24 Ag Result Negative (Negative)
[2024-11-07] MEDS: fentaNYL CITRATE INJ (*CRX) 100 MCG/2 ML VIAL IV PUSH (17:57)
--- NOTE | 2024-11-07 18:33 | WPDANESEPP ---
Anes - Eval Pre Procedure Procedure: Labor Epidural Date/Time: 11/07/24 18:33 Surgeon: Ileana Preop Diagnosis: Labor Pain Pre Op Diagnosis: Induction of Labor Patient Data Age: 24 Gender: F Height: 1.7 m Weight: 90.45 kg Last Vital Signs Pulse 60 11/07/24 18:29 BP 149/86 H 11/07/24 18:29 Allergies Allergy/AdvReac Type Severity Reaction Status Date / Time No Known Allergies Allergy Verified 11/04/24 09:24 Home Medications ?Medication ?Instructions ?Recorded ?Confirmed ?Type vitamin with calcium 1 tablet PO DAILY #30 tabs 06/30/24 11/04/24 Rx no.72-iron 27 mg-folic acid 1 mg tablet (WesTab Plus) ondansetron HCl 4 mg tablet 4 mg PO Q8H PRN nausea and 10/21/24 11/04/24 Rx vomiting #30 tabs Laboratory Tests 11/07/24 11/07/24 14:57 14:58 WBC 8.2 K/mm3 (4.5-10.0) RBC 3.91 L M/mm3 (4.2-5.4) Hgb 11.4 L g/dL (12.0-15.0) Hct 35.0 L % (37.0-47.0) MCV 89.5 fl (80-100) MCH 29.2 pg (26-34) MCHC 32.6 g/dl (32-36) RDW 13.2 % (11.5-14.5) Plt Count 196 k/mm3 (150-375) MPV 11.2 H fl (7.4-10.4) Immature Gran % (Auto) 0.5 % (0-0.5) Neut % (Auto) 64.8 % (45.5-73.1) Lymph % (Auto) 26.1 % (18.3-44.2) [place] % (Auto) 7.4 % (2.6-8.5) Eos % (Auto) 0.7 % (0-4.4) Baso % (Auto) 0.5 % (0.2-1.2) Lymph # (Auto) 2.15 K/mm3 (0.9-3.2) [place] # (Auto) 0.6 K/mm3 (0.1-0.6) Eos # (Auto) 0.1 K/mm3 (0-0.3) Baso # (Auto) 0.0 K/mm3 (0.0-0.1) Abs Immat Gran (auto) 0.04 H K/mm3 (0.00-0.031) Absolute Neuts (auto) 5.3 K/mm3 (1.3-6.7) Absolute Nucleated RBC 0.000 K/mm3 (0.0-0.012) Nucleated RBC % 0.0 % (0.0-0.2) Syphilis IgG/IgM Ab Negative (Negative) HIV 1&2 Ab/P24 Ag 4thGn Negative (Negative) Blood Type A Positive Antibody Screen Negative Patient hx anesthesia problems: none Family hx anesthesia problems: none Results Review: All pre-operative results and documents have been reviewed as part of the pre-operative evaluation. [facility] Past Medical History Medical History GERD (gastroesophageal reflux disease) No active medical problems Family History Family History Other Diabetes mellitus Heart disease Melanoma Social History Social History Smoking status: Former smoker Tobacco type: e-cigarettes/vaping Alcohol intake: never Substance use: current Substance use type: marijuana Do You Feel Safe in your Home?: Yes Lack of Transportation: No Lack of Food: Never True Current Housing: I Have Housing Concerned About Future Housing: No Difficulty Paying Gas/Electric Bills: No Difficulty Paying for Meds: No Currently Unemployed: No Education: Associate Degree Difficulty w/ Childcare or Family Care: No Living arrangements: other Additional living arrangements comments: boyfriend/FOB Occupation/Education: occupation Additional occupation/education comments: [employer] Gender identity (if verbalized by the patient): Female Sexual Orientation (if Verbalized by the Patient): Straight or Heterosexual Spiritual care concerns: No Exam Day of Procedure 11/07/24 18:33 Patient weight: overweight Heart: regular rate and rhythm Lungs: normal air movement Airway: Mallampati scale class II Neurological: alert and oriented
[2024-11-07] MEDS: METOCLOPRAMIDE HCL INJ 10 MG/2 ML VIAL IV PUSH (19:39)
--- NOTE | 2024-11-07 20:17 | PM.OBPRVD ---
OB - Vaginal Delivery Note Procedure Delivery date: 11/07/24 Induction method: AROM Delivery augmentation: Pitocin Delivery monitor: External FHT and External Uterine Route of delivery: Episiotomy description: None Laceration Description: Perineal - 2nd Degree Delivery repair: vicryl Specimen: No Quantitative Blood Loss (ml): 150 Anesthesia type: Epidural Disposition: Floor Complications: No immediate complications Narrative: Patient pushed for a spontaneous vaginal delivery. The fetus was delivered atraumatically and placed on the maternal abdomen. The cord was clamped and cut after 1 minute of life. The cord was double clamped and cut and a segment of cord was collected for cord gases. Cord blood was collected for blood type and Coomb's testing. The placenta delivered spontaneously and was noted to be intact. The perineum was inspected and a second degree perineal laceration was noted. The laceration was repaired with 3-0 vicryl in a running fashion. The uterus was firm and good hemostasis was noted. Baby Date of : 11/07/24 Time of : 19:59 Gestational Age by Date: 39 gender: Male presentation: vertex position: Right Occiput Anterior Placenta delivery description: Spontaneous Cord Vessel Description: 3 Vessels score one minute: 8 score five minutes: 9
[2024-11-07] MEDS: OXYTOCIN 30 UNITS/NS 500 ML 30 UNITS/500 ML BAG 125 UNITS IV CONT (20:29)
[2024-11-07] MEDS: WITCH HAZEL 40 PADS 1 PAD TOPICAL (22:31)
[2024-11-07] MEDS: BENZOCAINE 20% AER SPR (*SP) 56 GM CAN 1 SPRAY TOPICAL (22:32)
[2024-11-07] MEDS: ACETAMINOPHEN 325 MG TABLET 650 MG PO (23:47)
[2024-11-08 04:51] LABS: Hematocrit 30.2 % (37.0-47.0); Hemoglobin 9.9 g/dL (12.0-15.0)
[2024-11-08] MEDS: ONDANSETRON INJ 4 MG/2 ML VIAL IV PUSH (07:09)
[2024-11-08 07:16] VITALS: BP 134/77; PULSE 76
--- NOTE | 2024-11-08 07:28 | PM.OBPNVD ---
OB - PN: Subj Subjective Date/time seen: 11/08/24 07:28 Patient comments: no complaints, pain well controlled and tolerating diet [place] feeding status: exclusively breast feeding Narrative: patient doing well this AM. No complaints. Pain is well controlled. She reports minimal bleeding. She is ambulating and voiding without difficulty. She is tolerating PO. She denies N/V, fever, chills. OB - PN: Obj Data Labs 11/08/24 04:41 Labs: Laboratory Results - last 24 hr 11/07/24 11/07/24 11/08/24 14:57 14:58 04:41 WBC 8.2 RBC 3.91 L Hgb 11.4 L 9.9 L Hct 35.0 L 30.2 L MCV 89.5 MCH 29.2 MCHC 32.6 RDW 13.2 Plt Count 196 MPV 11.2 H Immature Gran % (Auto) 0.5 Neut % (Auto) 64.8 Lymph % (Auto) 26.1 [place] % (Auto) 7.4 Eos % (Auto) 0.7 Baso % (Auto) 0.5 Lymph # (Auto) 2.15 [place] # (Auto) 0.6 Eos # (Auto) 0.1 Baso # (Auto) 0.0 Abs Immat Gran (auto) 0.04 H Absolute Neuts (auto) 5.3 Absolute Nucleated RBC 0.000 Nucleated RBC % 0.0 Syphilis IgG/IgM Ab Negative HIV 1&2 Ab/P24 Ag 4thGn Negative Blood Type A Positive Antibody Screen Negative OB - PN A/P Plan day: 1 Plan: routine care Comments: patient doing well H/H 9.06/09, will initiate iron supplementation Pain well controlled with p.o. medications Denies any bleeding issues Patient desires infant circumcision. Risks, benefits, alternatives discussed. Will plan for infant circumcision after pediatric evaluation continue routine care Time Spent With Patient Time: Total time spent is greater than 50% in coordination of care (as documented) at patient's floor/unit and/or counseling patient: Time with patient: less than 15 minutes Review of Systems Review of Systems: All systems reviewed & are unremarkable except as noted in HPI and below Exam Const: General: comfortable and no acute distress Resp: Effort & Inspection: normal respiratory effort Cardio: Rate: regular rate GI: GI Palp: Yes Soft to palpation and No Tenderness to palpation present (GI) Auscultation: normal bowel sounds Other: fundus firm and below umbilicus. Psych: Affect: normal affect
[2024-11-08 07:30] VITALS: BP 122/75; PULSE 63
[2024-11-08 07:45] VITALS: BP 128/71; PULSE 68; RESP 16; TEMP 37.2
--- NOTE | 2024-11-08 07:45 | PC.NURSE ---
Nausea resolved after Zofran.
[2024-11-08 07:46] VITALS: BP 122/65; PULSE 64
[2024-11-08] MEDS: FAMOTIDINE 20 MG TABLET PO (09:10)
[2024-11-08] MEDS: MULTIVIT/MIN/PREN/FOL AC/IRON TABLET 1 TAB PO (09:11)
[2024-11-08] MEDS: POLYSACCHARIDE IRON COMPLEX 150 MG CAPSULE PO ×2 (09:11→16:25)
[2024-11-08] MEDS: SIMETHICONE 80 MG TAB.CHEW PO (09:11)
[2024-11-08] MEDS: IBUPROFEN 600 MG TABLET PO ×2 (10:39→16:25)
[2024-11-08 12:25] VITALS: BP 128/71; PULSE 66; RESP 18; TEMP 36.7
--- NOTE | 2024-11-08 12:27 | OBPPTRN ---
Patient transferred to post room #288 via wheelchair. Support person present. Oriented to unit, room, information board, rooming in, admission packet and security measures. Patient verbalizes understanding.
[2024-11-08] MEDS: ACETAMINOPHEN 325 MG TABLET 650 MG PO (12:50)
--- NOTE | 2024-11-08 13:45 | PC.NURSE ---
Introductions were made, then consulted with patient to assess needs related to . Mother led the conversation with her?plans to feed?her and the?experience so far. Per mother he has a few successful feedings since and plans on exclusively . RN encouraged understanding of the benefits of skin to skin (demonstrating unwrapping and placing upright on her chest), stimulating with massage touch, changing positions to encourage wakefulness, how to watch for early feeding cues, responsive feeding, feeding on demand (aiming for 8-12 times in 24 hours, about every 2-3 hours), milk production, building/maintaining a milk supply, duration of feeding, signs of adequate intake/output and how to record on the feeding sheet. Mother works well with her with encouragement and education. Reviewed positioning and ear, shoulder, hip alignment, supporting the breast to facilitate a deep latch, asymmetrical latch (off-center), leading with the chin with a big, open, wide gape and body close to mother. Infant latched optimally to the [left] breast in [football] position. Education given to the mother of how to visualize the suckling (with good rocking jaw motion), swallows (dropping of the lower jaw) and how to listen for drinking at the breast (the ka sound). was [able] to maintain latch without pain to mother protecting the nipple with optimal positioning and latching. Reviewed comfort measures of healing with a warm, wet washcloth to rinse breast, then leave open to air-dry, good handwashing when or touching the breast/nipples to prevent infection. Mother voiced understanding of skin to skin, stimulating with massage touch, responsive feedings, hand expressed colostrum, talking to infant to encourage if it has been 2 -2.5 hours since the start of the last , to call if infant does not latch, or if there is discomfort with . Resources used for education were facilitated with the [visual educational handouts/ tool/mom and baby guide], Inpatient/outpatient resources provided with business card, feeding sheet, name written on the communication board, and the mom/baby guide. Parents voiced understanding of information, demonstrated learning and will call if there is a request for assistance. Reported to the Primary RN.
[2024-11-08 19:42] VITALS: BP 125/67; PULSE 84; RESP 14; TEMP 36.8; O2SAT 100
[2024-11-09] MEDS: IBUPROFEN 600 MG TABLET PO ×2 (00:27→10:43)
[2024-11-09] MEDS: ACETAMINOPHEN 325 MG TABLET 650 MG PO (00:27)
[2024-11-09 07:00] VITALS: BP 123/78; PULSE 60; RESP 16; TEMP 36.2; O2SAT 99
--- NOTE | 2024-11-09 07:41 | PM.OBDSVD ---
DS: Admitting Diagnosis Discharge Date 11/09/24 Admitting Diagnosis intrauterine at term OB - DS: Summary OB Procedures : None OB Procedures Intrapartum: Spontaneous Vag Delivery OB Procedures: : None Peripartum Data Laceration Description: Perineal - 2nd Degree Episiotomy description: None Status at Discharge Functional status at discharge: independent ambulation Overall status at discharge: patient is back to baseline Time Spent with Patient Time attestation: Total time spent providing and/or coordinating discharge services: Time spent: Less than 30 minutes Exam Const: General: comfortable and no acute distress Resp: Effort & Inspection: normal respiratory effort Auscultation: clear to auscultation bilaterally Cardio: Rate: regular rate GI: GI Palp: Yes Soft to palpation Auscultation: normal bowel sounds Other: Fundus firm below umbilicus Psych: Appearance: grossly normal Mental Status: mental status grossly normal Affect: normal affect Discharge Plan Discharge Consulting providers: Kemar Ugalde Discharging Clinician: Lev Tejeda Activity: as tolerated and pelvic rest Diet: regular Patient Instructions: Vaginal Delivery (DC) Patient Language: Maltese Follow-up/Referrals: Lev Tejeda MD [Physician] - Discharge Medications: New ibuprofen 600 mg tablet 600 mg PO Q6H PRN (Reason: pain) Qty: 30 0RF acetaminophen 500 mg tablet 500 mg PO Q6H PRN (Reason: pain) Qty: 30 0RF Continued ondansetron HCl 4 mg tablet 4 mg PO Q8H PRN (Reason: nausea and vomiting) Qty: 30 1RF WesTab Plus 27 mg iron- 1 mg tablet 1 tablet PO DAILY Qty: 30 2RF Date of admission: 11/07/24 14:27 Primary Care Provider: UNKNOWN,DOCTOR Admitting Provider: Lev Tejeda Attending physician on admission: Lev Tejeda Condition: Stable
[2024-11-09] MEDS: LANOLIN (LANSINOH) 7.5 GM CREAM 1 APPLIC TOPICAL (10:35)
[2024-11-09] MEDS: MULTIVIT/MIN/PREN/FOL AC/IRON TABLET 1 TAB PO (10:35)
[2024-11-09] MEDS: DOCUSATE SODIUM 100 MG CAPSULE PO (10:35)
[2024-11-09] MEDS: TETANUS,DIPHTHERIA,AC PERTUSSIS ADULT (0.5 ML) BOOSTRIX IM (10:36)
[2024-11-09] MEDS: POLYSACCHARIDE IRON COMPLEX 150 MG CAPSULE PO (10:36)
--- NOTE | 2024-11-09 13:00 | PC.NURSE ---
Insurance breast pump (Zomee) provided per mom request. Instructions given on cleaning, care, usage, that there should be no pain, pumping schedule for milk production, collection, and storage of human milk. Patient was assessed for correct placement, flange size, to pump for comfort and nipple stretching/stimulation for adequate milk production every 3 hours (8 times in 24 hours) 1-2 times at night. Parents are encouraged to record the pumping schedule on the feeding sheet.?Mother voiced understanding of the education shared along with mom/baby guide and the pump measurement, flange fit handout for additional resource information. Reported to the Primary RN.
--- NOTE | 2024-11-09 13:00 | PC.NURSE ---
Patient viewed the discharge video Mother & Baby Care, The First Two Weeks . Patient was given the opportunity and encouraged to ask questions. Patient verbalized understanding of information shared and has been given the mother/baby guide for home reference.
[2024-11-12 10:39] VITALS: BP 140/88; PULSE 60; RESP 18; TEMP 36.8; O2SAT 99
== END 2024-11-09 16:20 | disposition home or self-care (01) | DRG 560 ==
LOC: ANHLDR 14:34 → ANHOB2 11-08 12:34
PROVIDERS: Admitting Provider Student in an Organized Health Care Education/Training Program; Visit Provider Student in an Organized Health Care Education/Training Program
DX: O99.62 Diseases of the digestive system complicating childbirth (principal); Z37.0 Single live birth; Z3A.39 39 weeks gestation of pregnancy; K21.9 Gastro-esophageal reflux disease without esophagitis; O70.1 Second degree perineal laceration during delivery
CPT/HCPCS: 36415; 85014; 85018; 85025; 86593; 86703; 86850; 86900; 86901; 90715; A9270; G0432; J2405; J2590; J2765; J2795; J3010; J7120

== ENCOUNTER 2024-12-09 10:59 | Outpatient (RCR) | payer OTHER, SELFPAY ==
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
== END 2025-03-09 23:59 | disposition home or self-care (01) ==
LOC: ANHOBOP 10:59
PROVIDERS: Visit Provider Obstetrics & Gynecology
DX: Z39.1 Encounter for care and examination of lactating mother (principal)
CPT/HCPCS: 99202; G0463

== ENCOUNTER 2025-05-12 00:49 | Day surgery (SDC) | payer OTHER, SELFPAY ==
[2025-05-07 14:58] VITALS: BMI 28.8
--- NOTE | 2025-05-07 15:05 | PC.NURSE ---
Report to the Outpatient Waiting Room, entrance under the green pavilion located off [facility], at time _0730_ on date _[id number]_. Planned Procedure Time: _0930_.? Time changes happen often and if your time is changed the preop area will call you the afternoon before. - You and your visitor will be asked to self-screen and do not enter if you have any COVID symptoms. Please call surgeon if you need to reschedule. - A mask is optional within the hospital at this time. Patients may have clear liquids (water, carbonated beverages, clear teas, apple juice) until 3 hours prior to surgery with a maximum of 20 ounces. - No food from midnight until time of surgery and no smoking, or chewing tobacco (or any form of nicotine). No chewing gum, candy or mints. Take only the following medications with a SIP of water on the morning of surgery: __Buspirone, Sertraline and if needed Zofran DO NOT STOP ANY OF YOUR OTHER PRESCRIPTION MEDICATIONS PRIOR TO SURGERY EXCEPT THE FOLLOWING Hold all vitamins and supplements for 3 days per anesthesiologist. Medications to discontinue per physician Date to take last dose Please no make-up, nail prydeinig, hairspray, perfume, deodorant, or body powder the day of surgery.? No jewelry (including any body piercings) or valuables the day of surgery, leave them at home.? Please take a shower or bath the night before, or the morning of, surgery with an antibacterial soap.? Wear comfortable, loose fitting clothing.? - Jewelry must be removed prior to entering the operating room.? Rings and piercings that are not removed may be cut off. - The hospital will not accept responsibility for valuables.? - Please leave all valuables, including medications, at home the day of surgery. If you are going home after surgery, a licensed delivery driver must drive you home.? - NO public transportation without another adult if you receive anesthesia. - We recommend that an adult stay with you for 24 hours following discharge. - We also recommend that you do not drive, make important decision, drink alcoholic beverages, or take any drugs that were not prescribed by your health care provider for at least 24 hours after your discharge time. Follow any additional instructions given to you from your surgeon. Telephone instructions given to __aTwny___and asked if any additional questions and then verbalized understanding. Patient advised to call surgeon office or pre surgery nurse liaison [phone] if any additional questions.
--- OUTSIDE RECORDS SUMMARY | 2025-05-12 00:52 | XMS_ITS | Encounter Summary ---
Author Organization [facility] Address [facility] [facility] [place] [address] Care Team Providers Care Envelope Fold Operator Name Role Phone Unavailable Primary Care Provider Unavailabl e Encounter Details Date Type Department Care Team (Late st Contact Info) Description 04/14/2020 Lab Requisition [facility] [address] [place] [address] Social History Tobacco Use Types Packs/Day Years Used Date Smoking Tobacco: Never Assessed Comments Unknown Sex and Gender Information Value Date Recorded Sex Assigned at Not on file Legal Sex Female 5:40 AM LICENSING SERVICES CLERK Gender Identity Not on file Sexual Orientation [...] Not detected, Invalid 04/17/2020 3:59 AM CDT [facility] MICROBIOLOGY Microbiology SPECIMEN FROM NASOPHARYNGEAL STRUCTURE / Unknown Collection / Unknown 04/14/2020 8:55 AM CDT 04/14/2020 6:16 PM CDT Narrative [facility] MICROBIOLOGY - 04/17/2020 3:59 AM CDT This Real Time RT-PCR assay was developed and its performance characteristics determined by [facility]. This test has been [...] the authorization is terminated or revoked sooner. us LAB - MICROBIOLOGY ORDERABLES Fi nal Result [facility] MICROBIOLOGY [address] [place] [address], [facility] [phone] documented in this encounter Visit Diagnoses Not on filedocumented in this encounter Additional Health Concerns Infection Onset Date Last Indicated Resolved Time COVID-19 Under Investigation 04/14/2020 04/14/2020 04/17/2020 3:59 AM CDT COVID-19 Under Investigation 07/28/2020 07/28/2020 07/31/2020 6:11 AM LICENSING SERVICES CLERK documented as of this encounter
--- OUTSIDE RECORDS SUMMARY | 2025-05-12 00:52 | XMS_ITS | Clinical Summary ---
Author Organization [facility] Address [address] [id number] Care Team Providers Care Film Cleaner Name Role Phone No, Physician Primary Care Provider [phone] Allergies No known active allergies Medications guaiFENesin [...] vomiting 30 tablet 4 Active PNV with [id number] 27 mg iron- 1 mg tablet Take [...] 30 tablet 3 4 Active Active Problems No known active problems Surgical History Surgery Date Site/Laterality Comments NO [...] you feel afraid or unsafe? Denies 07/22/2024 Comments Unknown Sex and Gender Information Value Date Recorded Sex Assigned at Not on file Legal Sex Female 11:54 AM TEXTILE SCREEN PRINTER Gender Identity Not on file Sexual Orientation Not on file Obstetrics History Para Term AB IAB SAB Ectopic Multiple Livin g Live Births 1 Date Outcome GA Total Labor Labor/2nd/3rd Weight Sex Type Anes PTL Nellie A1 A5 Name Clin Last Filed Vital Signs Vital Sign Reading Time Taken Comments Blood Pressure 122/56 07/22/2024 9:24 AM TEXTILE SCREEN PRINTER Pulse 67 07/22/2024 9:24 AM TEXTILE SCREEN PRINTER Temperature 36.8 C (98.2 F) 07/22/2024 9:24 AM TEXTILE SCREEN PRINTER Respiratory Rate 18 07/22/2024 9:24 AM TEXTILE SCREEN PRINTER Oxygen Saturation 99% 07/22/2024 9:24 AM TEXTILE SCREEN PRINTER Inhaled Oxygen Concentration - - Weight 79.8 kg (175 lb 14.8 oz) 07/22/2024 7:24 AM TEXTILE SCREEN PRINTER Height 170.2 cm (5' 7) 03/24/2024 11:0 4 AM CDT Body Mass Index 27.55 03/24/2024 11:04 AM CDT Plan of Treatment Health Maintenance Due Date Last Done Comments Cervical Cancer Screening 2000 Depression Screening 2000 Hepatitis C Screening 2000 Regular Well Visit/Exam 18-64 2018 Chlamydia and Gonorrhea (GC/ CT) Screening 06/07/2023 06/07/2022 Influenza Vaccine (#1) 2025 06/22/2014 DTaP/Tdap/Td Vaccine (8 - Td or Tdap) 02/05/2027 02/05/2017, 05/27/2013, 02/14/2005, Additional history exists Hepatitis B Screening Completed 06/19/2001, 001 Pneumococcal vaccine <65 Completed 013, 04/04/2002, 03/14/2001, Additional history exists Varicella Vaccines Completed 04/20/2014, 11/04/2001 HPV Vaccines Completed 05/10/2015, 06/10, 04/20/2014 Procedures Procedure Name Priority Date/Time Associated Diagnosis Comments N. GONORRHOEAE/C. TRACHOMATIS AMPLIFICATION STAT 06/07/2022 12:51 AM CDT from Last 3 Months or Most Recently Relevant to Health Maintenance Results * N. gonorrhoeae/C. trachomatis Amplification Urine (06/07/2022 12:51 AM CDT) C. trachomatis Not Detected Not Detected JOSE Comment:Testing performed by : [facility], [address] [place] [address]., [id number] N. gonorrhoeae Not Detected Not Detected JSOE LIVINGSTON Comment: Interpretive Data Testing performed by the [facility]. This assay detects Chlamydia trachomatis [...] last revised on 2019. Testing performed by: [facility], [address] [place] [address]., [id number] Urine (None) 06/07/2022 12:5 1 AM CDT 06/07/2022 12:56 AM CDT Laura Santa DO LAB MICROBIOLOGY - GENERAL ROSEMARIE BROCK Final Result JOSE [address] [facility] Department [place] [address] from Last 3 Months or Most Recently Relevant to Health Maintenance Insurance [employer] [facility] Member Subscriber Plan / Payer (Ef fective 2024-Present) Name:Tawny Nicholas Relation to Subscriber:Self Name:CristopherTawny alcantara Payer ID:[id number] (NAIC) Group ID:Not on file Type:MEDICAID RISK OTHER Address: ATTN: CLAIMS DEPT [address] [facility] [place] [phone] [facility] [address] [address] [place] [address] Care Teams Film Cleaner Relationship Specialty Start Date End Date No, Physician PCP - General 12/30/20
--- OUTSIDE RECORDS SUMMARY | 2025-05-12 00:52 | XMS_ITS | Encounter Summary ---
Author Organization [facility] Address [facility] [facility] [place] [address] Care Team Providers Care Hearing Impaired Teacher Name Role Phone Unavailable Primary Care Provider Unavailabl e Encounter Details Date Type Department Care Team (Late st Contact Info) Description 07/29/2020 Lab Requisition [facility] [address] [place] [address] Social History Tobacco Use Types Packs/Day Years Used Date Smoking Tobacco: Never Assessed Comments Unknown Sex and Gender Information Value Date Recorded Sex Assigned at Not on file Legal Sex Female 5:40 AM SHOP CLERK Gender Identity Not on file Sexual Orientation Not on file documented as of this encounter Plan of Treatment Not on file documented as of this encounter Procedures Procedure Name Priority Date/Time Associated Diagnosis Comments SARS-COV-2 (COVID-19) IN HOUSE Routine 07/28/2020 4:45 PM SHOP CLERK documented in this encounter Results * SARS-COV-2 (COVID-19) IN HOUSE (07/28/2020 4:45 PM SHOP CLERK) COVID-19 PCR Not detected Not detected 07/31/2020 6:11 AM SHOP CLERK [facility] MICROBIOLOGY Microbiology SPECIMEN FROM NASOPHARYNGEAL STRUCTURE / Unknown Collection / Unknown 07/28/2020 4:45 PM SHOP CLERK 07/29/2020 1:59 PM SHOP CLERK Narrative [facility]CROBIOLOG[facility] - 07/31/2020 6:11 AM SHOP CLERK This Real Time RT-PCR assay was developed and its performance characteristics determined by [facility]. This test has been authorized [...] this EUA assay are available upon request. us LAB - MICROBIOLOGY ORDERABLES Fi nal Result [facility] [address] [place] [address], [facility] [phone] documented in this encounter Visit Diagnoses Not on filedocumented in this encounter Additional Health Concerns Infection Onset Date Last Indicated Resolved Time COVID-19 Under Investigation 07/28/2020 07/28/2020 07/31/2020 6:11 AM SHOP CLERK documented as of this encounter
--- OUTSIDE RECORDS SUMMARY | 2025-05-12 00:52 | XMS_ITS | Encounter Summary ---
Author Organization [facility] Address [facility] [facility] [place] [address] Care Team Providers Care Capsule Maker Name Role Phone Unavailable Primary Care Provider Unavailabl e Encounter Details Date Type Department Care Team (Late st Contact Info) Description 03/29/2020 Lab Requisition [facility] [address] [place] [address] Social History Tobacco Use Types Packs/Day Years Used Date Smoking Tobacco: Never Assessed Comments Unknown Sex and Gender Information Value Date Recorded Sex Assigned at Not on file Legal Sex Female 5:40 AM OUTBOUND SALES EXECUTIVE Gender Identity Not on file Sexual Orientation [...] Not detected, Invalid 03/30/2020 6:18 AM CDT [facility] MICROBIOLOGY Microbiology SPECIMEN FROM NASOPHARYNGEAL STRUCTURE / Unknown Collection / Unknown 03/29/2020 8:10 AM CDT 03/30/2020 2:17 AM CDT Narrative [facility]CRO[facility] - 03/30/2020 6:18 AM CDT [...] LAB - MICROBIOLOGY ORDERABLES Fi nal Result [facility]CROBI[facility] [address] [place] [address], [facility] [phone] documented in this encounter Visit Diagnoses Not on filedocumented in this encounter Additional Health Concerns Infection Onset Date Last Indicated Resolved Time COVID-19 Under Investigation 03/29/2020 03/29/2020 03/30/2020 6:18 AM CDT COVID-19 Under Investigation 04/14/2020 04/14/2020 04/17/2020 3:59 AM CDT COVID-19 Under Investigation 07/28/2020 07/28/2020 07/31/2020 6:11 AM OUTBOUND SALES EXECUTIVE documented as of this encounter
--- OUTSIDE RECORDS SUMMARY | 2025-05-12 00:52 | XMS_ITS | Clinical Summary ---
Author Organization [email or web address] Address [address] [place] [address] Care Team Providers Care Byproduct Engineer Name Role Phone Unavailable Primary Care Provider Unavailabl e Source Comments [facility],non-owned Affiliates and Associated Physician Practices is amultiple site organization consisting of ambulatory clinics and hospital sitesin [place], [place], [place] and [place]. This disclosure is being madepursuant to the Care Everywhere program and may not contain all information available regarding this patient. Last updated [email or web address] Allergies No known active allergies Social History Tobacco Use Types Packs/Day Years Used Date Smoking Tobacco: Never Assessed Comments No Sex and Gender Information Value Date Recorded Sex Assigned at Not on file Legal Sex Female 5:40 AM FOOD AND BEVERAGE ASSOCIATE Gender Identity Not on file Sexual Orientation Not on file Last Filed Vital Signs Vital Sign Reading Time Taken Comments Blood Pressure 135/71 10/06/2021 8:57 AM FOOD AND BEVERAGE ASSOCIATE Pulse 75 10/06/2021 8:57 AM FOOD AND BEVERAGE ASSOCIATE Temperature 36.7 C (98 F) 10/06/2021 8:57 AM FOOD AND BEVERAGE ASSOCIATE Respiratory Rate 14 10/06/2021 8:57 AM FOOD AND BEVERAGE ASSOCIATE Oxygen Saturation 98% 10/06/2021 8:57 AM FOOD AND BEVERAGE ASSOCIATE Inhaled Oxygen Concentration - - Weight 131.5 kg (290 lb) 10/06/2021 8:57 AM FOOD AND BEVERAGE ASSOCIATE Height 170.2 cm (5' 7) 10/06/2021 8:57 AM FOOD AND BEVERAGE ASSOCIATE Body Mass Index 45.42 10/06/2021 8:57 AM FOOD AND BEVERAGE ASSOCIATE Plan of Treatment Health Maintenance Due Date Last Done Comments HIV SCREENING 2015 HPV VACCINE (1 - 3-dose series) 2015 CHLAMYDIA/GONORRHEA SCREENING 2016 HEPATITIS C SCREENING 08/27/2018 DTAP/TDAP/TD VACCINES (1 - Tdap) 2019 HEPATITIS B VACCINE (1 of 3 - 19+ 3-dose series) 2019 PAP SMEAR 2021 COVID-19 VACCINE (1 - 2023-2 5 season) 2024 DEPRESSION SCREENING 09/10/2024 INFLUENZA VACCINE (#1) 2025 06/22/2014 ZOSTER VACCINE (1 of 2) 2050 HIB VACCINE Aged Out No longer eligi ble based on patient's age to complete this topic MENINGOCOCCAL (Group B) VACC INE SHARED DECISION-MAKING Aged Out No longer eligibl e based on patient's age to complete this topic MENINGOCOCCAL GROUPS A/C/Y/W VACCINE Aged Out No longer eligible b ased on patient's age to complete this topic PNEUMOCOCCAL VACCINE Aged Out No long er eligible based on patient's age to complete this topic
--- OUTSIDE RECORDS SUMMARY | 2025-05-12 00:52 | XMS_ITS | Clinical Summary ---
Author Organization [facility] Address [address] [place] [address] Phone Care Team Providers Care Coil Strapper Name Role Phone Unavailable Primary Care Provider [...] relatives? Three times a week 12/24/2020 Attends Muslim Services Not on file 12/24 Active Member [...] Last Year Not on fi le 12/24/2020 At any time in the past [facility], were you homeless or living in a snf (including now)? No 12/24/2020 Comments No Sex and Gender Information Value Date Recorded Sex Assigned at Not on file Legal Sex Female 1:07 PM CDT Gender Identity Not on file Sexual Orientation Not on file Last Filed Vital Signs Vital Sign Reading Time Taken Comments Blood Pressure 120/82 12/24/2020 6:31 PM CDT Pulse - - Temperature 37.1 C (98.7 F) 12/24/2020 1:33 PM CDT Respiratory Rate 18 12/24/2020 6:31 PM CDT Oxygen Saturation 98% 12/24/2020 6:31 PM CDT Inhaled Oxygen Concentration - - Weight 132.9 kg (293 lb) 12/24/2020 1:33 PM CDT Height 170.2 cm (5' 7) 12/24/2020 1:33 PM CDT Body Mass Index 45.89 12/24/2020 1:33 PM CDT Plan of Treatment Health Maintenance Due Date Last Done Comments HPV VACCINES (1 - 3-dose series) 2015 DTAP/TDAP/TD VACCINES (1 - Tdap) 2019 HEPATITIS B VACCINES (1 of 3 - 19+ 3-dose series) 08/11 CERVICAL CANCER SCREENING 2021 HPV/Cotest (21-29) 2021 PAP SMEAR 2021 INFLUENZA VACCINE (#1) 2025 Insurance RX [employer] (INTERNAL) [facility] [employer]
[2025-05-12 07:53] VITALS: BP 106/52; PULSE 64; RESP 16; TEMP 36.3; O2SAT 100
--- NOTE | 2025-05-12 07:56 | P.PNAN_ITS ---
Anes - Initial Pre Proc Eval Procedure: Operation Date: 05/12/25 09:30 Proposed Procedures p Suction Dilatation and Curettage - Lev Tejeda MD Date/Time: 05/12/25 07:56 Surgeon: Lev Tejeda MD Pre Op Diagnosis: missed AB Patient Data Age: 24 Gender: F Height: 1.7 m Weight: 83.6 kg Allergies Allergy/AdvReac Type Severity Reaction Status Date / Time No Known Allergies Allergy Verified 05/07/25 14:57 Home Medications ?Medication ?Instructions ?Recorded ?Confirmed ?Type sertraline 25 mg tablet 25 mg PO DAILY #90 tabs 03/2 05/0405/12/25 Rx ondansetron HCl 4 mg tablet 4 mg PO Q6H PRN nausea and 05/04/25 05/12/25 Rx vomiting #30 tabs buspirone 15 mg tablet 15 mg PO BID 05/07/25 History Patient hx anesthesia problems: none Family hx anesthesia problems: none Results Review: All pre-operative results and documents have been reviewed as part of the pre- operative evaluation. [facility] Past Medical History Medical History (Updated 05/12/25 @ 08:47 by Lev Tejeda MD) Anxiety and depression GERD (gastroesophageal reflux disease) No active medical problems Family History Family History Other Diabetes mellitus Heart disease Melanoma Social History Social History (Updated 04/22/25 @ 11:14 by TAB Gomez) Smoking status: Current every day smoker Tobacco type: e-cigarettes/vaping Alcohol intake: never Substance use: current Substance use type: marijuana Other substance usage details: Daily Do You Feel Safe in your Home?: Yes Lack of Transportation: No Lack of Food: Sometimes True Current Housing: I Have Housing Concerned About Future Housing: No Difficulty Paying Gas/Electric Bills: Decline to Answer Difficulty Paying for Meds: Decline to Answer Currently Unemployed: No Education: High School Diploma/GED Difficulty w/ Childcare or Family Care: No Living arrangements: with family Additional living arrangements comments: boyfriend/FOB Occupation/Education: occupation Additional occupation/education comments: [employer] Gender identity (if verbalized by the patient): Female Sexual Orientation (if Verbalized by the Patient): Straight or Heterosexual Spiritual care concerns: No Anes - Eval Final PreProcedure Day of Procedure 05/12/25 07:56 Patient weight: overweight Heart: regular rate and rhythm Lungs: clear to auscultation Airway: Mallampati scale class II Neurological: alert and oriented Last oral intake: >/= 8 hours ASA classification: III Emergent: no Anesthetic plan: proceed Anesthesia type and monitoring: general GIVS and standard monitoring Results Review: All pre-operative results and documents have been reviewed as part of the pre- operative evaluation. Informed Consent: The patient's anesthetic plan and its attendant risks and benefits were discussed with the patient/family/POA. Questions were solicited and answers provided to the satisfaction of the patient/family/POA.
--- NOTE | 2025-05-12 08:45 | PM.IMHP ---
H&P: HPI History of Present Illness Date/Time: 05/12/25 08:45 Chief Complaint: missed Narrative: 24-year-old who presents for suction D&C for management of spontaneous missed . Patient presented for dating/viability scan an intrauterine was noted with no heart tones. Patient denies any pain, cramping, bleeding, fevers, chills, nausea, vomiting. Review of Systems Cardiovascular: Cardiovascular: Denies chest pain, Denies leg edema, Denies palpitations, Denies dyspnea and Denies dyspnea on exertion Respiratory: Respiratory: Denies cough, Denies dyspnea and Denies dyspnea on exertion Gastrointestinal: Gastrointestinal: Denies abdominal pain, Denies constipation, Denies diarrhea, Denies nausea and Denies vomiting Genitourinary: Genitourinary: Denies hematuria, Denies urinary frequency, Denies dysuria, Denies pelvic pain, Denies urinary incontinence and Denies vaginal discharge Neurologic: Reports system reviewed and no additional complaints, except as documented Psychiatric: Psychiatric: Reports no additional psychiatric complaints Endocrine: Endocrine: Denies palpitations [facility] Past Medical History Medical History (Updated 05/12/25 @ 08:47 by Lev Tejeda MD) Anxiety and depression GERD (gastroesophageal reflux disease) No active medical problems Family History Family History Other Diabetes mellitus Heart disease Melanoma Social History Social History (Updated 04/22/25 @ 11:14 by TAB Gomez) Smoking status: Current every day smoker Tobacco type: e-cigarettes/vaping Alcohol intake: never Substance use: current Substance use type: marijuana Other substance usage details: Daily Do You Feel Safe in your Home?: Yes Lack of Transportation: No Lack of Food: Sometimes True Current Housing: I Have Housing Concerned About Future Housing: No Difficulty Paying Gas/Electric Bills: Decline to Answer Difficulty Paying for Meds: Decline to Answer Currently Unemployed: No Education: High School Diploma/GED Difficulty w/ Childcare or Family Care: No Living arrangements: with family Additional living arrangements comments: boyfriend/FOB Occupation/Education: occupation Additional occupation/education comments: [employer] Gender identity (if verbalized by the patient): Female Sexual Orientation (if Verbalized by the Patient): Straight or Heterosexual Spiritual care concerns: No Meds Home Medications and Allergies Home Medications ?Medication ?Instructions ?Recorded ?Confirmed ?Type sertraline 25 mg tablet 25 mg PO DAILY #90 tabs 12/05/24 05/12/25 Rx ondansetron HCl 4 mg tablet 4 mg PO Q6H PRN nausea and 05/04/25 05/12/25 Rx vomiting #30 tabs buspirone 15 mg tablet 15 mg PO BID 05/07/25 05/12/25 History Allergies Allergy/AdvReac Type Severity Reaction Status Date / Time No Known Allergies Allergy Verified 05/07/25 14:57 Exam Const: General: no acute distress Eyes: EOM: EOMs intact bilaterally Neck: Neck: supple Thyroid: thyroid normal Chest: Breast/axilla inspection: normal inspection of the breasts Breast/axilla palpation: normal palpation of the breasts, normal palpation of the axillae and no axillary lymphadenopathy Resp: Effort & Inspection: normal respiratory effort Auscultation: clear to auscultation bilaterally Cardio: Rate: regular rate Rhythm: regular rhythm GI: Inspection: non-distended GI Palp: Yes Soft to palpation, No Tenderness to palpation present (GI) and No Guarding due to palpation present (GI) Auscultation: normal bowel sounds : General: No bladder normal to palpation External Female Exam: normal external appearance Speculum Exam - Vagina: normal vaginal discharge and No vaginal bleeding Speculum Exam - Cervix: nontender Bimanual exam- vagina & uterus: No bladder normal to palpation and No Cervical tenderness present OB/external & speculum: No vaginal bleeding Skin: General skin exam: normal color and no rashes or lesions noted Neuro: Cognition (Neuro): normal cognition Speech: normal speech Extrem: General: normal to inspection and no edema Psych: Mental Status: mental status grossly normal Affect: normal affect Assessment and Plan Assessment and plan (1) Missed : Code(s): O02.1 - Missed Status: Acute Assessment and Plan: 24-year-old presents for suction D&C for management of spontaneous missed Patient was noted to have IUP with no cardiac activity on dating/viability ultrasound Patient denies any pain, cramping, bleeding Management options reviewed Patient elects to proceed with surgical management via D&C Risks, benefits, alternatives discussed
--- NOTE | 2025-05-12 08:48 | WPDHPUPDATE1 ---
History and Physical Update Update Date/Time: 05/12/25 08:48 History and Physical has been reviewed, including an updated exam of the patient. There are NO changes in the patient's condition. Risks, benefits, and alternatives have been discussed and questions answered. Patient agrees to proceed with procedure.
[2025-05-12 08:53] LABS: Hematocrit 37.5 % (37.0-47.0); Hemoglobin 12.1 g/dL (12.0-15.0)
[2025-05-12] MEDS: ACETAMINOPHEN 500 MG TABLET 1000 MG PO (08:55)
[2025-05-12] MEDS: DOXYCYCLINE IV 100 MG in SODIUM CHLORIDE 0.9% IV 100 ML IVPB (08:56)
[2025-05-12] MEDS: LACTATED RINGERS 1,000 ML 30 ML IV CONT (09:00)
--- NOTE | 2025-05-12 09:33 | S_PTH ---
PATIENT: Tawny Nicholas LOC: [facility] U#:[id number] AGE/SX: 24/F ROOM: RE05/12/[address]: Lev Tejeda MD : [id number] BED: DIS: 05/12/2025 SPEC #: [id number] RECD: 05/12/25 09:44 STATUS: MICHEL REQ #: [id number] JOVI: 05/12/25 09:[address]: Lev Tejeda DEPT: [facility] Surgical RECD BY: Tamara Lo ENTERED: 05/12/25 09:44 SP TYPE: Surgical OTHR DR: UNKNOWN,DOCTOR Tissues: A - Products of Conception Procedures: Hematoxylin and Eosin Stain Gross and Microscopic Level 4
--- NOTE | 2025-05-12 09:40 | W.PM.PROC2 ---
Procedure Note - Detailed Date of Procedure 05/12/25 Pre-op Diagnosis missed AB Post-op Diagnosis Same Procedure Performed Suction Dilation & curettage Surgeon Lev Tejeda MD Anesthesia General Indications spontaneous missed on pelvic US Findings intrauterine products of conception Description of Procedure The patient was taken to the operating room after a missed had been noted on on transvaginal ultrasound. The risks, benefits and alternatives of the procedure were reviewed with the patient and informed consent was obtained. The patient was taken to the OR and anesthesia was noted to be adequate. The patient was placed in the dorsolithotomy position. Pelvic exam was performed with findings noted above. The patient was prepped and draped in the usual sterile fashion. Sterile speculum was placed in the vagina and the cervix was grasped with a tenaculum. The cervix was dilated further to allow for passage of a 8 mm suction curette. The 8 mm suction curette was gently advanced to the fundus, suction was activated, and the tip was rotated while being withdrawn to clear the uterus of products. This suction process was repeated 3 additional times due to the quantity of material in the uterus. The sharp curette was introduced and advanced to the fundus to remove any remaining products. The suction curette was reintroduced one final time to ensure all products had been removed. The tenaculum was removed. Good hemostasis was noted. Instrument, sponge, and sharp counts were correct. Patient tolerated the procedure well and was taken to the recovery room in stable condition. Estimated Blood Loss 10 Drains No Packing No Pathology Yes (products on conception) Complications No immediate complications Condition Stable Disposition PACU [facility] Billing Surgery - Charge Forward: Surgery Billing
[2025-05-12 09:42] VITALS: BP 110/61; PULSE 60; RESP 12; O2SAT 100
[2025-05-12 10:10] VITALS: BP 115/67; PULSE 65; O2SAT 100
--- NOTE | 2025-05-12 10:20 | SUR.PHASEII ---
Patient blood type is A+. No Rhogam needed.
[2025-05-12] MEDS: DOXYCYCLINE HYCLATE 100 MG TABLET 200 MG PO (10:27)
[2025-05-12 10:40] VITALS: BP 119/65; PULSE 53
--- NOTE | 2025-05-16 10:55 | PC.NURSE ---
Called Tawny to get verbal consent for release of remains to [facility]. Message left for Tawny to call back regarding the home.
== END 2025-05-12 10:50 | disposition home or self-care (01) ==
PROVIDERS: Visit Provider Student in an Organized Health Care Education/Training Program
PROC: (CPT 59820; principal; 2025-05-12 09:30)
DX: O02.1 Missed abortion (principal); O08.0 Genital tract and pelvic infection following ectopic and molar pregnancy; F41.8 Other specified anxiety disorders; K21.9 Gastro-esophageal reflux disease without esophagitis; F17.290 Nicotine dependence, other tobacco product, uncomplicated; F12.90 Cannabis use, unspecified, uncomplicated; Z80.8 Family history of malignant neoplasm of other organs or systems; Z82.49 Family history of ischemic heart disease and other diseases of the circulatory system
CPT/HCPCS: 59820; 36415; 85014; 85018; 85461; 86850; 86900; 86901; 88305; A9270; J2003; J2250; J2704; J3010; J7120